=== PATIENT | male | born 1935 | race Caucasian/White ===

== ENCOUNTER 2020-11-28 09:25 | Outpatient (CLI) | payer MEDICARE, SELFPAY ==
--- NOTE | ~2020-11-28 | XR_ITS ---
EXAMINATION: XR chest 2V DATE: 11/28/2020 09:46 INDICATION: 3 months of cough TECHNIQUE: PA and lateral views of the chest were obtained. COMPARISON: Chest radiograph and CT dated 03/13/2018 FINDINGS: Upper expansion of lungs with flattening of the diaphragm consistent with emphysema better appreciate d on prior CT. There is bilateral calcified pleural plaques at the lateral left mid and right mid to lower lung zones. Mild streaky atelectasis in the bilateral dependent lung bases. No pleural effusion or pneumothorax. The cardiomediastinal silhouette is normal. Severe thoracic spondylosis. There is f usion of the lateral left first and second ribs. Couple old bilateral anterior rib fractures. IMPRESSION: 1. Emphysema with mild bibasilar atelectasis. 2. Bilateral calcified pleural plaques consistent with prior asbestos exposure. Reviewed, dictated and finalized at location A.
== END 2020-11-28 09:26 | disposition home or self-care (01) ==
LOC: ANHIMG 09:35
PROVIDERS: PCP Internal Medicine; Visit Provider Internal Medicine
DX: R05 Cough (principal); J43.9 Emphysema, unspecified; R91.8 Other nonspecific abnormal finding of lung field
CPT/HCPCS: 71046

== ENCOUNTER 2020-12-27 06:57 | Observation (INO) | payer MEDICARE, SELFPAY ==
[2020-12-27] VITALS (29 sets, daily range): BP systolic 102–172; BP diastolic 59–108; PULSE 90–212; RESP 13–30; TEMP 34.8–36.9; O2SAT 91–97; BMI 28.2
--- NOTE | ~2020-12-27 | CT_ITS ---
EXAMINATION: CTA chest PE abdomen pel DATE: 12/27/2020 08:15 INDICATION: Chest pain. Dyspnea. TECHNIQUE: Computed tomography (CT) pulmonary angiogram of the chest was performed with 100 mL Omnipa que-350 intravenous contrast. Additional 3D reconstructions utilizing coronal maximum intensity proje ction (MIP) were performed. CT of the abdomen and pelvis was performed with intravenous contrast util izing the same contrast bolus following a short delay. Automated exposure control and iterative recon struction technique were employed. The dose-length product was 801.53 mGy-cm. COMPARISON: 03/13/18 FINDINGS: Chest: Excellent contrast opacification of the pulmonary arteries. There is mild streak artifact from dense contrast in the superior vena cava and right atrium. Mild scattered respiratory motion artifact which does not significantly limit evaluation. No pulmonary embolism. Moderate upper lobe predominant emph ysema. Patchy airspace opacities in the dependent aspect of the bilateral lower lobes concerning for pneumonia. Bronchial wall thickening most prominent in the lower lobes with areas scattered mucous pl ugging. No pulmonary edema or pleural effusion. A few small bilateral calcified pleural plaques consi stent with prior asbestos exposure. Cardiomegaly. Atherosclerotic coronary artery calcification. No p ericardial effusion. Aortic valve calcification. Thoracic aorta is normal in caliber. Small sliding-t ype hiatal hernia. No pathologically enlarged thoracic lymphadenopathy. Severe thoracic spondylosis. Diffuse osteopenia. Abdomen/pelvis: Liver, spleen, pancreas and bilateral adrenal glands are normal. Gallbladder is dilated to 4.9 cm wit h 11 x 5 mm high attenuation likely gallstone at the neck of the gallbladder. No gallbladder wall thi ckening or definitive pericholecystic inflammatory change. Multiple subcentimeter bilateral renal cys ts. Bowels including the appendix are normal. There is calcified atherosclerosis of the aorta and man y of the other arteries. Prominent dilation of the otherwise normal bladder which measures 19.2 x 10. 3 x 13.0 cm. Prostatomegaly measuring 4.7 x 3.7 cm. No free intraperitoneal gas or fluid. Partially v isualized right hydrocele. No pathologically enlarged abdominal or pelvic lymphadenopathy. Mild lumba r levocurvature with severe spondylosis. Anterior fusion at L1-L2. IMPRESSION: 1. No pulmonary embolism. 2. Emphysema. 3. Patchy lung disease in the dependent lower lobes most likely pneumonia with scattered bilateral lo wer lobar mucous plugging. 4. Likely gallstone at the neck of the gallbladder which is dilated but without evident wall thickeni ng or pericholecystic inflammatory change indeterminate for acute cholecystitis. Correlate for Ryan and consider further evaluation with HIDA scan. 5. Prominent dilation of the otherwise normal bladder which could be due to outlet obstruction from t he mildly enlarged prostate. Reviewed, dictated and finalized at location A. IMPRESSION: 1. No pulmonary embolism. 2. Emphysema. 3. Patchy lung disease in the dependent lower lobes most likely pneumonia with scattered bilateral lower lobar mucous plugging. 4. Likely gallstone at the neck of the gallbladder which is dilated but without evident wall thickening or pericholecystic inflammatory change indeterminate f or acute cholecystitis. Correlate for Ryan and consider further evaluation wi th HIDA scan. 5. Prominent dilation of the otherwise normal bladder which could be due to out let obstruction from the mildly enlarged prostate.
--- NOTE | ~2020-12-27 | US_ITS ---
EXAMINATION: US abdomen limited DATE: 12/27/2020 09:31 INDICATION: Right upper quadrant abdominal pain. TECHNIQUE: Multiple grayscale and Doppler ultrasound images of the abdomen were obtained. COMPARISON: CT 12/27/2020 FINDINGS: The pancreas is obscured by bowel gas. The liver is normal without focal lesion. There is n ormal flow in main portal vein. The gallbladder is distended and contains gallstones. No gallbladder wall thickening or sonographic Ryan sign. The common duct is normal and measures 4 mm. Right kidney is normal. IMPRESSION: 1. Distended gallbladder with gallstones, but no gallbladder wall thickening or sonographic Ryan si gn to suggest acute cholecystitis. Reviewed, dictated and finalized at location A. IMPRESSION: 1. Distended gallbladder with gallstones, but no gallbladder wall thickening or sonographic Ryan sign to suggest acute cholecystitis.
--- NOTE | ~2020-12-27 | XR_ITS ---
EXAMINATION: XR barium swallow modified DATE: 12/28/2020 08:57 INDICATION: Dysphagia. TECHNIQUE: The patient was given barium-containing material of multiple consistencies to swallow by t he speech pathologist while I performed fluoroscopy. Fluoroscopy exposure time was 1.5 minutes. The n umber of fluoroscopy images saved to the PACS was 1. Dose-area product was 1.11 Gy-cm^2. FINDINGS: There is no laryngeal penetration or aspiration. IMPRESSION: 1. No laryngeal penetration or aspiration. 2. Please refer to the speech therapy report for recommendations. Reviewed, dictated and finalized at location A.
--- NOTE | 2020-12-27 07:00 | ED.ABDPAIN ---
HPI - Abdominal Pain General Chief Complaint: Abdominal Pain Stated Complaint: ABD PAIN Time Seen by Provider: 12/27/20 06:59 Source: patient Mode of arrival: ambulatory Limitations: no limitations History of Present Illness HPI narrative: Patient is an 85-year-old male with a history of atrial fibrillation, GI bleed, stage IV esophageal adenocarcinoma, following at [facility] who presents for evaluation of chest pain and abdominal pain. Chest pain begins in the right upper abdomen and travels to the lower chest. Pain is described as sharp and constant nature since midnight this morning. Associated nausea without vomiting. No fever or chills. No centralized chest pressure or radiation to the jaw, neck, shoulders. Patient does report radiation to the back. No ripping or tearing sensation to the flanks. No lower abdominal pain or suprapubic pain. No dysuria or hematuria. No diarrhea or constipation. Patient states his abdomen does not feel distended or bloated. Normal bowel movements. No recent food indiscretions. No recent alcohol use. Patient reports cough, reports he feels as if he cannot take a deep breath. No history of coagulopathy. No recent car or air travel. No recent surgery. Patient was not anticoagulated for his atrial fibrillation secondary to his stage IV cancer diagnosis with history of GI bleeding. Patient follows with Dr. Fermin, cardiology. Related Data Home Medications Medication Instructions Recorded Confirmed Incruse Ellipta 1 inh INHALATION DAILY 07/03/19 12/01/20 diltiazem HCl 240 mg PO DAILY 07/03/19 12/01/20 gabapentin 100 mg capsule 100 mg PO .COMPLEX 10/20/20 12/01/20 tramadol 50 mg tablet 50 mg PO Q8H PRN tablet 12/01/20 12/01/20 loratadine [Claritin] mg 12/27/20 Allergies Allergy/AdvReac Type Severity Reaction Status Date / Time cat dander Allergy Unknown Wheezing Verified 12/27/20 07:38 Review of Systems Review of Systems: Narrative: CONSTITUTIONAL: Denies fever, chills, or sweats. EYES: Denies visual changes, redness, or discharge. ENT: Denies rhinorrhea, congestion, sore throat, or otalgia. CARDIOVASCULAR: Reports right-sided chest pain without palpitations or edema RESPIRATORY: Reports coughing and feeling short of breath GASTROINTESTINAL: Reports upper abdominal pain, nausea, denies vomiting or diarrhea GENITOURINARY: Denies dysuria or hematuria. SKIN: Denies rash or itching. MUSCULOSKELETAL: Denies back pain, joint pain, or myalgia. NEUROLOGIC: Denies headache, numbness, or weakness. [facility] Past Medical History Medical History (Updated 12/27/20 @ 11:05 by Fabi Alvarez MD) Afib Anxiety Arthritis Asthma Bacteremia Bowel incontinence Chronic atrial fibrillation Essential (primary) hypertension H/O echocardiogram History of cardioversion Hyperlipidemia Hypertension Lumbar degenerative disc disease Malignant neoplasm of lower third of esophagus Neuropathy of both upper extremities Surgical History Surgical History History of back surgery Family History Family History Sibling Family history of malignant neoplasm of uterus Patient's brother is in good health Mother Cerebrovascular accident Patient's mother is Other Diabetes mellitus Social History Social History Smoking packs per day: 4.5 Smoking cigarettes per day: 90.0 Years smoked: 30 Smoking pack-years: 135.00 Smoking status: Former smoker Tobacco type: cigarettes Second hand tobacco smoke exposure: No Smoking end date: 07/29/72 Alcohol intake: former Gender identity (if verbalized by the patient): Male Exam Narrative: Exam Narrative: GENERAL: Awake, alert, conversant HEAD: Normocephalic, atraumatic. EYES: PERRLA and EOMI. ENT: Nares clear, no rhinorrhea or epistaxis. Muco
[2020-12-27] MEDS: ONDANSETRON INJ 4 MG/2 ML VIAL IV PUSH (07:27)
[2020-12-27] MEDS: SODIUM CHLORIDE 0.9% IV 1,000 ML 999 ML IV CONT (07:27)
[2020-12-27] MEDS: MORPHINE SULFATE (*CRX) 4 MG/ML INJ IV PUSH (07:27)
--- NOTE | 2020-12-27 07:27 | ECG_ITS ---
Measurements Intervals [place] Rate: 97 P: [place]: 0 QRS: -11 QRSD: 101 T: 6 QT: 348 QTc: 444 Interpretive Statements ATRIAL FIBRILLATION FREQUENT VENTRICULAR PREMATURE COMPLEXES INCOMPLETE RIGHT BUNDLE BRANCH BLOCK ANTEROSEPTAL INFARCT, AGE INDETERMINATE BORDERLINE T WAVE ABNORMALITY- INFERIOR LEADS ABNORMAL ECG Electronically Signed On 12-27-2020 8:23:31 CDT by Gallito Bowen D.O.
[2020-12-27 07:40] LABS: Basophils Percent Auto 0.4 % (0.2-1.2); Eosinophils Absolute Auto 0.1 K/mm3 (0-0.3); Eosinophils Percent Auto 0.7 % (0-4.4); Hematocrit 43.9 % (42.0-52.0); Hemoglobin 14.3 g/dL (14.0-18.0); Immature Granulocyte Absolute 0.03 K/mm3 (0.00-0.031); Immature Granulocyte Percent A 0.3 % (0-0.5); Lymphocytes Absolute Auto 0.68 K/mm3 (0.9-3.2); Lymphocytes Percent Auto 6.2 % (18.3-44.2); Mean Corpuscular HGB Conc 32.6 g/dl (32-36); Mean Corpuscular Hemoglobin 28.5 pg (26-34); Mean Corpuscular Volume 87.5 fl (80-100); Mean Platelet Volume 9.8 fl (7.4-10.4); Monocytes Absolute Auto 0.7 K/mm3 (0.1-0.6); Neutrophils Absolute Auto 9.5 K/mm3 (1.3-6.7); Neutrophils Percent Auto 86.4 % (45.5-73.1); Platelet Count Result 174 k/mm3 (150-375); Red Blood Count 5.02 M/mm3 (4.6-6.20); Red Cell Distribution Width 13.2 % (11.5-14.5)
[2020-12-27 07:50] LABS: Alanine Aminotransferase 34 U/L (4-50); Albumin Level 4.3 g/dL (3.5-5.1); Alkaline Phosphatase 358 U/L (38-126); Anion Gap 11 mmol/L (8-16); Aspartate Amino Transferase 45 U/L (17-59); Bilirubin,Total 0.4 mg/dL (0.2-1.3); Blood Urea Nitrogen 14 mg/dL (9-20); Calcium 9.9 mg/dL (8.4-10.2); Carbon Dioxide 25 mmol/L (22-30); Chloride 103 mmol/L (98-107); Estimated CRCL calculation 46 ml/min; Estimated Glomerular Filt Rate > 60; Glucose 146 mg/dL (75-110); Lipase 68 U/L (23-300); Potassium 4.1 mmol/L (3.4-5.0); Sodium 139 mmol/L (137-145)
[2020-12-27 07:52] LABS: Prothrombin Time 13.7 Seconds (11.1-14.7)
[2020-12-27 08:05] LABS: Troponin I < 0.012 ng/mL (0.000-0.034)
[2020-12-27 08:35] LABS: Add Urine Microscopic? YES; Appearance Urine Clear (Clear); Bilirubin Urine Negative (Negative); Blood Urine Negative (Negative); Color Urine Straw (Yellow); Glucose Urine UA 1+ mg/dL (Negative); Ketones Urine Negative (Negative); Leukocyte Esterase Ur Negative LEU/UL (Negative); Mucus Urine Rare /lpf; Nitrate Urine Negative (Negative); Protein Urine 1+ mg/dL (Negative); RBC Urine 0-2 /hpf (0-2); Specific Grav Ur 1.011 (1.001-1.035); Urobilinogen Urine Negative mg/dL (<2.0)
[2020-12-27] MEDS: HYDROmorphone HCL INJ (*CRX) 1 MG/ML SYR 0.5 MG IV PUSH (08:43)
--- NOTE | 2020-12-27 13:30 | PM.IMHP ---
H&P: HPI History of Present Illness Date/Time: 12/27/20 13:30 Chief Complaint: Low chest/abdominal pain. Narrative: This is an 85-year-old male with esophageal cancer status post chemoradiation, coronary artery disease, atrial fibrillation not on long-term anticoagulation due to history of GI bleed, and hypertension who presented to the emergency department earlier today from home with complaints of lower chest/upper abdominal pain. Last night he celebrated his birthday and had dinner consisting of fried chicken and sides. Last evening at around 23:00 he developed some discomfort in his low chest/upper abdominal region that he has a difficult time describing, at times stating it is aching but occasionally sharp in nature. The discomfort lasted throughout the night and his slept poorly because of this. Right around the same time as the discomfort started, he began coughing and reportedly coughed up quite a bit of mucus overnight. He also reports wheezing associated with the cough. In the emergency department today CT of the chest, abdomen, and pelvis showed patchy lung disease in the lower lobes, felt to be pneumonia and a likely gallstone at the neck of the gallbladder. Right upper quadrant ultrasound showed a dilated gallbladder with gallstones but no wall thickening or pericholecystic fluid. In the setting he is being admitted to the hospital for IV antibiotics and consultation with surgery. He has not had any nausea and vomiting and denies concerns for aspiration with the coughing last night. Prior to last evening he has not had a cough or any cold or flu-like symptoms. 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 At the time my evaluation he is just ambulated back from the bathroom and reports feeling pretty good. He denies fever, chills, sweats, sinus congestion, rhinorrhea, otalgia, odynophagia, surgeon all chest pain, pleuritic pain, shortness of breath, concerns for aspiration, vomiting, diarrhea, and dysuria. No abdominal bloating, epigastric pain, or significant indigestion symptoms. Review of Systems Review of Systems: Narrative: Twelve systems were reviewed with pertinent positives and negatives as per HPI. Weight has remained stable. He previously had issues with dysphagia after radiation but not for quite some time. He denies concerns for aspiration. No urinary symptoms. Except as documented, all other systems were reviewed and are negative. 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 Bowel incontinence Chronic atrial fibrillation History of cardioversion. Not currently on anticoagulation. Coronary artery disease Cardiac catheterization on 07/06/2019 showed significantly calcified coronary arteries with 100% occlusion of the diagonal branch of the LAD as well as apical terminal portion of the LAD itself with preserved left ventricular systolic function. No angiographic opportunities for revascularization. Esophageal cancer Metastatic esophageal adenocarcinoma diagnosed in March 2016. Status post chemoradiation. Followed by Dr. Rosenbaum at [facility]. 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 Residual numbness from the left buttock to toes. 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 History of colonoscopy with polypectomy Family History Family History Sibling Patient's brother is in good h
[2020-12-27 14:55] LABS: Troponin I < 0.012 ng/mL (0.000-0.034)
[2020-12-27] MEDS: SODIUM CHLORIDE 0.9% IV 1,000 ML 75 ML IV CONT (15:13)
--- NOTE | 2020-12-27 15:44 | PM.CNGS ---
Assessment and Plan Assessment and plan (1) Cholelithiasis: Code(s): K80.20 - Calculus of gallbladder without cholecystitis without obstruction Status: Acute Assessment and Plan: CTA chest/abdomen/pelvis showed a possible gallstone at the neck of the gallbladder with gallbladder distention, but no inflammation. Ultrasound showed gallstones with distention, but no pericholecystic fluid, wall thickening, or +Ryan's sign. He could have had biliary colic or symptoms related to the cholelithiasis on admission. His abdominal pain is improving and he is only mildly tender on exam in the right upper quadrant. This seems less likely to be acute calculous cholecystitis. We would recommend that the patient be treated for his pulmonary issues and we continue to monitor him closely. Okay from a surgical standpoint to allow clear liquids. He could eventually be advanced to a low fat diet, which we would recommend to continue after discharge. The IV Zosyn would provide coverage for the gallbladder, which he is currently on. If he is able to tolerate a diet and his pain improves, then he may not require any surgical intervention. Repeat labs tomorrow and follow clinically. Thank you for allowing us to see the patient in consultation and we will continue to follow along with you. (2) Pneumonia: Qualifiers: Laterality: bilateral Lung location: lower lobe of lung Pneumonia type: due to unspecified organism Qualified Code(s): J18.9 - Pneumonia, unspecified organism Code(s): J18.9 - Pneumonia, unspecified organism Status: Acute Assessment and Plan: CTA showed no PE, but suggests pneumonia. COVID test pending. Continue IV antibiotics and supportive care. Management per Hospitalist. (3) Chronic atrial fibrillation: Code(s): I48.20 - Chronic atrial fibrillation, unspecified Status: Acute Assessment and Plan: No longer on chronic anticoagulation due to history of GI bleeding. Rate controlled on my exam. Okay to resume medications. Management per Hospitalist. (4) Hypertension: Code(s): I10 - Essential (primary) hypertension Status: Acute (5) Malignant neoplasm of lower third of esophagus: Code(s): C15.5 - Malignant neoplasm of lower third of esophagus Status: Acute Additional Plan I have discussed the patient's case and plan of care with Dr. Loaiza. History of Present Illness Consult details Consult date: 12/27/20 Reason for consult: gallstones (with possible acute cholecystitis) Requesting physician: Fabi Alvarez MD Narrative: This is an 85-year-old male with a history of stage IV esophageal cancer reportedly in remission, atrial fibrillation not on chronic anticoagulation, history of GI bleed, and hypertension. He was reportedly diagnosed with esophageal cancer 5 years ago and has been treated at [facility] with chemoradiation therapy. He reports he has been in remission. He states that last night for dinner, he ate a small amount of fried chicken and other small foods when celebrating his birthday. Around 11:00 pm last night, he began coughing up mucous and having upper abdominal pain. He states that through the night he was coughing frequently and continued to have lots of mucous that he was coughing up. This seems to be his primary complaint. With further questioning, he does report the abdominal discomfort continued through the night as well and he was unable to sleep. The patient also states he has noticed some wheezing and an intermittent cough just recently, but nothing that he was concerned about. He then presented to the ER for further evaluation because of his coughing and breathing. CTA of the chest, abdomen, and pelvis showed no pulmonary embolism, emphysema, patchy lung disease in the lower lobes most likely pneumonia, and likely a gallstone at the neck of the gallbladder which is dilated but without evidence of wall thickening or pericholecystic inflammatory elva
[2020-12-27 17:05] LABS: Troponin I < 0.012 ng/mL (0.000-0.034)
--- NOTE | 2020-12-27 17:47 | ECG_ITS ---
Measurements Intervals [place] Rate: 108 P: [place]: 0 QRS: -5 QRSD: 95 T: -30 QT: 309 QTc: 415 Interpretive Statements ATRIAL FIBRILLATION WITH RAPID VENTRICULAR RESPONSE VENTRICULAR COUPLET AND VENTRICULAR PREMATURE COMPLEX LOW QRS VOLTAGE IN LIMB LEADS INCOMPLETE RIGHT BUNDLE BRANCH BLOCK CANNOT RULE OUT SEPTAL INFARCT, AGE INDETERMINATE BASELINE ARTIFACT- I, II, III, AVR, AVL, AVF, V1-V6 ABNORMAL ECG Electronically Signed On 12-27-2020 19:24:44 CDT by Gallito Bowen D.O.
[2020-12-27] MEDS: METOPROLOL TARTRATE INJ 5 MG/5 ML VIAL IV PUSH (18:13)
[2020-12-27 18:14] LABS: SARS-CoV-2 RNA PCR Negative
[2020-12-27] MEDS: dilTIAZem HCL 30 MG TABLET PO (20:45)
[2020-12-27] MEDS: guaiFENesin 12 HR 600 MG TABCR PO (20:45)
[2020-12-27] MEDS: GABAPENTIN 300 MG CAPSULE 900 MG PO (20:45)
[2020-12-28] VITALS (10 sets, daily range): BP systolic 104–152; BP diastolic 54–86; PULSE 79–115; RESP 16–20; TEMP 36.6–36.9; O2SAT 92–95; BMI 25.8
[2020-12-28 06:05] LABS: Hematocrit 42.5 % (42.0-52.0); Mean Corpuscular HGB Conc 32.9 g/dl (32-36); Mean Corpuscular Hemoglobin 28.2 pg (26-34); Mean Corpuscular Volume 85.7 fl (80-100); Mean Platelet Volume 9.7 fl (7.4-10.4); Platelet Count Result 166 k/mm3 (150-375); Red Blood Count 4.96 M/mm3 (4.6-6.20); Red Cell Distribution Width 13.1 % (11.5-14.5); White Blood Count 16.3 K/mm3 (4.5-10.0)
[2020-12-28 06:18] LABS: Alanine Aminotransferase 27 U/L (4-50); Albumin Level 3.7 g/dL (3.5-5.1); Alkaline Phosphatase 265 U/L (38-126); Anion Gap 9 mmol/L (8-16); Aspartate Amino Transferase 36 U/L (17-59); Bilirubin,Total 1.1 mg/dL (0.2-1.3); Blood Urea Nitrogen 14 mg/dL (9-20); Carbon Dioxide 25 mmol/L (22-30); Chloride 103 mmol/L (98-107); Estimated CRCL calculation 42 ml/min; Estimated Glomerular Filt Rate > 60; Glucose 114 mg/dL (75-110); Magnesium 1.7 mg/dL (1.6-2.3); Potassium 4.2 mmol/L (3.4-5.0); Sodium 137 mmol/L (137-145)
[2020-12-28] MEDS: LORATADINE 10 MG TABLET PO (08:07)
[2020-12-28] MEDS: GABAPENTIN 300 MG CAPSULE PO ×2 (08:07→15:00)
[2020-12-28] MEDS: guaiFENesin 12 HR 600 MG TABCR PO ×2 (08:07→20:48)
[2020-12-28] MEDS: UMECLIDINIUM BROMIDE 62.5 MCG ELLIPTA 1 PUFF INHALATION (08:08)
--- NOTE | 2020-12-28 09:09 | PCSTNOTE ---
Please refer to the Modified Barium Swallow Evaluation in the EMR.
[2020-12-28] MEDS: MAGNESIUM SULF 2 GM/WATER 50ML 2 GM/50 ML BAG IVPB (14:59)
--- NOTE | 2020-12-28 15:49 | PM.IMPN ---
Progress Note: A&P Assessment and Plan (1) Pneumonia: Qualifiers: Laterality: bilateral Lung location: lower lobe of lung Pneumonia type: due to unspecified organism Qualified Code(s): J18.9 - Pneumonia, unspecified organism Code(s): J18.9 - Pneumonia, unspecified organism Status: Acute Assessment and Plan: Suspect possible aspiration pneumonia based on history. COVID-19 negative by PCR. Continue IV Zosyn, albuterol PRN. Passed his modified barium swallow without signs or symptoms of aspiration. No respiratory distress today. (2) Cholelithiasis: Code(s): K80.20 - Calculus of gallbladder without cholecystitis without obstruction Status: Acute Assessment and Plan: CT demonstrated a possible gallstone at the neck of the gallbladder with gallbladder distention without inflammation. Without evidence to suggest acute cholecystitis at this time. Appreciate general surgery recommendations -noted plans to advance diet as tolerated to low-fat diet. (3) Hypertension: Code(s): I10 - Essential (primary) hypertension Status: Acute Assessment and Plan: Blood pressures reviewed. Elevated yesterday, improved today resuming his home medications. Continue his home diltiazem. (4) Chronic atrial fibrillation: Code(s): I48.20 - Chronic atrial fibrillation, unspecified Status: Acute Assessment and Plan: Decent rate control was some intermittent tachycardia in the low 100s. Continue diltiazem. Not on anticoagulation due to history of GI bleed. (5) Coronary artery disease: Code(s): I25.10 - Atherosclerotic heart disease of ruby coronary artery without angina pectoris Status: Acute Assessment and Plan: Cardiac catheterization in 2019 showed significant calcified arteries unable to be revascularized. Stable, no chest pain. Subjective Date/time seen: 12/28/20 15:15 Interval history: Mr. Cohen is a very pleasant 85yo M admitted for pneumonia and cholelithiasis after presenting with upper abdominal pain. He tells me he is feeling well and he is hoping to go home tomorrow. He tells me his abdominal pain is improved and he has tolerated a few meals without nausea or vomiting. He denies chest pain or shortness of breath. Reports a productive cough with white phlegm. Appears a bit forgetful but is able to answer most questions appropriately. Review of Systems Review of Systems: All systems reviewed & are unremarkable except as noted in HPI and below Exam Narrative: Exam Narrative: General: Male resting comfortably supine in bed in no acute distress. Appears younger than stated age. HEENT: Normocephalic, EOMI, oral mucosa moist. Cardiovascular: Rate is normal, rhythm irregular. Telemetry review shows AFib with some intermittent tachycardia, HR 93bpm at time of my encounter. Respiratory: Diffuse expiratory wheezing bilaterally. Respirations even and nonlabored, speaking in full sentences. Tolerating room air. Abdomen: Soft, some bilateral upper abdominal tenderness to palpation without guarding, non-distended, bowel sounds present. Extremities: Peripheral pulses intact. No edema or pain to palpation. Neuro: Awake and alert; answering most questions appropriately but he does seem a bit forgetful. No focal neurological deficits. Speech is clear. Objective Data Vital Signs Vital Signs: Last Vital Signs Temp 98.3 F 12/28/20 14:00 Pulse 85 12/28/20 14:00 Resp 20 12/28/20 14:00 BP 106/54 L 12/28/20 14:00 Pulse Ox 95 12/28/20 14:00 Intake/Output Intake/Output: Intake & Output 12/25/20 12/26/20 12/27/20 12/28/20 23:59 23:59 23:59 23:59 Intake Total 1230 1890 Output Total 650 200 Balance 580
--- NOTE | 2020-12-28 16:08 | PM.PNGS ---
Progress Note: A&P Assessment and Plan (1) Cholelithiasis: Code(s): K80.20 - Calculus of gallbladder without cholecystitis without obstruction Status: Acute Assessment and Plan: CTA chest/abdomen/pelvis showed a possible gallstone at the neck of the gallbladder with gallbladder distention, but no inflammation. Ultrasound showed gallstones with distention, but no pericholecystic fluid, wall thickening, or +Ryan's sign. No longer having any abdominal pain and his abdominal exam is benign. Tolerating a low-fat diet. Okay from a surgical standpoint to discharge the patient when okay with Medicine. Only follow-up as needed if any further symptoms associated with the cholelithiasis. Would recommend following a low-fat diet after discharge. (2) Pneumonia: Qualifiers: Laterality: bilateral Lung location: lower lobe of lung Pneumonia type: due to unspecified organism Qualified Code(s): J18.9 - Pneumonia, unspecified organism Code(s): J18.9 - Pneumonia, unspecified organism Status: Acute Assessment and Plan: CTA showed no PE, but suggests pneumonia. COVID test negative. Continue management per Hospitalist. (3) Chronic atrial fibrillation: Code(s): I48.20 - Chronic atrial fibrillation, unspecified Status: Acute Assessment and Plan: No longer on chronic anticoagulation due to history of GI bleeding. Management per Hospitalist. (4) Hypertension: Code(s): I10 - Essential (primary) hypertension Status: Acute (5) Malignant neoplasm of lower third of esophagus: Code(s): C15.5 - Malignant neoplasm of lower third of esophagus Status: Deleted Additional Plan I have discussed the patient's case and plan of care with Dr. Loaiza. Subjective Subjective Date/Time Seen: 12/28/20 16:08 Patient reports: no new complaints, feels better, pain is less, tolerating a regular diet, flatus and afebrile Interval history: Patient seen this afternoon and is doing well. He reports feeling much better today. No longer having any abdominal pain. Denies any nausea, vomiting or bloating. Tolerating a low-fat diet. Review of Systems Review of Systems: All systems reviewed & are unremarkable except as noted in HPI and below Respiratory: Respiratory: Reports no additional respiratory complaints, Reports cough and Denies dyspnea Exam Const: General: comfortable and no acute distress Orientation/consciousness: patient oriented x3 GI: Inspection: non-distended GI Palp: Yes Soft to palpation, No Tenderness to palpation present (GI), No Guarding due to palpation present (GI) and No Rebound tenderness present Auscultation: normal bowel sounds Neuro: General: moves all extremities and no focal motor deficits Extrem: General: normal to inspection and no clubbing, cyanosis or edema Psych: Mental Status: mental status grossly normal Insight: Good insight present (Psych) Judgement: Good judgement present (Psych) Objective Data Vital Signs Vital Signs: Vital Signs - 24 hr 12/27/20 18:13 12/27/20 19:18 12/27/20 20:00 Temperature Pulse Rate 212 H 110 H 113 H Respiratory Rate 16 Blood Pressure 102/59 L Pulse Oximetry 96 12/27/20 22:00 12/28/20 00:00 12/28/20 04:00 Temperature 98.4 F Pulse Rate 98 100 101 H Respiratory Rate 18 Blood Pressure 113/63 Pulse Oximetry 93 12/28/20 06:00 12/28/20 08:00 12/28/20 09:23 Temperature 98.4 F Pulse Rate 99 115 H Respiratory Rate 16 Blood Pressure 152/86 H Pulse Oximetry 92 93 93 12/28/20 12:00 12/28/20 14:00 Temperature 98.3 F Pulse Rate 93 85 Respiratory Rate 20 Blood Pressure 106/54 L Pulse Oximetry 95 Intake/Output Intake/Output: Intake & Output 12/25/20 12/26/20 12/27/20 12/28/20 23:59 23:59 23:59 23:59 Intake Total 1230 1890 Output Total 650 200 Balance 580 1920 Meds/Results Medications: Active Medications Generic Name Dose Route Start Last Admin
[2020-12-28] MEDS: GABAPENTIN 300 MG CAPSULE 900 MG PO (20:48)
[2020-12-28] MEDS: LORazepam (*CRX) 0.5 MG TABLET PO (20:48)
[2020-12-29] VITALS: PULSE 94
[2020-12-29 04:00] VITALS: PULSE 93
[2020-12-29 06:00] VITALS: BP 106/55; PULSE 76; RESP 18; TEMP 36.4; O2SAT 93
[2020-12-29 08:45] VITALS: PULSE 80
[2020-12-29] MEDS: GABAPENTIN 300 MG CAPSULE PO ×2 (09:29→11:33)
[2020-12-29] MEDS: LORATADINE 10 MG TABLET PO (09:30)
[2020-12-29] MEDS: UMECLIDINIUM BROMIDE 62.5 MCG ELLIPTA 1 PUFF INHALATION (09:30)
[2020-12-29] MEDS: guaiFENesin 12 HR 600 MG TABCR PO (09:30)
--- NOTE | 2020-12-29 09:46 | PM.PNGS ---
Progress Note: A&P Assessment and Plan (1) Cholelithiasis: Onset Date: ~12/27/20 Code(s): K80.20 - Calculus of gallbladder without cholecystitis without obstruction Status: Acute Assessment and Plan: Patient has known cholelithiasis but no symptoms. He denies ever really having a gallbladder attack that he knows of. Today he is otherwise feeling well. Having no trouble swallowing. From surgical point of view he could go home. Because of this we will sign off. Please call if we can be of further assistance. 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 He follows with physicians in [place] regarding this. No current problems. He passed a swallow test during this admission. Patient will go home on a low-fat diet. He has never had a gallbladder attack so he knows he can pre much eat whatever he feels comfortable eating for right now but if he begins having episodes of pain after fatty meals he should cut back on the fat. Because of this stage IV cancer IA to limit him at all with his diet is long as he is not having problems. Additional Plan Surgery team will sign off please call if we can be of further assistance. Time Spent With Patient Time with patient: less than 15 minutes Subjective Subjective Date/Time Seen: 12/29/20 09:46 Interval history: Patient denies abdominal pain today. He tolerated a low-fat diet this morning. Nurse reports no apparent swallowing problems. Review of Systems Constitutional: Constitutional: Reports no additional constitutional complaints ENT: Reports other (Mucous Membranes moist.) Cardiovascular: Cardiovascular: Denies dyspnea Respiratory: Respiratory: Denies pain on inspiration and Denies dyspnea Gastrointestinal: Gastrointestinal: Denies abdominal pain, Denies dyspepsia, Denies heartburn, Denies diarrhea and Denies nausea Musculoskeletal: Musculoskeletal: Reports other (No calf swelling or edema) Integumentary/Breasts: Skin/Breast: Reports system reviewed and no additional complaints, except as docu Exam Const: General: cooperative, no acute distress, alert and awake Orientation/consciousness: patient oriented x3 HENMT: Mouth: Yes moist mucous membranes Neck: Neck: normal visual inspection Chest: Chest palpation & inspection: normal inspection of the chest Resp: Effort & Inspection: normal respiratory effort Auscultation: clear to auscultation bilaterally Cardio: Jugular venous distension: no JVD Rate: regular rate Rhythm: regular rhythm GI: Inspection: normal to inspection GI Palp: No abdominal tenderness, No Tenderness to palpation present (GI) and No Guarding due to palpation present (GI) Auscultation: normal bowel sounds Rectal Exam: deferred Neuro: General: patient oriented x3 and moves all extremities Speech: normal speech Extrem: General: normal exam except as noted Psych: Mental Status: mental status grossly normal Speech and movement: Normal speech and movement present Affect: normal affect Thought content: Yes Normal thought content present Objective Data Vital Signs Vital Signs: Vital Signs - 24 hr 12/28/20 12:00 12/28/20 14:00 12/28/20 16:00 Temperature 36.8 C Pulse Rate 93 85 79 Respiratory Rate 20 Blood Pressure 106/54 L Pulse Oximetry 95 12/28/20 20:00 12/28/20 21:51 12/29/20 00:00 Temperature 36.6 C Pulse Rate 92 94 94 Respiratory Rate 18 Blood Pressure 104/61 Pulse Oximetry 93 12/29/20 04:00 12/29/20 06:00 Temperature 36.4 C L Pulse Rate 93 76 Respiratory Rate 18 Blood Pressure 106/55 L Pulse Oximetry 93 Intake/Output Intake/Output: Intake & Output 12/26/20
[2020-12-29 12:00] VITALS: PULSE 100
--- NOTE | 2020-12-29 13:26 | PM.DS ---
DS: Admitting Diagnosis Admitting Diagnosis Admitting Diagnosis: pneumonia, gallbladder distension DS: Discharge Diagnosis Discharge Diagnosis (1) Pneumonia: Qualifiers: Laterality: bilateral Lung location: lower lobe of lung Pneumonia type: due to unspecified organism Qualified Code(s): J18.9 - Pneumonia, unspecified organism Code(s): J18.9 - Pneumonia, unspecified organism Status: Acute Assessment and Plan: Date of Admission 12/27/20 Date of Discharge 12/29/20 Mr. Cohen is an 85yo M with history of hypertension, chronic atrial fibrillation, coronary artery disease presented to the ED for evaluation of abdominal pain with associated nausea. CT demonstrated a possible gallstone at the neck gallbladder with gallbladder distention without inflammation. Right upper quadrant ultrasound also demonstrated no evidence to suggest acute cholecystitis. General surgery was consulted and he was evaluated by Dr. Loaiza. He was treated with conservative measures including bowel rest, IV hydration. His diet was gradually advanced to a low-fat diet which he tolerated well. He had no further abdominal pain, nausea, or vomiting and his symptoms were resolved. Imaging also demonstrated patchy lung disease in the dependent lower lobes most likely pneumonia. He was treated empirically with IV Zosyn for coverage pneumonia with possible aspiration which would also cover the gallbladder. He passed modified barium swallow without signs or symptoms of aspiration. He denies any shortness of breath and has a mild productive cough. He was treated with 2 days of IV Zosyn and will be discharged with a script for Augmentin to complete the course. He is hemodynamically stable for discharge on 12/29/2020. Does not need to follow-up with general surgery unless he has further issues with abdominal pain. Recommend a low-fat diet. Follow-up with primary care in 1 week. Suspect possible aspiration pneumonia based on history. COVID-19 negative by PCR. Treated with 2 days of IV Zosyn, discharged with oral Augmentin, albuterol PRN. Passed his modified barium swallow without signs or symptoms of aspiration. No respiratory distress today, tolerating room air. (2) Cholelithiasis: Onset Date: ~12/27/20 Code(s): K80.20 - Calculus of gallbladder without cholecystitis without obstruction Status: Acute Assessment and Plan: CT demonstrated a possible gallstone at the neck of the gallbladder with gallbladder distention without inflammation. Without evidence to suggest acute cholecystitis at this time. Advance diet to low-fat diet which he is tolerating without issues. Follow-up with general surgery on an as-needed basis if further gallbladder issues. (3) Hypertension: Code(s): I10 - Essential (primary) hypertension Status: Acute Assessment and Plan: Blood pressures were elevated on arrival prior to resuming his home medications, improved. Continue home medications. (4) Chronic atrial fibrillation: Code(s): I48.20 - Chronic atrial fibrillation, unspecified Status: Acute Assessment and Plan: Continue diltiazem. Not on anticoagulation due to history of GI bleed. (5) Coronary artery disease: Code(s): I25.10 - Atherosclerotic heart disease of [place] coronary artery without angina pectoris Status: Acute Assessment and Plan: Cardiac catheterization in 2019 showed significant calcified arteries unable to be revascularized. Stable, no chest pain. DS: Summary Hospital Course Hospital Course: See above. Time Spent with Patient Time attestation: Total time spent providing and/or coordinating discharge services: 35
[2020-12-29 14:00] VITALS: BP 99/57; PULSE 59; RESP 16; TEMP 36.9; O2SAT 96
[2020-12-30 17:01] LABS: Pneumococcal Antigen Urine Not Detected (Not Detected)
[2020-12-31 03:44] LABS: Legionella pneumophila Ag Ur Not Detected (Not Detected)
== END 2020-12-29 14:50 | disposition home or self-care (01) ==
LOC: ANHED 11:05 → ANH3MEDSUR 11:07
PROVIDERS: Physician Assistant; Admitting Provider Internal Medicine; Emergency Provider Emergency Medicine; PCP Internal Medicine; Visit Provider Family Medicine
DX: K80.20 Calculus of gallbladder without cholecystitis without obstruction (principal); J18.9 Pneumonia, unspecified organism; C15.9 Malignant neoplasm of esophagus, unspecified; E78.5 Hyperlipidemia, unspecified; I25.10 Atherosclerotic heart disease of native coronary artery without angina pectoris; I10 Essential (primary) hypertension; I48.20 Chronic atrial fibrillation, unspecified; Z20.822 Contact with and (suspected) exposure to COVID-19; Z87.891 Personal history of nicotine dependence
CPT/HCPCS: 36415; 71275; 74177; 76705; 80053; 81001; 83690; 83735; 84443; 84484; 85025; 85027; 85610; 87070; 87205; 87449; 87899; 92611; 93005; 94667; 96361; 96365; 96366; 96375; 99285; A9270; C9803; G0378; J1170; J2270; J2405; J2543; J3475; J7030; Q9967; U0003; U0005

== ENCOUNTER 2021-01-05 08:58 | Outpatient (CLI) | payer MEDICARE, SELFPAY ==
[2021-01-05 09:12] LABS: Basophils Percent Auto 0.5 % (0.2-1.2); Eosinophils Absolute Auto 0.7 K/mm3 (0-0.3); Eosinophils Percent Auto 8.1 % (0-4.4); Hematocrit 40.1 % (42.0-52.0); Hemoglobin 12.4 g/dL (14.0-18.0); Immature Granulocyte Absolute 0.06 K/mm3 (0.00-0.031); Immature Granulocyte Percent A 0.7 % (0-0.5); Lymphocytes Absolute Auto 0.88 K/mm3 (0.9-3.2); Lymphocytes Percent Auto 10.5 % (18.3-44.2); Mean Corpuscular HGB Conc 30.9 g/dl (32-36); Mean Corpuscular Volume 90.5 fl (80-100); Mean Platelet Volume 9.9 fl (7.4-10.4); Monocytes Absolute Auto 0.6 K/mm3 (0.1-0.6); Monocytes Percent Auto 6.8 % (2.6-8.5); Neutrophils Absolute Auto 6.1 K/mm3 (1.3-6.7); Neutrophils Percent Auto 73.4 % (45.5-73.1); Platelet Count Result 237 k/mm3 (150-375); Red Blood Count 4.43 M/mm3 (4.6-6.20); Red Cell Distribution Width 13.1 % (11.5-14.5); White Blood Count 8.4 K/mm3 (4.5-10.0)
== END 2021-01-05 08:59 | disposition home or self-care (01) ==
PROVIDERS: PCP Internal Medicine; Visit Provider Physician Assistant
DX: D72.829 Elevated white blood cell count, unspecified (principal)
CPT/HCPCS: 36415; 85025

== ENCOUNTER 2021-01-12 09:20 | Outpatient (CLI) | payer MEDICARE, SELFPAY ==
--- NOTE | ~2021-01-12 | XR_ITS ---
EXAMINATION: XR chest 2V DATE: 01/12/2021 09:40 INDICATION: Pneumonia TECHNIQUE: PA and lateral views of the chest were obtained. COMPARISON: Chest radiograph dated 12/25/[address] dated 12/27/2020 FINDINGS: Hyperexpansion of lungs and flattening of the diaphragm consistent with emphysema better appreciated on prior CT. Bilateral calcified pleural plaques projecting between the left fifth sixth ribs and bet ween the right anterior 6 and seventh ribs. No airspace opacities, pulmonary edema, pleural effusion or pneumothorax. The cardiomediastinal silhouette is normal. Severe thoracic spondylosis. Old anterio r right seventh rib fracture. IMPRESSION: 1. Emphysema and bilateral calcified pleural plaques suggesting chronic asbestos exposure. 2. No pneumonia or other acute cardiopulmonary disease. Reviewed, dictated and finalized at location A. IMPRESSION: 1. Emphysema and bilateral calcified pleural plaques suggesting chronic asbesto s exposure. 2. No pneumonia or other acute cardiopulmonary disease.
== END 2021-01-12 09:21 | disposition home or self-care (01) ==
LOC: ANHIMG 09:28
PROVIDERS: PCP Internal Medicine; Visit Provider Internal Medicine
DX: J18.9 Pneumonia, unspecified organism (principal)
CPT/HCPCS: 71046

== ENCOUNTER 2021-02-21 07:07 | Outpatient (CLI) | payer MEDICARE, SELFPAY ==
[2021-02-21 07:52] LABS: Basophils Percent Auto 0.3 % (0.2-1.2); Eosinophils Absolute Auto 0.6 K/mm3 (0-0.3); Eosinophils Percent Auto 11.1 % (0-4.4); Hematocrit 44.5 % (42.0-52.0); Immature Granulocyte Absolute 0.02 K/mm3 (0.00-0.031); Immature Granulocyte Percent A 0.3 % (0-0.5); Lymphocytes Absolute Auto 0.81 K/mm3 (0.9-3.2); Mean Corpuscular HGB Conc 31.5 g/dl (32-36); Mean Corpuscular Hemoglobin 27.9 pg (26-34); Mean Corpuscular Volume 88.6 fl (80-100); Mean Platelet Volume 9.9 fl (7.4-10.4); Monocytes Absolute Auto 0.6 K/mm3 (0.1-0.6); Monocytes Percent Auto 10.2 % (2.6-8.5); Neutrophils Absolute Auto 3.7 K/mm3 (1.3-6.7); Neutrophils Percent Auto 64.1 % (45.5-73.1); Platelet Count Result 151 k/mm3 (150-375); Red Blood Count 5.02 M/mm3 (4.6-6.20); Red Cell Distribution Width 13.9 % (11.5-14.5); White Blood Count 5.8 K/mm3 (4.5-10.0)
[2021-02-21 08:02] LABS: Alanine Aminotransferase 51 U/L (4-50); Alkaline Phosphatase 248 U/L (38-126); Anion Gap 7 mmol/L (8-16); Aspartate Amino Transferase 50 U/L (17-59); Bilirubin,Total 0.7 mg/dL (0.2-1.3); Blood Urea Nitrogen 13 mg/dL (9-20); Calcium 9.3 mg/dL (8.4-10.2); Carbon Dioxide 26 mmol/L (22-30); Chloride 106 mmol/L (98-107); Cholesterol 203 mg/dL (0-200); Estimated Glomerular Filt Rate > 60; Glucose 100 mg/dL (65-110); HDL Direct 53 mg/dL; Potassium 4.4 mmol/L (3.4-5.0); Sodium 139 mmol/L (137-145); Triglycerides 94 mg/dL (<150)
[2021-02-21 08:13] LABS: LDL Cholesterol Direct 116 mg/dL
== END 2021-02-21 07:08 | disposition home or self-care (01) ==
PROVIDERS: PCP Internal Medicine; Visit Provider Internal Medicine
DX: E78.5 Hyperlipidemia, unspecified (principal); C15.4 Malignant neoplasm of middle third of esophagus
CPT/HCPCS: 36415; 80053; 80061; 85025

== ENCOUNTER → 2021-03-17 03:27 | Outpatient (CLI) | payer MEDICARE, SELFPAY ==
[2021-03-18 06:40] LABS: SARS-CoV-2 RNA PCR Negative
== END ==
PROVIDERS: PCP Internal Medicine; Visit Provider Internal Medicine
DX: R68.89 Other general symptoms and signs (principal); Z20.822 Contact with and (suspected) exposure to COVID-19
CPT/HCPCS: C9803; U0003; U0005

== ENCOUNTER 2021-03-27 11:28 | Outpatient (CLI) | payer MEDICARE, SELFPAY ==
--- NOTE | ~2021-03-27 | XR_ITS ---
EXAMINATION: XR chest 2V DATE: 03/27/2021 11:43 INDICATION: Cough. TECHNIQUE: Frontal and lateral views of the chest were obtained. COMPARISON: Chest 2 views 01/12/2021, chest CT 12/27/2020 FINDINGS: The lungs are hyperexpanded, consistent with emphysema. There are calcified pleural plaques bilaterally, which may be seen with asbestosis exposure. No pleural effusion or pneumothorax. Cardio megaly is noted. IMPRESSION: 1. Emphysema. 2. Cardiomegaly. Reviewed, dictated and finalized at location A.
== END 2021-03-27 11:29 | disposition home or self-care (01) ==
LOC: ANHIMG 11:31
PROVIDERS: PCP Internal Medicine; Visit Provider Internal Medicine
DX: R05 Cough (principal); J43.9 Emphysema, unspecified; I51.7 Cardiomegaly
CPT/HCPCS: 71046

== ENCOUNTER → 2021-06-01 08:07 | Outpatient (CLI) | payer MEDICARE, SELFPAY ==
[2021-06-01 22:24] LABS: SARS-CoV-2 RNA PCR Negative
== END ==
PROVIDERS: PCP Internal Medicine; Visit Provider Nurse Practitioner
DX: R05.9 Cough, unspecified (principal); Z20.822 Contact with and (suspected) exposure to COVID-19
CPT/HCPCS: C9803; U0003; U0005

== ENCOUNTER 2021-08-09 13:30 | Outpatient (RCR) | payer MEDICARE, SELFPAY ==
--- NOTE | 2021-06-29 08:57 | PTOPEVAL ---
PHYSICAL THERAPY EVALUATION AND PLAN OF CARE 06-29-21 Thank you for referring Joe Cohen to [facility] for the diagnosis of lumbar disc degeneration. Gene is scheduled to be seen for therapy? 1 x/week for 4 weeks. Please review, sign, date and return this plan of care JACQUIE. I agree with and certify that the following plan of care is medically necessary. Referring Physician Date Attending Provider: KYLAH Pacheco PT Outpatient Evaluation Document 06/29/21 08:00 DORA (Rec: 06/29/21 08:57 DORA [id number]) Past Medical History Source of Past Medical History Recalled from Previous Visit, Confirmed with Patient/Family Neurological History Hx Other Neurological Disorders Yes: Spinal Cord Injury, from back surgery Cardiovascular History Hx Atrial Fibrillation Yes: CARDIOVERTED X 2 IN PAST. OFF XARELTO DUE TO GI BLEED Hx Cardiac Arrhythmia Yes Hx Hypercholesterolemia Yes Hx Hypertension Yes: meds control Hx Irregular Heartbeat Yes: AFIB/PVCs Respiratory History Hx Other Respiratory Disorders Yes: WHEEZING; have had covid vaccine Gastrointestinal History Hx Esophageal Disorders Yes Hx Gastrointestinal Bleed Yes Hx Other Gastrointestinal Disorders Yes: ESOPHAGEAL CANCER. CONSTIPATION AFTER CHEMO TX. Genitourinary History Hx Genitourinary Disorders No Significant History Musculoskeletal History Hx Arthritis Yes Hx Back Injury Yes: chronic back pain Hx Orthopedic Surgery Yes: lumbar SURGERIES X 2-- 2000 & 1997 Hematological History Hx Blood Transfusions Yes: BLOOD AND FFP FOR GI BLEED Endocrine History Hx Endocrine Disorders No Significant History HEENT History Hx HEENT Disorders No Significant History Integumentary History Hx Skin Disorders No Significant History Reproductive History Hx Reproductive Disorders No Significant History Psychosocial History Hx Psychiatric Disorders No Significant History Pain History History of Any Previous or Ongoing No Significant History Instance of Pain Anesthesia History Hx Anesthesia Reactions No Significant History Other History Hx Cancer Yes: ESOPHAGEAL CANCER 2014 Hx Chemotherapy Yes Evaluation Information Problem Diagnosis lumbar disc disease Subjective Information chronic back pain; with back Query Text:As Reported By Patient/ surgery 2000, had infection Family and complications, with spinal cord injury and L LE numbness ; numbness
--- NOTE | 2021-07-20 08:50 | PCPTNOTE ---
Pt no show for appt. this date. Called and informed him of his next appointment on 07/27.
--- NOTE | 2021-07-27 12:54 | PCPTNOTE ---
pt did not show for today's reeval; called and spoke with his --he forgot about appt and was sleeping; discussed with her if he wants to continue any treatment for his back, to call for appointment.
--- NOTE | 2021-08-09 14:00 | PTOPEVAL ---
PHYSICAL THERAPY DISCHARGE 08-09-21 Thank you for referring Joe Cohen to [facility], for the diagnosis of back pain. The PT goals were achieved, except walking distance for the 2 minute walking test and gait pattern of no lateral trunk motion. He will be discharged from PT services at this time. Please review, sign, date and return this Discharge report JACQUIE. I agree with and certify that the following plan of care is medically necessary. Referring Physician Date Attending Provider: Carola Sotelo, ENEIDAC Document 08/09/21 13:30 DORA (Rec: 08/09/21 14:00 DORA [id number]) Assessment Status Discharge Subjective Information Gene reports: just saw eye dr Query Text:As Reported By Patient/ and have an eye infection-- Family got some meds & drops for it; just finished steroids for cough that will not go away; been doing my exercises at home, 20 reps without any problems; back is much better than the first day was here-- not as tight and when working out, feel good and do not have pain; agree to discharge from PT. Pain Assessment Timing of Pain Assessment Timing of Pain Assessment Assessment Pain Scale Pain Scale Used Numeric (1 - 10) Self Report Pain Assessment Bilateral Back Reported Pain Level 2 Pain Description Dull Pain Frequency Chronic,Intermittent Lowest Pain Intensity 0 Greatest Pain Intensity 4 Pain Aggravating Factors Exercise/Activity Other Pain Aggravating Factors lifting 30# bag of salt for driveway; Pain Score Pain Score 2: Self Report Additional Pain Score Comments if my back hurts, it is because I did something stupid Oswestry self assessment functional activity score 20% limitation in activity level Interventions Used Interventions Used By Clinicians Exercise Pain Relief Interventions Used By Inactivity/Rest Patient Other Alleviating Interventions hot shower Lower Extremity Range of Motion General Lower Extremity Range of Motion Gross Lower Extremity Range of Motion hamstring stretch with supine Comments SLR R 70'/L 60' Lower Extremity Muscle Strength Testing General Lower Extremity Strength Gross Lower Extremity Strength functional strength testing: - supine bridge x 20 reps; - side lying hip abduction ~
== END 2021-08-10 08:23 | disposition home or self-care (01) ==
LOC: ANHPT 13:30
PROVIDERS: PCP Internal Medicine; Visit Provider Nurse Practitioner
DX: M51.36 Other intervertebral disc degeneration, lumbar region (principal)
CPT/HCPCS: 97014; 97110; 97161; G0283

== ENCOUNTER 2021-08-28 11:42 | Outpatient (CLI) | payer MEDICARE, SELFPAY ==
--- NOTE | ~2021-08-28 | CT_ITS ---
EXAMINATION: CT chest high resolution wo co DATE: 08/28/2021 11:57 INDICATION: Cough, unspecified, history of esophageal cancer TECHNIQUE: Computed tomography (CT) of the chest was performed without intravenous contrast. The dose -length product (DLP) was 264.58 mGy-cm. 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 COMPARISON: 12/27/2020 FINDINGS: There is moderate emphysema. There is a focal opacity of the right middle lobe measuring 2. 2 cm which was not definitely identified on the comparison examinations. Patchy dependent airspace op acities persist in the lower lobes with slight improvement. There is slightly increased groundglass o pacities throughout the lungs. There is no pleural effusion or pneumothorax. No pathologically enlarg ed thoracic lymph nodes are identified. The heart size is normal. Calcified coronary artery atheroscl erosis is noted. There is severe thoracic spondylosis. Calcified pleural plaques are noted bilaterall y which can be seen in the setting of prior asbestos exposure. IMPRESSION: 1. Patchy airspace opacities of the lung bases with slight improvement, likely resolving pneumonia. 2. Interval development of focal nodular opacity of the right middle lobe, likely infectious or infla mmatory given relatively short interval between examinations. However, small nodules were previously identified in this region on the most recent comparison examination. Follow-up CT in three months is recommended given the patient's history of esophageal cancer. Reviewed, dictated and finalized at location B. [facility] IMPRESSION: 1. Patchy airspace opacities of the lung bases with slight improvement, likely resolving pneumonia. 2. Interval development of focal nodular opacity of the right middle lobe, like ly infectious or inflammatory given relatively short interval between examinati ons. However, small nodules were previously identified in this region on the mo st recent comparison examination. Follow-up CT in three months is recommended g iven the patient's history of esophageal cancer.
== END 2021-08-28 11:43 | disposition home or self-care (01) ==
LOC: ANHIMG 11:43
PROVIDERS: PCP Internal Medicine; Visit Provider Internal Medicine
DX: R05.9 Cough, unspecified (principal); C15.9 Malignant neoplasm of esophagus, unspecified; R91.8 Other nonspecific abnormal finding of lung field
CPT/HCPCS: 71250

== ENCOUNTER → 2021-09-06 08:09 | Outpatient (CLI) | payer MEDICARE, SELFPAY ==
[2021-09-06 12:16] LABS: Influenza A QL RT-PCR Negative (Negative); Influenza B QL RT-PCR Negative (Negative); SARS-CoV-2 RNA PCR Negative
== END ==
PROVIDERS: PCP Internal Medicine; Visit Provider Nurse Practitioner
DX: R68.89 Other general symptoms and signs (principal); Z20.822 Contact with and (suspected) exposure to COVID-19
CPT/HCPCS: 87502; C9803; U0003; U0005

== ENCOUNTER 2021-11-05 15:42 | Emergency (ER) | payer MEDICARE, SELFPAY ==
[2021-11-05] VITALS (22 sets, daily range): BP systolic 129–149; BP diastolic 70–99; PULSE 70–97; RESP 11–27; TEMP 36.3; O2SAT 90–98
--- NOTE | ~2021-11-05 | XR_ITS ---
EXAM: XR hand RT min 3V HISTORY: GROUND LEVEL FALL, MULTIPLE SMALL LACERATIONS COMPARISON: None available FINDINGS: Osteopenia. No acute fracture. Possible scapholunate ligament widening. Scattered degenera tive changes most severe at the triscaphe joint. Vascular calcifications. IMPRESSION: Possible scapholunate widening, of uncertain acuity. If there is acute snuffbox or dorsal wrist pain/ tenderness, consider AP, oblique, lateral, and scaphoid wrist radiographs for further evaluation. Reviewed, dictated and finalized at location K. IMPRESSION: Possible scapholunate widening, of uncertain acuity. If there is acute snuffbox or dorsal wrist pain/tenderness, consider AP, oblique, lateral, and scaphoid w rist radiographs for further evaluation.
--- NOTE | ~2021-11-05 | XR_ITS ---
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 Degenerative narrowing at the proximal capit ate. Scapholunate widening. Widening of the distal radial ulnar joint. Abnormal capitolunate and scap holunate angles. No fracture. IMPRESSION: No osseous fracture. 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 Acu te versus chronic subluxation of the distal radial ulnar joint. Reviewed, dictated and finalized at location K. IMPRESSION: No osseous fracture. 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 Acute versus chronic subluxation of the distal radial ulnar joint.
--- NOTE | ~2021-11-05 | CT_ITS ---
EXAMINATION: CT facial & cervical spine wo DATE: 11/05/2021 16:35 INDICATION: Fall. TECHNIQUE: Computed tomography (CT) of the maxillofacial region and cervical spine was performed with out intravenous contrast. Automated exposure control and iterative reconstruction technique were empl oyed. The dose-length product was 368.95 mGy-cm. COMPARISON: None FINDINGS: CERVICAL: Counting reference: Craniocervical junction. There are 7 cervical type vertebral bodies. Anatomic Variants: None. Alignment: No significant listhesis. Lateral scoliosis. Craniocervical junction: Moderate degenerative change. Osseous structures/fracture: No evidence of a lytic or blastic process in the visualized spine. N o evidence of acute or chronic fracture. Cervical soft tissues: The paraspinal soft tissues planes are maintained. Calcified atheroscleroti c plaque at the bilateral carotid bifurcations and in the upper chest arteries. Degenerative changes: Multilevel severe degenerative disc disease. Multilevel severe facet arthropath y. Multilevel bilateral neural foraminal narrowing. Severe central canal stenosis at C3-4. FACE: Soft Tissues: Marked soft tissue swelling over the left cheek, with a 20 mm subcutaneous hematoma. L ess pronounced soft tissue swelling of the left orbit. Facial bones: No evidence of an acute fracture in the visualized facial bones. Orbits: No evidence of an acute fracture. The globes are intact. The soft tissue planes of the orb its are maintained. Paranasal Sinuses: The paranasal sinuses are clear. Foreign Bodies: No evidence of radiopaque foreign bodies. Other: No evidence of a remote fracture. No lytic or blastic process seen in the facial bones. Bila teral degenerative change at the temperamental joints. Multiple absent teeth. Caries and periodontal disease. IMPRESSION: No acute fracture or traumatic malalignment in the cervical spine. No acute facial bone fracture. Sof t tissue contusions and hematoma as described above. Reviewed, dictated and finalized at location K. IMPRESSION: No acute fracture or traumatic malalignment in the cervical spine. No acute fac ial bone fracture. Soft tissue contusions and hematoma as described above.
--- NOTE | ~2021-11-05 | XR_ITS ---
EXAMINATION: XR chest 1V portable Exam Date/Time: 11/05/2021 16:00 CDT CLINICAL HISTORY: GROUND LEVEL FALL, POSSIBLE LOC, HX HTN Comparison: 03/27/2021 RESULT: Lines, tubes, and devices: None. Lungs and pleura: Senescent and emphysematous change. Calcified pleural plaques. Cardiomediastinal silhouette: Stable cardiomediastinal silhouette. Other: No acute osseous or upper abdominal finding. IMPRESSION: No acute cardiopulmonary process. Reviewed, dictated and finalized at location K.
--- NOTE | ~2021-11-05 | CT_ITS ---
EXAMINATION: CT brain wo con DATE: 11/05/2021 16:35 INDICATION: Fall. TECHNIQUE: Computed tomography (CT) of the head was performed without intravenous contrast. The mA wa s adjusted according to patient size. Iterative reconstruction technique was employed. The dose-lengt h product was 605.33 mGy-cm. COMPARISON: 04/08/2016. FINDINGS: Small foci of acute blood in the extra-axial space overlying the right parietal lobe, with hyperdense blood layering within sulci of the right frontal and right parietal lobes. No hydrocephalus, mass, or herniation. No acute ischemic infarct. Unremarkable dural venous sinus attenuation. No acute osseous abnormality. Large soft tissue contusion overlying the left cheek, with a subcutaneo us hematoma displaying the hematocrit effect. Less prominent left orbital contusions. The aerated spaces are clear. Atherosclerotic intracranial calcifications. Bilateral lens replacements. Moderate chronic white jh er changes. Mild atrophy. IMPRESSION: Small volume right frontal and right parietal lobe subarachnoid hemorrhage. Soft tissue contusions/he matomas overlying the left orbit and left cheek. Acute findings were reported to Dr. Boudreaux telephonically by Dr. Moran at 4:46 PM on 11/05/2021. Reviewed, dictated and finalized at location K. IMPRESSION: Small volume right frontal and right parietal lobe subarachnoid hemorrhage. Sof t tissue contusions/hematomas overlying the left orbit and left cheek. Acute findings were reported to Dr. Boudreaux telephonically by Dr. Moran at 4:46 PM on 11/05/2021.
[2021-11-05] MEDS: TETANUS,DIPHTHERIA,AC PERTUSSIS ADULT (0.5 ML) BOOSTRIX IM (16:14)
[2021-11-05 17:02] LABS: Basophils Percent Auto 0.4 % (0.2-1.2); Eosinophils Absolute Auto 0.4 K/mm3 (0-0.3); Eosinophils Percent Auto 4.7 % (0-4.4); Hematocrit 43.8 % (42.0-52.0); Hemoglobin 14.2 g/dL (14.0-18.0); Immature Granulocyte Absolute 0.04 K/mm3 (0.00-0.031); Immature Granulocyte Percent A 0.4 % (0-0.5); Lymphocytes Absolute Auto 1.32 K/mm3 (0.9-3.2); Lymphocytes Percent Auto 14.5 % (18.3-44.2); Mean Corpuscular HGB Conc 32.4 g/dl (32-36); Mean Corpuscular Hemoglobin 28.6 pg (26-34); Mean Corpuscular Volume 88.1 fl (80-100); Mean Platelet Volume 9.9 fl (7.4-10.4); Monocytes Absolute Auto 0.8 K/mm3 (0.1-0.6); Monocytes Percent Auto 8.9 % (2.6-8.5); Neutrophils Absolute Auto 6.5 K/mm3 (1.3-6.7); Neutrophils Percent Auto 71.1 % (45.5-73.1); Platelet Count Result 150 k/mm3 (150-375); Red Blood Count 4.97 M/mm3 (4.6-6.20); Red Cell Distribution Width 13.3 % (11.5-14.5); White Blood Count 9.1 K/mm3 (4.5-10.0)
[2021-11-05 17:12] LABS: Alanine Aminotransferase 23 U/L (4-50); Albumin Level 4.4 g/dL (3.5-5.1); Alkaline Phosphatase 137 U/L (38-126); Anion Gap 9 mmol/L (8-16); Aspartate Amino Transferase 37 U/L (17-59); Bilirubin,Total 0.5 mg/dL (0.2-1.3); Blood Urea Nitrogen 18 mg/dL (9-20); Calcium 9.1 mg/dL (8.4-10.2); Carbon Dioxide 23 mmol/L (22-30); Chloride 106 mmol/L (98-107); Estimated CRCL calculation 56 ml/min; Estimated Glomerular Filt Rate > 60; Glucose 119 mg/dL (65-110); INR 1.1; Potassium 4.1 mmol/L (3.4-5.0); Prothrombin Time 13.7 Seconds (11.1-14.7); Sodium 138 mmol/L (137-145)
--- NOTE | 2021-11-05 17:15 | PC.NURSE ---
@[id number] Phylicia called for Transfer per transfer center no neuro beds available wouldn't take dr devlin's call
--- NOTE | 2021-11-05 17:42 | ED.GENADULT ---
HPI - General Adult General Chief complaint: Head Injury Stated complaint: mechanical fall, head injury Time Seen by Provider: 11/05/21 15:51 Source: RN notes reviewed History of Present Illness HPI narrative: Patient presents emergency department via EMS for fall. The patient was at a family event trying to step around 20 when he fell he fell into a small pool of water and struck his head he had loss of conscious for approximately 36 per family was immediately pulled out of the water immediately with a fall patient notes pain and swelling over his left forehead as well as pain to his right hand he states he recalls trying to step over an object but then did not recall falling he denies any chest pain, shortness of breath, bone pain nausea vomiting or any other symptoms patient denies being on blood thinners Related Data Home Medications Medication Instructions Recorded Confirmed loratadine [Claritin] 10 mg PO DAILY 12/27/20 09/21/21 diltiazem HCl 240 mg 240 mg PO DAILY 02/07/21 09/21/21 capsule,extended release 24 hr neomycin 3.5 mg/g-polymyxin B 1 applic EACH EYE QHS g 08/22/21 09/21/21 10,000 unit/g-dexameth 0.1 % eye oint Allergies Allergy/AdvReac Type Severity Reaction Status Date / Time cat dander Allergy Unknown Wheezing Verified 09/21/21 07:28 Review of Systems Review of Systems: Gen.: Denies fevers or chills Eyes: Denies eye pain or visual change ENT: Denies congestion Respiratory: Denies shortness of breath or cough CV: Denies chest pain or palpitations GI: Denies abdominal pain nausea, emesis or diarrhea Musculoskeleta reports right hand pain Neuro: See HPI Skin: Denies rash Except as documented, all other systems reviewed and negative [facility] Past Medical History Medical History Anxiety Arthritis Asthma Bacteremia (08/02/20) Klebsiella pneumonia bacteremia for which he was hospitalized at [facility] 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 Bowel incontinence Chronic atrial fibrillation History of cardioversion. Not currently on anticoagulation. Coronary artery disease Cardiac catheterization on 07/06/2019 showed significantly calcified coronary arteries with 100% occlusion of the diagonal branch of the LAD as well as apical terminal portion of the LAD itself with preserved left ventricular systolic function. No angiographic opportunities for revascularization. 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 Status post chemoradiation. Followed by Dr. Rosenbaum at [facility]. 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 Residual numbness from the left buttock to toes. 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 History of colonoscopy with polypectomy Family History Family History Sibling Patient's brother is in good health Family history of malignant neoplasm of uterus Mother Patient's mother is Cerebral aneurysm Father Venous thromboembolism Social History Social History Social History: Surrogate decision maker: Gabbie Cohen, . Code status: Full code. Smoking packs per day: 3.5 Smoking cigarettes per day: 70.0 Years smoked: 24 Smoking pack-years: 84.00 Smoking status: Former smoker Tobacco type: cigarettes Second hand tobacco smoke exposure: No Smoking end date: 07/29/72 Alcohol intake: former Drinks per week: 6 Substance use: never Substance use type: does not use Additional living arrangements comments: The patient lives in [place] with his . Additional occupation/education comments: Re
== END 2021-11-05 18:30 | disposition short-term general hospital (02) ==
PROVIDERS: Emergency Provider Emergency Medicine; PCP Internal Medicine
DX: S06.6X1A Traumatic subarachnoid hemorrhage with loss of consciousness of 30 minutes or less, initial encounter (principal); S60.221A Contusion of right hand, initial encounter; S00.83XA Contusion of other part of head, initial encounter; S00.81XA Abrasion of other part of head, initial encounter; S61.401A Unspecified open wound of right hand, initial encounter; Z23 Encounter for immunization; J45.909 Unspecified asthma, uncomplicated; I25.10 Atherosclerotic heart disease of native coronary artery without angina pectoris; I48.20 Chronic atrial fibrillation, unspecified; Z85.01 Personal history of malignant neoplasm of esophagus; E78.5 Hyperlipidemia, unspecified; I10 Essential (primary) hypertension; G62.9 Polyneuropathy, unspecified; F41.9 Anxiety disorder, unspecified; Z87.891 Personal history of nicotine dependence; R93.6 Abnormal findings on diagnostic imaging of limbs; W18.39XA Other fall on same level, initial encounter
CPT/HCPCS: 12001; 36415; 70450; 70486; 71045; 72125; 73110; 73130; 80053; 85025; 85610; 85730; 90471; 90715; 96365; 99291; J0131

== ENCOUNTER 2021-11-29 14:00 | Outpatient (CLI) | payer MEDICARE, SELFPAY ==
--- NOTE | ~2021-11-29 | CT_ITS ---
EXAMINATION: CT diagnostic chest wo con DATE: 11/29/2021 14:25 INDICATION: Pulmonary nodules TECHNIQUE: Computed tomography (CT) of the chest was performed without intravenous contrast. The dose -length product (DLP) was 241.60 mGy-cm. Automated exposure control and iterative reconstruction tech [employer]guo were employed. COMPARISON: 08/28/2021 FINDINGS: There is moderate emphysema. The previously described opacity of the right middle lobe has resolved. There are minimal airspace opacities of the lingula and lower lobes. There are small pleura l effusions. No pneumothorax is identified. No pathologically enlarged thoracic lymph nodes are ident ified. The heart size is normal. Calcified coronary artery atherosclerosis is noted. There is severe thoracic spondylosis. Calcified pleural plaques are noted which can be seen in the setting of prior a sbestos exposure. There is questionable mild wall thickening of the distal esophagus. IMPRESSION: 1. Resolved right middle lobe nodule, consistent with infection/inflammation. 2. Mild pneumonia of the lower lobes and lingula. 3. Possible mild wall thickening of the distal esophagus. Reviewed, dictated and finalized at location A.
== END 2021-11-29 14:01 | disposition home or self-care (01) ==
PROVIDERS: PCP Internal Medicine; Visit Provider Internal Medicine
DX: R91.8 Other nonspecific abnormal finding of lung field (principal); J18.8 Other pneumonia, unspecified organism
CPT/HCPCS: 71250

== ENCOUNTER → 2022-07-02 14:26 | Outpatient (CLI) | payer MEDICARE, SELFPAY ==
--- NOTE | ~2022-07-02 | XR_ITS ---
XR chest 2V DATE: 07/02/2022 14:36 INDICATION: Cough for 2 months TECHNIQUE: 2 views COMPARISON: 11/2021 CT chest 11/05/2021 portable AP chest FINDINGS: Heart size appears within normal range. There is aortic arch calcification. The lungs are m oderately hyperinflated but clear of infiltrate or consolidation. Minimal blunting of the left costop hrenic angle may be due to minimal pleural effusion or pleural thickening. Calcified pleural plaque a long mid left lateral chest wall. Additional bilateral calcified pleural plaques are demonstrated to better advantage on the 11/2021 CT thorax examination, consistent with prior asbestos exposure. There is some focal increased density overlying the anterior aspect of the right seventh rib, likely due to prior rib fracture. There is extensive degenerative spurring as well as dextroscoliosis of the thoracic spine. Osteopenia . IMPRESSION: No active cardiopulmonary disease Calcified pleural plaques consistent with prior asbestos exposure Aortic atherosclerosis Reviewed, dictated and finalized at location B. 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
== END ==
PROVIDERS: PCP Nurse Practitioner; Visit Provider Nurse Practitioner
DX: R05.9 Cough, unspecified (principal); I70.0 Atherosclerosis of aorta; J92.9 Pleural plaque without asbestos
CPT/HCPCS: 71046

== ENCOUNTER 2022-07-17 11:43 | Emergency (ER) | payer MEDICARE, SELFPAY ==
[2022-07-17 12:03] VITALS: O2SAT 96
[2022-07-17 12:09] VITALS: BP 140/67; PULSE 60; RESP 16; TEMP 36.3; O2SAT 90
--- NOTE | 2022-07-17 12:17 | ED.GENADULT ---
HPI - General Adult General Chief complaint: Upper Respiratory Infection Stated complaint: vomitting,wheezing Source: patient and family Mode of arrival: ambulatory Limitations: no limitations History of Present Illness HPI narrative: Patient presents for evaluation of difficulty breathing. Patient's family brought pt to the facility for low oxygen saturations. He tested positive for COVID at the end of May. He has continued to experience respiratory symptom including wheezing, cough and shortness of breath since that time. He was evaluated by his PCP yesterday and was given a script for augmentin. Daughter checked his oxygen saturations at home yesterday and today, with consistent readings in the 80's-low 90's. Family indicates that he has been coughing up green phlegm and it appears that he has difficulties breathing as a result of that. He was told he has asbestosis but family does not believe he has a formal diagnosis of COPD or emphysema. I was notified by staff that pt was in the facility restroom calling for help. Upon my arrival to where patient was located, he was requesting assistance to the waiting room. His oxygen saturation was 89% on RA and pulse was 118. He has an underlying hx of metastatic esophageal cancer. Daughter states that he has been in remission for about 18 months. He also has underlying atrial fibrillation. He is no longer anticoagulated as he had some bleeding in the past while on therapy. He denies fever, chills nausea, vomiting. Related Data Home Medications Medication Instructions Recorded Confirmed diltiazem HCl 240 mg 240 mg PO DAILY 02/07/21 07/16/22 capsule,extended release 24 hr neomycin 3.5 mg/g-polymyxin B 1 applic EACH EYE QHS 08/22/21 07/16/22 10,000 unit/g-dexameth 0.1 % eye oint loratadine 10 mg tablet (Claritin) 10 mg PO DAILY 07/16/22 07/16/22 Allergies Allergy/AdvReac Type Severity Reaction Status Date / Time cat dander Allergy Unknown Wheezing Verified 07/16/22 14:22 Review of Systems Review of Systems: CONSTITUTIONAL: reports generalized weakness.Denies fever, chills, or sweats. EYES: Denies visual changes, redness, or discharge. ENT: Denies rhinorrhea, congestion, sore throat, or otalgia. CARDIOVASCULAR: Denies chest pain, palpitations, or edema. RESPIRATORY: Reports productive cough of green sputum, wheezing, shortness of breath GASTROINTESTINAL: Denies abdominal pain, nausea, vomiting, or diarrhea. GENITOURINARY: Denies dysuria or hematuria. SKIN: Denies rash or itching. MUSCULOSKELETAL: Denies back pain, joint pain, or myalgia. NEUROLOGIC: Denies headache, numbness, dizziness, or weakness. PSYCHIATRIC: Denies anxiety or depression. 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 Bowel incontinence Chronic atrial fibrillation History of cardioversion. Not currently on anticoagulation. Coronary artery disease Cardiac catheterization on 07/06/2019 showed significantly calcified coronary arteries with 100% occlusion of the diagonal branch of the LAD as well as apical terminal portion of the LAD itself with preserved left ventricular systolic function. No angiographic opportunities for revascularization. 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 Status post chemoradiation. Followed by Dr. Rosenbaum at [place]. 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 Residual numbness from the left buttock to toes. 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 History of colonoscopy w
[2022-07-17 12:29] VITALS: O2SAT 96
== END 2022-07-17 12:29 | disposition short-term general hospital (02) ==
PROVIDERS: Emergency Provider Nurse Practitioner; PCP Nurse Practitioner
DX: R09.02 Hypoxemia (principal); I48.20 Chronic atrial fibrillation, unspecified; I25.10 Atherosclerotic heart disease of native coronary artery without angina pectoris; E78.5 Hyperlipidemia, unspecified; I10 Essential (primary) hypertension; Z85.01 Personal history of malignant neoplasm of esophagus; Z87.891 Personal history of nicotine dependence
CPT/HCPCS: 99215; G0463

== ENCOUNTER 2022-07-17 13:03 | Inpatient (IN) | payer MEDICARE, SELFPAY ==
[2022-07-17] VITALS (46 sets, daily range): BP systolic 100–139; BP diastolic 55–123; PULSE 79–110; RESP 12–29; TEMP 36.4–36.8; O2SAT 91–100
--- NOTE | ~2022-07-17 | XR_ITS ---
EXAMINATION: XR chest 2V DATE: 07/17/2022 15:00 INDICATION: Cough. TECHNIQUE: Frontal and lateral views of the chest were obtained. COMPARISON: Chest 2 views 07/02/2022, chest CT 11/29/2021 FINDINGS: There are calcified pleural plaques bilaterally, which may be seen with asbestosis exposure . There is mild scarring at the lung bases, consistent with asbestosis. No pleural effusion or pneumo thorax. The heart size is normal. IMPRESSION: 1. Stable mild scarring at the lung bases, consistent with asbestosis. Reviewed, dictated and finalized at location A. 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
--- NOTE | 2022-07-17 14:21 | ECG_ITS ---
Measurements Intervals [place] Rate: 90 P: MT: 0 QRS: 6 QRSD: 93 T: 61 QT: 353 QTc: 433 Interpretive Statements ATRIAL FIBRILLATION WITH ABERRANT CONDUCTION OR VENTRICULAR PREMATURE COMPLEXES LOW QRS VOLTAGE IN PRECORDIAL LEADS [QRS DEFLECTION < 1.0 mV IN CHEST LEADS] COMPARED TO ECG 12/27/2020 18:03:51 PVCS NOW PRESENT Electronically Signed On 07-17-2022 15:37:59 SALES COMPENSATION ANALYST by Tigre Serrano M.D.
--- NOTE | 2022-07-17 16:42 | ED.GENADULT ---
HPI - General Adult General Chief complaint: Nausea/Vomiting/Diarrhea Stated complaint: diff breathing/vomiting/covid 3 months ago Time Seen by Provider: 07/17/22 16:21 History of Present Illness HPI narrative: Patient is an 86-year-old male with a history of esophageal adenocarcinoma in remission, possible COPD, A. fib not on anticoagulation presenting with shortness of breath. Patient states that he was diagnosed with COVID-19 sometime last month. Since that time he has been dealing with ongoing wheezing. States that he uses Breo and albuterol at home with mild improvement. States that this afternoon he was at the store when he had a coughing fit which resulted in gagging and an episode of emesis. States that he felt like he was choking on his phlegm. He was seen at urgent care and found to be hypoxic so he was advised to come to the ER. Currently, the patient denies significant complaint. States that he feels like he is wheezing. He denies headache, fevers, chest pain, abdominal pain, diarrhea, leg swelling. Related Data Home Medications Medication Instructions Recorded Confirmed diltiazem HCl 240 mg 240 mg PO DAILY 02/07/21 07/16/22 capsule,extended release 24 hr neomycin 3.5 mg/g-polymyxin B 1 applic EACH EYE QHS 08/22/21 07/16/22 10,000 unit/g-dexameth 0.1 % eye oint loratadine 10 mg tablet (Claritin) 10 mg PO DAILY 07/16/22 07/16/22 Allergies Allergy/AdvReac Type Severity Reaction Status Date / Time cat dander Allergy Unknown Wheezing Verified 07/16/22 14:22 Review of Systems Review of Systems: All systems reviewed & are unremarkable except as noted in HPI and below PMFSH Past Medical History Medical History Anxiety Arthritis Asthma Bacteremia (08/02/20) Klebsiella pneumonia bacteremia for which he was hospitalized at [place] 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 Bowel incontinence Chronic atrial fibrillation History of cardioversion. Not currently on anticoagulation. Coronary artery disease Cardiac catheterization on 07/06/2019 showed significantly calcified coronary arteries with 100% occlusion of the diagonal branch of the LAD as well as apical terminal portion of the LAD itself with preserved left ventricular systolic function. No angiographic opportunities for revascularization. 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 Status post chemoradiation. Followed by Dr. Rosenbaum at [place]. 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 Residual numbness from the left buttock to toes. 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 History of colonoscopy with polypectomy Family History Family History Sibling Patient's brother is in good health Family history of malignant neoplasm of uterus Mother Patient's mother is Cerebral aneurysm Father Venous thromboembolism Social History Social History Social History: Surrogate decision maker: Gabbie Cohen, . Code status: Full code. Smoking packs per day: 3.5 Smoking cigarettes per day: 70.0 Years smoked: 24 Smoking pack-years: 84.00 Smoking status: Former smoker Tobacco type: cigarettes Second hand tobacco smoke exposure: No Smoking end date: 07/29/72 Alcohol intake: former Drinks per week: 6 Substance use: never Substance use type: does not use Additional living arrangements comments: The patient lives in [place] with his . 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 Gender identity (if verbalized by the patient): Male Jostin
[2022-07-17] MEDS: IPRATROPIUM BR 0.02% INH SOLN 0.5 MG/2.5 ML VIAL INHALATION ×3 (17:16→20:03)
[2022-07-17] MEDS: ALBUTEROL SULFATE NEB 2.5 MG/3 ML INH 5 MG INHALATION ×3 (17:16→20:03)
[2022-07-17 17:42] LABS: Basophils Percent Auto 0.3 % (0.2-1.2); Eosinophils Absolute Auto 0.2 K/mm3 (0-0.3); Eosinophils Percent Auto 1.9 % (0-4.4); Hematocrit 46.3 % (42.0-52.0); Hemoglobin 14.8 g/dL (14.0-18.0); Immature Granulocyte Absolute 0.03 K/mm3 (0.00-0.031); Immature Granulocyte Percent A 0.3 % (0-0.5); Lymphocytes Absolute Auto 0.42 K/mm3 (0.9-3.2); Lymphocytes Percent Auto 3.6 % (18.3-44.2); Mean Corpuscular Hemoglobin 28.6 pg (26-34); Mean Corpuscular Volume 89.6 fl (80-100); Mean Platelet Volume 10.3 fl (7.4-10.4); Monocytes Absolute Auto 0.4 K/mm3 (0.1-0.6); Monocytes Percent Auto 3.7 % (2.6-8.5); Neutrophils Absolute Auto 10.5 K/mm3 (1.3-6.7); Neutrophils Percent Auto 90.2 % (45.5-73.1); Platelet Count Result 154 k/mm3 (150-375); Red Blood Count 5.17 M/mm3 (4.6-6.20); Red Cell Distribution Width 13.6 % (11.5-14.5); White Blood Count 11.6 K/mm3 (4.5-10.0)
[2022-07-17 17:43] LABS: Alanine Aminotransferase 27 U/L (6-50); Albumin Level 4.7 g/dL (3.5-5.1); Alkaline Phosphatase 113 U/L (38-126); Anion Gap 8 mmol/L (8-16); Aspartate Amino Transferase 43 U/L (17-59); Bilirubin,Total 0.9 mg/dL (0.2-1.3); Blood Urea Nitrogen 19 mg/dL (9-20); Carbon Dioxide 26 mmol/L (22-30); Chloride 103 mmol/L (98-107); Estimated CRCL calculation 50 ml/min; Estimated Glomerular Filt Rate > 60; Glucose 139 mg/dL (65-110); INR 1.2; Partial Thromboplastin Time 33.9 SECONDS (22.3-36.8); Potassium 4.3 mmol/L (3.4-5.0); Prothrombin Time 14.6 Seconds (11.1-14.7); Sodium 137 mmol/L (137-145)
[2022-07-17 17:54] LABS: Troponin I < 0.012 ng/mL (0.000-0.034)
[2022-07-17 18:10] LABS: Influenza A QL RT-PCR Negative (Negative); Influenza B QL RT-PCR Negative (Negative); RSV RNA, RT-PCR Negative (Negative); SARS-CoV-2 RNA PCR Negative
[2022-07-17] MEDS: SODIUM CHLORIDE 0.9% IV 1,000 ML 999 ML IV CONT (18:36)
[2022-07-17] MEDS: methylPREDNISolone SOD SUCC 125 MG VIAL IV PUSH (19:29)
--- NOTE | 2022-07-17 20:55 | PM.IMHP ---
H&P: HPI History of Present Illness Date/Time: 07/17/22 20:55 Chief Complaint: worsening shortness of breath and wheezing. Narrative: This is an 86-year-old male with a past medical history including but not limited to esophageal adenocarcinoma in remission, possible COPD, A. fib not on anticoagulation, abestos presenting with shortness of breath.? Patient states that he was diagnosed with COVID-19 sometime last month.?He has felt unwell for the last couple weeks. Since his COVID19 diagnosis, he has been dealing with ongoing wheezing.? States that he uses Breo and albuterol at home with mild improvement.? This afternoon, he was at the store when he had a sudden coughing fit which resulted in gagging and an episode of emesis.? The pateint felt felt like he was choking on his phlegm.? He was seen at urgent care and found to be hypoxic so he was advised to come to the ER.? On arrival to the emergency department, the patient had the following vital signs: A temperature of 98.3? F, pulse rate 93, respirations 16, blood pressure 139/93, pulse ox 96% on room air. Physical exam was notable for bilateral expiratory wheezes, and any regular rate and rhythm. Currently, the patient denies significant complaint.? States that he feels like he is wheezing.? He denies headache, fevers, chest pain, abdominal pain, diarrhea, leg swelling. He CBC shows a WBC of 11.6, hb 14.8, hematocrit 46.3, platelet count 154. His serum chemistry shows a sodium of 137, potassium 4.3, chloride 103, carbon dioxide 26, BUN 19 and creatinine of 0.9. Influenza a and B, RSV and SARs CoV 2 were all negative. His chest x-ray shows calcified pleural plaque bilaterally, which may be seen with asbestosis exposure. There is mild scarring at the lung bases, consistent with asbestosis. No pleural effusion or pneumothorax. The heart size is normal. Review of Systems Review of Systems: All systems reviewed & are unremarkable except as noted in HPI and below Constitutional: Constitutional: Reports as per HPI, Denies body ache(s), Denies chills and Denies weakness Eyes: Eyes: Reports as per HPI and Denies blurry vision ENT: Reports system reviewed and no additional complaints, except as documented, Reports as per HPI, Denies dysphagia, Denies epistaxis and Denies nasal discharge Cardiovascular: Cardiovascular: Reports as per HPI, Denies chest pain, Denies diaphoresis, Denies leg edema and Reports palpitations Respiratory: Respiratory: Reports as per HPI, Reports cough, Reports dyspnea and Reports wheezing Gastrointestinal: Gastrointestinal: Reports as per HPI, Denies abdominal pain, Denies constipation, Reports nausea and Reports vomiting Genitourinary: Genitourinary: Reports no additional male genitourinary complaints and Denies dysuria Musculoskeletal: Musculoskeletal: Reports no additional musculoskeletal complaints, Denies back pain, Denies arthralgias and Denies neck pain Integumentary/Breasts: Skin/Breast: Reports system reviewed and no additional complaints, except as docu and Denies rash Neurologic: Reports system reviewed and no additional complaints, except as documented, Denies confusion, Denies headache(s) and Denies numbness Psychiatric: Psychiatric: Reports no additional psychiatric complaints, Denies anxiety, Denies confusion and Denies depression [facility] Past Medical History Medical History Anxiety Arthritis Asthma Bacteremia (08/02/20) Klebsiella pneumonia bacteremia for which he was hospitalized at [place] 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 Bowel incontinence Chronic atrial fibrillation History of cardioversion. Not currently on anticoagulation. Coronary artery disease Cardiac catheterization on 07/06/2019 showed significantly calcified coronary arteries with 100% occlusion of the diagonal branch of the LAD as well as apical terminal portion of the LAD itself with preserved left ventri
[2022-07-17 21:10] LABS: Troponin I < 0.012 ng/mL (0.000-0.034)
[2022-07-18] VITALS (18 sets, daily range): BP systolic 110–156; BP diastolic 67–85; PULSE 68–168; RESP 18–24; TEMP 36.4–36.7; O2SAT 90–98
[2022-07-18] MEDS: IPRATROPIUM BR 0.02% INH SOLN 0.5 MG/2.5 ML VIAL INHALATION ×4 (02:46→21:14)
[2022-07-18] MEDS: ALBUTEROL SULFATE NEB 2.5 MG/3 ML INH 5 MG INHALATION ×4 (02:46→21:14)
[2022-07-18] MEDS: methylPREDNISolone SOD SUCC 125 MG VIAL 60 MG IV PUSH ×5 (03:08→23:57)
[2022-07-18] MEDS: hydrOXYzine HCL 25 MG TABLET BY MOUTH ×2 (03:48→20:38)
[2022-07-18] MEDS: BENZONATATE 100 MG CAPSULE PO ×4 (03:48→17:42)
[2022-07-18] MEDS: GABAPENTIN 300 MG CAPSULE 900 MG BY MOUTH ×2 (03:48→20:38)
[2022-07-18] MEDS: GABAPENTIN 300 MG CAPSULE BY MOUTH (08:47)
[2022-07-18] MEDS: PANTOPRAZOLE SOD SESQUIHYDRATE 20 MG TAB PO (08:47)
[2022-07-18] MEDS: LORATADINE 10 MG TABLET PO (08:47)
[2022-07-18] MEDS: ENOXAPARIN 30 MG/0.3 ML SYRINGE SUB-Q (08:48)
[2022-07-18] MEDS: UMECLIDINIUM BROMIDE 62.5 MCG ELLIPTA 1 PUFF INHALATION (09:21)
[2022-07-18 11:03] LABS: Hematocrit 40.5 % (42.0-52.0); Hemoglobin 13.2 g/dL (14.0-18.0); Immature Granulocyte Absolute 0.01 K/mm3 (0.00-0.031); Immature Granulocyte Percent A 0.2 % (0-0.5); Lymphocytes Absolute Auto 0.61 K/mm3 (0.9-3.2); Lymphocytes Percent Auto 11.5 % (18.3-44.2); Mean Corpuscular HGB Conc 32.6 g/dl (32-36); Mean Corpuscular Hemoglobin 28.4 pg (26-34); Mean Corpuscular Volume 87.1 fl (80-100); Mean Platelet Volume 10.2 fl (7.4-10.4); Monocytes Percent Auto 0.8 % (2.6-8.5); Neutrophils Absolute Auto 4.7 K/mm3 (1.3-6.7); Neutrophils Percent Auto 87.5 % (45.5-73.1); Platelet Count Result 152 k/mm3 (150-375); Red Blood Count 4.65 M/mm3 (4.6-6.20); Red Cell Distribution Width 13.6 % (11.5-14.5); White Blood Count 5.3 K/mm3 (4.5-10.0)
[2022-07-18 11:07] LABS: Alanine Aminotransferase 25 U/L (6-50); Albumin Level 4.4 g/dL (3.5-5.1); Alkaline Phosphatase 98 U/L (38-126); Anion Gap 9 mmol/L (8-16); Aspartate Amino Transferase 39 U/L (17-59); Bilirubin,Total 0.8 mg/dL (0.2-1.3); Blood Urea Nitrogen 16 mg/dL (9-20); Calcium 8.7 mg/dL (8.4-10.2); Carbon Dioxide 24 mmol/L (22-30); Chloride 104 mmol/L (98-107); Estimated CRCL calculation 56 ml/min; Estimated Glomerular Filt Rate > 60; Glucose 215 mg/dL (65-110); Sodium 137 mmol/L (137-145)
--- NOTE | 2022-07-18 18:19 | PM.IMPN ---
Progress Note: A&P Assessment and Plan (1) COPD exacerbation: Code(s): J44.1 - Chronic obstructive pulmonary disease with (acute) exacerbation Status: Acute Assessment and Plan: COPD exacerbation, continue steroids, nebulizers (2) Cough: Code(s): R05.9 - Cough, unspecified Status: Acute Assessment and Plan: Continue Robitussin and Tessalon Perles (3) Coronary artery disease: Code(s): I25.10 - Atherosclerotic heart disease of [place] coronary artery without angina pectoris Status: Acute Assessment and Plan: Continue home meds (4) Esophageal cancer: Onset Date: Unknown Qualifiers: Malignant neoplasm of esophagus location: unspecified location Qualified Code(s): C15.9 - Malignant neoplasm of esophagus, unspecified Code(s): C15.9 - Malignant neoplasm of esophagus, unspecified Status: Acute Assessment and Plan: Asymptomatic (5) Essential hypertension: Code(s): I10 - Essential (primary) hypertension Status: Acute Assessment and Plan: Stable on home med (6) Hyperlipidemia: Code(s): E78.5 - Hyperlipidemia, unspecified Status: Acute (7) Anxiety: Code(s): F41.9 - Anxiety disorder, unspecified Status: Acute Assessment and Plan: Continue hydroxyzine p.r.n.. (8) Asbestos exposure: Code(s): Z77.090 - Contact with and (suspected) exposure to asbestos Status: Acute Plan DVT prophylaxis with SCDs GI prophylaxis with PPI Code status full code Subjective Date/time seen: 07/18/22 18:19 Interval history: No overnight events noted. No chest pain or shortness of breath. Patient complaining of nausea, vomiting and diarrhea, improving since yesterday. No fevers or chills. Review of Systems Review of Systems: 12 point review of systems was assessed and was negative except as noted in the HPI Exam Narrative: General: No acute distress, alert and oriented per baseline HEENT: Atraumatic, normocephalic, mucous membranes moist CV: Regular rate and rhythm, S1, S2 Lungs: Clear to auscultation bilaterally, no rales or crackles noted, no wheezes, good air entry Abdomen: Soft, nontender, nondistended Extremities: Normal to inspection Skin: No rashes noted, no lesions or wounds seen Psych: Euthymic, normal affect Objective Data Vital Signs Vital Signs: Vital Signs - 24 hr 12/20/22 18:23 07/17/22 18:37 07/17/22 20:05 Temperature Pulse Rate 94 93 96 Respiratory Rate 16 23 H 18 Blood Pressure Pulse Oximetry Oxygen Delivery 07/17/22 20:06 07/17/22 18:30 07/17/22 18:31 Temperature Pulse Rate 96 86 Respiratory Rate 21 H 18 Blood Pressure 127/82 Pulse Oximetry 93 93 95 Oxygen Delivery Room Air 07/17/22 18:45 07/17/22 18:46 07/17/22 19:00 Temperature Pulse Rate 92 97 100 Respiratory Rate 18 29 H 29 H Blood Pressure 136/85 Pulse Oximetry 100 100 93 Oxygen Delivery 07/17/22 19:01 07/17/22 19:15 07/17/22 19:16 Temperature Pulse Rate 96 90 94 Respiratory Rate 17 18 17 Blood Pressure 139/123 H 112/55 L Pulse Oximetry 96 92 Oxygen Delivery 07/17/22 19:30 07/17/22 19:31 07/17/22 19:45 Temperature Pulse Rate 98 98 94 Respiratory Rate 24 H 16 19 Blood Pressure 115/73 Pulse Oximetry 93 94 91 Oxygen Delivery 07/17/22 19:46 07/17/22 20:00 07/17/22 20:01 Temperature Pulse Rate 89 92 93 Respiratory Rate 18 18 21 H Blood Pressure 111/59 L 117/60 Pulse Oximetry 91 94 94 Oxygen Delivery 07/17/22 20:15 07/17/22 20:16 07/17/22 20:31 Temperature Pulse Rate 93 97 94 Respiratory Rate 14 19 17 Blood Pressure 122/62 100/62 Pulse Oximetry 98 98 95 Oxygen Delivery 07/17/22 20:32 07/17/22 20:45 07/17/22 20:46 Temperature Pulse Rate 100 96 93 Respiratory Rate 22 H 16 14 Blood Pressure 116/68 Pulse Oximetry 93 94 Oxygen Delivery 07/17/22 21:00 07/17/22 21:
[2022-07-18] MEDS: ACETAMINOPHEN/CODEINE ELIXIR (*CRX) 120-12 MG/5 ML UDC PO (20:37)
[2022-07-18] MEDS: guaiFENesin/DEXTROMETHORPHAN 10 ML UDC PO (20:38)
[2022-07-18] MEDS: LOPERAMIDE HCL 2 MG CAPSULE 4 MG PO (20:38)
[2022-07-18] MEDS: FLUTICASONE PROPIONATE 0.05% NA SPR 16 GM BTL (*BKC) 2 SPRAY NASAL (20:39)
[2022-07-18] MEDS: guaiFENesin 600 MG/DEXTROMETHORPHAN 30 MG SR TAB 12 HR 1 TAB PO (20:44)
[2022-07-19] VITALS (11 sets, daily range): BP systolic 113–120; BP diastolic 62–66; PULSE 60–107; RESP 18; TEMP 36.2–36.5; O2SAT 95–96
[2022-07-19] MEDS: IPRATROPIUM BR 0.02% INH SOLN 0.5 MG/2.5 ML VIAL INHALATION ×3 (01:49→14:48)
[2022-07-19] MEDS: ALBUTEROL SULFATE NEB 2.5 MG/3 ML INH 5 MG INHALATION ×3 (01:49→14:48)
[2022-07-19] MEDS: methylPREDNISolone SOD SUCC 125 MG VIAL 60 MG IV PUSH ×2 (05:13→13:47)
[2022-07-19 06:32] LABS: Basophils Percent Auto 0.1 % (0.2-1.2); Hematocrit 40.2 % (42.0-52.0); Hemoglobin 12.9 g/dL (14.0-18.0); Immature Granulocyte Absolute 0.06 K/mm3 (0.00-0.031); Immature Granulocyte Percent A 0.6 % (0-0.5); Lymphocytes Absolute Auto 0.74 K/mm3 (0.9-3.2); Lymphocytes Percent Auto 7.1 % (18.3-44.2); Mean Corpuscular HGB Conc 32.1 g/dl (32-36); Mean Corpuscular Hemoglobin 28.9 pg (26-34); Mean Corpuscular Volume 90.1 fl (80-100); Mean Platelet Volume 10.3 fl (7.4-10.4); Monocytes Absolute Auto 0.3 K/mm3 (0.1-0.6); Monocytes Percent Auto 2.8 % (2.6-8.5); Neutrophils Absolute Auto 9.3 K/mm3 (1.3-6.7); Neutrophils Percent Auto 89.4 % (45.5-73.1); Platelet Count Result 154 k/mm3 (150-375); Red Blood Count 4.46 M/mm3 (4.6-6.20); Red Cell Distribution Width 13.9 % (11.5-14.5); White Blood Count 10.4 K/mm3 (4.5-10.0)
[2022-07-19 07:06] LABS: Alanine Aminotransferase 28 U/L (6-50); Albumin Level 4.2 g/dL (3.5-5.1); Alkaline Phosphatase 90 U/L (38-126); Anion Gap 10 mmol/L (8-16); Aspartate Amino Transferase 51 U/L (17-59); Bilirubin,Total 0.7 mg/dL (0.2-1.3); Blood Urea Nitrogen 23 mg/dL (9-20); Calcium 8.7 mg/dL (8.4-10.2); Carbon Dioxide 24 mmol/L (22-30); Chloride 108 mmol/L (98-107); Estimated CRCL calculation 50 ml/min; Estimated Glomerular Filt Rate > 60; Glucose 199 mg/dL (65-110); Sodium 142 mmol/L (137-145)
[2022-07-19] MEDS: LORATADINE 10 MG TABLET PO (08:47)
[2022-07-19] MEDS: PANTOPRAZOLE SOD SESQUIHYDRATE 20 MG TAB PO (08:47)
[2022-07-19] MEDS: GABAPENTIN 300 MG CAPSULE BY MOUTH (08:47)
[2022-07-19] MEDS: guaiFENesin 600 MG/DEXTROMETHORPHAN 30 MG SR TAB 12 HR 1 TAB PO (08:47)
[2022-07-19] MEDS: BENZONATATE 100 MG CAPSULE PO ×2 (08:47→13:47)
[2022-07-19] MEDS: ENOXAPARIN 30 MG/0.3 ML SYRINGE SUB-Q (08:47)
[2022-07-19] MEDS: UMECLIDINIUM BROMIDE 62.5 MCG ELLIPTA 1 PUFF INHALATION (09:28)
--- NOTE | 2022-07-19 12:53 | PM.DS ---
DS: Admitting Diagnosis Discharge Date 07/19/22 Admitting Diagnosis Shortness of breath DS: Discharge Diagnosis Discharge Diagnosis (1) COPD exacerbation: Code(s): J44.1 - Chronic obstructive pulmonary disease with (acute) exacerbation Status: Acute Assessment and Plan: COPD exacerbation, continue steroids, nebulizers (2) Cough: Code(s): R05.9 - Cough, unspecified Status: Acute Assessment and Plan: Continue Robitussin and Tessalon Perles (3) Coronary artery disease: Code(s): I25.10 - Atherosclerotic heart disease of [place] coronary artery without angina pectoris Status: Acute Assessment and Plan: Continue home meds (4) Esophageal cancer: Onset Date: Unknown Qualifiers: Malignant neoplasm of esophagus location: unspecified location Qualified Code(s): C15.9 - Malignant neoplasm of esophagus, unspecified Code(s): C15.9 - Malignant neoplasm of esophagus, unspecified Status: Acute Assessment and Plan: Asymptomatic (5) Essential hypertension: Code(s): I10 - Essential (primary) hypertension Status: Acute Assessment and Plan: Stable on home med (6) Hyperlipidemia: Code(s): E78.5 - Hyperlipidemia, unspecified Status: Acute (7) Anxiety: Code(s): F41.9 - Anxiety disorder, unspecified Status: Acute Assessment and Plan: Continue hydroxyzine p.r.n.. (8) Asbestos exposure: Code(s): Z77.090 - Contact with and (suspected) exposure to asbestos Status: Acute Plan DVT prophylaxis with SCDs GI prophylaxis with PPI Code status full code DS: Summary Hospital Course Hospital Course: 86-year-old male with a past medical history including but not limited to esophageal adenocarcinoma in remission, possible COPD, A. fib not on anticoagulation, abestos presenting with shortness of breath.? Patient states that he was diagnosed with COVID-19 sometime last month.?He has felt unwell for the last couple weeks.? Since his COVID19 diagnosis, he has been dealing with ongoing wheezing.? States that he uses Breo and albuterol at home with mild improvement.? This afternoon, he was at the store when he had a sudden coughing fit which resulted in gagging and an episode of emesis. He was seen at urgent care and found to be hypoxic so he was advised to come to the ER.? The patient was treated for COPD exacerbation with steroids and supportive care. All symptoms resolved he was discharged in good condition with close outpatient follow-up. Time Spent with Patient Time attestation: Total time spent providing and/or coordinating discharge services: Exam Narrative: General: No acute distress, alert and oriented per baseline HEENT: Atraumatic, normocephalic, mucous membranes moist CV: Regular rate and rhythm, S1, S2 Lungs: Clear to auscultation bilaterally, no rales or crackles noted, no wheezes, good air entry Abdomen: Soft, nontender, nondistended Extremities: Normal to inspection Skin: No rashes noted, no lesions or wounds seen Psych: Euthymic, normal affect DS: Data Data Completed and Pending Labs on day of discharge: Labs from last 24 hours 07/19/22 07/19/22 06:16 06:16 WBC 10.4 H RBC 4.46 L Hgb 12.9 L Hct 40.2 L MCV 90.1 MCH 28.9 MCHC 32.1 RDW 13.9 Plt Count 154 MPV 10.3 Immature Gran % (Auto) 0.6 H Neut % (Auto) 89.4 H Lymph % (Auto) 7.1 L [place] % (Auto) 2.8 Eos % (Auto) 0.0 Baso % (Auto) 0.1 L Lymph # (Auto) 0.74 L [place] # (Auto) 0.3 Eos # (Auto) 0.0 Baso # (Auto) 0.0 Abs Immat Gran (auto) 0.06 H Absolute Neuts (auto) 9.3 H Absolute Nucleated RBC 0.0 Nucleated RBC % 0.0 Sodium 142 Potassium 4.0 Chloride 108 H Carbon Dioxide 24 Anion Gap 10 BUN 23 H Creatinine 0.90 Estim Creat Clear Calc 50 Estimated GFR > 60 Glucose 199 H Calcium 8.7 Total Bilirubin 0.7 AST 51 ALT 28 A
== END 2022-07-19 16:25 | disposition home or self-care (01) | DRG 191 ==
LOC: ANHED 18:14 → ANH3MEDSUR 21:08
PROVIDERS: Admitting Provider Internal Medicine; Emergency Provider Emergency Medicine; PCP Nurse Practitioner; Visit Provider Student in an Organized Health Care Education/Training Program
DX: J44.1 Chronic obstructive pulmonary disease with (acute) exacerbation (principal); I48.20 Chronic atrial fibrillation, unspecified; R09.02 Hypoxemia; I25.10 Atherosclerotic heart disease of native coronary artery without angina pectoris; E78.5 Hyperlipidemia, unspecified; I10 Essential (primary) hypertension; Z77.090 Contact with and (suspected) exposure to asbestos; F41.9 Anxiety disorder, unspecified; Z20.822 Contact with and (suspected) exposure to COVID-19; M19.90 Unspecified osteoarthritis, unspecified site; M51.36 Other intervertebral disc degeneration, lumbar region; G62.9 Polyneuropathy, unspecified; Z86.16 Personal history of COVID-19; Z87.891 Personal history of nicotine dependence; Z85.01 Personal history of malignant neoplasm of esophagus
CPT/HCPCS: 36415; 71046; 80053; 84484; 85025; 85610; 85730; 87637; 92610; 93005; 94640; 96361; 96372; 96374; 96376; 99215; 99285; A9270; G0378; G0463; J1650; J2930; J7030

== ENCOUNTER 2022-08-16 13:15 | Outpatient (CLI) | payer MEDICARE, SELFPAY ==
--- NOTE | 2022-08-16 16:19 | WPDSIXMINUTE ---
Six Minute Walk Procedure Procedure Performed Pulmonary Stress Test (6 min walk) Six Minute Walk Six Minute Walk: This is a 6 minute walk test. The test was performed and interpreted in accordance with the 2014 ERS/ATS task force guidelines. Findings: The patient's resting room air oxygen saturation measured by pulse oximetry was 92% and heart rate was 70 bpm. Patient ambulated for 396 meters and oxygen saturation remained 89 to 95%. Heart rate at the end of the study was 86 bpm. The patient did not qualify for supplemental oxygen at rest or with ambulation. There are no prior studies for comparison.
--- NOTE | 2022-08-16 16:22 | WPDPFTINT ---
PFT Procedure Performed PFT Procedure Performed Spirometry with Pre/Post Bronchodilator Plethysmography (Lung Vol) Diffusing Cap (DLCO) Flow Vol Loop PFT Interpretation This is a pulmonary function test with pre and post-bronchodilator spirometry, plethysmography and diffusing capacity. The test was performed and results interpreted in accordance with the 2019 and 2005 ATS/ERS Task Force guidelines respectively using the Global Lung Function Initiative-2012 reference equations. Patient demonstrated good effort and cooperation. Reproducibility criteria were met. The quality of the pre bronchodilator spirometry maneuver was Grade A and post bronchodilator spirometry maneuver was Grade A. Findings: Spirometry: The contour the inspiratory and expiratory flow tracing are normal. The pre bronchodilator FVC is 3.27 L, 97% predicted. The pre bronchodilator FEV1 is 2.33 L, 93% predicted. The pre bronchodilator FEV1: FVC ratio is 71%. The post bronchodilator FVC is 3.49 L, representing a 7% increase. The post bronchodilator FEV1 is 2.31 L, representing 1% decrease. The post bronchodilator FEV1: FVC ratio is 66%. Plethysmography: The total lung capacity is 6.22 L, 96% predicted. The functional residual capacity is 3.28 L, 94% predicted. The residual volume is 2.51 L, 97% predicted. Diffusing capacity: The diffusing capacity unadjusted for hemoglobin and carboxyhemoglobin is 15.5, 72% predicted. The diffusing capacity adjusted for alveolar volume is 2.91, 79% predicted. Impression: The spirometry is normal without evidence of an obstructive abnormality. There is no significant improvement after inhaling a single dose of albuterol. The lung volumes are normal. The diffusing capacity is normal. There are no prior studies for comparison
== END 2022-08-16 13:16 | disposition home or self-care (01) ==
LOC: ANHPFT 13:18
PROVIDERS: PCP Nurse Practitioner; Visit Provider Internal Medicine Pulmonary Disease
DX: J44.1 Chronic obstructive pulmonary disease with (acute) exacerbation (principal); Z87.891 Personal history of nicotine dependence
CPT/HCPCS: 94060; 94618; 94726; 94729

== ENCOUNTER 2022-09-25 08:39 | Outpatient (CLI) | payer MEDICARE, SELFPAY ==
[2022-09-25 09:34] LABS: Basophils Percent Auto 0.6 % (0.2-1.2); Eosinophils Absolute Auto 0.3 K/mm3 (0-0.3); Eosinophils Percent Auto 4.7 % (0-4.4); Hematocrit 44.8 % (42.0-52.0); Hemoglobin 14.3 g/dL (14.0-18.0); Immature Granulocyte Absolute 0.02 K/mm3 (0.00-0.031); Immature Granulocyte Percent A 0.3 % (0-0.5); Lymphocytes Absolute Auto 0.89 K/mm3 (0.9-3.2); Mean Corpuscular HGB Conc 31.9 g/dl (32-36); Mean Corpuscular Hemoglobin 28.7 pg (26-34); Mean Corpuscular Volume 89.8 fl (80-100); Mean Platelet Volume 10.3 fl (7.4-10.4); Monocytes Absolute Auto 0.7 K/mm3 (0.1-0.6); Monocytes Percent Auto 10.8 % (2.6-8.5); Neutrophils Absolute Auto 4.8 K/mm3 (1.3-6.7); Neutrophils Percent Auto 70.6 % (45.5-73.1); Platelet Count Result 174 k/mm3 (150-375); Red Blood Count 4.99 M/mm3 (4.6-6.20); Red Cell Distribution Width 13.7 % (11.5-14.5); White Blood Count 6.8 K/mm3 (4.5-10.0)
[2022-09-25 09:36] LABS: Appearance Urine Clear (Clear); Bilirubin Urine Negative (Negative); Blood Urine Negative (Negative); Color Urine Yellow (Yellow); Glucose Urine UA Negative (Negative); Ketones Urine Negative (Negative); Leukocyte Esterase Ur Negative LEU/UL (NEGATIVE); Nitrate Urine Negative (Negative); Protein Urine Trace mg/dL (Negative); Specific Grav Ur 1.015 (1.001-1.035); Urobilinogen Urine 0.2 mg/dL (<2.0); pH Urine 6.5 (5.0-9.0)
[2022-09-25 09:40] LABS: Potassium 4.5 mmol/L (3.4-5.0)
[2022-09-25 09:49] LABS: Alanine Aminotransferase 36 U/L (6-50); Albumin Level 4.3 g/dL (3.5-5.1); Alkaline Phosphatase 233 U/L (38-126); Anion Gap 7 mmol/L (8-16); Aspartate Amino Transferase 38 U/L (17-59); Bilirubin,Total 0.9 mg/dL (0.2-1.3); Blood Urea Nitrogen 12 mg/dL (9-20); Calcium 9.2 mg/dL (8.4-10.2); Carbon Dioxide 28 mmol/L (22-30); Chloride 104 mmol/L (98-107); Cholesterol 204 mg/dL (0-200); Estimated Glomerular Filt Rate > 60; Glucose 104 mg/dL (65-110); HDL Direct 30 mg/dL; Sodium 139 mmol/L (137-145); Triglycerides 120 mg/dL (<150)
[2022-09-25 09:52] LABS: LDL Cholesterol Direct 128 mg/dL
[2022-09-25 09:55] LABS: Mucus Urine Rare /lpf; RBC Urine 0-2 /hpf (0-2); Squamous Epithelial Cell Urine Rare /hpf (Few); WBC Urine 0-3 /hpf (0-3)
[2022-09-25 10:00] LABS: Add Urine Microscopic? YES
== END 2022-09-25 08:40 | disposition home or self-care (01) ==
PROVIDERS: PCP Nurse Practitioner; Visit Provider Nurse Practitioner
DX: E78.5 Hyperlipidemia, unspecified (principal); Z13.29 Encounter for screening for other suspected endocrine disorder; R41.3 Other amnesia
CPT/HCPCS: 36415; 80053; 80061; 81001; 85025

== ENCOUNTER 2023-04-18 09:19 | Outpatient (CLI) | payer MEDICARE, SELFPAY ==
[2023-04-18 10:40] LABS: Basophils Absolute Auto 0.1 K/mm3 (0.0-0.1); Basophils Percent Auto 0.8 % (0.2-1.2); Eosinophils Absolute Auto 0.3 K/mm3 (0-0.3); Eosinophils Percent Auto 4.5 % (0-4.4); Hematocrit 45.1 % (42.0-52.0); Hemoglobin 14.5 g/dL (14.0-18.0); Immature Granulocyte Absolute 0.03 K/mm3 (0.00-0.031); Immature Granulocyte Percent A 0.4 % (0-0.5); Lymphocytes Absolute Auto 1.21 K/mm3 (0.9-3.2); Lymphocytes Percent Auto 16.7 % (18.3-44.2); Mean Corpuscular HGB Conc 32.2 g/dl (32-36); Mean Corpuscular Hemoglobin 28.6 pg (26-34); Mean Platelet Volume 10.1 fl (7.4-10.4); Monocytes Absolute Auto 0.6 K/mm3 (0.1-0.6); Monocytes Percent Auto 8.4 % (2.6-8.5); Neutrophils Percent Auto 69.2 % (45.5-73.1); Platelet Count Result 187 k/mm3 (150-375); Red Blood Count 5.07 M/mm3 (4.6-6.20); Red Cell Distribution Width 13.6 % (11.5-14.5); White Blood Count 7.3 K/mm3 (4.5-10.0)
[2023-04-18 10:58] LABS: Alanine Aminotransferase 30 U/L (6-50); Albumin Level 4.5 g/dL (3.5-5.1); Alkaline Phosphatase 113 U/L (38-126); Anion Gap 7 mmol/L (8-16); Aspartate Amino Transferase 43 U/L (17-59); Bilirubin,Total 0.9 mg/dL (0.2-1.3); Blood Urea Nitrogen 19 mg/dL (9-20); Calcium 9.4 mg/dL (8.4-10.2); Carbon Dioxide 29 mmol/L (22-30); Chloride 102 mmol/L (98-107); Cholesterol 150 mg/dL (0-200); Estimated Glomerular Filt Rate > 60; Glucose 102 mg/dL (65-110); HDL Direct 49 mg/dL; Potassium 4.3 mmol/L (3.4-5.0); Sodium 138 mmol/L (137-145); Triglycerides 64 mg/dL (<150)
[2023-04-18 11:08] LABS: LDL Cholesterol Direct 79 mg/dL
== END 2023-04-18 09:20 | disposition home or self-care (01) ==
LOC: ANHLAB 09:23
PROVIDERS: PCP Internal Medicine; Visit Provider Clinical Nurse Specialist
DX: I48.91 Unspecified atrial fibrillation (principal); E78.5 Hyperlipidemia, unspecified
CPT/HCPCS: 36415; 80053; 80061; 85025

== ENCOUNTER 2023-05-09 00:38 | Day surgery (SDC) | payer MEDICARE, SELFPAY ==
[2023-05-09] VITALS (13 sets, daily range): BP systolic 108–149; BP diastolic 57–86; PULSE 66–97; RESP 15–22; TEMP 36.8; O2SAT 93–99; BMI 23.9
--- NOTE | 2023-05-09 09:19 | WPDMODSED ---
Moderate Sedation Note-Pt Data Patient Data Diagnosis: History of atrial fibrillation status post amulet device Present Complaint: Atrial fibrillation status post amulet Procedure to be performed/Plan: 1. Transesophageal echocardiography with color flow and pulse wave Doppler 2. Moderate sedation Allergies Allergy/AdvReac Type Severity Reaction Status Date / Time cat dander Allergy Unknown Wheezing Verified 05/09/23 07:41 Home Medications Medication Instructions Recorded Confirmed Type diltiazem HCl 240 mg 240 mg PO DAILY 02/07/21 05/08/23 History capsule,extended release 24 hr albuterol sulfate 90 mcg/actuation 2 puff inhalation Q4H PRN Wheezing 05/30/21 05/08/23 Rx aerosol inhaler #18 grams fluticasone propionate 50 2 spray intranasal DAILY #16 grams 06/26/22 05/08/23 Rx mcg/actuation nasal spray,suspension (Flonase Allergy Relief) atorvastatin 10 mg tablet 10 mg PO QHS #90 tabs 02/04/23 05/08/23 Rx aspirin 81 mg tablet,delayed 81 mg PO DAILY 04/11/23 05/08/23 History release fluticasone fur. 200 mcg-umeclid 1 inh inhalation DAILY 05/08/23 05/08/23 History 62.5 mcg-vilant 25 mcg inhalat.powder (Trelegy Ellipta) gabapentin 300 mg capsule 300 mg PO TID 05/08/23 05/08/23 History galantamine 16 mg 24 hr 16 mg PO DAILY 05/08/23 05/08/23 History capsule,extended release Sedation/Anesthesia: No previous sedation/anesthesia problems (including family history). 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 Bowel incontinence Chronic atrial fibrillation History of cardioversion. Not currently on anticoagulation. Coronary artery disease Cardiac catheterization on 07/06/2019 showed significantly calcified coronary arteries with 100% occlusion of the diagonal branch of the LAD as well as apical terminal portion of the LAD itself with preserved left ventricular systolic function. No angiographic opportunities for revascularization. 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 Status post chemoradiation. Followed by Dr. Rosenbaum at [place]. 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 Residual numbness from the left buttock to toes. Hx of stroke without residual deficits Per brain MRI from 03/19 Hyperlipidemia Hypertension Lumbar degenerative disc disease Neuromuscular disease Neuropathy of both upper extremities Surgical History Surgical History History of back surgery Lumbar surgery x2. History of colonoscopy with polypectomy Family History Family History Sibling Patient's brother is in good health Family history of malignant neoplasm of uterus Mother Patient's mother is Cerebral aneurysm Father Venous thromboembolism Other Coronary artery disease Social History Social History Social History: Surrogate decision maker: Gabbie Cohen, . Code status: Full code. Smoking packs per day: 3.5 Smoking cigarettes per day: 70.0 Years smoked: 24 Smoking pack-years: 84.00 Smoking status: Never smoker Tobacco type: cigarettes Second hand tobacco smoke exposure: No Smoking end date: 07/29/72 Alcohol intake: never Drinks per week: 6 Substance use: never Substance use type: does not use Lack of Transportation: No Lack of Food: Never True Current Housing: I Have Housing Concerned About Future Housing: No Difficulty Paying Gas/Electric Bills: No Difficulty Paying for Meds: No Currently Unemployed: No Education: High School Diploma/GED Difficulty w/ Childcare or Family
--- NOTE | 2023-05-09 11:05 | WPDTEECHO ---
GUERO TransEsophageal Echocardiogram Date of procedure: 05/09/23 Procedure Type: Multiplanar transesophageal echocardiography with color flow and pulse wave Doppler Moderate sedation Diagnosis: Atrial fibrillation recent amulet device implantation Indications: Atrial fibrillation with recent amulet device implantation Image Quality: Good Findings: After discussing risks, benefits alternatives of procedure patient agreeable via verbal and written informed consent. Risks discussed included septal rupture perforation, adverse reaction to anesthesia, bleeding, pain, infection, . After establishing continuous environmental monitoring technician, pulse oxygenation serial blood pressure assessments, time-out was taken procedure was initiated. Procedure start time 9:21 a.m. Procedure stop time 9:39 a.m. Complications: None Blood loss: None Medications: Her can spread the hypopharynx x2 as well as 5 cc of viscous lidocaine gargle and swallow. Versed 2 mg and fentanyl 25 mcg IV total was given for moderate sedation. Medications were administered patient was monitored by Vanessa Goldberg Findings: Mild left ventricular enlargement with ejection fraction estimated around 50%. Normal right ventricular size and function. Severe left atrial enlargement. Mild right atrial enlargement. The mitral valve is normal with gbte-gr-borwtack mitral regurgitation. The aortic valve is trileaflet with trivial aortic insufficiency. Pulmonic valve is normal with trivial pulmonic regurgitation. The tricuspid valve is normal moderate tricuspid regurgitation. There is no pericardial effusion. Atrial septum appears to be intact. The left atrial appendage and ambulate occluded device was well-visualized. There was no significant leak noted and no thrombus seen. Seems to be well seated. Pulse-wave Doppler noted with up to 100 cm/second Conclusions: 1. Mild left ventricular minute with EF around 50% 2. Biatrial enlargement 3. Ckzw-ar-xbilsuva mitral regurgitation, moderate tricuspid regurgitation 4. Amulet device appears to be well-seated and implanted without thrombus or significant leak. 5. Moderate sedation
== END 2023-05-09 12:00 | disposition home or self-care (01) ==
PROVIDERS: PCP Internal Medicine; Visit Provider Internal Medicine Cardiovascular Disease
PROC: (CPT 93312; principal; 2023-05-09 08:30)
DX: I48.91 Unspecified atrial fibrillation (principal); I08.1 Rheumatic disorders of both mitral and tricuspid valves
CPT/HCPCS: 93312; 93320; 93325; J2250; J3010; J7040

== ENCOUNTER 2023-08-27 08:05 | Outpatient (CLI) | payer MEDICARE, SELFPAY ==
--- NOTE | ~2023-08-27 | MR_ITS ---
MRI of the cervical spine Clinical History: Cervicalgia Technique: Axial T2-weighted and gradient images, and sagittal T1-weighted, T2-weighted, and STIR diane ges were acquired. Findings: No acute fracture seen. There is 3 mm anterolisthesis of C4 over C5. No suspicious bone mar row signal abnormality seen. At C2-C3, there is moderate degenerative disc narrowing with small central disc protrusion. No spinal canal stenosis or cord compression. Neural foramina appear preserved. At C3-C4, there is advanced degenerative disc narrowing. There is a large central disc protrusion evelyn erendira extrusion, resulting in moderate canal stenosis and moderate to severe cord compression. There is bilateral neural foraminal narrowing, with bilateral facet arthropathy, right worse than left. At C4-C5, there is moderate degenerative distended with minimal disc osteophyte complex. There is mariaelena ateral facet arthropathy with bilateral neural foraminal narrowing. No central canal stenosis or cord compression. At C5-C6, there is severe degenerative disc narrowing with partial fusion across the disc space. Ther e is mild canal stenosis without ji cord compression. There is bilateral neural foraminal narrowin g with bilateral facet arthropathy. At C6-C7, there is severe degenerative disc narrowing with minimal disc bulge. There is mild canal st enosis without ji cord compression. There is bilateral neural foraminal narrowing with bilateral f acet arthropathy. No abnormal signal seen in the spinal cord itself. Paravertebral soft tissues are unremarkable. Impression: Severe degenerative spondylosis, as detailed above. There is moderate canal stenosis and moderate to severe cord compression at C3-C4 related to large central disc protrusion/extrusion. Reviewed, dictated and finalized at [facility]. [place] [facility]ER Impression: Severe degenerative spondylosis, as detailed above. There is moderate canal korina nosis and moderate to severe cord compression at C3-C4 related to large central disc protrusion/extrusion.
== END 2023-08-27 08:06 | disposition home or self-care (01) ==
LOC: ANHIMG 08:09
PROVIDERS: PCP Internal Medicine; Visit Provider Nurse Practitioner
DX: M43.02 Spondylolysis, cervical region (principal); G95.20 Unspecified cord compression
CPT/HCPCS: 72141

== ENCOUNTER 2023-09-17 09:40 | Outpatient (CLI) | payer MEDICARE, SELFPAY ==
--- NOTE | ~2023-09-17 | CT_ITS ---
EXAMINATION: CT cervical spine wo con DATE: 09/17/2023 10:09 INDICATION: Spondylosis without myelopathy or radiculopathy, cervical region. TECHNIQUE: Computed tomography (CT) of the cervical spine was performed without intravenous contrast. Automated exposure control and iterative reconstruction technique were employed. The dose-length pro duct was 277.31 mGy-cm. COMPARISON: CT cervical spine 11/05/2021 FINDINGS: There is mild emphysema. There is 19 degrees levoscoliosis of cervical spine. There is 2 mm retrolisthesis of C3 on C4 and 2 mm anterolisthesis of C7 on T1. There is severely decreased disc he ight from C2-C3 through C7-T1 with interbody fusion at C5-C6 and C7-T1. The following disc levels are specifically discussed: C2-C3: There is severe right and moderate left uncovertebral joint osteoarthritis. There is severe bi lateral facet joint osteoarthritis. There is mild bilateral neural foraminal stenosis. There is mild central canal stenosis. C3-C4: There is severe bilateral uncovertebral joint osteoarthritis. There is severe bilateral facet joint osteoarthritis. There is moderate bilateral neural foraminal stenosis. There is moderate centra l canal stenosis. C4-C5: There is severe bilateral uncovertebral joint osteoarthritis. There is severe bilateral facet joint osteoarthritis. There is mild right and moderate left neural foraminal stenosis. There is mild central canal stenosis. C5-C6: There is severe bilateral uncovertebral joint hypertrophy. There is severe left facet joint os teoarthritis. There is ankylosis of right facet joint with severe hypertrophy. There is mild right an d moderate left neural foraminal stenosis. There is mild central canal stenosis. C6-C7: There is severe bilateral uncovertebral joint osteoarthritis. There is severe bilateral facet joint osteoarthritis. There is moderate bilateral neural foraminal stenosis. There is mild central ca nal stenosis. C7-T1: There is mild bilateral uncovertebral joint hypertrophy. There is severe left facet joint oste oarthritis. There is ankylosis of right facet joint with moderate hypertrophy. There is moderate righ t and mild left neural foraminal stenosis. There is mild central canal stenosis. IMPRESSION: 1. Severe cervical spondylosis, stable from 11/05/2021. 2. Cervical levoscoliosis. Reviewed, dictated and finalized at location [facility] [employer]
--- NOTE | ~2023-09-17 | XR_ITS ---
EXAMINATION:XR cervical spine 4-5V DATE: 09/17/2023 10:00 INDICATION: Neck pain TECHNIQUE: AP, lateral in neutral, flexion, extension, and odontoid views of the cervical spine are p rovided. COMPARISON: MRI, 08/27/2023 FINDINGS: There are 2 mm of anterolisthesis of C4 on C5. There is no hypermobility with flexion or ex tension. The odontoid process is intact. No fracture is identified. The vertebral body heights are ma intained. There is severe loss of intervertebral disc space height at C5-6 and C6-7. There is moderat e loss of disc space height at C4-5. The vertebral body heights are maintained. There is multilevel s evere facet and uncovertebral joint osteoarthritis. Prevertebral soft tissues are normal. IMPRESSION: 1. Severe cervical spondylosis without acute findings. Reviewed, dictated and finalized at location L. [employer]
== END 2023-09-17 09:41 | disposition home or self-care (01) ==
LOC: ANHIMG 09:41
PROVIDERS: PCP Internal Medicine; Visit Provider Neurological Surgery
DX: M47.812 Spondylosis without myelopathy or radiculopathy, cervical region (principal); G95.9 Disease of spinal cord, unspecified
CPT/HCPCS: 72050; 72125

== ENCOUNTER 2024-08-18 10:03 | Outpatient (CLI) | payer MEDICARE, SELFPAY ==
[2024-08-18 10:26] LABS: Basophils Percent Auto 0.3 % (0.2-1.2); Eosinophils Absolute Auto 0.1 K/mm3 (0-0.3); Eosinophils Percent Auto 1.3 % (0-4.4); Hematocrit 42.5 % (42.0-52.0); Hemoglobin 13.8 g/dL (14.0-18.0); Immature Granulocyte Absolute 0.03 K/mm3 (0.00-0.031); Immature Granulocyte Percent A 0.3 % (0-0.5); Lymphocytes Absolute Auto 1.08 K/mm3 (0.9-3.2); Lymphocytes Percent Auto 11.1 % (18.3-44.2); Mean Corpuscular HGB Conc 32.5 g/dl (32-36); Mean Corpuscular Hemoglobin 29.5 pg (26-34); Mean Corpuscular Volume 90.8 fl (80-100); Mean Platelet Volume 9.7 fl (7.4-10.4); Monocytes Absolute Auto 0.9 K/mm3 (0.1-0.6); Monocytes Percent Auto 9.6 % (2.6-8.5); Neutrophils Absolute Auto 7.6 K/mm3 (1.3-6.7); Neutrophils Percent Auto 77.4 % (45.5-73.1); Platelet Count Result 232 k/mm3 (150-375); Red Blood Count 4.68 M/mm3 (4.6-6.20); Red Cell Distribution Width 13.2 % (11.5-14.5); White Blood Count 9.8 K/mm3 (4.5-10.0)
[2024-08-18 12:15] LABS: Alanine Aminotransferase 51 U/L (6-50); Alkaline Phosphatase 180 U/L (38-126); Anion Gap 8 mmol/L (4-12); Aspartate Amino Transferase 53 U/L (17-59); Bilirubin,Total 0.8 mg/dL (0.2-1.3); Blood Urea Nitrogen 17 mg/dL (9-20); Calcium 9.4 mg/dL (8.4-10.2); Carbon Dioxide 29 mmol/L (22-30); Chloride 101 mmol/L (98-107); Cholesterol 122 mg/dL (0-200); Estimated Glomerular Filt Rate > 60; Glucose 91 mg/dL (65-110); HDL Direct 31 mg/dL; Potassium 4.2 mmol/L (3.4-5.0); Sodium 138 mmol/L (137-145); Triglycerides 87 mg/dL (<150)
[2024-08-18 12:27] LABS: LDL Cholesterol Direct 58 mg/dL
--- OUTSIDE RECORDS SUMMARY | 2024-08-20 17:11 | XMS_ITS | Referral Summary ---
Author Organization [facility] Address [address] [place] [address] Care Team Providers Care [place] Operator Name Role Phone Arash Sullivan MD Primary Care Provider [phone] Source Comments [facility],non-owned Affiliates and Associated Physician Practices is amultiple site organization consisting of ambulatory clinics and hospital sitesin [place], [place], [place] and [place]. This disclosure is being madepursuant to the Care Everywhere program and may not contain all information available regarding this patient. Last updated 18.[facility] [employer] Allergies No known active allergies Medications Be aware that medications may not be up to date on this document. Always verify current medications with the patient. No known medications Active Problems Problem Noted Date Diagnosed Date SAH (subarachnoid hemorrhage) 11/06/2021 Nasal bone fractures 11/06/2021 Social History Tobacco Use Types Packs/Day Years Used Date Smoking Tobacco: Never Assessed Sex and Gender Information Value Date Recorded Sex Assigned at Not on file Gender Identity Not on file Sexual Orientation Not on file Last Filed Vital Signs Vital Sign Reading Time Taken Comments Blood Pressure 136/88 11/06/2021 6:30 AM CDT Pulse 86 11/06/2021 6:30 AM CDT Temperature 36.8 ??C (98.2 ??F) 11/05/2021 7:27 PM CD T Respiratory Rate 25 11/06/2021 6:30 AM CDT Oxygen Saturation 93% 11/06/2021 6:07 AM CDT Inhaled Oxygen Concentration - - Weight - - Height - - Body Mass Index - - Plan of Treatment Not on file Care Teams [place] Operator Relationship Specialty Start Date End Date Arash Sullivan MD [address] [place] [address] PCP - General Internal Medicine 04/04/16
--- OUTSIDE RECORDS SUMMARY | 2024-08-20 17:11 | XMS_ITS | Patient Health Summary ---
Author Organization [facility] Address [address] [facility] [address] [address] Care Team Providers Care Surgery Tech Name Role Phone Arash Sulilvan MD Primary Care Provider [phone] Note from [facility],non-owned Affiliates and Associated Physician Practices is amultiple site organization consisting of ambulatory clinics and hospital sitesin [place], [place], [place] and [place]. This disclosure is being madepursuant to the Care Everywhere program and may not contain all information available regarding this patient. Last updated 18.[facility] M-Files Allergies No known active allergies Medications Be [...] - - Body Mass Index - - Procedures * CARDIAC EKG ORDER(Performed 11/07/2021) * CT HEAD WO CONTRAST(Performed 11/06/2021) Performed for Fall, initial encounter * TEG 6 GLOBAL HEMOSTASIS W/ LYSIS(Performed 11/05/2021) * URINALYSIS W/MICROSCOPIC NO CULTURE(Performed 11/05/2021) * URINE DRUG SCREEN IMMUNOASSAY(Performed 11/05/2021) * BLOOD TYPE VERIFICATION(Performed 11/05/2021) * XR PELVIS 1 OR 2VW(Performed 11/05/2021) Performed for Fall, initial encounter * XR WRIST RIGHT 3VW OR MORE(Performed 11/05/2021) Performed for Fall, initial encounter * XR CHEST 1VW PORTABLE(Performed 11/05/2021) Performed for Fall, initial encounter * CT FACIAL BONES WO CONTRAST(Performed 11/05/2021) Performed for Fall, initial encounter * CT LUMBAR SPINE WO CONTRAST(Performed 11/05/2021) Performed for Fall, initial encounter * CT THORACIC SPINE WO CONTRAST(Performed 11/05/2021) Performed for Fall, initial encounter * CT CHEST ABDOMEN PELVIS W CONT(Performed 11/05/2021) Performed for Fall, initial encounter * CT CERVICAL SPINE WO CONTRAST(Performed 11/05/2021) Performed for Fall, initial encounter * CT HEAD WO CONTRAST(Performed 11/05/2021) Performed for Fall, initial encounter * TYPE + SCREEN PANEL(Performed 11/05/2021) * TEG 6S PLATELET MAPPING(Performed 11/05/2021) * PT-INR [facility](Performed 11/05/2021) * CBC W AUTO DIFFERENTIAL(Performed 11/05/2021) * BASIC METABOLIC PANEL (CALCIUM TOTAL)(Performed 11/05/2021) * ALCOHOL ETHYL BLOOD(Performed 11/05/2021) Results * CARDIAC EKG ORDER (11/07/2021 2:40 PM CDT) Narrative 11/07/2021 2:40 PM CDT Ordered by an unspecified provider. Scanned Document CARDIAC SERVICES ORD ERABLES * CT HEAD WO CONTRAST (11/06/2021 5:11 AM CDT) Only the most recent of2 resultswithin the time period is included. Anatomical Region Laterality Modality Head Computed Tomogra phy 11/06/2021 7:46 AM CDT Impressions 11/06/2021 12:10 PM CDT IMPRESSION: 1. Expected evolution of subarachnoid hemorrhage which is stable in the right parietal lobe but less conspicuous in the right temporal lobe and resolved left parietal lobe. 2. No new intra-axial or extra-axial hemorrhage. Dictated by: Josue Cardoza MD, PhD (vice president planning). I, Dr. XIOMY RUANO have personally reviewed and interpreted this examination/study. This report was electronically signed by XIOMY RUANO ??on 11/06/2021 12:10 PM . Narrative 11/06/2021 12:10 PM CDT EXAMINATION: Computed tomography (CT) of the head without contrast HISTORY: W19.XXXA: Fall, initial encounter. TECHNIQUE: CT of the head was performed without contrast according to standard protocol. COMPARISON: CT head noncontrast from 11/05/2021. FINDINGS: Small volume acute right parietal subarachnoid hemorrhage persists. Subarachnoid hemorrhage in the right sylvian fissure is less conspicuous. Left parietal subarachnoid hemorrhage has dispersed and is no longer visualized. No new extra-axial hemorrhage is demonstrated. No acute intra- or extra-axial fluid collections are identified. There is moderate cerebral volume loss with associated ex vacuo ventricular dilatation. The basilar cisterns are patent. No mass effect or midline shift is seen. The vee-white matter differentiation is normal. Extensive chronic microvascular ischemic changes are again evident. There is extensive vascular calcification of the carotid siphons. The visualized portions of the orbits, paranasal sinuses, and mastoids appear normal. No acute fracture is identified. Left frontal temporal scalp and a left facial soft tissue hematoma are again seen. Procedure Note Xiomy Ruano MD - 11/06/2021 EXAMINATION: Computed tomography (CT) of the head without contrast HISTORY: W19.XXXA: Fall, initial encounter. TECHNIQUE: CT of the head was performed without contrast according to standard protocol. COMPARISON: CT head noncontrast from 11/05/2021. FINDINGS: Small volume acute right parietal subarachnoid hemorrhage persists. Subarachnoid hemorrhage in the right sylvian fissure is lessconspicuous. Left parietal subarachnoid hemorrhage has dispersed and is no longer visualized. No new extra-axial hemorrhage is demonstrated. No acute intra- or extra-axial fluid collections are identified. Thereis moderate cerebral volume loss with associated ex vacuo ventricular dilatation. The basilar cisterns are patent. No mass effect or midline shift is seen. The vee-white matter differentiation is normal.Extensive chronic microvascular ischemic changes are again evident. There is extensive vascular calcification of the carotid siphons. The visualized portions of the orbits, paranasal sinuses, and mastoidsappear normal. No acute fracture is identified. Left frontal temporal scalp mateo left facial soft tissue hematoma are again seen. IMPRESSION: 1. Expected evolution of subarachnoid hemorrhage which is stable in the right parietal lobe but less conspicuous in the right temporal lobe and resolved left parietal lobe. 2. No new intra-axial or extra-axial hemorrhage. Dictated by: Josue Cardoza MD, PhD (vice president planning). I, Dr. XIOMY RUANO have personally reviewed and interpreted this examination/study. This report was electronically signed by XIOMY RUANO on11/06/2021 12:10 PM . Daniel Gutierrez MD CT ORDERABLES * TEG 6 GLOBAL HEMOSTASIS W/ LYSIS (11/05/2021 10:15 PM CDT) Citrated Kaolin R (Reaction Time) 8.1 4.6 - 9.1 min 11/05/2021 11:39 PM CDT [facility] Citrated Kaolin LY30 (Lysis) 0.4 0.0 - 2.6 % 11/05/2021 11:39 PM CDT [facility] Citrated RapidTEG MA (Max Amplitude) 60.5 52.0 - 70.0 mm 11/05/2021 11:39 PM T [facility] Citrated Functional Fibrinogen MA (Max Amplitude) 19.7 15.0 - 32.0 mm 11/05/2021 11:39 PM T [facility] Blood BLOOD SPECIMEN / Unknown Venipuncture / Unknown 11/05/2021 10:15 PM CDT 11/05/2021 10:37 PM CDT Michael King MD LAB - HEMATOLOGY O RDERABLES [facility] [address] [place] [id number], [facility] [phone] * (ABNORMAL) URINALYSIS W/MICROSCOPIC NO CULTURE (11/05/2021 10:12 PM CDT) Color UA Yellow Straw, Yellow 11/05/2021 10:26 PM [facility] Clarity UA Clear Clear 11/05/2021 10:26 PM [facility] Specific Grover UA 1.021 1.005 - 1.030 11/05/2021 10:26 PM [facility] pH UA 7.0 5.0 - 8.0 pH 11/05/2021 10:26 PM [facility] Protein UA Negative Negative 11/05/2021 10:26 PM [facility] Glucose UA Negative Negative 11/05/2021 10:26 PM [facility] Ketone UA Trace(A) Negative 11/05/2021 10:26 PM [facility] Bilirubin UA Negative Negative 11/05/2021 10:26 PM [facility] Blood UA Negative Negative 11/05/2021 10:26 PM [facility] Nitrite UA Negative Negative 11/05/2021 10:26 PM [facility] Leukocyte Esterase Negative Negative 11/05/2021 10:26 PM [facility] Urobilinogen UA Negative Negative mg/dL 11/05/2021 10:26 PM [facility] RBC UA 0-2 None Seen, 0-2, 3-5 /HPF 11/05/2021 10:26 PM [facility] WBC UA 0-5 None Seen, 0-5 /HPF 11/05/2021 10:26 PM [facility] Squamous Epithelial Cells UA None Seen None Seen, 0-2, 3-5 /HPF 11/05/2021 10:26 PM [facility] Urine URINE SPECIMEN OBTAINED BY CLEAN CATCH PROCEDURE / Unknown Collection / Unknown 11/05/2021 10:12 PM CDT 11/05/2021 10:19 PM CDT Narrative [facility] - 11/05/2021 10:26 PM CDT Michael King MD LAB - URINALYSIS O RDERABLES [facility] [address] [place] [address], [facility] [phone] * URINE DRUG SCREEN IMMUNOASSAY (11/05/2021 10:12 PM CDT) [facility] Amphetamines Screen Urine Negative Negative: < 1000 ng/mL 11/05/2021 10:41 PM CDT [facility] Barbiturates Screen Urine Negative Negative: < 200 ng/mL 11/05/2021 10:41 PM T [facility] Benzodiazepine Screen Urine Negative Negative: < 200 ng/mL 11/05/2021 10:41 PM CDT [facility] Opiates Urine Negative Negative: < 300 ng/mL 11/05/2021 10:41 PM CDT [facility] Cocaine Metabolites Urine Negative Negative: < 300 ng/mL 11/05/2021 10:41 PM CDT [facility] Phencyclidine Screen Urine Negative Negative: < 25 ng/ml 11/05/2021 10:41 PM CDT [facility] Cannabinoids Screen Urine Negative Negative: <50 ng/mL 11/05/2021 10:41 PM T [facility] Methadone Screen Urine Negative Negative: < 300 ng/mL 11/05/2021 10:41 PM T [facility] Fentanyl Screen Urine Negative Negative: <1.0 ng/mL 11/05/2021 10:41 PM T [facility] Urine URINE / Unknown Collection / Unknown 11/05/2021 10:12 PM CDT 11/05/2021 10:19 PM CDT Narrative [facility] - 11/05/2021 10:41 PM CDT The Urine Toxicology Screening Panel does not screen for Propoxyphene, Meprobamate, Carisoprodol, Trazodone, [id number] medications and/or volatiles (Acetone, Isopropanol, Methanol or Ethylene Glycol). Ethanol, Salicylate, Acetaminophen, Tricyclic Antidepressants and several therapeutic drugs may be individually assayed in serum or plasma specimen. Toxicology testing by the [facility] is an aid to medical diagnosis and treatment of patients. No documented chain of custody was maintained. Results are intended to be used for clinical purposes only. ? Michael King MD LAB - URINE CHEMIS TRY ORDERABLES Performing Organization Address [facility] Co de Phone Number [facility] [address] [place] [id number], [place] [phone] * BLOOD TYPE VERIFICATION (11/05/2021 8:25 PM CDT) ABO Rh AB POS 11/05/2021 9:09 PM CDT [facility] Blood Bank BLOOD SPECIMEN / Unknown Venipuncture / Unknown 11/05/2021 8:25 PM CDT 11/05/2021 8:34 PM CDT Daniel Gutierrez MD LAB - BLOOD BANK ORD ERABLES Performing Organization Address [facility] Co de Phone Number [facility] [address] [place] [address], [place] [phone] * XR PELVIS 1 OR 2VW (11/05/2021 8:11 PM CDT) Anatomical Region Laterality Modality Pelvis Radiographic Rosita ging 11/05/2021 9:58 PM CDT Impressions 11/06/2021 2:46 PM CDT IMPRESSION: No acute fracture identified. Dictated by Mason Johnson D.O. (Station Supervisor) Dr. TEVIN Wall MD have personally reviewed and interpreted this examination/study. This report was electronically signed by TEVIN DICKERSON MD ??on 11/06/2021 2:46 PM . Narrative 11/06/2021 2:46 PM CDT EXAMINATION: XR PELVIS 1 OR 2VW HISTORY: Trauma Fracture suspected COMPARISON: CT of the chest abdomen and pelvis dated 11/05/2021. FINDINGS: No acute fracture is identified. The femoral heads appear well-seated within their respective acetabula. The pubic symphysis is intact. Bone density and texture are normal. The sacroiliac joints are normal. Procedure Note Tevin Dickerson MD - 11/06/2021 EXAMINATION: XR PELVIS 1 OR 2VW HISTORY: Trauma Fracture suspected COMPARISON: CT of the chest abdomen and pelvis dated 11/05/2021. FINDINGS: No acute fracture is identified. The femoral heads appear well-seated within their respective acetabula. The pubic symphysis is intact. Bone density and texture are normal. The sacroiliac joints are normal. IMPRESSION: No acute fracture identified. Dictated by Mason Johnson D.O. (Station Supervisor) Dr. TEVIN Wall MD have personally reviewed and interpreted this examination/study. This report was electronically signed by TEVIN DICKERSON MD on11/06/2021 2:46 PM . Michael King MD DIAGNOSTIC IMAGING ORDERABLES * XR WRIST RIGHT 3VW OR MORE (11/05/2021 8:10 PM CDT) Anatomical Region Laterality Modality Wrist / Hand Radiographic Rosita ging 11/05/2021 8:16 PM CDT Impressions 11/06/2021 2:48 PM CDT FINDINGS/IMPRESSION: No acute fracture or dislocation. 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 Mild widening of the scapholunate interval which could reflect ligament tear or insufficiency. Osteopenia and vascular calcification are noted. IMPRESSION: 1. No acute fracture or dislocation. 2. Mild widening of the scapholunate interval could represent ligament tear or insufficiency. Dictated by Mason Johnson D.O. (Station Supervisor) Dr. TEVIN Wall MD have personally reviewed and interpreted this examination/study. This report was electronically signed by TEVIN DICKERSON MD ??on 11/06/2021 2:48 PM . Narrative 11/06/2021 2:48 PM CDT EXAMINATION: XR WRIST RIGHT 3VW OR MORE HISTORY: W19.XXXA: Fall, initial encounter COMPARISON: None. Procedure Note Tevin Dickerson MD - 11/06/2021 EXAMINATION: XR WRIST RIGHT 3VW OR MORE HISTORY: W19.XXXA: Fall, initial encounter COMPARISON: None. FINDINGS/IMPRESSION: No acute fracture or dislocation. 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 Mild widening of the scapholunate interval which could reflect ligament tear or insufficiency. Osteopenia and vascular calcification are noted. IMPRESSION: 1. No acute fracture or dislocation. 2. Mild widening of the scapholunate interval could represent ligament tear or insufficiency. Dictated by Mason Johnson D.O. (Station Supervisor) Dr. TEVIN Wall MD have personally reviewed and interpreted this examination/study. This report was electronically signed by TEVIN DICKERSON MD on11/06/2021 2:48 PM . Michael King MD DIAGNOSTIC IMAGING ORDERABLES * XR CHEST 1VW PORTABLE (11/05/2021 8:10 PM CDT) Anatomical Region Laterality Modality Chest Radiographic Rosita ging 11/05/2021 9:59 PM CDT Impressions 11/06/2021 2:46 PM CDT FINDINGS/IMPRESSION: The patient is rotated to the left. A trace left pleural effusion is suggested with overlying basilar atelectasis. There is no evidence of focal consolidation or pneumothorax. The cardiac silhouette is normal. The aorta is atherosclerotic. The visible bony thorax is intact. Dictated by Mason Johnson DO (vice president planning). Dr. TEVIN Wall MD have personally reviewed and interpreted this examination/study. This report was electronically signed by TEVIN DICKERSON MD ??on 11/06/2021 2:46 PM . Narrative 11/06/2021 2:46 PM CDT EXAMINATION: XR CHEST 1VW PORTABLE HISTORY: Trauma COMPARISON: CT of the chest abdomen pelvis dated 11/05/2021 Procedure Note Tevin Dickerson MD - 11/06/2021 EXAMINATION: XR CHEST 1VW PORTABLE HISTORY: Trauma COMPARISON: CT of the chest abdomen pelvis dated 11/05/2021 FINDINGS/IMPRESSION: The patient is rotated to the left. A trace left pleural effusion is suggested with overlying basilar atelectasis. There is no evidence of focal consolidation or pneumothorax. The cardiac silhouette is normal.The aorta is atherosclerotic. The visible bony thorax is intact. Dictated by Mason Johnson DO (vice president planning). IDr. TEVIN MD have personally reviewed and interpreted this examination/study. This report was electronically signed by TEVIN DICKERSON MD on11/06/2021 2:46 PM . Michael King MD DIAGNOSTIC IMAGING ORDERABLES * CT CHEST ABDOMEN PELVIS W CONT - Abdomen-pelvis trauma, blunt or penetrating (11/05/2021 7:59 PM CDT) Anatomical Region Laterality Modality Chest, Abdomen, Pelvis Computed Tomography 11/05/2021 8:02 PM CDT Impressions 11/06/2021 7:59 AM CDT Impression: 1. No acute visceral, vascular, or osseous injury identified in the chest, abdomen, or pelvis. 2. Cholelithiasis, without evidence of acute cholecystitis. 3. Small left pleural effusion with associated atelectasis/airspace disease. Pleural calcifications noted bilaterally. 4. Mild colonic diverticulosis without evidence of acute diverticulitis. Dictated by Kandace Jansen MD (outside residential sales professional). Dr. VLADIMIR Wall MD, [facility] have personally reviewed and interpreted this examination/study. This report was electronically signed by VLADIMIR BARCENAS MD, [facility] ??on 11/06/2021 7:59 AM . Narrative 11/06/2021 7:59 AM CDT Procedure Information DATE: 11/05/2021 8:01 PM EXAMINATION: Computed tomography (CT) of the chest, abdomen, and pelvis with contrast TECHNIQUE: CT of the chest, abdomen, and pelvis was performed after the uneventful administration of 100 mL of Isovue 370 intravenous contrast according to standard protocol. Clinical Information HISTORY: Trauma COMPARISON: None. Findings Chest: Lines/Tubes: None. Lower neck and axillae: Normal. Mediastinum and Elysia: No enlarged lymph nodes are present. There is atherosclerotic calcification of the aorta, great vessels, and coronary arteries. Heart and Pericardium: The cardiac chambers are normal in size. No pericardial fluid or thickening is present. Lung Parenchyma, Airways, and Pleural Spaces: There is mild bibasilar atelectasis. There are emphysematous changes. No pulmonary parenchymal or airway process is present. There is a small left pleural effusion. There is no pneumothorax. Calcifications along the pleura bilaterally may represent sequela of prior infection or inflammation. Abdomen/pelvis: Hepatobiliary: The gallbladder is decompressed. A small stone is noted in the lumen. There is no pericholecystic fluid or gallbladder wall thickening. The liver enhances homogeneously without focal lesion. There is no intrahepatic or extrahepatic bile duct dilatation. Pancreas: The pancreas is atrophic. Spleen: Normal. Kidneys: A few subcentimeter hypodensities in the kidneys bilaterally may represent cysts or scarring. The kidneys otherwise enhance homogeneously without hydronephrosis. Adrenals: Normal. Retroperitoneum: There is no retroperitoneal lymphadenopathy. Peritoneum: There is no fringe peritoneal air or free fluid. Gastrointestinal: There is mild colonic diverticulosis without evidence of acute diverticulitis. The stomach and visualized loops of bowel are otherwise unremarkable. Appendix: Normal. Pelvic Structures: The urinary bladder is distended with fluid. The prostate is present. Vasculature: Scattered atherosclerotic vasculature changes. Infrarenal segment of the abdominal aorta is ectatic. Mild narrowing of the ostia of celiac artery is seen. Thick black associated with suggestion of narrowing of the ostia of the bilateral renal arteries. Bones: The visible osseous structures are intact. Degenerative changes are seen in the spine. Soft tissues: Normal. Procedure Note Vladimir Barcenas MD - 11/06/2021 Procedure Information DATE: 11/05/2021 8:01 PM EXAMINATION: Computed tomography (CT) of the chest, abdomen, and pelvis with contrast TECHNIQUE: CT of the chest, abdomen, and pelvis was performed after the uneventful administration of 100 mL of Isovue 370 intravenous contrast according to standard protocol. Clinical Information HISTORY: Trauma COMPARISON: None. Findings Chest: Lines/Tubes: None. Lower neck and axillae: Normal. Mediastinum and Elysia: No enlarged lymph nodes are present. There is atherosclerotic calcification of the aorta, great vessels, and coronary arteries. Heart and Pericardium: The cardiac chambers are normal in size. No pericardial fluid or thickening is present. Lung Parenchyma, Airways, and Pleural Spaces: There is mild bibasilar atelectasis. There are emphysematous changes. No pulmonary parenchymal or airway process is present. There is a smallleft pleural effusion. There is no pneumothorax. Calcifications along the pleura bilaterally may represent sequela of prior infection or inflammation. Abdomen/pelvis: Hepatobiliary: The gallbladder is decompressed. A small stone is noted in the lumen. There is no pericholecystic fluid or gallbladder wall thickening. The liver enhances homogeneously without focal lesion. There is no intrahepatic or extrahepatic bile duct dilatation. Pancreas: The pancreas is atrophic. Spleen: Normal. Kidneys: A few subcentimeter hypodensities in the kidneys bilaterally mayrepresent cysts or scarring. The kidneys otherwise enhance homogeneously without hydronephrosis. Adrenals: Normal. Retroperitoneum: There is no retroperitoneal lymphadenopathy. Peritoneum: There is no fringe peritoneal air or free fluid. Gastrointestinal: There is mild colonic diverticulosis without evidence of acute diverticulitis. The stomach and visualized loops of bowel are otherwise unremarkable. Appendix: Normal. Pelvic Structures: The urinary bladder is distended with fluid. The prostate is present. Vasculature: Scattered atherosclerotic vasculature changes. Infrarenal segment of the abdominal aorta is ectatic. Mild narrowing of the ostia of celiac artery is seen. Thick black associated with suggestion of narrowing of theostia of the bilateral renal arteries. Bones: The visible osseous structures are intact. Degenerative changes are seen in the spine. Soft tissues: Normal. Impression: 1. No acute visceral, vascular, or osseous injury identified in thechest, abdomen, or pelvis. 2. Cholelithiasis, without evidence of acute cholecystitis. 3. Small left pleural effusion with associated atelectasis/airspace disease. Pleural calcifications noted bilaterally. 4. Mild colonic diverticulosis without evidence of acute diverticulitis. Dictated by Kandace Jansen MD (outside residential sales professional). Dr. VLADIMIR Wall MD, [facility] have personally reviewedand interpreted this examination/study. This report was electronically signed by VLADIMIR BARCENAS MD, [facility] on 11/06/2021 7:59 AM . Michael King MD CT ORDERABLES * CT LUMBAR SPINE WO CONTRAST - T/L-spine trauma, Spine fracture (11/05/2021 7:59 PM CDT) Anatomical Region Laterality Modality Spine Computed Tomogra phy 11/05/2021 8:33 PM CDT Impressions 11/06/2021 8:36 AM CDT IMPRESSION: 1.Small volume acute subarachnoid hemorrhage in the bilateral parietal and right temporal lobes are compatible with a countercoup injury. 2.Age indeterminant fracture of the bilateral nasal bones. No other definite acute facial bone fracture is seen. 3.Large left frontal scalp laceration and hematoma. Large soft tissue hematoma and edema overlying the left zygomatic process. 4.No evidence of acute fracture in the cervical, thoracic, or lumbar spine. Dictated by Mason Johnson D.O. (Station Supervisor) Dr. XIOMY Wall have personally reviewed and interpreted this examination/study. This report was electronically signed by XIOMY RUANO ??on 11/06/2021 8:36 AM . Narrative 11/06/2021 8:[address] HEAD WO CONTRAST, CT FACIAL BONES WO CONTRAST, CT LUMBAR SPINE WO CONTRAST, CT THORACIC SPINE WO CONTRAST, CT CERVICAL SPINE WO CONTRAST DATE: 11/05/2021 8:01 PM EXAMINATION: 1. Computed tomography (CT) of the head without contrast 2. CT of the maxillofacial bones, orbits, and paranasal sinuses without contrast 3. CT of the cervical spine without contrast 4. CT of the thoracic spine without contrast 5. CT of the lumbar spine without contrast HISTORY: Trauma TECHNIQUE: CT of the head, cervical spine, and maxillofacial bones, orbits, and paranasal sinuses was performed without contrast according to standard protocol. Reformatted axial, sagittal, and coronal images of the thoracic and lumbar spine were obtained by the technologist from a concurrently performed body CT and sent to the workstation for review. COMPARISON: No prior study is available for comparison at the time of this dictation. FINDINGS: Head: Multiple areas of small volume acute subarachnoid hemorrhage are demonstrated in the bilateral parietal and right temporal lobes. These findings are compatible with countercoup injury. No other acute intra- or extra-axial fluid collections are identified. There is mild cerebral volume loss with associated ex vacuo ventricular dilatation. The basilar cisterns are patent. No mass effect or midline shift is seen. The vee-white matter differentiation is preserved. Moderate periventricular white matter hypoattenuation is indicative of chronic small vessel ischemic disease. There is extensive vascular calcification of the carotid siphons. No acute calvarial fracture is identified. Maxillofacial: There are age-indeterminate fractures of the bilateral nasal bones. Other than bilateral cataract extractions, the orbits appear normal. The paranasal sinuses are clear. The hard palate, mandible, and temporomandibular joints appear intact. Moderate degenerative changes are seen in the bilateral TM joints. No other potential acute facial bone fractures are identified. The mastoid air cells are clear. There is a large left frontal scalp laceration and hematoma. A large soft tissue hematoma overlying the left zygomatic process measures approximately 2 cm in maximal thickness. Cervical spine: There is mild levocurvature of the mid to lower cervical spine which may be positional. Grade 1 anterolisthesis at C4-C5 measures 2 mm. There is chronic degenerative vertebral body height loss most notably at C5 and C6. There is no evidence of acute fracture. Other than middle atlantoaxial joint osteoarthritis, the craniocervical junction appears normal. There is advanced degenerative disc disease at multiple levels, most severe from C4 to T1 with associated endplate changes. There is moderate central canal stenosis at C3-C4, C5-C6, and C6-C7 due to posterior disc osteophyte complexes. There are varying degrees of advanced facet osteoarthritis. There are varying degrees of advanced uncovertebral joint osteoarthritis with the same degree of neural foraminal stenosis at these levels. There is atherosclerotic calcification of the carotid bifurcations. Emphysematous changes are present in the lung apices. Thoracic spine: Dextrocurvature in the mid to upper thoracic spine positional. There is no spondylolisthesis. The bones are demineralized. Vertebral bodies are normal in height without evidence of acute fracture. There is advanced degenerative disc disease and Schmorl's nodes at multiple levels, most prominent in the lower thoracic region. ??No high-grade central canal stenosis is seen. There are varying degrees of mild facet osteoarthritis. There are varying degrees of neural foraminal stenosis at multiple levels. There is atherosclerotic calcification of the thoracic aorta and its branch vessels as well as subsegmental atelectasis in the dependent portions of the lung bases. A small left pleural effusion is suggested. Lumbar spine: There are 6 lumbar type vertebral bodies. Vestigial ribs are present bilaterally at L1. S1 is a transitional level with bilateral lumbarization. Retrolisthesis at L3-L4 measures 3 mm and L4-L5 measures 4 mm. Left lateral subluxation at L3-L4 measures 3 mm. The bones are demineralized. Vertebral bodies are normal in height without evidence of acute fracture. There is advanced multilevel degenerative disc disease with vacuum disc phenomenon, endplate changes, and complete osseous fusion of the L2 and L3 vertebral bodies. There is moderate central canal stenosis at L2-L3 and L3-L4 associated with broad-based posterior disc bulge, thickening of the ligamentum flavum, and severe facet osteoarthritis. Dorsal decompression is present at L5-S1 and S1-S2. There are varying degrees of advanced facet osteoarthritis. There are varying degrees of neural foraminal stenosis at multiple levels, most prominent in the lower lumbar spine. Severe degenerative changes of the SI joints is also demonstrated. ??There is atherosclerotic calcification of the abdominal aorta and its branch vessels. Procedure Note Xiomy Ruano MD - 11/06/2021 CT HEAD WO CONTRAST, CT FACIAL BONES WO CONTRAST, CT LUMBAR SPINE WO CONTRAST, CT THORACIC SPINE WO CONTRAST, CT CERVICAL SPINE WO CONTRAST DATE: 11/05/2021 8:01 PM EXAMINATION: 1. Computed tomography (CT) of the head without contrast 2. CT of the maxillofacial bones, orbits, and paranasal sinuses without contrast 3. CT of the cervical spine without contrast 4. CT of the thoracic spine without contrast 5. CT of the lumbar spine without contrast HISTORY: Trauma TECHNIQUE: CT of the head, cervical spine, and maxillofacial bones, orbits, and paranasal sinuses was performed without contrast accordingto standard protocol. Reformatted axial, sagittal, and coronal images ofthe thoracic and lumbar spine were obtained by the technologist from a concurrently performed body CT and sent to the workstation for review. COMPARISON: No prior study is available for comparison at the time ofthis dictation. FINDINGS: Head: Multiple areas of small volume acute subarachnoid hemorrhage are demonstrated in the bilateral parietal and right temporal lobes. These findings are compatible with countercoup injury. No other acute intra- or extra-axial fluid collections are identified. There is mild cerebral volume loss with associated ex vacuo ventricular dilatation. The basilar cisterns are patent. No mass effect or midline shift is seen. The vee-white matter differentiation is preserved. Moderate periventricular white matter hypoattenuation is indicative of chronic small vessel ischemic disease. There is extensive vascular calcification of the carotid siphons. Noacute calvarial fracture is identified. Maxillofacial: There are age-indeterminate fractures of the bilateral nasal bones. Other than bilateral cataract extractions, the orbits appear normal. The paranasal sinuses are clear. The hard palate, mandible, and temporomandibular joints appear intact. Moderate degenerative changesare seen in the bilateral TM joints. No other potential acute facial bone fractures are identified. The mastoid air cells are clear. There is a large left frontal scalp laceration and hematoma. A large soft tissue hematoma overlying the left zygomatic process measures approximately 2cm in maximal thickness. Cervical spine: There is mild levocurvature of the mid to lower cervical spine which may be positional. Grade 1 anterolisthesis at C4-C5 measures 2 mm. There is chronic degenerative vertebral body height loss most notably at C5 andC6. There is no evidence of acute fracture. Other than middle atlantoaxial joint osteoarthritis, the craniocervical junction appears normal. Thereis advanced degenerative disc disease at multiple levels, most severe fromC4 to T1 with associated endplate changes. There is moderate central canal stenosis at C3-C4, C5-C6, and C6-C7 due to posterior disc osteophyte complexes. There are varying degrees of advanced facet osteoarthritis. There are varying degrees of advanced uncovertebral joint osteoarthritis with the same degree of neural foraminal stenosis at these levels. There is atherosclerotic calcification of the carotid bifurcations. Emphysematous changes are present in the lung apices. Thoracic spine: Dextrocurvature in the mid to upper thoracic spine positional. There isno spondylolisthesis. The bones are demineralized. Vertebral bodies are normal in height without evidence of acute fracture. There is advanced degenerative disc disease and Schmorl's nodes at multiple levels, most prominent in the lower thoracic region. No high-grade central canal stenosis is seen. There are varying degrees of mild facetosteoarthritis. There are varying degrees of neural foraminal stenosis at multiplelevels. There is atherosclerotic calcification of the thoracic aorta and its branch vessels as well as subsegmental atelectasis in the dependent portions of the lung bases. A small left pleural effusion is suggested. Lumbar spine: There are 6 lumbar type vertebral bodies. Vestigial ribs are present bilaterally at L1. S1 is a transitional level with bilateral lumbarization. Retrolisthesis at L3-L4 measures 3 mm and L4-L5 measures 4 mm. Left lateral subluxation at L3-L4 measures 3 mm. The bones are demineralized. Vertebral bodies are normal in height without evidence of acutefracture. There is advanced multilevel degenerative disc disease with vacuum disc phenomenon, endplate changes, and complete osseous fusion of the L2 andL3 vertebral bodies. There is moderate central canal stenosis at L2-L3 and L3-L4 associated with broad-based posterior disc bulge, thickening ofthe ligamentum flavum, and severe facet osteoarthritis. Dorsal decompression is present at L5-S1 and S1-S2. There are varying degrees of advancedfacet osteoarthritis. There are varying degrees of neural foraminal stenosisat multiple levels, most prominent in the lower lumbar spine. Severe degenerative changes of the SI joints is also demonstrated. There is atherosclerotic calcification of the abdominal aorta and its branch vessels. IMPRESSION: 1.Small volume acute subarachnoid hemorrhage in the bilateral [place] right temporal lobes are compatible with a countercoup injury. 2.Age indeterminant fracture of the bilateral nasal bones. No other definite acute facial bone fracture is seen. 3.Large left frontal scalp laceration and hematoma. Large soft tissue hematoma and edema overlying the left zygomatic process. 4.No evidence of acute fracture in the cervical, thoracic, or lumbarspine. Dictated by Mason Johnson D.O. (Station Supervisor) I, Dr. XIOMY RUANO have personally reviewed and interpreted this examination/study. This report was electronically signed by XIOMY RUANO on11/06/2021 8:36 AM . Michael King MD CT ORDERABLES * CT THORACIC SPINE WO CONTRAST - T/L-spine trauma, spine fracture (11/05/2021 7:59 PM CDT) Anatomical Region Laterality Modality Spine Computed Tomogra phy 11/05/2021 8:33 PM CDT Impressions 11/06/2021 8:36 AM CDT IMPRESSION: 1.Small volume acute subarachnoid hemorrhage in the bilateral parietal and right temporal lobes are compatible with a countercoup injury. 2.Age indeterminant fracture of the bilateral nasal bones. No other definite acute facial bone fracture is seen. 3.Large left frontal scalp laceration and hematoma. Large soft tissue hematoma and edema overlying the left zygomatic process. 4.No evidence of acute fracture in the cervical, thoracic, or lumbar spine. Dictated by Mason Johnson D.O. (Station Supervisor) I, Dr. XIOMY RUANO have personally reviewed and interpreted this examination/study. This report was electronically signed by XIOMY RUANO ??on 11/06/2021 8:36 AM . Narrative 11/06/2021 8:[address] HEAD WO CONTRAST, CT FACIAL BONES WO CONTRAST, CT LUMBAR SPINE WO CONTRAST, CT THORACIC SPINE WO CONTRAST, CT CERVICAL SPINE WO CONTRAST DATE: 11/05/2021 8:01 PM EXAMINATION: 1. Computed tomography (CT) of the head without contrast 2. CT of the maxillofacial bones, orbits, and paranasal sinuses without contrast 3. CT of the cervical spine without contrast 4. CT of the thoracic spine without contrast 5. CT of the lumbar spine without contrast HISTORY: Trauma TECHNIQUE: CT of the head, cervical spine, and maxillofacial bones, orbits, and paranasal sinuses was performed without contrast according to standard protocol. Reformatted axial, sagittal, and coronal images of the thoracic and lumbar spine were obtained by the technologist from a concurrently performed body CT and sent to the workstation for review. COMPARISON: No prior study is available for comparison at the time of this dictation. FINDINGS: Head: Multiple areas of small volume acute subarachnoid hemorrhage are demonstrated in the bilateral parietal and right temporal lobes. These findings are compatible with countercoup injury. No other acute intra- or extra-axial fluid collections are identified. There is mild cerebral volume loss with associated ex vacuo ventricular dilatation. The basilar cisterns are patent. No mass effect or midline shift is seen. The vee-white matter differentiation is preserved. Moderate periventricular white matter hypoattenuation is indicative of chronic small vessel ischemic disease. There is extensive vascular calcification of the carotid siphons. No acute calvarial fracture is identified. Maxillofacial: There are age-indeterminate fractures of the bilateral nasal bones. Other than bilateral cataract extractions, the orbits appear normal. The paranasal sinuses are clear. The hard palate, mandible, and temporomandibular joints appear intact. Moderate degenerative changes are seen in the bilateral TM joints. No other potential acute facial bone fractures are identified. The mastoid air cells are clear. There is a large left frontal scalp laceration and hematoma. A large soft tissue hematoma overlying the left zygomatic process measures approximately 2 cm in maximal thickness. Cervical spine: There is mild levocurvature of the mid to lower cervical spine which may be positional. Grade 1 anterolisthesis at C4-C5 measures 2 mm. There is chronic degenerative vertebral body height loss most notably at C5 and C6. There is no evidence of acute fracture. Other than middle atlantoaxial joint osteoarthritis, the craniocervical junction appears normal. There is advanced degenerative disc disease at multiple levels, most severe from C4 to T1 with associated endplate changes. There is moderate central canal stenosis at C3-C4, C5-C6, and C6-C7 due to posterior disc osteophyte complexes. There are varying degrees of advanced facet osteoarthritis. There are varying degrees of advanced uncovertebral joint osteoarthritis with the same degree of neural foraminal stenosis at these levels. There is atherosclerotic calcification of the carotid bifurcations. Emphysematous changes are present in the lung apices. Thoracic spine: Dextrocurvature in the mid to upper thoracic spine positional. There is no spondylolisthesis. The bones are demineralized. Vertebral bodies are normal in height without evidence of acute fracture. There is advanced degenerative disc disease and Schmorl's nodes at multiple levels, most prominent in the lower thoracic region. ??No high-grade central canal stenosis is seen. There are varying degrees of mild facet osteoarthritis. There are varying degrees of neural foraminal stenosis at multiple levels. There is atherosclerotic calcification of the thoracic aorta and its branch vessels as well as subsegmental atelectasis in the dependent portions of the lung bases. A small left pleural effusion is suggested. Lumbar spine: There are 6 lumbar type vertebral bodies. Vestigial ribs are present bilaterally at L1. S1 is a transitional level with bilateral lumbarization. Retrolisthesis at L3-L4 measures 3 mm and L4-L5 measures 4 mm. Left lateral subluxation at L3-L4 measures 3 mm. The bones are demineralized. Vertebral bodies are normal in height without evidence of acute fracture. There is advanced multilevel degenerative disc disease with vacuum disc phenomenon, endplate changes, and complete osseous fusion of the L2 and L3 vertebral bodies. There is moderate central canal stenosis at L2-L3 and L3-L4 associated with broad-based posterior disc bulge, thickening of the ligamentum flavum, and severe facet osteoarthritis. Dorsal decompression is present at L5-S1 and S1-S2. There are varying degrees of advanced facet osteoarthritis. There are varying degrees of neural foraminal stenosis at multiple levels, most prominent in the lower lumbar spine. Severe degenerative changes of the SI joints is also demonstrated. ??There is atherosclerotic calcification of the abdominal aorta and its branch vessels. Procedure Note Xiomy Ruano MD - 11/06/2021 CT HEAD WO CONTRAST, CT FACIAL BONES WO CONTRAST, CT LUMBAR SPINE WO CONTRAST, CT THORACIC SPINE WO CONTRAST, CT CERVICAL SPINE WO CONTRAST DATE: 11/05/2021 8:01 PM EXAMINATION: 1. Computed tomography (CT) of the head without contrast 2. CT of the maxillofacial bones, orbits, and paranasal sinuses without contrast 3. CT of the cervical spine without contrast 4. CT of the thoracic spine without contrast 5. CT of the lumbar spine without contrast HISTORY: Trauma TECHNIQUE: CT of the head, cervical spine, and maxillofacial bones, orbits, and paranasal sinuses was performed without contrast accordingto standard protocol. Reformatted axial, sagittal, and coronal images ofthe thoracic and lumbar spine were obtained by the technologist from a concurrently performed body CT and sent to the workstation for review. COMPARISON: No prior study is available for comparison at the time ofthis dictation. FINDINGS: Head: Multiple areas of small volume acute subarachnoid hemorrhage are demonstrated in the bilateral parietal and right temporal lobes. These findings are compatible with countercoup injury. No other acute intra- or extra-axial fluid collections are identified. There is mild cerebral volume loss with associated ex vacuo ventricular dilatation. The basilar cisterns are patent. No mass effect or midline shift is seen. The vee-white matter differentiation is preserved. Moderate periventricular white matter hypoattenuation is indicative of chronic small vessel ischemic disease. There is extensive vascular calcification of the carotid siphons. Noacute calvarial fracture is identified. Maxillofacial: There are age-indeterminate fractures of the bilateral nasal bones. Other than bilateral cataract extractions, the orbits appear normal. The paranasal sinuses are clear. The hard palate, mandible, and temporomandibular joints appear intact. Moderate degenerative changesare seen in the bilateral TM joints. No other potential acute facial bone fractures are identified. The mastoid air cells are clear. There is a large left frontal scalp laceration and hematoma. A large soft tissue hematoma overlying the left zygomatic process measures approximately 2cm in maximal thickness. Cervical spine: There is mild levocurvature of the mid to lower cervical spine which may be positional. Grade 1 anterolisthesis at C4-C5 measures 2 mm. There is chronic degenerative vertebral body height loss most notably at C5 andC6. There is no evidence of acute fracture. Other than middle atlantoaxial joint osteoarthritis, the craniocervical junction appears normal. Thereis advanced degenerative disc disease at multiple levels, most severe fromC4 to T1 with associated endplate changes. There is moderate central canal stenosis at C3-C4, C5-C6, and C6-C7 due to posterior disc osteophyte complexes. There are varying degrees of advanced facet osteoarthritis. There are varying degrees of advanced uncovertebral joint osteoarthritis with the same degree of neural foraminal stenosis at these levels. There is atherosclerotic calcification of the carotid bifurcations. Emphysematous changes are present in the lung apices. Thoracic spine: Dextrocurvature in the mid to upper thoracic spine positional. There isno spondylolisthesis. The bones are demineralized. Vertebral bodies are normal in height without evidence of acute fracture. There is advanced degenerative disc disease and Schmorl's nodes at multiple levels, most prominent in the lower thoracic region. No high-grade central canal stenosis is seen. There are varying degrees of mild facetosteoarthritis. There are varying degrees of neural foraminal stenosis at multiplelevels. There is atherosclerotic calcification of the thoracic aorta and its branch vessels as well as subsegmental atelectasis in the dependent portions of the lung bases. A small left pleural effusion is suggested. Lumbar spine: There are 6 lumbar type vertebral bodies. Vestigial ribs are present bilaterally at L1. S1 is a transitional level with bilateral lumbarization. Retrolisthesis at L3-L4 measures 3 mm and L4-L5 measures 4 mm. Left lateral subluxation at L3-L4 measures 3 mm. The bones are demineralized. Vertebral bodies are normal in height without evidence of acutefracture. There is advanced multilevel degenerative disc disease with vacuum disc phenomenon, endplate changes, and complete osseous fusion of the L2 andL3 vertebral bodies. There is moderate central canal stenosis at L2-L3 and L3-L4 associated with broad-based posterior disc bulge, thickening ofthe ligamentum flavum, and severe facet osteoarthritis. Dorsal decompression is present at L5-S1 and S1-S2. There are varying degrees of advancedfacet osteoarthritis. There are varying degrees of neural foraminal stenosisat multiple levels, most prominent in the lower lumbar spine. Severe degenerative changes of the SI joints is also demonstrated. There is atherosclerotic calcification of the abdominal aorta and its branch vessels. IMPRESSION: 1.Small volume acute subarachnoid hemorrhage in the bilateral [place] right temporal lobes are compatible with a countercoup injury. 2.Age indeterminant fracture of the bilateral nasal bones. No other definite acute facial bone fracture is seen. 3.Large left frontal scalp laceration and hematoma. Large soft tissue hematoma and edema overlying the left zygomatic process. 4.No evidence of acute fracture in the cervical, thoracic, or lumbarspine. Dictated by Mason Johnson D.O. (Station Supervisor) I, Dr. XIOMY RUANO have personally reviewed and interpreted this examination/study. This report was electronically signed by XIOMY RUANO on11/06/2021 8:36 AM . Michael King MD CT ORDERABLES * CT CERVICAL SPINE WO CONTRAST - C-Spine Trauma, Spine fracture (11/05/2021 7:59 PM CDT) Anatomical Region Laterality Modality Spine Computed Tomogra phy 11/05/2021 8:33 PM CDT Impressions 11/06/2021 8:36 AM CDT IMPRESSION: 1.Small volume acute subarachnoid hemorrhage in the bilateral parietal and right temporal lobes are compatible with a countercoup injury. 2.Age indeterminant fracture of the bilateral nasal bones. No other definite acute facial bone fracture is seen. 3.Large left frontal scalp laceration and hematoma. Large soft tissue hematoma and edema overlying the left zygomatic process. 4.No evidence of acute fracture in the cervical, thoracic, or lumbar spine. Dictated by Mason Johnson D.O. (Station Supervisor) I, Dr. XIOMY RUANO have personally reviewed and interpreted this examination/study. This report was electronically signed by XIOMY RUANO ??on 11/06/2021 8:36 AM . Narrative 11/06/2021 8:[address] HEAD WO CONTRAST, CT FACIAL BONES WO CONTRAST, CT LUMBAR SPINE WO CONTRAST, CT THORACIC SPINE WO CONTRAST, CT CERVICAL SPINE WO CONTRAST DATE: 11/05/2021 8:01 PM EXAMINATION: 1. Computed tomography (CT) of the head without contrast 2. CT of the maxillofacial bones, orbits, and paranasal sinuses without contrast 3. CT of the cervical spine without contrast 4. CT of the thoracic spine without contrast 5. CT of the lumbar spine without contrast HISTORY: Trauma TECHNIQUE: CT of the head, cervical spine, and maxillofacial bones, orbits, and paranasal sinuses was performed without contrast according to standard protocol. Reformatted axial, sagittal, and coronal images of the thoracic and lumbar spine were obtained by the technologist from a concurrently performed body CT and sent to the workstation for review. COMPARISON: No prior study is available for comparison at the time of this dictation. FINDINGS: Head: Multiple areas of small volume acute subarachnoid hemorrhage are demonstrated in the bilateral parietal and right temporal lobes. These findings are compatible with countercoup injury. No other acute intra- or extra-axial fluid collections are identified. There is mild cerebral volume loss with associated ex vacuo ventricular dilatation. The basilar cisterns are patent. No mass effect or midline shift is seen. The vee-white matter differentiation is preserved. Moderate periventricular white matter hypoattenuation is indicative of chronic small vessel ischemic disease. There is extensive vascular calcification of the carotid siphons. No acute calvarial fracture is identified. Maxillofacial: There are age-indeterminate fractures of the bilateral nasal bones. Other than bilateral cataract extractions, the orbits appear normal. The paranasal sinuses are clear. The hard palate, mandible, and temporomandibular joints appear intact. Moderate degenerative changes are seen in the bilateral TM joints. No other potential acute facial bone fractures are identified. The mastoid air cells are clear. There is a large left frontal scalp laceration and hematoma. A large soft tissue hematoma overlying the left zygomatic process measures approximately 2 cm in maximal thickness. Cervical spine: There is mild levocurvature of the mid to lower cervical spine which may be positional. Grade 1 anterolisthesis at C4-C5 measures 2 mm. There is chronic degenerative vertebral body height loss most notably at C5 and C6. There is no evidence of acute fracture. Other than middle atlantoaxial joint osteoarthritis, the craniocervical junction appears normal. There is advanced degenerative disc disease at multiple levels, most severe from C4 to T1 with associated endplate changes. There is moderate central canal stenosis at C3-C4, C5-C6, and C6-C7 due to posterior disc osteophyte complexes. There are varying degrees of advanced facet osteoarthritis. There are varying degrees of advanced uncovertebral joint osteoarthritis with the same degree of neural foraminal stenosis at these levels. There is atherosclerotic calcification of the carotid bifurcations. Emphysematous changes are present in the lung apices. Thoracic spine: Dextrocurvature in the mid to upper thoracic spine positional. There is no spondylolisthesis. The bones are demineralized. Vertebral bodies are normal in height without evidence of acute fracture. There is advanced degenerative disc disease and Schmorl's nodes at multiple levels, most prominent in the lower thoracic region. ??No high-grade central canal stenosis is seen. There are varying degrees of mild facet osteoarthritis. There are varying degrees of neural foraminal stenosis at multiple levels. There is atherosclerotic calcification of the thoracic aorta and its branch vessels as well as subsegmental atelectasis in the dependent portions of the lung bases. A small left pleural effusion is suggested. Lumbar spine: There are 6 lumbar type vertebral bodies. Vestigial ribs are present bilaterally at L1. S1 is a transitional level with bilateral lumbarization. Retrolisthesis at L3-L4 measures 3 mm and L4-L5 measures 4 mm. Left lateral subluxation at L3-L4 measures 3 mm. The bones are demineralized. Vertebral bodies are normal in height without evidence of acute fracture. There is advanced multilevel degenerative disc disease with vacuum disc phenomenon, endplate changes, and complete osseous fusion of the L2 and L3 vertebral bodies. There is moderate central canal stenosis at L2-L3 and L3-L4 associated with broad-based posterior disc bulge, thickening of the ligamentum flavum, and severe facet osteoarthritis. Dorsal decompression is present at L5-S1 and S1-S2. There are varying degrees of advanced facet osteoarthritis. There are varying degrees of neural foraminal stenosis at multiple levels, most prominent in the lower lumbar spine. Severe degenerative changes of the SI joints is also demonstrated. ??There is atherosclerotic calcification of the abdominal aorta and its branch vessels. Procedure Note Xiomy Ruano MD - 11/06/2021 CT HEAD WO CONTRAST, CT FACIAL BONES WO CONTRAST, CT LUMBAR SPINE WO CONTRAST, CT THORACIC SPINE WO CONTRAST, CT CERVICAL SPINE WO CONTRAST DATE: 11/05/2021 8:01 PM EXAMINATION: 1. Computed tomography (CT) of the head without contrast 2. CT of the maxillofacial bones, orbits, and paranasal sinuses without contrast 3. CT of the cervical spine without contrast 4. CT of the thoracic spine without contrast 5. CT of the lumbar spine without contrast HISTORY: Trauma TECHNIQUE: CT of the head, cervical spine, and maxillofacial bones, orbits, and paranasal sinuses was performed without contrast accordingto standard protocol. Reformatted axial, sagittal, and coronal images ofthe thoracic and lumbar spine were obtained by the technologist from a concurrently performed body CT and sent to the workstation for review. COMPARISON: No prior study is available for comparison at the time ofthis dictation. FINDINGS: Head: Multiple areas of small volume acute subarachnoid hemorrhage are demonstrated in the bilateral parietal and right temporal lobes. These findings are compatible with countercoup injury. No other acute intra- or extra-axial fluid collections are identified. There is mild cerebral volume loss with associated ex vacuo ventricular dilatation. The basilar cisterns are patent. No mass effect or midline shift is seen. The vee-white matter differentiation is preserved. Moderate periventricular white matter hypoattenuation is indicative of chronic small vessel ischemic disease. There is extensive vascular calcification of the carotid siphons. Noacute calvarial fracture is identified. Maxillofacial: There are age-indeterminate fractures of the bilateral nasal bones. Other than bilateral cataract extractions, the orbits appear normal. The paranasal sinuses are clear. The hard palate, mandible, and temporomandibular joints appear intact. Moderate degenerative changesare seen in the bilateral TM joints. No other potential acute facial bone fractures are identified. The mastoid air cells are clear. There is a large left frontal scalp laceration and hematoma. A large soft tissue hematoma overlying the left zygomatic process measures approximately 2cm in maximal thickness. Cervical spine: There is mild levocurvature of the mid to lower cervical spine which may be positional. Grade 1 anterolisthesis at C4-C5 measures 2 mm. There is chronic degenerative vertebral body height loss most notably at C5 andC6. There is no evidence of acute fracture. Other than middle atlantoaxial joint osteoarthritis, the craniocervical junction appears normal. Thereis advanced degenerative disc disease at multiple levels, most severe fromC4 to T1 with associated endplate changes. There is moderate central canal stenosis at C3-C4, C5-C6, and C6-C7 due to posterior disc osteophyte complexes. There are varying degrees of advanced facet osteoarthritis. There are varying degrees of advanced uncovertebral joint osteoarthritis with the same degree of neural foraminal stenosis at these levels. There is atherosclerotic calcification of the carotid bifurcations. Emphysematous changes are present in the lung apices. Thoracic spine: Dextrocurvature in the mid to upper thoracic spine positional. There isno spondylolisthesis. The bones are demineralized. Vertebral bodies are normal in height without evidence of acute fracture. There is advanced degenerative disc disease and Schmorl's nodes at multiple levels, most prominent in the lower thoracic region. No high-grade central canal stenosis is seen. There are varying degrees of mild facetosteoarthritis. There are varying degrees of neural foraminal stenosis at multiplelevels. There is atherosclerotic calcification of the thoracic aorta and its branch vessels as well as subsegmental atelectasis in the dependent portions of the lung bases. A small left pleural effusion is suggested. Lumbar spine: There are 6 lumbar type vertebral bodies. Vestigial ribs are present bilaterally at L1. S1 is a transitional level with bilateral lumbarization. Retrolisthesis at L3-L4 measures 3 mm and L4-L5 measures 4 mm. Left lateral subluxation at L3-L4 measures 3 mm. The bones are demineralized. Vertebral bodies are normal in height without evidence of acutefracture. There is advanced multilevel degenerative disc disease with vacuum disc phenomenon, endplate changes, and complete osseous fusion of the L2 andL3 vertebral bodies. There is moderate central canal stenosis at L2-L3 and L3-L4 associated with broad-based posterior disc bulge, thickening ofthe ligamentum flavum, and severe facet osteoarthritis. Dorsal decompression is present at L5-S1 and S1-S2. There are varying degrees of advancedfacet osteoarthritis. There are varying degrees of neural foraminal stenosisat multiple levels, most prominent in the lower lumbar spine. Severe degenerative changes of the SI joints is also demonstrated. There is atherosclerotic calcification of the abdominal aorta and its branch vessels. IMPRESSION: 1.Small volume acute subarachnoid hemorrhage in the bilateral [place] right temporal lobes are compatible with a countercoup injury. 2.Age indeterminant fracture of the bilateral nasal bones. No other definite acute facial bone fracture is seen. 3.Large left frontal scalp laceration and hematoma. Large soft tissue hematoma and edema overlying the left zygomatic process. 4.No evidence of acute fracture in the cervical, thoracic, or lumbarspine. Dictated by Mason Johnson D.O. (Station Supervisor) I, Dr. XIOMY RUANO have personally reviewed and interpreted this examination/study. This report was electronically signed by XIOMY RUANO on11/06/2021 8:36 AM . Michael King MD CT ORDERABLES * CT FACIAL BONES WO CONTRAST - Facial trauma, fx suspected, blunt (11/05/2021 7:59 PM CDT) Anatomical Region Laterality Modality Head Computed Tomogra phy 11/05/2021 8:33 PM CDT Impressions 11/06/2021 8:36 AM CDT IMPRESSION: 1.Small volume acute subarachnoid hemorrhage in the bilateral parietal and right temporal lobes are compatible with a countercoup injury. 2.Age indeterminant fracture of the bilateral nasal bones. No other definite acute facial bone fracture is seen. 3.Large left frontal scalp laceration and hematoma. Large soft tissue hematoma and edema overlying the left zygomatic process. 4.No evidence of acute fracture in the cervical, thoracic, or lumbar spine. Dictated by Mason Johnson D.O. (Station Supervisor) Dr. XIOMY Wall have personally reviewed and interpreted this examination/study. This report was electronically signed by XIOMY RUANO ??on 11/06/2021 8:36 AM . Narrative 11/06/2021 8:[address] HEAD WO CONTRAST, CT FACIAL BONES WO CONTRAST, CT LUMBAR SPINE WO CONTRAST, CT THORACIC SPINE WO CONTRAST, CT CERVICAL SPINE WO CONTRAST DATE: 11/05/2021 8:01 PM EXAMINATION: 1. Computed tomography (CT) of the head without contrast 2. CT of the maxillofacial bones, orbits, and paranasal sinuses without contrast 3. CT of the cervical spine without contrast 4. CT of the thoracic spine without contrast 5. CT of the lumbar spine without contrast HISTORY: Trauma TECHNIQUE: CT of the head, cervical spine, and maxillofacial bones, orbits, and paranasal sinuses was performed without contrast according to standard protocol. Reformatted axial, sagittal, and coronal images of the thoracic and lumbar spine were obtained by the technologist from a concurrently performed body CT and sent to the workstation for review. COMPARISON: No prior study is available for comparison at the time of this dictation. FINDINGS: Head: Multiple areas of small volume acute subarachnoid hemorrhage are demonstrated in the bilateral parietal and right temporal lobes. These findings are compatible with countercoup injury. No other acute intra- or extra-axial fluid collections are identified. There is mild cerebral volume loss with associated ex vacuo ventricular dilatation. The basilar cisterns are patent. No mass effect or midline shift is seen. The vee-white matter differentiation is preserved. Moderate periventricular white matter hypoattenuation is indicative of chronic small vessel ischemic disease. There is extensive vascular calcification of the carotid siphons. No acute calvarial fracture is identified. Maxillofacial: There are age-indeterminate fractures of the bilateral nasal bones. Other than bilateral cataract extractions, the orbits appear normal. The paranasal sinuses are clear. The hard palate, mandible, and temporomandibular joints appear intact. Moderate degenerative changes are seen in the bilateral TM joints. No other potential acute facial bone fractures are identified. The mastoid air cells are clear. There is a large left frontal scalp laceration and hematoma. A large soft tissue hematoma overlying the left zygomatic process measures approximately 2 cm in maximal thickness. Cervical spine: There is mild levocurvature of the mid to lower cervical spine which may be positional. Grade 1 anterolisthesis at C4-C5 measures 2 mm. There is chronic degenerative vertebral body height loss most notably at C5 and C6. There is no evidence of acute fracture. Other than middle atlantoaxial joint osteoarthritis, the craniocervical junction appears normal. There is advanced degenerative disc disease at multiple levels, most severe from C4 to T1 with associated endplate changes. There is moderate central canal stenosis at C3-C4, C5-C6, and C6-C7 due to posterior disc osteophyte complexes. There are varying degrees of advanced facet osteoarthritis. There are varying degrees of advanced uncovertebral joint osteoarthritis with the same degree of neural foraminal stenosis at these levels. There is atherosclerotic calcification of the carotid bifurcations. Emphysematous changes are present in the lung apices. Thoracic spine: Dextrocurvature in the mid to upper thoracic spine positional. There is no spondylolisthesis. The bones are demineralized. Vertebral bodies are normal in height without evidence of acute fracture. There is advanced degenerative disc disease and Schmorl's nodes at multiple levels, most prominent in the lower thoracic region. ??No high-grade central canal stenosis is seen. There are varying degrees of mild facet osteoarthritis. There are varying degrees of neural foraminal stenosis at multiple levels. There is atherosclerotic calcification of the thoracic aorta and its branch vessels as well as subsegmental atelectasis in the dependent portions of the lung bases. A small left pleural effusion is suggested. Lumbar spine: There are 6 lumbar type vertebral bodies. Vestigial ribs are present bilaterally at L1. S1 is a transitional level with bilateral lumbarization. Retrolisthesis at L3-L4 measures 3 mm and L4-L5 measures 4 mm. Left lateral subluxation at L3-L4 measures 3 mm. The bones are demineralized. Vertebral bodies are normal in height without evidence of acute fracture. There is advanced multilevel degenerative disc disease with vacuum disc phenomenon, endplate changes, and complete osseous fusion of the L2 and L3 vertebral bodies. There is moderate central canal stenosis at L2-L3 and L3-L4 associated with broad-based posterior disc bulge, thickening of the ligamentum flavum, and severe facet osteoarthritis. Dorsal decompression is present at L5-S1 and S1-S2. There are varying degrees of advanced facet osteoarthritis. There are varying degrees of neural foraminal stenosis at multiple levels, most prominent in the lower lumbar spine. Severe degenerative changes of the SI joints is also demonstrated. ??There is atherosclerotic calcification of the abdominal aorta and its branch vessels. Procedure Note Xiomy Ruano MD - 11/06/2021 CT HEAD WO CONTRAST, CT FACIAL BONES WO CONTRAST, CT LUMBAR SPINE WO CONTRAST, CT THORACIC SPINE WO CONTRAST, CT CERVICAL SPINE WO CONTRAST DATE: 11/05/2021 8:01 PM EXAMINATION: 1. Computed tomography (CT) of the head without contrast 2. CT of the maxillofacial bones, orbits, and paranasal sinuses without contrast 3. CT of the cervical spine without contrast 4. CT of the thoracic spine without contrast 5. CT of the lumbar spine without contrast HISTORY: Trauma TECHNIQUE: CT of the head, cervical spine, and maxillofacial bones, orbits, and paranasal sinuses was performed without contrast accordingto standard protocol. Reformatted axial, sagittal, and coronal images ofthe thoracic and lumbar spine were obtained by the technologist from a concurrently performed body CT and sent to the workstation for review. COMPARISON: No prior study is available for comparison at the time ofthis dictation. FINDINGS: Head: Multiple areas of small volume acute subarachnoid hemorrhage are demonstrated in the bilateral parietal and right temporal lobes. These findings are compatible with countercoup injury. No other acute intra- or extra-axial fluid collections are identified. There is mild cerebral volume loss with associated ex vacuo ventricular dilatation. The basilar cisterns are patent. No mass effect or midline shift is seen. The vee-white matter differentiation is preserved. Moderate periventricular white matter hypoattenuation is indicative of chronic small vessel ischemic disease. There is extensive vascular calcification of the carotid siphons. Noacute calvarial fracture is identified. Maxillofacial: There are age-indeterminate fractures of the bilateral nasal bones. Other than bilateral cataract extractions, the orbits appear normal. The paranasal sinuses are clear. The hard palate, mandible, and temporomandibular joints appear intact. Moderate degenerative changesare seen in the bilateral TM joints. No other potential acute facial bone fractures are identified. The mastoid air cells are clear. There is a large left frontal scalp laceration and hematoma. A large soft tissue hematoma overlying the left zygomatic process measures approximately 2cm in maximal thickness. Cervical spine: There is mild levocurvature of the mid to lower cervical spine which may be positional. Grade 1 anterolisthesis at C4-C5 measures 2 mm. There is chronic degenerative vertebral body height loss most notably at C5 andC6. There is no evidence of acute fracture. Other than middle atlantoaxial joint osteoarthritis, the craniocervical junction appears normal. Thereis advanced degenerative disc disease at multiple levels, most severe fromC4 to T1 with associated endplate changes. There is moderate central canal stenosis at C3-C4, C5-C6, and C6-C7 due to posterior disc osteophyte complexes. There are varying degrees of advanced facet osteoarthritis. There are varying degrees of advanced uncovertebral joint osteoarthritis with the same degree of neural foraminal stenosis at these levels. There is atherosclerotic calcification of the carotid bifurcations. Emphysematous changes are present in the lung apices. Thoracic spine: Dextrocurvature in the mid to upper thoracic spine positional. There isno spondylolisthesis. The bones are demineralized. Vertebral bodies are normal in height without evidence of acute fracture. There is advanced degenerative disc disease and Schmorl's nodes at multiple levels, most prominent in the lower thoracic region. No high-grade central canal stenosis is seen. There are varying degrees of mild facetosteoarthritis. There are varying degrees of neural foraminal stenosis at multiplelevels. There is atherosclerotic calcification of the thoracic aorta and its branch vessels as well as subsegmental atelectasis in the dependent portions of the lung bases. A small left pleural effusion is suggested. Lumbar spine: There are 6 lumbar type vertebral bodies. Vestigial ribs are present bilaterally at L1. S1 is a transitional level with bilateral lumbarization. Retrolisthesis at L3-L4 measures 3 mm and L4-L5 measures 4 mm. Left lateral subluxation at L3-L4 measures 3 mm. The bones are demineralized. Vertebral bodies are normal in height without evidence of acutefracture. There is advanced multilevel degenerative disc disease with vacuum disc phenomenon, endplate changes, and complete osseous fusion of the L2 andL3 vertebral bodies. There is moderate central canal stenosis at L2-L3 and L3-L4 associated with broad-based posterior disc bulge, thickening ofthe ligamentum flavum, and severe facet osteoarthritis. Dorsal decompression is present at L5-S1 and S1-S2. There are varying degrees of advancedfacet osteoarthritis. There are varying degrees of neural foraminal stenosisat multiple levels, most prominent in the lower lumbar spine. Severe degenerative changes of the SI joints is also demonstrated. There is atherosclerotic calcification of the abdominal aorta and its branch vessels. IMPRESSION: 1.Small volume acute subarachnoid hemorrhage in the bilateral [place] right temporal lobes are compatible with a countercoup injury. 2.Age indeterminant fracture of the bilateral nasal bones. No other definite acute facial bone fracture is seen. 3.Large left frontal scalp laceration and hematoma. Large soft tissue hematoma and edema overlying the left zygomatic process. 4.No evidence of acute fracture in the cervical, thoracic, or lumbarspine. Dictated by Mason Johnson D.O. (Station Supervisor) I, Dr. XIOMY RUANO have personally reviewed and interpreted this examination/study. This report was electronically signed by XIOMY RUANO on11/06/2021 8:36 AM . Michael King MD CT ORDERABLES * (ABNORMAL) TEG 6S PLATELET MAPPING (11/05/2021 7:41 PM CDT) TEGPLM (Max Amplitude) [place] 62 53 - 68 mm 11/05/2021 9:03 PM T [facility] TEGPLM (Max Amplitude) ACTF 14 2 - 19 mm 11/05/2021 9:03 PM T [facility] TEGPLM (Max Amplitude) ADP 56 45 - 69 mm 11/05/2021 9:03 PM CDT [facility] TEGPLM (Max Amplitude) AA 49(L) 51 - 71 mm 11/05/2021 9:03 PM T [facility] TEGPLM %Inhibition ADP 11 0 - 17 % 11/05/2021 9:03 PM T [facility] TEGPLM %Inhibition AA 27(H) 0 - 11 % 11/05/2021 9:03 PM T [facility] TEGPLM %Aggregation ADP 89 83 - 100 % 11/05/2021 9:03 PM T [facility] TEGPLM % Aggregation AA 73(L) 89 - 100 % 11/05/2021 9:03 PM [facility] Blood BLOOD SPECIMEN / Unknown Venipuncture / Unknown 11/05/2021 7:41 PM CDT 11/05/2021 7:57 PM CDT Michael King MD LAB - HEMATOLOGY O RDERABLES [facility] [address] [place] [id number], [facility] [phone] * PT-INR [facility] (11/05/2021 7:41 PM CDT) Pathologist [facility] [place] PT 13.7 12.1 - 14.8 Seconds 11/05/2021 8:01 PM CDT [facility] INR 1.1 See Comment 11/05/2021 8:01 PM CDT [facility] Comment:The suggested therap eutic range for standard coumadin (warfarin) therapy is an INR of 2.0-3.0. For high-risk patients (Mechanical Mitral Valve Prosthesis, etc.), the suggested prophylactic therapeutic range is an INR of 2.5-3.5. Blood BLOOD SPECIMEN / Unknown Venipuncture / Unknown 11/05/2021 7:41 PM CDT 11/05/2021 7:44 PM CDT Michael King MD LAB - COAGULATION ORDERABLES Performing Organization Address City/[facility]/ZIP Co de Phone Number [address] [id number], [facility] [phone] * TYPE + SCREEN PANEL (11/05/2021 7:41 PM CDT) [facility] Antibody Screen NEG 11/05/2021 8:25 PM CDT [facility] BLOOD BANK LAB ABO Rh AB POS 11/05/2021 8:25 PM CDT [facility] BLOOD B[facility] LAB Blood Bank BLOOD SPECIMEN / Unknown Venipuncture / Unknown 11/05/2021 7:41 PM CDT 11/05/2021 7:48 PM CDT Michael King MD LAB - BLOOD BANK O RDERABLES [facility] BLOOD B[facility] LAB [address] [place] [id number], [place] [phone] * (ABNORMAL) CBC W AUTO DIFFERENTIAL (11/05/2021 7:41 PM CDT) Pathologist [facility] [place] WBC 11.1(H) 3.5 - 10.5 10? 3 /uL 11/05/2021 7:55 PM CDT [facility] RBC 4.90 4.30 - 5.70 10? 6 /uL 11/05/2021 7:55 PM [facility] Hemoglobin 14.0 12.0 - 17.6 g/dL 11/05/2021 7:55 PM [facility] Hematocrit 42.4 35.2 - 51.7 % 11/05/2021 7:55 PM [facility] MCV 86.5 80.7 - 98.3 fL 11/05/2021 7:55 PM [facility] MCH 28.6 26.7 - 34.0 pg 11/05/2021 7:55 PM [facility] MCHC 33.0 30.8 - 35.9 g/dL 11/05/2021 7:55 PM [facility] Platelet Count 153 150 - 400 10? 3 /uL 11/05/2021 7:55 PM [facility] RDW-SD 41.6 36.0 - 50.0 fL 11/05/2021 7:55 PM [facility] RDW-CV 13.2 11.2 - 14.8 % 11/05/2021 7:55 PM [facility] MPV 9.8 9.4 - 12.9 fL 11/05/2021 7:55 PM [facility] nRBC Absolute 0.00 0 10? 3 /uL 11/05/2021 7:55 PM [facility] nRBC Auto 0.0 0 /100 WBC 11/05/2021 7:55 PM [facility] Neutrophils % 79.8(H) 35.0 - 70.0 % 11/05/2021 7:55 PM [facility] Lymphocytes % 11.6(L) 20.0 - 43.0 % 11/05/2021 7:55 PM [facility] Monocytes % 6.7 5.0 - 13.0 % 11/05/2021 7:55 PM [facility] Eosinophils % 1.3 0.0 - 6.0 % 11/05/2021 7:55 PM [facility] Basophil % 0.3 0.0 - 2.0 % 11/05/2021 7:55 PM [facility] Neutrophils Absolute 8.9(H) 1.6 - 7.0 10? 3 /uL 11/05/2021 7:55 PM CDT [facility] Lymphocyte Absolute 1.3 1.1 - 3.9 10? 3 /uL 11/05/2021 7:55 PM CDT [facility] Monocytes Absolute 0.74 0.26 - 1.07 10? 3 /uL 11/05/2021 7:55 PM CDT [facility] Eosinophils Absolute 0.14 0.00 - 0.47 10? 3 /uL 11/05/2021 7:55 PM CDT [facility] Basophils Absolute 0.03 0.00 - 0.08 10? 3 /uL 11/05/2021 7:55 PM CDT [facility] Immature Granulocytes % 0.3 0.0 - 1.0 % 11/05/2021 7:55 PM CDT [facility] Immature Granulocytes Absolute 0.03 11/05/2021 7:55 PM T [facility] Blood BLOOD SPECIMEN / Unknown Venipuncture / Unknown 11/05/2021 7:41 PM CDT 11/05/2021 7:45 PM CDT Michael King MD LAB - HEMATOLOGY O RDERABLES [facility] [address] [place] [address], [facility] [phone] * (ABNORMAL) BASIC METABOLIC PANEL (CALCIUM TOTAL) (11/05/2021 7:41 PM CDT) BUN 16 7 - 26 mg/dL 11/05/2021 8:11 PM T [facility] Creatinine 0.95 0.71 - 1.16 mg/dL 11/05/2021 8:11 PM T [facility] Sodium 137 136 - 145 mmol/L 11/05/2021 8:11 PM [facility] Potassium 4.0 3.5 - 4.5 mmol/L 11/05/2021 8:11 PM T [facility] Chloride 105 98 - 107 mmol/L 11/05/2021 8:11 PM T [facility] CO2 22 22 - 29 mmol/L 11/05/2021 8:11 PM [facility] Glucose 126(H) 70 - 115 mg/dL 11/05/2021 8:11 PM [facility] Calcium 9.9 8.4 - 10.2 mg/dL 11/05/2021 8:11 PM [facility] Anion Gap 14 8 - 18 11/05/2021 8:11 PM [facility] BUN/Creatinine Ratio 17 7 - 23 11/05/2021 8:11 PM [facility] Osmolality Calculated 287 270 - 300 mOsm/kg 11/05/2021 8:11 PM [facility] eGFR by CKD-EPI 79(L) >=90 mL/min/1.7 3 m2 11/05/2021 8:11 PM [facility] Blood BLOOD SPECIMEN / Unknown Venipuncture / Unknown 11/05/2021 7:41 PM CDT 11/05/2021 7:46 PM CDT Michael King MD LAB - CHEMISTRY OR DERABLES [facility] [address] [place] [address], [facility] [phone] * ALCOHOL ETHYL BLOOD (11/05/2021 7:41 PM CDT) Ethanol (mg/dL) <10 <10 mg/dL 8:11 PM [facility] Ethanol Calculated (g/dL) <0.010 <0.010 g/dL 11/05/2021 8:11 PM [facility] Blood BLOOD SPECIMEN / Unknown Venipuncture / Unknown 11/05/2021 7:41 PM CDT 11/05/2021 7:46 PM CDT [facility] - 11/05/2021 8:11 PM CDT Ethanol Interp <10: None Detected. Depression of PRODUCTION POTTER: >100 mg/dl Potentially Critical: >250 mg/dl Potentially Fatal >400 mg/dl Ethanol in the patient's blood will contribute to the osmolar gap. Ethanol's contribution to the osmolar gap can be estimated by dividing the concentration of ethanol in mg/dL by 4.6. This test is for clinical use only and does not equal a FISH for legal purposes. Michael King MD LAB - CHEMISTRY OR DERABLES [facility] [address] [place] [address], [facility] [phone] Care Teams Surgery Tech Relationship Specialty Start Date End Date Arash Sullivan MD [address] [facility] [address] [place] [address] PCP - General Internal Medicine 04/04/16
--- OUTSIDE RECORDS SUMMARY | 2024-08-20 17:11 | XMS_ITS | Clinical Summary ---
Author Organization [facility] Address [address] [place] [address] Care Team Providers Care Golf Course Laborer Name Role Phone Arash Sullivan MD Primary Care Provider [phone] Source Comments [facility],non-owned Affiliates and Associated Physician Practices is amultiple site organization consisting of ambulatory clinics and hospital sitesin [place], [place], [place] and [place]. This disclosure is being madepursuant to the Care Everywhere program and may not contain all information available regarding this patient. Last updated 18.[facility] Allergies No known active allergies Medications Be [...] Mass Index - - Plan of Treatment Health Maintenance Due Date Last Done Comments DTAP/TDAP/TD VACCINES (1 - Tdap) 1954 PNEUMOCOCCAL VACCINE 50+ (1 of 1 - PCV) 12/27/1987 ZOSTER VACCINE (1 of 2) 12/27/1987 Respiratory Syncytial Virus (RSV) Vaccine Pt: or over 60 yrs (1 - 1-dose 75+ series) 2012 COVID-19 VACCINE (3 - season) 2024 10/24/2020, 09/23/2020 INFLUENZA VACCINE (#1) 2024 , 05/10/2020, 04/28/2019, Additional history exists DEPRESSION SCREENING 07/29/2024 MEDICARE AWV ? CALENDAR YEAR 2024 HEPATITIS B VACCINE Aged Out No longe r eligible based on patient's age to complete this topic HIB VACCINE Aged Out No longer eligi ble based on patient's age to complete this topic HPV VACCINE Aged Out No longer eligi ble based on patient's age to complete this topic MENINGOCOCCAL (Group B) VACCINE Aged Out No longer eligible based on patient's age to complete this topic MENINGOCOCCAL VACCINE Aged Out No cindy erin eligible based on patient's age to complete this topic Care Teams Golf Course Laborer Relationship Specialty Start Date End Date Arash Sullivan MD [address] [address] [place] [address] PCP - General Internal Medicine 04/04/16
--- OUTSIDE RECORDS SUMMARY | 2024-08-20 17:11 | XMS_ITS | Clinical Summary ---
Author Organization [facility] Address [address] [place] [address]. [place], [place] [address] [place] [address] Care Team Providers Care Newscast Producer Name Role Phone Dimas Weller Primary Care Provider [phone] Allergies Active Allergy Reactions Criticality Noted Date Comments Dander Other (see comment) High 06/30/2019 Medications albuterol sulfate HFA 108 (90 Base) MCG/ACT inhaler Inhale 2 puffs into the lungs 2 (two) times daily. Active loratadine 10 MG tablet Take 10 mg by mouth daily. Active dilTIAZem XR 240 MG 24 hr capsule Take 240 mg by mouth daily. Active gabapentin 300 MG capsule Take 900 mg by mouth nightly at bedtime. Active Umeclidinium [place] (INCRUSE ELLIPTA) 62.5 MCG/INH AEROSOL POWDER, BREATH ACTIVATED Inhale 62.5 mcg into the lungs daily. Active LORazepam 0.5 MG tablet Take 0.5 mg by mouth nightly at bedtime. Active traMADol 50 MG tablet Take 50 mg by mouth every 8 (eight) hours as needed for Pain. Active traMADol 50 MG tablet Take 100 mg by mouth every 8 (eight) hours as needed for Pain. 50-100mg Q8 hours as needed Active Active Problems No known active problems Social History Tobacco Use Types Packs/Day Years Used Date Smoking Tobacco: Former Cigarettes Smokeless Tobacco: Never Sex and Gender Information Value Date Recorded Sex Assigned at Male 11/23/2020 2:00 PM CDT Legal Sex Male 10:49 AM CDT Gender Identity Male 11/23/2020 2:00 PM CDT Sexual Orientation Not on file Occupation Industry Job Start Date Job End Date Retired Not on file Not on file Not on file Last Filed Vital Signs Vital Sign Reading Time Taken Comments Blood Pressure 120/57 12/05/2020 7:57 AM CDT Pulse 64 12/05/2020 7:57 AM CDT Temperature 36.2 ??C (97.1 ??F) 12/05/2020 6:39 AM CD T Respiratory Rate 16 12/05/2020 7:57 AM CDT Oxygen Saturation 93% 12/05/2020 6:39 AM CDT Inhaled Oxygen Concentration - - Weight 73.9 kg (163 lb) 11/23/2020 2:13 PM CDT Height 167.6 cm (5' 6 ) 11/23/2020 2:13 PM CDT Body Mass Index 26.31 11/23/2020 2:13 PM CDT Plan of Treatment Health Maintenance Due Date Last Done Comments DTaP, Tdap and Td Vaccines (1 - Tdap) 1954 Zoster Vaccines (1 of 2) 12/27/1987 Annual Medicare Wellness Visit 2002 Pneumococcal Vaccine: 65+ Years (1 of 1 - PCV) 2002 RSV Immunization or 60+ Years (1 - 1-dose 75+ series) 2012 COVID-19 Vaccine ( - season) 2024 10/24/2020, 09/23/2020 Influenza Adult (#1) 2024 05/10/2020, 04/28/2019, 05/06/2018, Additional history exists Meningococcal Vaccine Aged Out No cindy erin eligible based on patient's age to complete this topic RSV Immunizations Under 20 Months Aged Out No longer eligible based on patient's age to complete this topic Medical Devices Implanted Type Area Zigzagger Device Identifier Shelf Expiration Date Model / Serial / Lot Intraocular Lens Implanted:Qty: 1 on 12/05/2020 by Luis Bella MD at [facility] Lens Right: Eye 06/01/2023 [id number] / [id number] / Insurance MEDICARE [facility] Care Teams Newscast Producer Relationship Specialty Start Date End Date Dimas Weller DO [address] [place] [address] PCP - General INTERNAL MEDICINE 12/02/20
--- OUTSIDE RECORDS SUMMARY | 2024-08-20 17:11 | XMS_ITS | Encounter Summary ---
Author Organization [facility] Address [address] [place] [address]. [place] [address] [place] [address] Care Team Providers Care Magisterial District Judge Name Role Phone Dimas Weller DO Primary Care Provider [phone] Encounter Details Date Type Department Care Team (Late st Contact Info) Description 11/23/2020 Prep for Procedure [facility] [address] [place] [address] Luis Bella MD [address] [facility] [address] [place] [address] Social History Tobacco Use Types Packs/Day Years [...] file Not on file Not on file COVID-19 Exposure Response Date Recorded In the last month, have you been in contact with someone who was confirmed or suspected to have Coronavirus / COVID-19? No / Unsure 11/23/2020 2:14 PM CDT documented as of this encounter Plan of Treatment Not on file documented as of this encounter Results * PRE-SURGICAL/PRE-PROCEDURE CORONAVIRUS (COVID 19) (12/02/2020 11:13 AM CDT) CORONAVIRUS SARS COV 2 PCR (RESP) NOT DETECTED NOT DETECTED 12/04/2020 5:40 PM CDT [facility] Comment: A Not Detected (negative) test result for this test means that SARS-CoV-2 RNA was not present in the specimen above the limit of detection. A negative result does not rule out the possibility of COVID-19 and should not be used as the sole basis for treatment or patient management decisions. ??If COVID-19 is still suspected, based on exposure history together with other clinical findings, re-testing should be considered in consultation with public health authorities. Laboratory test results should always be considered in the context of clinical observations and epidemiological data in making a final diagnosis and patient management decisions. This patient specimen was tested using an FDA EUA pooling method. Patient specimens with low viral loads may not be detected in sample pools due to the decreased sensitivity of pooled testing. ?? Please review the Fact Sheets and FDA authorized labeling available for health care providers and patients using the following websites: https://www.[employer]/home/Covid-19/HCP/NAAT/fact-sheet2 https://www.[employer]/home/Covid-19/Patients/NAAT/ fact-sheet2 This test has been authorized by the FDA under an Emergency Use Authorization (EUA) for use by authorized laboratories. Due to the current public health emergency, [facility] is receiving a high volume of samples from a wide variety of swabs and media for COVID-19 testing. In order to serve patients during this public health crisis, samples from appropriate clinical sources are being tested. Negative test results derived from specimens received in non-commercially manufactured viral collection and transport media, or in media and sample collection kits not yet authorized by FDA for COVID-19 testing should be cautiously evaluated and the patient potentially subjected to extra precautions such as additional clinical monitoring, including collection of an additional specimen. Methodology: ??Nucleic Acid Amplification Test (NAAT) includes RT-PCR or TMA Additional information about COVID-19 can be found at the [employer] website: www.[employer]/Covid19. Test performed at [facility] [address] [place], [place] ??[address] Director: JEAN-PIERRE MORRIS DO,MPH FIRST TEST NO 12/02/2020 11:07 AM CDT [facility] EMPLOYED IN HEALTHCARE UNKNOWN 12/02/2020 11:07 AM CDT [facility] SYMPTOMATIC DEFINED BY CDC NO 12/02/2020 11:07 AM CDT [facility] DATE OF SYMPTOM ONSET NO 12/02/2020 11:16 AM CDT [facility] HOSPITALIZATION STATUS NO 12/02/2020 11:07 AM CDT [facility] PATIENT IN ICU NO 12/02/2020 11:07 AM CDT [facility] RESIDENT OF [facility] UNKNOWN 12/02/2020 11:07 AM CDT [facility] NO 12/02/2020 11:16 AM CDT [facility] PATIENT'S RACE WHITE OR 12/02/2020 11:07 AM CDT [facility] ETHNICITY NONHISPANIC 12/02/2020 11:07 AM CDT [facility] SOURCE (QST) NASOPHARYNGEAL SWAB 12/02/2020 11:07 AM CDT [facility] NASOPHARYNGEAL SWAB / Unknown 12/02/2020 11:13 AM CDT us Luis Bella MD MICROBIOLOGY - GENERAL ORDERAB LES Final Result [facility] [address] [place] [address], [place] [phone] [facility] [id number] [place] [address], documented in this encounter Visit Diagnoses Diagnosis Pre-op testing- Primary Preoperative examination, unspecified documented in this encounter Additional Health Concerns Infection Onset Date Last Indicated Resolved Time COVID-19 Rule Out 12/02/2020 12/02/2020 12/04/2020 5:41 PM CDT documented as of this encounter Care Teams Magisterial District Judge Relationship Specialty Start Date End Date Dimas Weller DO [address] [id number] PCP - General INTERNAL MEDICINE 12/02/20 documented as of this encounter
--- OUTSIDE RECORDS SUMMARY | 2024-08-20 17:12 | XMS_ITS | Encounter Summary ---
Author Organization [facility] Address [address] [place] [address] Phone Care Team Providers Care Automotive Diagnostic Technician Name Role Phone Arash Sullivan MD Primary Care Provider [phone] Arash Sullivan MD Unavailable [phone] Mindy Falk Unavailable Dimas Weller DO Primary Care Provider [phone] Dimas Weller DO Primary Care Provider [phone] Arash Sullivan MD Unavailable [phone] Perez Pittman MD Unavailable [place] Aranda MD Unavailable [phone] Janet Floyd NP Unavailable [phone] Steve Carrillo DO Unavailable [phone] No, Physician Primary Care Provider [phone] Alfonzo Nails DO Primary Care Provider [phone] Selena Agustin PERSONAL CARE HOME ADMINISTRATOR Primary Care Provider [phone] Alfonzo Nails DO Primary Care Provider [phone] Encounter Details Date Type Department Care Team (Latest Contact Info) Description 11/07/2017 Orders Only [facility] CONVERSION Scanning, Provider Social History Tobacco Use Types Packs/Day Years Used Date Smoking Tobacco: Former Smokeless Tobacco: Never Alcohol Use Standard Drinks/Week Comments Yes 0 (1 standard drink = 0.6 oz pur e alcohol) Sex and Gender Information Value Date Recorded Sex Assigned at Not on file Legal Sex Male 8:40 AM STUDENT SUCCESS COACH Gender Identity Not on file Sexual Orientation Not on file documented as of this encounter Plan of Treatment Not on file documented as of this encounter Procedures Procedure Name Priority Date/Time Associated Diagnosis Comments PULMONARY FUNCTION TEST (PFT) 11/07/2017 2:14 PM CDT documented in this encounter Results * PULMONARY FUNCTION TEST (PFT) (11/07/2017 2:14 PM CDT) Anatomical Region Laterality Modality PFT us Provider Scanning PFT ORDERABLES Final Result documented in this encounter Visit Diagnoses Not on filedocumented in this encounter Additional Health Concerns Infection Onset Date Last Indicated Resolved Time COVID: Suspected 08/02/2020 08/02/2020 08/02/2020 11:06 AM STUDENT SUCCESS COACH Respiratory Infection (MARIAN), contact + droplet Comment:Automatically added due to negative COVID-19 result. Patient classified as Low Risk for COVID-19 and has one negative COVID-19 test. Patient meets criteria for COVID-19 isolation discontinuation Candido Stearns RN 08/05/2020 08/02/2020 08/02/2020 08/05/2020 9:[address] documented as of this encounter Care Teams Automotive Diagnostic Technician Relationship Specialty Start Date End Date Arash Sullivan MD PCP - General 10/26/16 01/15/18 Dimas Weller DO [address] [address] PCP - General Internal Medicine 03/19/18 08/05/22 Dimas Weller DO [address] [address] PCP - General 01/16/18 03/18/18 No, Physician PCP - General 08/06/22 08/14/22 Alfonzo Nails DO PCP - General Internal Medicine 08/15/22 12/03/22 Selena Agustin, PERSONAL CARE HOME ADMINISTRATOR PCP - General Nurse Practitioner 12/04/22 08/21/23 Alfonzo Nails, DO PCP - General Internal Medicine 08/22/23 Arash Sullivan MD 10/26/16 09/22/19 Mindy Falk, ROBBY [address] [place] [address] [place] [address] Speech Language Pathologist Speech Therapy 02/17/18 Arash Sullivan MD Referring Physician Internal Medicine 09/23/19 09/23/19 Perez Pittman MD [address] [facility] [address] [place] [address] Radiation Oncologist Radiation Oncology 06/07/20 [place] Aranda MD [address] [place] [address] Medical Oncologist/Hotel Operations Manager Medical Oncology 06/28/20 02/13/22 Janet Floyd, PERSONAL CARE HOME ADMINISTRATOR [address] [place] [address] [place] [address] Nurse Practitioner Medical Oncology 09/20/20 05/01/22 Steve Carrillo DO [address] [place] [address] MEDICAL ONCOLOGY, [facility] [address] [place] [address] Medical Oncologist/Hotel Operations Manager Hematology and Oncology 05/02/22 documented as of this encounter
--- OUTSIDE RECORDS SUMMARY | 2024-08-20 17:12 | XMS_ITS | Encounter Summary ---
Author Organization [facility] Address [address] [place] [address] Care Team Providers Care Fabric Finisher Name Role Phone Manuela Hill MD Primary Care Provider [phone] Viky Agustin DO Primary Care Provider [phone] Encounter Details Date Type Department Care Team (Late st Contact Info) Description 11/09/2011 [facility] [address] Jovanny Song MD [address] [place] [id number] Social History Tobacco Use Types Packs/Day Years Used Date Smoking Tobacco: Former Cigarettes 3.5 36 0 [birth year]/29/1941 - 07/29/1977 Smokeless Tobacco: Never Alcohol Use Standard Drinks/Week Comments Yes 8.3 (1 standard drink = 0.6 oz p ure alcohol) socially Sex and Gender Information Value Date Recorded Sex Assigned at Not on file Gender Identity Not on file Sexual Orientation Not on file documented as of this encounter Procedure Notes * Jovanny Song MD - 11/09/2011 12:00 AM CDT DATE: 11/09/2011 PROCEDURE: Colonoscopy with cold biopsy polypectomy. POSTOPERATIVE DIAGNOSIS: 1. Several tiny rectal polyps. 2. Few sigmoid diverticula, otherwise negative colonoscopy. INDICATION: A 75-year-old white male here for a screening exam. MEDICATIONS: Fentanyl 100 mcg IV. Versed 5 mg IV. OPERATIVE REPORT: The patient was placed in left lateral decubitus position. The above medications were given in divided doses. Digital rectal exam was unremarkable. The Olympus video colonoscope 180 series was introduced into the rectum advanced withrelative ease to the cecum. Ileocecal valve and appendiceal orifice were identified. The scope was advanced briefly in the terminal ileum; mucosa there was normal. Cecum, ascending, transverse colon were unremarkable. Descending sigmoid colon showed a few diverticula. In the proximal rectum was unremarkable. Distal rectum showed 5 or 6 tiny diminutive polyps. These were removed with cold biopsy forceps. Retroflexion was otherwise unremarkable. The patient tolerated the procedure well. IMPRESSION: 1. Tiny rectal polyps. 2. Left colon diverticula. RECOMMENDATIONS: 1. Check pathology. 2. Repeat colonoscopy in 5-10 years depending on path. 3. Office visit as needed. Signed by Jovanny Song M.D. 11/23/2011 08:50 A Dictating Provider Jovanny Song M.D. C/dasia ([id number]) TD: 11/12/2011 Doc #: [id number] cc: Jovanny Song M.D. [facility] Manuela Hill MD documented in this encounter Plan of Treatment Not on file documented as of this encounter Procedures Procedure Name Priority Date/Time Associated Diagnosis Comments SURGICAL PATHOLOGY Routine 11/09/2011 2: 40 PM CDT documented in this encounter Results * Surgical Pathology (11/09/2011 2:40 PM CDT) Pathology Report Name: JOE ASCENCIO ? : ??1935 ?Pathology Report ? Client: [facility] ? Additional Physician(s): MANUELA HILL ? Date Specimen Collected: 11/09/11 ? Date Specimen Received: ??11/09/11 ? Date Reported: ? 11/12/2011 10:37 ?? Location: ? [id number] ? Pathologic Diagnosis : ?? RECTUM, BIOPSY OF A POLYP: ?? FRAGMENTS OF HYPERPLASTIC POLYP. ? Alisa Ibarra MD ?? Electronic Signature (MAR) 11/12/2011 10:37 ? Clinical Information: ?? Screening. ? Specimen(s) Submitted: ?? RECTAL POLYPS ? Gross Description: ?? The specimen is received in formalin labeled Mer[place], Joe-rectal polyps ?? and consists of four fragments of song soft tissue ranging from 0.2 to 0.4 cm ?? in greatest dimension. ??Entirely submitted in one cassette. ? fac 11/10/11 ? Microscopic Description: ?? Sections demonstrate fragments of rectal mucosa with hyperplastic changes. ??No ?? evidence of high-grade dysplasia or invasive carcinoma present. ??A ?? benign-appearing lymphoid nodule is also present. ? MAR/cln 11/12/11 ? Fee Codes: ?? A: [id number], [id number] ? Performing Lab Location (Unless otherwise specified): ?? [facility] ?? [address] [place] [address] ??[place] [address] ?? [facility] [place] 11/09/2011 2:40 PM CDT 11/09/2011 8:50 PM CDT Jovanny Song MD PATHOLOGY/CYTOLOGY O RDERABLES Performing Organization Address City/State/[facility] Co de Phone Number [facility] [place] [address] [place] [address] documented in this encounter Visit Diagnoses Not on filedocumented in this encounter Care Teams Fabric Finisher Relationship Specialty Start Date End Date Manuela Hill MD [address] [facility] [address] PCP - General Internal Medicine 06/20/12 07/06/14 Viky Agustin DO [address] [place] [address] PCP - General Family Practice 07/07/14 11/01/20 Dr. Cloe Optometry 01/20/14 documented as of this encounter
--- OUTSIDE RECORDS SUMMARY | 2024-08-20 17:12 | XMS_ITS | Referral Summary ---
Author Organization [facility] Address [address] [place] [id number] Care Team Providers Care Office Engineer Name Role Phone Unavailable Primary Care Provider Unavailabl e Allergies Active Allergy Reactions Criticality Noted Date Comments Cat Dander 11/03/2012 Pollen 01/20/2013 Medications Medication Sig Dispensed Refills Start Date End Date Status fluticasone (FLOVENT HFA) 44 MCG/ACT inhalerIndications: Unspecified asthma(493.90) Inhale 1 puff into the lungs daily. 3 Inhaler 3 10/07/2014 Active mupirocin (BACTROBAN) 2 % ointmentIndications :Cellulitis of toe of left foot Apply 2-3 times daily affected toe 22 g 0 01/25/2015 Active amiodarone (PACERONE,CORDARONE ) 200 MG tabletIndications:A trial flutter with controlled response (CMD) Take 1 tablet by mouth daily. 30 tablet 6 01/25/2015 Active HYDROcodone-acetami nophen (NORCO) 5-325 MG per tablet Take 1 tablet by mouth every 6 hours as needed for Pain. 30 tablet 0 04/07/2015 Active tavaborole (KERYDIN) 5 % external solution Apply 1 application topically daily. Apply to affected nail daily. 10 mL 2 04/18/2015 Active rivaroxaban (XARELTO) 20 MG Tab Take 1 tablet by mouth daily (with dinner). 30 tablet 0 07/01/2015 Active valsartan (DIOVAN) 80 MG tablet Take 1 tablet by mouth daily. Fill with GENERIC 30 tablet 0 07/01/2015 Active LORazepam (ATIVAN) 0.5 MG tablet Take 1 tablet by mouth daily as needed for Anxiety. 30 tablet 0 07/26/2015 Active Active Problems Problem Noted Date Diagnosed Date Chronic pain in left foot 03/30/2015 Allergic drug rash 05/19/2014 Left knee pain 01/20/2014 Trigger middle finger of right hand 01/20/2014 Trochanteric bursitis of right hip 01/20/2014 Chronic a-fib (CMD) 01/20/2014 Influenza with pneumonia 08/07/2013 Essential hypertension, benign 08/07/2013 Bronchitis 08/07/2013 Pneumonia, organism unspecified(486) 07/30/2013 Chest pain radiating to jaw 07/30/2013 Dyspnea 07/30/2013 Elevated troponin 07/30/2013 Atrial fibrillation with rapid ventricular respo nse (CMD) 07/30/2013 Encounter for therapeutic drug monitoring 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 2012 Atrial fibrillation (CMD) 12/09/2012 Pre-operative cardiovascular examination 013 Heloma molle 11/12/2012 Unspecified asthma(493.90) 11/02/2011 Overview (11/02/2011): W/O status asthmaticus or acute exacerbation Hyperlipidemia 11/02/2011 HTN (hypertension) 11/02/2011 Lumbosacral radiculitis 11/02/2011 Immunizations Name Administration Dates Next Due Influenza, split virus, quadrivalent 04/22/2014 04/22/2015 Influenza, split virus, trivalent 2012,04/30/2011,04/05/2010,1007/2008 Pneumococcal Polysaccharide PPV23 10/17/2011,07/2000 Td (adult), 5 Lf tetanus tox oid, preserve free, adsorbed 05/17/2007 Social History Tobacco Use Types Packs/Day Years Used Date Smoking Tobacco: Former Cigarettes 3.5 36 0 07/29/1941 - 07/29/1977 Smokeless Tobacco: Never Tobacco Cessation:Counseling Given: No Alcohol Use Standard Drinks/Week Comments Yes 8.3 (1 standard drink = 0.6 oz p ure alcohol) socially Sex and Gender Information Value Date Recorded Sex Assigned at Not on file Gender Identity Not on file Sexual Orientation Not on file Last Filed Vital Signs Vital Sign Reading Time Taken Comments Blood Pressure 132/68 04/25/2015 8:03 AM CDT Pulse 82 04/25/2015 8:03 AM CDT Temperature 36.1 ??C (97 ??F) 04/25/2015 8:03 AM CDT Respiratory Rate 20 04/25/2015 8:03 AM CDT Oxygen Saturation 97% 04/07/2015 9:40 AM CDT Inhaled Oxygen Concentration - - Weight 77.1 kg (170 lb) 04/25/2015 8:03 AM CDT Height 170.2 cm (5' 7 ) 04/25/2015 8:03 AM CDT Body Mass Index 26.63 04/25/2015 8:03 AM CDT Functional Status Functional Status Response Date of Assess ment ZZ Retired Are you deaf or d o you have serious difficulty hearing? No 04/06/2015 ZZ Retired Are you blind or do you have serious difficulty seeing, even when wearing glasses? No 04/06/20 15 Plan of Treatment Not on file Advance Directives * Full Resuscitation (Latest Code Status on File) Date Activated Date Inactivated Comments 04/07/2015 8:40 AM 04/07/2015 11:52 AM * Full Resuscitation Date Activated Date Inactivated Comments 02/24/2014 2:44 PM 02/24/2014 5:47 PM * Full Resuscitation Date Activated Date Inactivated Comments 02/24/2014 1:37 PM 02/24/2014 2:44 PM * Full Resuscitation Date Activated Date Inactivated Comments 02/24/2014 11:01 AM 02/24/2014 1:37 PM * Full Resuscitation Date Activated Date Inactivated Comments 07/30/2013 10:20 AM 08/01/2013 11:47 AM Care Teams Office Engineer Relationship Specialty Start Date End Date Dr. Cole Opt[facility] 01/20/14
--- OUTSIDE RECORDS SUMMARY | 2024-08-20 17:12 | XMS_ITS | Encounter Summary ---
Author Organization [facility] Address [address] [place] [id number] Care Team Providers Care Diversity Intern Name Role Phone Manuela Hill MD Primary Care Provider Viky Agustin DO Primary Care Provider Encounter Details Date Type Department Care Team (Late st Contact Info) Description 05/13/2014 Orders Only [facility] [address] [facility] [place] [address] Manuela Hill MD [address] [place] [address] Hyperlipidemia; HTN (hypertension) Social History Tobacco Use Types Packs/Day Years Used Date Smoking Tobacco: Former Cigarettes Q uit: 07/29/1977 Smokeless Tobacco: Never Alcohol Use Standard Drinks/Week Comments Yes 8.3 (1 standard drink = 0.6 oz p ure alcohol) socially Sex and Gender Information Value Date Recorded Sex Assigned at Not on file Gender Identity Not on file Sexual Orientation Not on file documented as of this encounter Functional Status Functional Status Response Date of Assess ment ZZ Retired Are you deaf or d o you have serious difficulty hearing? No 02/24/2014 ZZ Retired Are you blind or do you have serious difficulty seeing, even when wearing glasses? No-Wears glsses 02/25/20 14 documented as of this encounter Progress Notes * Manuela Hill MD - 05/17/2014 7:19 PM CDTQuick Note: Follow the result with the patient at upcoming appointment documented in this encounter Plan of Treatment Not on file documented as of this encounter Procedures Procedure Name Priority Date/Time Associated Diagnosis Comments URINALYSIS WITH MICRO & CULTURE IF INDICATED Routine 05/12/2014 6:06 AM CDT HTN (hypertension) LIPID PANEL WITH REFLEX Routine 05/12/2014 6:06 AM CDT Hyperlipidemia COMPREHENSIVE METABOLIC PANEL Routine 05/12/2014 6:06 AM CDT HTN (hypertension) documented in this encounter Results * Urinalysis with Micro & Culture if Indicated (05/12/2014 6:06 AM CDT) COLOR YELLOW YELLOW [facility] APPEARANCE CLEAR CLEAR [facility] SPECIFIC GRAVITY 1.016 1.001 - 1.035 [facility] pH 6.0 5.0 - 8.0 [facility] GLUCOSE(URINE) NEGATIVE NEGATIVE [facility] BILIRUBIN NEGATIVE NEGATIVE [facility] KETONES NEGATIVE NEGATIVE [facility] BLOOD NEGATIVE NEGATIVE [facility] PROTEIN(URINE) NEGATIVE NEGATIVE [facility] NITRITE NEGATIVE NEGATIVE [facility] LEUKOCYTE ESTERASE NEGATIVE NEGATIVE [facility] WBC NONE SEEN < OR = 5 /HPF [facility] RBC NONE SEEN < OR = 3 /HPF [facility] Squamous EPI'S NONE SEEN < OR = 5 /HPF [facility] BACTERIA NONE SEEN NONE SEEN /HPF [facility] Hyaline Casts NONE SEEN NONE SEEN /LPF [facility] URINE CULTURE REFLEX NO CULTURE INDICATED [facility] UROBILINOGEN not reported [facility] Urine specimen (specimen) 05/12/2014 6:06 AM CDT Narrative [facility] - 05/13/2014 12:28 PM CDT Verified by Rosanne Scales on 05/13/2014. Please see LIPID PANEL WITH REFLEX from 05/12/2014 for scanned report. Manuela Hill MD URINE ORDERABLES [facility] [address] [place] [address] * (ABNORMAL) Comprehensive Metabolic Panel (05/12/2014 6:06 AM CDT) Fasting Status FASTING [facility] Glucose 99 65 - 99 mg/dL [facility] Comment:Fasting reference in terval BUN 21 7 - 25 mg/dL [facility] Creatinine 1.01 0.70 - 1.18 mg/dL [facility] Comment: For patients >49 years of age, the reference limit for Creatinine is approximately 13% higher for people identified as -[place]. GFR Estimate, Non 72 > OR = 60 mL/min/1 .73m2 [facility] GFR Estimate, 83 > OR = 60 mL/min/1 .73m2 [facility] BUN/Creatinine Ratio NOT APPLICABLE 6 - 22 (calc) [facility] Sodium 142 135 - 146 mmol/L [facility] Potassium 4.8 3.5 - 5.3 mmol/L [facility] Chloride 104 98 - 110 mmol/L [facility] Carbon Dioxide 28 19 - 30 mmol/L [facility] CALCIUM 9.7 8.6 - 10.3 mg/dL [facility] TOTAL PROTEIN 7.1 6.1 - 8.1 g/dL [facility] Albumin 4.3 3.6 - 5.1 g/dL [facility] GLOBULIN 2.8 1.9 - 3.7 g/dL (calc) [facility] A/G Ratio, Serum 1.5 1.0 - 2.5 (calc) [facility] TOTAL BILIRUBIN 0.7 0.2 - 1.2 mg/dL [facility] ALK PHOSPHATASE 69 40 - 115 U/L [facility] AST/SGOT 34 10 - 35 U/L [facility] ALT/SGPT 47(H) 9 - 46 U/L [facility] 05/12/2014 6:06 AM CDT Narrative [facility] - 05/13/2014 12:28 PM CDT Verified by Rosanne Scales on 05/13/2014. Please see LIPID PANEL WITH REFLEX from 05/12/2014 for scanned report. Manuela Hill MD LAB BLOOD ORDERABLES [facility] [address] [place] [address] * (ABNORMAL) Lipid Panel with Reflex (05/12/2014 6:06 AM CDT) FASTING STATUS FASTING [facility] CHOLESTEROL 260(H) 125 - 200 mg/dL [facility] HDL 74 > OR = 40 mg/dL [facility] TRIGLYCERIDE 169(H) <150 mg/dL [facility] CALCULATED LDL 152(H) <130 mg/dL (calc) [facility] Comment: Desirable range <100 mg/dL for patients with CHD or diabetes and <70 mg/dL for diabetic patients with known heart disease. CHOL/HDL 3.5 < OR = 5.0 (calc) [facility] CALCULATED NON HDL 186(H) mg/dL (calc) [facility] Comment: Target for non-HDL cholesterol is 30 mg/dL higher than LDL cholesterol target. 05/12/2014 6:06 AM CDT Narrative [facility] - 05/13/2014 12:28 PM CDT Verified by Rosanne Scales on 05/13/2014. Manuela Hill MD LAB BLOOD ORDERABLES [facility] [address] [place] [address] documented in this encounter Visit Diagnoses Diagnosis Hyperlipidemia Other and unspecified hyperlipidemia HTN (hypertension) Unspecified essential hypertension documented in this encounter Care Teams Diversity Intern Relationship Specialty Start Date End Date Manuela Hill MD [address] [facility] [place] [address] PCP - General Internal Medicine 06/20/12 07/06/14 Viky Agustin DO [address] [facility] [address] PCP - General Family Practice 07/07/14 11/01/20 Dr. Cole Optometry 01/20/14 documented as of this encounter
--- OUTSIDE RECORDS SUMMARY | 2024-08-20 17:12 | XMS_ITS | Referral Summary ---
Author Organization [facility] Address [address] [place] [address] Phone Care Team Providers Care Sugar Sampler Name Role Phone Mindy Falk Unavailable Perez Pittman MD Unavailable [phone] Steve Carrillo DO Unavailable [phone] Alfonzo Nails DO Primary Care Provider [phone] Encounters Date Type Department Care Team Description 07/01/2024 2:30 PM PRESS OPERATOR AUTOMATIC Office Visit [facility] First Floor [address] [place] [address] Mary Capellan PA Vascular dementia without behavioral disturbance (HCC) (Primary Dx); 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; Traumatic brain injury with loss of consciousness, sequela (HCC) 06/26/2024 2:15 PM PRESS OPERATOR AUTOMATIC Office Visit [facility] [address] [place] [address] Antwan Fermin MD Coronary artery disease of [place] artery of [place] heart with stable angina pectoris (HCC) (Primary Dx); Chronic atrial fibrillation (HCC); Essential hypertension; Hyperlipidemia LDL goal <70 06/22/2024 Telephone [facility] [address] [facility] [facility] [address] [place] [address] Cecile Sanchez RN 06/17/2024 2:00 PM PRESS OPERATOR AUTOMATIC Lab [facility] [address] [place] [address] Adenocarcinoma of esophagus (HCC); 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, unspecified lymph node region (HCC) 06/17/2024 3:00 PM PRESS OPERATOR AUTOMATIC Office Visit [facility] [address] [facility] [place] [phone] Steve Carrillo DO Adenocarcinoma of esophagus (HCC) (Primary Dx); 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, unspecified lymph node region (HCC) 06/10/2024 12:50 PM PRESS OPERATOR AUTOMATIC - 06/10/2024 11:59 PM PRESS OPERATOR AUTOMATIC Hospital Encounter [facility] [address] [place] [address] 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 Take 900mg by mouth at night. 180 capsule 1 Active albuterol HFA (PROVENTIL HFA,VENTOLIN HFA,PROAIR HFA) 90 mcg/actuation inhaler Inhale 2 puffs 2 (two) times a day Active fluticasone propionate (FLONASE) 50 mcg/actuation nasal spray Administer 2 sprays into each nostril daily 2 Active atorvastatin (LIPITOR) 10 mg tablet Take 1 tablet (10 mg total) by mouth daily Active aspirin 81 mg enteric coated tablet Take 1 tablet (81 mg total) by mouth daily 30 tablet 11 3 Active galantamine ER (RAZADYNE ER) 16 mg 24 hr capsule Take 1 capsule (16 mg total) by mouth daily with breakfast 90 capsule 3 4 Active dilTIAZem CD 120 mg 24 hr capsuleIndication s:Chronic atrial fibrillation (HCC) TAKE 1 CAPSULE(120 MG) BY MOUTH DAILY 30 capsule 11 4 Active Breo Ellipta 100-25 mcg/dose diskus inhaler 4 Active vit C,G-Bl-uppyz-lute in-zeaxan 250-90-40-1 mg capsule Take by mouth Active vitamin Y12-mvrog acid 0.5-1 mg tablet Take by mouth Patient taking OTC Active Active Problems Problem Noted Date Diagnosed Date Traumatic brain injury with loss of consciousnes s (CMS/HCC) 04/30/2023 Vascular dementia without behavioral disturbance 04/30/2023 Assessment & Plan (12/31/2023 2:31 PM CDT): Continue Atorvastatin, blood pressure control Presence of Amulet left atrial appendage closure device 02/01/2023 Alzheimer's disease 09/26/2022 Assessment & Plan (12/31/2023 2:17 PM CDT): Galantamine ER 16 mg daily, consider Namenda/memantine moving forward We are in agreement with driving senior care Cerebral amyloid angiopathy 09/26/2022 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 Pt still appears clinically well however now with gram negative bacteremia, AlkP and LFTs increasing c/f true ascending cholangitis however normal bili. 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 Adenocarcinoma of esophagus 04/16/2016 Cancer Staging:Clinical stage from 03/29/2016:Stage IVB(pM1) - Signed by Kailyn Palafox NP on 06/28/2020 Assessment & Plan (08/03/2020 2:15 AM PRESS OPERATOR AUTOMATIC): Metastatic esophageal adenocarcinoma dx 03/2016 after presenting with GIB. Pt of park. S/p FOLFOX->treatment break->disease progression->5FU for 38 cycles->disease progression->pembro (held during XRT for dysphagia 06/21-07/13) first dose 05/17/20. -Med Onc c/s Essential hypertension 08/25/2015 Overview (11/08/2016): Essential hypertension Hyperlipidemia LDL goal <70 08/25/2015 Overview (11/08/2016): Hyperlipidemia LDL goal <100 Chronic atrial fibrillation 08/25/2015 Overview (11/08/2016): PAF (paroxysmal atrial fibrillation) Assessment & Plan (08/03/2020 2:09 AM PRESS OPERATOR AUTOMATIC): Cont dilt. Not on AC 2/2 GIB. S/p cardioversion. NSR at this time. Dysphagia Assessment & Plan (08/03/2020 2:10 AM PRESS OPERATOR AUTOMATIC): 2/2 malignancy with improvement. Resolved Problems Problem Noted Date Diagnosed Date Resolved Date Overweight 08/25/2015 12/31/2023 Overview (11/08/2016): Overweight Immunizations Name Administration Dates Next Due Influenza, Quadrivalent, Sylvia l Culture-based MDCK, Preservative Free, Antibiotic Free, Intramuscular 07/18/2021,05/10/2020,04/28/2019,05/06,05/28/2017 Influenza, Quadrivalent, Spl it, Preservative Free, Intramuscular 04/10/2016 Influenza, Trivalent, Preser vative Free, Intramuscular 05/28/2017 Moderna SARS-CoV-2 Monovalen t Vaccination (12+ YRS) 10/29/2020,09/28/2020 Social History Tobacco Use Types Packs/Day Years Used Date Smoking Tobacco: Former Cigarettes Q uit: 03/19/1973 Smokeless Tobacco: Never Tobacco Cessation:Counseling Given: Not Answered Alcohol Use Standard Drinks/Week Comments Yes 14 (1 standard drink = 0.6 oz pu re alcohol) AUDIT-C Answer Date Recorded Frequency of Alcohol Consumption Not on file 06/17/2024 Q2: How many drinks containi ng alcohol do you have on a typical day when you are drinking? Patient does not drink Frequency of Binge Drinking Not on file 05/30 Personal Safety Answer Date Recorded Have you ever been in or are you currently in a harmful physical or emotional relationship or is someone making you feel afraid or unsafe? Denies 02/01/2023 Sex and Gender Information Value Date Recorded Sex Assigned at Not on file Legal Sex Male 8:40 AM PRESS OPERATOR AUTOMATIC Gender Identity Not on file Sexual Orientation Not on file Occupation Industry Job Start Date Job End Date Retired Not on file Not on file Not on file Last Filed Vital Signs Vital Sign Reading Time Taken Comments Blood Pressure 114/70 07/01/2024 1:53 PM PRESS OPERATOR AUTOMATIC Pulse 84 07/01/2024 1:53 PM PRESS OPERATOR AUTOMATIC Temperature 34.9 ??C (94.8 ??F) 07/01/2024 1:53 PM CS T Respiratory Rate 18 06/17/2024 2:58 PM PRESS OPERATOR AUTOMATIC Oxygen Saturation 97% 06/26/2024 2:03 PM PRESS OPERATOR AUTOMATIC Inhaled Oxygen Concentration - - Weight 74.8 kg (165 lb) 07/01/2024 1:53 PM PRESS OPERATOR AUTOMATIC Height 177.8 cm (5' 10 ) 07/01/2024 1:53 PM PRESS OPERATOR AUTOMATIC Body Mass Index 23.68 07/01/2024 1:53 PM PRESS OPERATOR AUTOMATIC Plan of Treatment Not on file Medical Devices Implanted Type Area Fudge Candy Maker Device Identifier Shelf Expiration Date Model / Serial / Lot [employer] Vascade Mvp 6-12fr Venous Closure [id number] - [id number] Implanted:Qty: 1 on 02/01/2023 by Moreno Craft MD at [facility] Right: Femoral Vein [employer] 09/24/2024 [id number] / / [id number] [employer] Percutaneous Transcatheter Amplatzer Amulet 22mm [id number] - [id number] Implanted:Qty: 1 on 02/01/2023 by Moreno Craft MD at [facility] Left Atrial Appendage Occluder Left: Atrial Appendage [employer] 03/28/2027 [id number] / / [id number] [employer] Device Clsr Perclose Prostyle Sut-Mediatd Closure-Repair Sys [id number] - [id number] Implanted:Qty: 1 on 02/01/2023 by Moreno Craft MD at [facility] Right: Femoral Vein [employer] 10/26/2024 [id number] / / [id number] [employer] Device Clsr Perclose Prostyle Sut-Mediatd Closure-Repair Sys [id number] - [id number] Implanted:Qty: 1 on 02/01/2023 by Moreno Craft MD at [facility] Right: Femoral Vein [employer] 10/26/2024 [id number] / / [id number] Procedures Procedure Name Priority Date/Time Associated Diagnosis Comments EGFR Routine 06/17/2024 2:08 PM PRESS OPERATOR AUTOMATIC 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, unspecified lymph node region (HCC) DIFFERENTIAL AUTO Routine 06/17/2024 2:0 8 PM PRESS OPERATOR AUTOMATIC 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, unspecified lymph node region (HCC) CBC WITH AUTO DIFFERENTIAL Routine 06/17/2024 2:08 PM PRESS OPERATOR AUTOMATIC 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, unspecified lymph node region (HCC) CEA Routine 06/17/2024 2:08 PM PRESS OPERATOR AUTOMATIC 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, unspecified lymph node region (HCC) COMPREHENSIVE METABOLIC PANEL Routine 06/17/2024 2:08 PM PRESS OPERATOR AUTOMATIC 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 73 m2 Comment: Interpretive Data Reference Interval Normal ?>/= 90 mL/min/1.73m2 Mildly decreased* ? 60 - 89 mL/min/1.73m2 Mildly to moderately decreased ?45 - 59 mL/min/1.73m2 Moderately to severely decreased ??30 - 44 mL/min/1.73m2 Severely decreased ?15 - 29 mL/min/1.73m2 Kidney Failure ?< 15 ??mL/min/1.73m2 *Relative to young adult level Estimated glomerular filtration rate is determined by the 2020 CKD-EPI equation recommended by the National Kidney Foundation (A Unifying Approach to GFR Estimation: Recommendations of the NKF-ASK Task Force on Reassessing the Inclusion of Race in Diagnosing Kidney Disease, JASN 2020). The CKD-EPI equation should not be used for patients with unstable renal function and has not been validated in children and those over 70. Current interpretive data was last reviewed 2021. Testing performed by: [facility], [address] [place] [address], [place]., [address] Blood 06/17/2024 2:08 PM PRESS OPERATOR AUTOMATIC 06/17/2024 2:10 PM PRESS OPERATOR AUTOMATIC us Steve Carrillo DO LAB BLOOD ORDERABLES Final R esult [facility] [address] [facility] Department [place] [address] * Differential, auto (06/17/2024 2:08 PM PRESS OPERATOR AUTOMATIC) Neutrophil abs 6.3 1.5 - 6.5 K/cumm Comment:Testing performed by : [address] [address] Imm gran abs 0.0 0.0 - 0.1 K/cumm LOLITA Comment:Testing performed by : [address] [address] Lymphocyte abs 1.0 0.8 - 3.3 K/cumm LOLITA Comment:Testing performed by : [address] [address] Monocyte abs 0.6 0.2 - 0.8 K/cumm LOLITA Comment:Testing performed by : [address] [address] Eosinophil abs 0.4 0.0 - 0.5 K/cumm LOLITA Comment:Testing performed by : [address] [address] Basophil abs 0.1 0.0 - 0.1 K/cumm LOLITA Comment:Testing performed by : [address] [address] Neutrophil pct 75.9 % LOLITA Comment: Interpretive Data Percent cell count reference ranges are not reported, since discordance with absolute values may lead to misinterpretation of CBC data. Current Interpretive Data was last revised on 2017. Testing performed by: [address] [address] Imm gran pct 0.2 % LOLITA Comment: Interpretive Data Percent cell count reference ranges are not reported, since discordance with absolute values may lead to misinterpretation of CBC data. Current Interpretive Data was last revised on 2017. Testing performed by: [address] [address] Lymphocyte pct 11.7 % LOLITA Comment: Interpretive Data Percent cell count reference ranges are not reported, since discordance with absolute values may lead to misinterpretation of CBC data. Current Interpretive Data was last revised on 2017. Testing performed by: [address] [address] Monocyte pct 6.9 % LOLITA Comment: Interpretive Data Percent cell count reference ranges are not reported, since discordance with absolute values may lead to misinterpretation of CBC data. Current Interpretive Data was last revised on 2017. Testing performed by: [address] [address] Eosinophil pct 4.7 % LOLITA Comment: Interpretive Data Percent cell count reference ranges are not reported, since discordance with absolute values may lead to misinterpretation of CBC data. Current Interpretive Data was last revised on 2017. Testing performed by: [address] [address] Basophil pct 0.6 % LOLITA Comment: Interpretive Data Percent cell count reference ranges are not reported, since discordance with absolute values may lead to misinterpretation of CBC data. Current Interpretive Data was last revised on 2017. Testing performed by: [address] [address] Blood 06/17/2024 2:08 PM PRESS OPERATOR AUTOMATIC 06/17/2024 2:10 PM PRESS OPERATOR AUTOMATIC us Steve Carrillo DO LAB BLOOD ORDERABLES Final R esult [facility] [address] [facility] Department [place] [address] * CBC with auto differential (06/17/2024 2:08 PM PRESS OPERATOR AUTOMATIC) WBC 8.2 3.8 - 9.9 K/cumm Comment:Testing performed by : [address] [address] Hgb 13.8 13.0 - 17.5 g/dL LOLITA GAGNON Comment:Testing performed by : [address] [address] Hct 42.2 38.9 - 50.3 % LOLITA Comment:Testing performed by : [address] [address] Plt 190 150 - 400 K/cumm LOLITA Comment:Testing performed by : [address] [address] MPV 9.7 9.1 - 12.3 fL LOLITA Comment:Testing performed by : [address] [address] RBC 4.77 4.30 - 5.80 M/cumm LOLITA Comment:Testing performed by : [address] [address] MCV 88.5 81.3 - 96.4 fL LOLITA Comment:Testing performed by : [address] [address] MCH 28.9 27.1 - 33.3 pg LOLITA Comment:Testing performed by : [address] [address] MCHC 32.7 32.3 - 35.7 g/dL LOLITA Comment:Testing performed by : [address], [address] RDW CV 13.2 11.1 - 14.9 % LOLITA Comment:Testing performed by : [address], [address] RDW SD 42.4 35.7 - 48.1 fL LOLITA Comment:Testing performed by : [address] [address] NRBC abs 0.00 0.00 - 0.01 K/cumm LOLITA Comment:Testing performed by : [address] [address] Blood 06/17/2024 2:08 PM PRESS OPERATOR AUTOMATIC 06/17/2024 2:10 PM PRESS OPERATOR AUTOMATIC Steve Carrillo DO LAB BLOOD ORDERABLES Final [facility] [address] [facility] Department [place] [address] * (ABNORMAL) CEA (06/17/2024 2:08 PM PRESS OPERATOR AUTOMATIC) CEA 35.1(H) <=5.0 ng/mL Comment: Interpretive Data: Reference Range: Non-Smokers: 0.0 ? 5.0 ng/mL Smokers: 0.0 ? 6.5 ng/mL The Mya CEA assay procedure was used. Results from different manufacturers or methods may not be comparable. Serial testing should be performed using the same method. Current interpretive data was last revised 2023. Testing performed by: [address] [address] Blood 06/17/2024 2:08 PM PRESS OPERATOR AUTOMATIC 06/17/2024 3:53 PM PRESS OPERATOR AUTOMATIC Steve Carrillo DO LAB BLOOD ORDERABLES Final R esult [place] [address] [facility] Department [place] [address] * (ABNORMAL) Comprehensive metabolic panel (06/17/2024 2:08 PM PRESS OPERATOR AUTOMATIC) Pathologist [facility] Sodium 138 135 - 145 mmol/L Comment:Testing performed by : [address] [address] Potassium, pl 4.2 3.3 - 4.9 mmol/L LOLITA Comment:Testing performed by : [address] [address] Chloride 102 97 - 110 mmol/L LOLITA Comment:Testing performed by : [address] [address] CO2 25 22 - 32 mmol/L LOLITA Comment:Testing performed by : [address] [address] Anion gap 11 2 - 15 mmol/L LOLITA Comment:Testing performed by : [address] [address] BUN 15 6 - 25 mg/dL LOLITA Comment:Testing performed by : [address] [address] Creatinine 0.90 0.80 - 1.30 mg/dL LOLITA Comment:Testing performed by : [address] [address] Glucose 213(H) 70 - 199 mg/dL LOLITA Comment: Interpretive Data Fasting glucose >/= 126 mg/dl is diagnostic for diabetes. ?? Fasting is defined as no caloric intake for at least 8 hours. Fasting glucose between 100 mg/dl to 125 mg/dl is diagnostic of prediabetes. In a patient with classic symptoms of hyperglycemia or hyperglycemic crisis, a random glucose >/= 200 mg/dl is diagnostic for diabetes. In the absence of unequivocal hyperglycemia, results should be confirmed by repeat testing. The classification and Diagnosis of Diabetes Diabetes Care 2021; 46: S19-S40. Current interpretive data was last revised 2022. Testing performed by: [address] [address] Calcium 9.3 8.5 - 10.3 mg/dL LOLITA Comment:Testing performed by : [address] [address] Bilirubin, total 0.4 0.1 - 1.2 mg/dL LOLITA Comment:Testing performed by : [address] [address] Protein, pl 7.5 6.5 - 8.5 g/dL LOLITA Comment:Testing performed by : [address] [address] Albumin 3.9 3.5 - 5.0 g/dL LOLITA Comment:Testing performed by : [address] [address] Alk phos 127 40 - 130 Units/L LOLITA Comment:Testing performed by : [address] [address] ALT 22 7 - 55 Units/L LOLITA Comment:Testing performed by : [address] [address] AST 30 10 - 50 Units/L LOLITA Comment:Testing performed by : [address] [address] Blood 06/17/2024 2:08 PM PRESS OPERATOR AUTOMATIC 06/17/2024 2:10 PM PRESS OPERATOR AUTOMATIC us Steve Carrillo DO LAB BLOOD ORDERABLES Final R esult [facility] [address] [facility] Department [place] [address] * CT Chest Abdomen Pelvis W Contrast (06/10/2024 1:53 PM PRESS OPERATOR AUTOMATIC) Anatomical Region Laterality Modality Body N/A Computed Tomogra phy 06/15/2024 12:2 2 PM PRESS OPERATOR AUTOMATIC Narrative 06/15/2024 12:36 PM PRESS OPERATOR AUTOMATIC EXAM DESCRIPTION: CT CHEST ABDOMEN PELVIS W CONTRAST REASON FOR STUDY: Metastatic esophageal cancer diagnosed 5 and half years ago. Restaging examination. TECHNIQUE: CT scan of the chest, abdomen, and pelvis performed with intravenous and ??without ??oral contrast using helical scanning technique with dynamic intravenous contrast injection. Reconstructed coronal and sagittal MPR images reviewed. All images stored on PACS. Automated exposure control was used as a dose optimization technique for this examination. CONTRAST TYPE/DOSE: 100mL of IOVERSOL 350 MG IODINE/ML INTRAVENOUS SYRINGE ?? injected via ?? intravenous COMPARISON: CT chest, abdomen pelvis dated November 21, 2023 FINDINGS: CHEST LUNGS: ?? Central airway is patent. ??Moderate upper lobe predominant centrilobular emphysema. ??Dependent atelectasis in the lung bases. ?? Tree-in-bud like nodularity with bronchial wall thickening in the lower lobes bilaterally left greater right is likely infectious in etiology. ??A few scattered subcentimeter pulmonary nodules are seen bilaterally. ??This is stable. ??Involving the right middle lobe there is a new mildly spiculated nodule with several adjacent smaller satellite nodules measuring a maximum of 1.3 x 1.5 cm (axial image 74 PLEURA: ?? No effusion. No pneumothorax. ?? Stable calcified pleural plaques which may be secondary to asbestosis exposure. MEDIASTINUM/ANETA: ?? No identified masses or abnormal nodes. ?? Fall subcentimeter mediastinal lymph nodes are seen, stable. ??No new lymphadenopathy. HEART: ?? Heart size is normal with no pericardial effusion. ?? Extensive coronary artery calcified atherosclerosis. VASCULATURE CHEST: ?? No thoracic aortic aneurysm or dissection. AXILLA: ?? No adenopathy. CHEST WALL: ?? No masses. ??No subcutaneous air. HARDWARE/LINES/TUBES: ?? None. MUSCULOSKELETAL CHEST: ?? Moderate thoracic spondylosis. ABDOMEN/PELVIS LIVER: ?? Normal size. ??No identified cystic or solid masses. GALLBLADDER: ?? Multiple stones are seen. ??No wall thickening or pericholecystic fluid. BILE DUCTS: ?? No intrahepatic or extrahepatic ductal dilatation. SPLEEN: ?? Normal size. ??No focal lesions. PANCREAS: ?? No identified cystic or solid masses. No significant calcifications. No adjacent inflammation or peripancreatic fluid collections. Pancreatic duct not dilated. ?? ADRENALS: ?? Normal. KIDNEYS/URINARY TRACT: ?? No identified significant cystic or solid masses. No visualized stones. No hydronephrosis or hydroureter. Symmetric enhancement. ? Urinary bladder is unremarkable. GI: ?? No dilated bowel loops. No obvious wall thickening. ??Normal appendix. ?? Extensive uncomplicated diverticular disease. PERITONEUM: ?? No ascites or free air. RETROPERITONEUM: ?? No mass or adenopathy. REPRODUCTIVE: ?? No significant abnormality. VASCULATURE ABDOMEN: ?? Ectasias of the abdominal aorta measuring maximum of 2.9 cm. ??Extensive calcified atherosclerosis.. MUSCULOSKELETAL ABDOMEN PELVIS: ?? Moderate lumbar spondylosis.. OTHER: ?? No significant abnormality. IMPRESSION: New mildly spiculated nodule with several adjacent smaller satellite nodules in the right middle lobe measuring a maximum of 1.3 x 1.5 cm. ??Differential considerations include infection versus metastatic disease. ??Short-term follow-up in 3 months. ??Additional stable pulmonary nodules as above.. Tree-in-bud like nodularity with bronchial wall thickening in the lower lobes bilaterally left greater right is likely infectious in etiology. Moderate upper lobe predominant centrilobular emphysema. Cholelithiasis. Extensive uncomplicated diverticular disease. Ectasia of the abdominal aorta measuring maximum of 2.9 cm. Aorta recommendation: 2.62.9 cm Recommended rescreening after 10 years per Society for Vascular Surgery Guidelines: J Vasc Surgery 2008 50: s2s49; updated Jul 2017 J Vasc Surgery 67:277 THIS IS AN ELECTRONICALLY VERIFIED FINAL REPORT 06/15/2024 12:36 PM - Electronically signed by ??Jelani Mejia M.D. JA: GENEVA D: ??06/15/2024 12:36 PM T: ??06/15/2024 12:36 PM Report ID: [id number] Reading Location: ??[id number] Procedure Note Jelani Mejia MD - 06/15/2024 EXAM DESCRIPTION: CT CHEST ABDOMEN PELVIS W CONTRAST REASON FOR STUDY: Metastatic esophageal cancer diagnosed 5 and half yearsago. Restaging examination. TECHNIQUE: CT scan of the chest, abdomen, and pelvis performed with intravenous and without oral contrast using helical scanning techniquewith dynamic intravenous contrast injection. Reconstructed coronal and sagittalMPR images reviewed. All images stored on PACS. Automated exposure control was used as a dose optimization technique for this examination. CONTRAST TYPE/DOSE: 100mL of IOVERSOL 350 MG IODINE/ML INTRAVENOUS SYRINGE injected via intravenous COMPARISON: CT chest, abdomen pelvis dated November 21, 2023 FINDINGS: CHEST LUNGS: Central airway is patent. Moderate upper lobe predominant centrilobular emphysema. Dependent atelectasis in the lung bases. Tree-in-bud like nodularity with bronchial wall thickening in the lowerlobes bilaterally left greater right is likely infectious in etiology. A few scattered subcentimeter pulmonary nodules are seen bilaterally. This is stable. Involving the right middle lobe there is a new mildly spiculated nodule with several adjacent smaller satellite nodules measuring a maximumof 1.3 x 1.5 cm (axial image 74 PLEURA: No effusion. No pneumothorax. Stable calcified pleural plaques which may be secondary to asbestosis exposure. MEDIASTINUM/ANETA: No identified masses or abnormal nodes. Fall subcentimeter mediastinal lymph nodes are seen, stable. No new lymphadenopathy. HEART: Heart size is normal with no pericardial effusion. Extensive coronary artery calcified atherosclerosis. VASCULATURE CHEST: No thoracic aortic aneurysm or dissection. AXILLA: No adenopathy. CHEST WALL: No masses. No subcutaneous air. HARDWARE/LINES/TUBES: None. MUSCULOSKELETAL CHEST: Moderate thoracic spondylosis. ABDOMEN/PELVIS LIVER: Normal size. No identified cystic or solid masses. GALLBLADDER: Multiple stones are seen. No wall thickening or pericholecystic fluid. BILE DUCTS: No intrahepatic or extrahepatic ductal dilatation. SPLEEN: Normal size. No focal lesions. PANCREAS: No identified cystic or solid masses. No significant calcifications. No adjacent inflammation or peripancreatic fluidcollections. Pancreatic duct not dilated. ADRENALS: Normal. KIDNEYS/URINARY TRACT: No identified significant cystic or solid masses.No visualized stones. No hydronephrosis or hydroureter. Symmetricenhancement. Urinary bladder is unremarkable. GI: No dilated bowel loops. No obvious wall thickening. Normalappendix. Extensive uncomplicated diverticular disease. PERITONEUM: No ascites or free air. RETROPERITONEUM: No mass or adenopathy. REPRODUCTIVE: No significant abnormality. VASCULATURE ABDOMEN: Ectasias of the abdominal aorta measuring maximumof 2.9 cm. Extensive calcified atherosclerosis.. MUSCULOSKELETAL ABDOMEN PELVIS: Moderate lumbar spondylosis.. OTHER: No significant abnormality. IMPRESSION: New mildly spiculated nodule with several adjacent smaller satellitenodules in the right middle lobe measuring a maximum of 1.3 x 1.5 cm.Differential considerations include infection versus metastatic disease. Short-term follow-up in 3 months. Additional stable pulmonary nodules as above.. Tree-in-bud like nodularity with bronchial wall thickening in the lowerlobes bilaterally left greater right is likely infectious in etiology. Moderate upper lobe predominant centrilobular emphysema. Cholelithiasis. Extensive uncomplicated diverticular disease. Ectasia of the abdominal aorta measuring maximum of 2.9 cm. Aorta recommendation: 2.62.9 cm Recommended rescreening after 10 years per Society for Vascular Surgery Guidelines: J Vasc Surgery 2008 50:s2s49; updated Jul 2017 J Vasc Surgery 67:277 THIS IS AN ELECTRONICALLY VERIFIED FINAL REPORT 06/15/2024 12:36 PM - Electronically signed by Jelani Mejia M.D. JA: [email or web address] Report ID: [id number] Reading Location: [id number] us Steve Carrillo DO IMG CT PROCEDURES Final Resu lt * POCT creatinine for contrast evaluation (06/10/2024 1:31 PM PRESS OPERATOR AUTOMATIC) Creatinine POC 1.00 0.80 - 1.30 mg/dL Comment:Testing performed by : [facility], [address] [place] [address]., [id number] Blood 06/10/2024 1:31 PM PRESS OPERATOR [employer]OMATIC 06/10/2024 1:31 PM PRESS OPERATOR [employer]OMAT[employer] Steve Carrillo DO POINT OF CARE TEST ORDERABLE S Final Result Performing Organization Address City/State/ZIP Co id Phone Number [facility] [address] [facility] Department [place] [address] from Last 3 Months Insurance MEDICARE [facility] MEDICARE [employer] Advance Directives For more information, please contact: [phone] * Full Code (Latest Code Status on File) Date Activated Date Inactivated Comments 02/01/2023 4:41 PM 02/02/2023 5:28 PM * Full Code Date Activated Date Inactivated Comments 08/03/2020 2:06 AM 08/06/2020 7:35 PM * Full Code Date Activated Date Inactivated Comments 05/25/2020 10:47 AM 05/25/2020 7:22 PM * Full Code Date Activated Date Inactivated Comments 09/09/2019 3:20 PM 09/09/2019 9:54 PM Care Teams Sugar Sampler Relationship Specialty Start Date End Date Alfonzo Nails DO [address] [place] [address] MEDICAL ONCOLOGY, [facility] [address] [place] [address] PCP - General Internal Medicine 08/22/23 Mindy Falk SLP [address] [place] [address] Speech Language Pathologist Speech Therapy 02/17/18 Perez Pittman MD [address] [place] [address] Radiation Oncologist Radiation Oncology 06/07/20 Steve Carrillo DO [address] [facility] MEDICAL ONCOLOGY, [facility] [address] [place] [address] Medical Oncologist/Salesforce Administrator Hematology and Oncology 05/02/22
--- OUTSIDE RECORDS SUMMARY | 2024-08-20 17:12 | XMS_ITS ---
Author Organization [facility] Virtual Care Address [address] [place] [id number] Phone Care Team Providers Care Auto Technician Name Role Phone Mindy Falk Unavailable Perez Pittman MD Unavailable Steve Carrillo DO Unavailable [phone] Alfonzo Nails DO Primary Care Provider [phone] Active Problems Problem Noted Date Diagnosed Date Traumatic brain injury with loss of consciousnes s ([facility]) 04/30/2023 Vascular dementia without behavioral disturbance 04/30/2023 Assessment & Plan (12/31/2023 2:31 PM CDT): Continue Atorvastatin, blood pressure control 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 Pt still appears clinically well however now with gram negative bacteremia, AlkP and LFTs increasing c/f true ascending cholangitis however normal bili. 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 Adenocarcinoma of esophagus 04/16/2016 Cancer Staging:Clinical stage from 03/29/2016:Stage IVB(pM1) - Signed by Kailyn Palafox NP on 06/28/2020 Assessment & Plan (08/03/2020 2:15 AM [employer] GRAZIER): Metastatic esophageal adenocarcinoma dx 03/2016 after presenting [...] fibrillation) Assessment & Plan (08/03/2020 2:09 AM FARMER [employer] GRAZIER): Cont dilt. Not on AC 2/2 GIB. S/p cardioversion. NSR at this time. Dysphagia Assessment & Plan (08/03/2020 2:10 AM F[employer]ER [employer] GRAZIER): 2/2 malignancy with improvement. Current Oncology Plans No current plan information found. Past Plans Oncology Chemotherapy Treatment Plan Name Start Date Discontinue Date Treatment Medications Discontinue Reason Plan Provider Cycles Pembrolizumab 21 Day Cycles 05/17/20 20 05/02/2022 pembrolizumab (KEYTRUDA)pembr olizumab (KEYTRUDA) IVPB in 100 mL Provider Discretion Indiana Aranda MD 5 of 24 cycles started 5FU: (Fluorouracil / Leucovorin) Oxaliplatin (added cycle 14) Cycle 1= Cycle 15 8 05/10/2020 fluorouracil (ADRUCIL)fluoro uracil (ADRUCIL) infusion - for home infusion (ADRUCIL)leucov orinleucovorin IVPB in 250 mLoxaliplatin (ELOXATIN)oxali platin (ELOXATIN) IVPB Progression Indiana Aranda MD 38 of 40 cycles started Oncology Supportive Care Plan Name Start Date Discontinue Date Treatment Medications Discontinue Reason Plan Provider IV Maintenance Therapy Plan 06/30/2019 05/02/2022 No medications scheduled. Therapy Complete Jason Salcedo MD Specialty Infusion Treatment Plan Name Start Date Discontinue Date Treatment Medications Discontinue Reason Plan Provider IV MAINTENANCE THERAPY PLAN 02/18/2018 05/02/2022 No medications scheduled. Therapy Complete Kecia Porter MD PhD Radiation Treatments * Plan Last Treated On Elapsed Days Fractions Treated Prescribed Fraction Dose [facility]2020 22 15 250 cGy 3,750 cGy Reference Point Last Treated On Elapsed Days Session Dose Total Dose ESO 201907/13/2020 22 250 cGy 3,750 cGy Lifetime Dose Tracking * Chemical Lifetime Dose Automatic Entry Manual Entr y Fluoro Time 0.1 minutes 0.1 minutes 0 minutes Air kerma at the reference point (Ka,r) 84 mGy 0 mGy 84 mGy DLP 20,023 mGycm 20,023 mGycm 0 mGycm Resolved Problems Problem Noted Date Diagnosed Date Resolved Date Overweight 08/25/2015 12/31/2023 Overview (11/08/2016): Overweight
--- OUTSIDE RECORDS SUMMARY | 2024-08-20 17:12 | XMS_ITS | Clinical Summary ---
Author Organization [facility] Virtual Care Address [address] [place] [id number] Phone Care Team Providers Care Nurse Emergency Room Name Role Phone Mindy Falk Unavailable Perez Pittman MD Unavailable [phone] Steve Carrillo DO Unavailable [phone] Alfonzo Nails DO Primary Care Provider [phone] Allergies Active Allergy Reactions Criticality Noted Date [...] 100-25 mcg/dose diskus inhaler 4 Active vit C,V-Gp-nyhdb-lute in-zeaxan 250-90-40-1 mg capsule Take by mouth Active vitamin I19-cnvdm acid 0.5-1 mg tablet Take by mouth [...] forward We are in agreement with driving longterm 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 Pt still appears clinically well however now with gram negative bacteremia, AlkP and LFTs increasing c/f true ascending cholangitis however normal bili. 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 Adenocarcinoma of esophagus 04/16/2016 Cancer Staging:Clinical stage from 03/29/2016:Stage IVB(pM1) - Signed by Kailyn Palafox NP on 06/28/2020 Assessment & Plan (08/03/2020 2:15 AM BATTERY TECHNICIAN): Metastatic esophageal adenocarcinoma dx 03/2016 after presenting [...] fibrillation) Assessment & Plan (08/03/2020 2:09 AM BATTERY TECHNICIAN): Cont dilt. Not on AC 2/2 GIB. S/p cardioversion. NSR at this time. Dysphagia Assessment & Plan (08/03/2020 2:10 AM BATTERY TECHNICIAN): 2/2 malignancy with improvement. Resolved Problems Problem Noted Date Diagnosed Date Resolved Date Overweight 08/25/2015 12/31/2023 Overview (11/08/2016): Overweight Encounters Date Type Department Care Team Description 07/01/2024 2:30 PM BATTERY TECHNICIAN Office Visit [facility] [address] [place] [address] First Floor [address] [place] [address] Mary Capellan PA Vascular dementia without behavioral disturbance (HCC) (Primary Dx); Chronic ischemic right KAIAKO KURA KAUPAPA MAORI stroke; Traumatic brain injury with loss of consciousness, sequela (HCC) 06/26/2024 2:15 PM BATTERY TECHNICIAN Office Visit [facility] [address] [place] [address] Antwan Fermin MD 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 (HCC) (Primary Dx); Chronic atrial fibrillation (HCC); Essential hypertension; Hyperlipidemia LDL goal <70 06/22/2024 Telephone [facility] [facility] [address] [place] [address] Cecile Sanchez RN 06/17/2024 3:00 PM BATTERY TECHNICIAN Office Visit [facility] [address] [facility] [address] [place] [address] Steve Carrillo, Adenocarcinoma of esophagus (HCC) (Primary Dx); 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, unspecified lymph node region (HCC) 06/17/2024 2:00 PM BATTERY TECHNICIAN Lab [facility] [address] [place] [address] Adenocarcinoma of esophagus (HCC); 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, unspecified lymph node region (HCC) 06/10/2024 12:50 PM BATTERY TECHNICIAN - 06/10/2024 11:59 PM BATTERY TECHNICIAN Hospital Encounter [facility] [address] [place] [address] 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, unspecified lymph node region (HCC); Adenocarcinoma of esophagus (HCC) Discharge Disposition: Discharge to home or self care 05/20/2024 Telephone [facility] [address] [address] Fadumo Ramírez from Last 3 Months Immunizations Name Administration Dates Next Due Influenza, Quadrivalent, Sylvia l Culture-based MDCK, Preservative Free, Antibiotic Free, Intramuscular 07/18/2021,05/10/2020,04/28/2019,05/06,05/28/2017 Influenza, Quadrivalent, Spl it, Preservative Free, Intramuscular 04/10/2016 Influenza, Trivalent, Preser vative Free, Intramuscular 05/28/2017 Moderna SARS-CoV-2 Monovalen t Vaccination (12+ YRS) 10/29/2020,09/28/2020 Surgical History Surgery Date Site/Laterality Comments BIOPSY LIVER 04/26/2016 N/A BIOPSY LIVER 04/26/2016 N/A PORT PLACEMENT CHEST >5 YEARS 05/08/2016 N/A BACK SURGERY PORT REMOVAL 08/06/2020 N/A HEART SURGERY 04/28/2023 - 05/28/2023 Left Atrial Appendage Occluder Medical History Medical History Date Comments Hx Other Medical HTN, PAF, hyper lipiemia, overweight, numbness in L; Comments: MAF 08/25/2015 - Allergic rhinitis Heart disease Food intolerance Dysphagia Esophageal cancer (CMS/HCC) (HCC) Syncope Atrial fibrillation (CMS/HCC) (HCC) Chronic constipation COPD (chronic obstructive pu lmonary disease) (HCC) Family History Medical History Relation Name Comments Stroke Mother Stroke; Relation Name Status Comments Mother Social History Tobacco Use Types Packs/Day Years [...] on file Legal Sex Male 8:40 AM BATTERY TECHNICIAN Gender Identity Not on file Sexual Orientation Not on file Occupation Industry Job Start Date Job End Date Retired Not on file Not on file Not on file Obstetrics History Last Filed Vital Signs Vital Sign Reading Time Taken Comments Blood Pressure 114/70 07/01/2024 1:53 PM BATTERY TECHNICIAN Pulse 84 07/01/2024 1:53 PM BATTERY TECHNICIAN Temperature 34.9 ??C (94.8 ??F) 07/01/2024 1:53 PM CS T Respiratory Rate 18 06/17/2024 2:58 PM BATTERY TECHNICIAN Oxygen Saturation 97% 06/26/2024 2:03 PM BATTERY TECHNICIAN Inhaled Oxygen Concentration - - Weight 74.8 kg (165 lb) 07/01/2024 1:53 PM BATTERY TECHNICIAN Height 177.8 cm (5' 10 ) 07/01/2024 1:53 PM BATTERY TECHNICIAN Body Mass Index 23.68 07/01/2024 1:53 PM BATTERY TECHNICIAN Plan of Treatment Health Maintenance Due Date Last Done Comments Depression Screening 1935 Pneumococcal vaccine 65+ (1 of 2 - PCV) 12/27/1943 DTaP/Tdap/Td Vaccine (1 - Tdap) 1948 Hepatitis B Screening 12/27/1955 Zoster Vaccine (1 of 2) 1956 Well Visit 65+ 2002 Covid-19 Vaccine (3 - Modern a risk series) 11/26/2020 10/29/2020, 09/28/2020 Fall Risk Assessment 02/03/2024 02/02/2023 Influenza Vaccine (#1) 2024 , 05/10/2020, 04/28/2019, Additional history exists Medical Devices Implanted Type Area Lab Associate Device Identifier Shelf Expiration Date Model / Serial / Lot [employer] Vascade Mvp 6-12fr Venous Closure [id number] - [id number] Implanted:Qty: 1 on 02/01/2023 by Moreno Craft MD at [facility] Collagen Right: Femoral Vein [employer] 09/24/2024 [id number] / / [id number] [employer] Percutaneous Transcatheter Amplatzer Amulet 22mm [id number] - [id number] Implanted:Qty: 1 on 02/01/2023 by Moreno Craft MD at [facility] Left Atrial Appendage Occluder Left: Atrial Appendage [employer] 03/28/2027 [id number] / / [id number] [employer] Device Clsr Perclose Prostyle Sut-Mediatd Closure-Repair Sys [id number] - [id number] Implanted:Qty: 1 on 02/01/2023 by Moreno Craft MD at [facility] Right: Femoral Vein [employer] 10/26/2024 [id number] / / [id number] [employer] Device Clsr Perclose Prostyle Sut-Mediatd Closure-Repair s [id number] - [id number] Implanted:Qty: 1 on 02/01/2023 by Moreno Craft MD at [facility] Right: Femoral Vein [employer] 10/26/2024 [id number] / / [id number] Procedures Procedure Name Priority Date/Time Associated Diagnosis Comments EGFR Routine 06/17/2024 2:08 PM BATTERY TECHNICIAN 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, unspecified lymph node region (HCC) DIFFERENTIAL AUTO Routine 06/17/2024 2:0 8 PM BATTERY TECHNICIAN 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, unspecified lymph node region (HCC) CBC WITH AUTO DIFFERENTIAL Routine 06/17/2024 2:08 PM BATTERY TECHNICIAN 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, unspecified lymph node region (HCC) CEA Routine 06/17/2024 2:08 PM BATTERY TECHNICIAN 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, unspecified lymph node region (HCC) COMPREHENSIVE METABOLIC PANEL Routine 06/17/2024 2:08 PM BATTERY TECHNICIAN 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 73 m2 Comment: [...] was last reviewed 2021. Testing performed by: [address] [address] Blood 06/17/2024 2:08 PM BATTERY TECHNICIAN 06/17/2024 2:10 PM BATTERY TECHNICIAN us Steve Carrillo DO LAB BLOOD ORDERABLES Final R esult [facility] [address] [facility] Department [place] [address] * Differential, auto (06/17/2024 2:08 PM BATTERY TECHNICIAN) Neutrophil abs 6.3 1.5 - 6.5 K/cumm Comment:Testing performed by : [address] [address] Imm gran abs 0.0 0.0 - 0.1 K/cumm [facility] Comment:Testing performed by : [address] [address] Lymphocyte abs 1.0 0.8 - 3.3 K/cumm [facility] Comment:Testing performed by : [address] [place] [address] Monocyte abs 0.6 0.2 - 0.8 K/cumm [facility] Comment:Testing performed by : [address] [address] Eosinophil abs 0.4 0.0 - 0.5 K/cumm [facility] Comment:Testing performed by : [address] [address] Basophil abs 0.1 0.0 - 0.1 K/cumm [facility] Comment:Testing performed by : [address] [address] Neutrophil pct 75.9 % [facility] Comment: Interpretive Data Percent cell count reference ranges are not reported, since discordance with absolute values may lead to misinterpretation of CBC data. Current Interpretive Data was last revised on 2017. Testing performed by: [address] [address] Imm gran pct 0.2 % [facility] Comment: Interpretive Data Percent cell count reference ranges are not reported, since discordance with absolute values may lead to misinterpretation of CBC data. Current Interpretive Data was last revised on 2017. Testing performed by: [address] [address] Lymphocyte pct 11.7 % [facility] Comment: Interpretive Data Percent cell count reference ranges are not reported, since discordance with absolute values may lead to misinterpretation of CBC data. Current Interpretive Data was last revised on 2017. Testing performed by: [address] [address] Monocyte pct 6.9 % [facility] Comment: Interpretive Data Percent cell count reference ranges are not reported, since discordance with absolute values may lead to misinterpretation of CBC data. Current Interpretive Data was last revised on 2017. Testing performed by: [address] [address] Eosinophil pct 4.7 % [facility] Comment: Interpretive Data Percent cell count reference ranges are not reported, since discordance with absolute values may lead to misinterpretation of CBC data. Current Interpretive Data was last revised on 2017. Testing performed by: [address] [address] Basophil pct 0.6 % [facility] Comment: Interpretive Data Percent cell count reference ranges are not reported, since discordance with absolute values may lead to misinterpretation of CBC data. Current Interpretive Data was last revised on 2017. Testing performed by: [address] [address] Blood 06/17/2024 2:08 PM BATTERY TECHNICIAN 06/17/2024 2:10 PM BATTERY TECHNICIAN us tSeve Carrillo DO LAB BLOOD ORDERABLES Final R esult [facility] [address] [facility] Department [place] [address] * CBC with auto differential (06/17/2024 2:08 PM BATTERY TECHNICIAN) WBC 8.2 3.8 - 9.9 K/cumm Comment:Testing performed by : [address] [address] Hgb 13.8 13.0 - 17.5 g/dL [facility] Comment:Testing performed by : [address] [address] Hct 42.2 38.9 - 50.3 % [facility] Comment:Testing performed by : [address] [address] Plt 190 150 - 400 K/cumm [facility] Comment:Testing performed by : [address] [address] MPV 9.7 9.1 - 12.3 fL [facility] Comment:Testing performed by : [address] [address] RBC 4.77 4.30 - 5.80 M/cumm [facility] Comment:Testing performed by : [address] [address] MCV 88.5 81.3 - 96.4 fL [facility] Comment:Testing performed by : [address] [address] MCH 28.9 27.1 - 33.3 pg [facility] Comment:Testing performed by : [address] [address] MCHC 32.7 32.3 - 35.7 g/dL [facility] Comment:Testing performed by : [address] [address] RDW CV 13.2 11.1 - 14.9 % [facility] Comment:Testing performed by : [address] [address] RDW SD 42.4 35.7 - 48.1 fL [facility] Comment:Testing performed by : [address] [address] NRBC abs 0.00 0.00 - 0.01 K/cumm [facility] Comment:Testing performed by : [address] [address] Blood 06/17/2024 2:08 PM BATTERY TECHNICIAN 06/17/2024 2:10 PM BATTERY TECHNICIAN us Steve Carrillo DO LAB BLOOD ORDERABLES Final R esult [facility] [address] [facility] Department of Laboratories [place], [place] [id number] * (ABNORMAL) CEA (06/17/2024 2:08 PM BATTERY TECHNICIAN) CEA 35.1(H) <=5.0 ng/mL Comment: Interpretive Data: Reference Range: Non-Smokers: 0.0 ? 5.0 ng/mL Smokers: 0.0 ? 6.5 ng/mL The Mya CEA assay procedure was used. Results from different manufacturers or methods may not be comparable. Serial testing should be performed using the same method. Current interpretive data was last revised 2023. Testing performed by: [address] [address] Blood 06/17/2024 2:08 PM BATTERY TECHNICIAN 06/17/2024 3:53 PM BATTERY TECHNICIAN us Steve Carrillo DO LAB BLOOD ORDERABLES Final R esult [facility] [address] [facility] Department [place] [address] * (ABNORMAL) Comprehensive metabolic panel (06/17/2024 2:08 PM BATTERY TECHNICIAN) Sodium 138 135 - 145 mmol/L Comment:Testing performed by : [address] [address] Potassium, pl 4.2 3.3 - 4.9 mmol/L [facility] Comment:Testing performed by : [address] [address] Chloride 102 97 - 110 mmol/L [facility] Comment:Testing performed by : [address] [address] CO2 25 22 - 32 mmol/L [facility] Comment:Testing performed by : [address] [address] Anion gap 11 2 - 15 mmol/L [facility] Comment:Testing performed by : [address] [address] BUN 15 6 - 25 mg/dL [facility] Comment:Testing performed by : [address] [address] Creatinine 0.90 0.80 - 1.30 mg/dL [facility] Comment:Testing performed by : [address] [address] Glucose 213(H) 70 - 199 mg/dL [facility] [...] classification and Diagnosis of Diabetes Diabetes Care 202; 46: S19-S40. Current interpretive data was last revised 2022. Testing performed by: [address] [address] Calcium 9.3 8.5 - 10.3 mg/dL [facility] Comment:Testing performed by : [address] [address] Bilirubin, total 0.4 0.1 - 1.2 mg/dL [facility] Comment:Testing performed by : [address] [address] Protein, pl 7.5 6.5 - 8.5 g/dL [facility] Comment:Testing performed by : [address] [address] Albumin 3.9 3.5 - 5.0 g/dL [facility] Comment:Testing performed by : [address] [address] Alk phos 127 40 - 130 Units/L [facility] Comment:Testing performed by : [address] [address] ALT 22 7 - 55 Units/L [facility] Comment:Testing performed by : [address] [address] AST 30 10 - 50 Units/L [facility] Comment:Testing performed by : [address] [address] Blood 06/17/2024 2:08 PM BATTERY TECHNICIAN 06/17/2024 2:10 PM BATTERY TECHNICIAN Steve Carrillo DO LAB BLOOD ORDERABLES Final R esult [facility] [address] [facility] Department of Laboratories [place], [place] [id number] * CT Chest Abdomen Pelvis W Contrast (06/10/2024 1:53 PM BATTERY TECHNICIAN) Anatomical Region Laterality Modality Body N/A Computed Tomogra phy 06/15/2024 12:2 2 PM BATTERY TECHNICIAN Narrative 06/15/2024 12:36 PM BATTERY TECHNICIAN EXAM DESCRIPTION: CT CHEST ABDOMEN PELVIS W [...] PM T: ??06/15/2024 12:36 PM Report ID: [id number] Reading Location: ??[id number] Procedure Note Jelani Mejia MD - 06/15/2024 [...] Jelani Mejia M.D. JA: GENEVA Report ID: [id number] Reading Location: [id number] us Steve Carrillo DO IMG CT PROCEDURES Final Resu lt * POCT creatinine for contrast evaluation (06/10/2024 1:31 PM BATTERY TECHNICIAN) Creatinine POC 1.00 0.80 - 1.30 mg/dL Comment:Testing performed by : [facility], [address] [place] [address]., [address] Blood 06/10/2024 1:31 PM BATTERY TECHNICIAN 06/10/2024 1:31 PM BATTERY TECHNICIAN Steve Carrillo DO POINT OF CARE TEST ORDERABLE S Final Result [facility] [address] [facility] Department of [facility] [address] from Last 3 Months Insurance [facility] Advance Directives For more information, please contact: [phone] * Full Code (Latest Code Status on File) Date Activated Date Inactivated Comments 02/01/2023 4:41 PM 02/02/2023 5:28 PM * Full Code Date Activated Date Inactivated Comments 08/03/2020 2:06 AM 08/06/2020 7:35 PM * Full Code Date Activated Date Inactivated Comments 05/25/2020 10:47 AM 05/25/2020 7:22 PM * Full Code Date Activated Date Inactivated Comments 09/09/2019 3:20 PM 09/09/2019 9:54 PM Care Teams Nurse Emergency Room Relationship Specialty Start Date End Date Alfonzo Nails, DO [address] [facility], [address] [address] PCP - General Internal Medicine 08/22/23 Mindy Falk, ROBBY [address] [facility] [address] [place] [address] Speech Language Pathologist Speech Therapy 02/17/18 Perez Pittman MD [address] [place] [address] Radiation Oncologist Radiation Oncology 06/07/20 Steve Carrillo DO [address] [facility], [address] [address] Medical Oncologist/Geochemist Hematology and Oncology 05/02/22
--- OUTSIDE RECORDS SUMMARY | 2024-08-20 17:12 | XMS_ITS | Clinical Summary ---
Author Organization [facility] Address [address] [place] [address] Care Team Providers Care Septic Cleaner Name Role Phone Unavailable Primary Care Provider [...] 07/30/2013 Encounter for therapeutic drug monitoring 2012 superintendent terminal (current) use of anticoagulants 2012 Atrial fibrillation (CMD) 12/09/2012 Pre-operative cardiovascular examination 013 Heloma molle 11/12/2012 Unspecified asthma(493.90) 11/02/2011 Overview (11/02/2011): W/O status asthmaticus or acute exacerbation Hyperlipidemia 11/02/2011 HTN (hypertension) 11/02/2011 Lumbosacral radiculitis 11/02/2011 Immunizations Name Administration Dates Next Due Influenza, split virus, quadrivalent 04/22/2014 04/22/2015 Influenza, split virus, trivalent 2012,04/30/2011,04/05/2010,07/2008 Pneumococcal Polysaccharide PPV23 10/17/2011,07/2000 Td (adult), 5 Lf tetanus tox oid, preserve free, adsorbed 05/17/2007 Surgical History Surgery Date Site/Laterality Comments ECHO HEART RESTING W DOPPLER & COLOR FLOW 12/15/12 EF 60% 2+ TR ?TV vegetation CARDIOVERSION 02/20/13 CARDIOVERSION 02/24/14 NM KOFI PER RST/STRS PHARMACOLO 12/16/12 Negative Lexiscan; EF 63% ECHO HEART TRANSESOPHAGEAL 02/20/13 TV sclerosis, posterior TV leaflet focal calcification versus chronic vegetation ECHO HEART TRANSESOPHAGEAL 02/24/14 BACK SURGERY last surgery 2002 X 2 SERVICE TO UROLOGY 1973 vasectomy SERVICE TO GASTROENTEROLOGY 2002 Colonoscopy, Dx normal Medical History Medical History Date Comments Hyperlipidemia HTN (hypertension) Asthma (CMD) Allergy Arthritis Neuromuscular disorder (CMD) 2001 channing gical complication from back surgery, affected left leg. Anxiety H/O: whooping cough History of shingles Family History Medical History Relation Comments Aneurysm Brother Gastrointestinal Father stomach ulcer Aneurysm Mother brain Diabetes Paternal Aunt Peripheral Vascular Disease Paternal Grandfather blockage in his leg,lost leg Stroke Sister 1 Cancer Sister 2 twin sister uter ine,smoker Relation Status Comments Brother Alive Daughter 1 Alive Daughter 2 Alive Daughter 3 Alive Daughter 4 Alive Daughter 5 Alive Father (Age 80) Mother brain aneursym Paternal Aunt Paternal Grandfather Sister 1 stroke Sister 2 Son Alive Social History Tobacco Use Types Packs/Day Years [...] on file Sexual Orientation Not on file Obstetrics History Last Filed [...] Mass Index 26.63 04/25/2015 8:03 AM CDT Plan of Treatment Health Maintenance Due Date Last Done Comments Depression Screening 1947 Shingles Vaccine (1 of 2) 12/27/1987 DTaP/Tdap/Td Vaccine (1 - Tdap) 05/18/2007 05/17/2007 Pneumococcal Vaccine 50+ (2 of 2 - PCV) 10/16/2012 10/17/2011, 05/29/2001 Respiratory Syncytial Virus (RSV) Vaccine 60+ (1 - 1-dose 75+ series) 2012 COVID-19 Vaccine (2023- season) 2024 Influenza Vaccine (#1) 2024 4, 04/22/2013, 04/30/2011, Additional history exists HPV Vaccine Aged Out No longer eligi ble based on patient's age to complete this topic Hepatitis A Vaccine Aged Out No longe r eligible based on patient's age to complete this topic Hepatitis B Vaccine (For Physician/APC Discussion) Aged Out No longer elig ible based on patient's age to complete this topic Meningococcal Serogroup B Vaccine Aged Out No longer eligible based on patient's age to complete this topic Meningococcal Vaccine Aged Out No cindy erin eligible based on patient's age to complete this topic Advance Directives * Full Resuscitation (Latest Code [...] 10:20 AM 08/01/2013 11:47 AM Care Teams Septic Cleaner Relationship Specialty Start Date End Date Dr. Cole [facility] 01/20/14
--- OUTSIDE RECORDS SUMMARY | 2024-08-20 17:12 | XMS_ITS | Encounter Summary ---
Author Organization [facility] Address [address] [place] [id number] Care Team Providers Care Performance Tester Name Role Phone Manuela Hill MD Primary Care Provider [phone] Viky Agustin DO Primary Care Provider [phone] Encounter Details Date Type Department Care Team ([facility] st Contact Info) Description 09/17/2013 Orders Only [facility] [address] [place] [address] Manuela Hill MD [address] [place] [address] HTN (hypertension); Hyperlipidemia Social History Tobacco Use Types Packs/Day Years Used Date Smoking Tobacco: Former Cigarettes Q uit: 07/29/1977 Smokeless Tobacco: Never Alcohol Use Standard Drinks/Week Comments Yes 1.7 (1 standard drink = 0.6 oz p ure alcohol) socially Sex and Gender Information Value Date Recorded Sex Assigned at Not on file Gender Identity Not on file Sexual Orientation Not on file documented as of this encounter Progress Notes * Manuela Hill MD - 09/17/2013 10:13 AM CSTQuick Note: Follow the result with the patient at upcoming appointment 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 documented in this encounter Plan of Treatment Not on file documented as of this encounter Procedures Procedure Name Priority Date/Time Associated Diagnosis Comments LIPID PANEL WITH REFLEX Routine 09/16/2013 6:08 AM COMM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 HTN (hypertension) Hyperlipidemia COMPREHENSIVE METABOLIC PANEL Routine 09/16/2013 6:08 AM COMM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 HTN (hypertension) URINALYSIS & REFLEX MICRO Routine 09/16/2013 6:08 AM COMM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 HTN (hypertension) documented in this encounter Results * Urinalysis & Reflex Micro (09/16/2013 6:08 AM COMM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) COLOR YELLOW YELLOW [facility] APPEARANCE CLEAR CLEAR [facility] SPECIFIC GRAVITY 1.015 1.001 - 1.035 [facility] [...] ESTERASE NEGATIVE NEGATIVE [facility] UROBILINOGEN not reported [facility] Urine specimen (specimen) 09/16/2013 6:08 AM COMM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 Narrative [facility] - 09/16/2013 6:08 AM COMM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 Verified by Rosanne Scales on 09/17/2013. Please see COMP METABOLIC PANEL from 09/16/2013 for scanned report. Manuela Hill MD URINE ORDERABLES [facility] [address] [place] [address] * (ABNORMAL) Comprehensive Metabolic Panel (09/16/2013 6:08 AM COMM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) Fasting Status FASTING [facility] Glucose 109(H) 65 - 99 mg/dL [facility] Comment:Fasting reference in terval BUN 21 7 - 25 mg/dL [facility] Creatinine 0.99 0.70 - 1.18 mg/dL [facility] Comment: For patients >49 years of age, the reference limit for Creatinine is approximately 13% higher for people identified as -Fijian. GFR Estimate, Non 74 > OR = 60 mL/min/1 .73m2 [facility] GFR Estimate, 86 > OR = 60 mL/min/1 .73m2 [facility] BUN/Creatinine Ratio NOT APPLICABLE 6 - 22 (calc) [facility] Sodium 140 135 - 146 mmol/L [facility] Potassium 4.5 3.5 - 5.3 mmol/L [facility] Chloride 105 98 - 110 mmol/L [facility] Carbon Dioxide 27 19 - 30 mmol/L [facility] CALCIUM 9.8 8.6 - 10.3 mg/dL [facility] TOTAL PROTEIN 6.9 6.1 - 8.1 g/dL [facility] Albumin 4.7 3.6 - 5.1 g/dL [facility] GLOBULIN 2.2 1.9 - 3.7 g/dL (calc) [facility] A/G Ratio, Serum 2.1 1.0 - 2.5 (calc) [facility] TOTAL BILIRUBIN 0.5 0.2 - 1.2 mg/dL [facility] ALK PHOSPHATASE 51 40 - 115 U/L [facility] AST/SGOT 30 10 - 35 U/L [facility] ALT/SGPT 33 9 - 46 U/L [facility] 09/16/2013 6:08 AM COMM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 Narrative [facility] - 09/16/2013 6:08 AM COMM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 Verified by Rosanne Scales on 09/17/2013. Manuela Hill MD LAB BLOOD ORDERABLES [facility] [address] [place] [address] * Lipid Panel with Reflex (09/16/2013 6:08 AM COMM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) FASTING STATUS FASTING [facility] CHOLESTEROL 153 125 - 200 mg/dL [facility] HDL 43 > OR = 40 mg/dL [facility] TRIGLYCERIDE 79 <150 mg/dL [facility] CALCULATED LDL 94 <130 mg/dL (calc) [facility] Comment: Desirable range <100 mg/dL for patients with CHD or diabetes and <70 mg/dL for diabetic paticnts with known heart disease. CHOL/HDL 3.6 < OR = 5.0 (calc) [facility] CALCULATED NON HDL 110 mg/dL (calc) [facility] Comment: Target for non-HDL cholesterol is 30 mg/dL higher than LDL cholesterol target. 09/16/2013 6:08 AM COMM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 Narrative [facility] - 09/16/2013 6:08 AM COMM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 Verified by Rosanne Scales on 09/17/2013. Please see COMP METABOLIC PANEL from 09/16/2013 for scanned report. Manuela Hill MD LAB BLOOD ORDERABLES [facility] [address] [place] [address] documented in this encounter Visit Diagnoses Diagnosis HTN (hypertension) Unspecified essential hypertension Hyperlipidemia Other and unspecified hyperlipidemia documented in this encounter Care Teams Performance Tester Relationship Specialty Start Date End Date Manuela Hill MD [address] [facility] [place] [address] PCP - General Internal Medicine 06/20/12 07/06/14 Viky Agustin DO [address] [facility] [place] [address] PCP - General Family Practice 07/07/14 11/01/20 Dr. Cole [facility] 01/20/14 documented as of this encounter
== END 2024-08-18 10:04 | disposition home or self-care (01) ==
PROVIDERS: PCP Internal Medicine; Referring Provider Podiatrist Foot & Ankle Surgery; Visit Provider Nurse Practitioner
DX: J45.909 Unspecified asthma, uncomplicated (principal); Z13.29 Encounter for screening for other suspected endocrine disorder; E78.2 Mixed hyperlipidemia; B35.1 Tinea unguium
CPT/HCPCS: 36415; 80053; 80061; 85025

== ENCOUNTER 2024-09-05 12:38 | Emergency (ER) | payer MEDICARE, SELFPAY ==
--- NOTE | ~2024-09-05 | XR_ITS ---
EXAMINATION: XR chest 2V Exam Date/Time: 09/05/2024 14:00 ADMINISTRATIVE OFFICER HISTORY: cough, crackles in lll Comparison: 07/17/2022. RESULT: Lines, tubes, and devices: Atrial occlusion device. Lungs and pleura: Mild bibasilar scar/atelectasis. Emphysematous change. Calcified pleural plaques. Cardiomediastinal silhouette: Stable. Other: No acute osseous or upper abdominal finding. IMPRESSION: No acute cardiopulmonary process. Reviewed, dictated and finalized at location K. NISTRATIVE OFFICER
[2024-09-05 13:41] VITALS: BP 128/70; PULSE 89; RESP 16; TEMP 36.8; O2SAT 96
[2024-09-05 13:55] LABS: EDCOVIDSCREEN Negative (Negative); EDINFLUASCREEN Positive (Negative); EDINFLUBSCREEN Negative (Negative)
--- NOTE | 2024-09-05 14:05 | ED_ITS ---
HPI - URI/Sore Throat General Chief Complaint: Upper Respiratory Infection Stated Complaint: COUGH/CONGESTION/WEAKNESS/BODY ACHES Time Seen by Provider: 09/05/24 13:50 Source: patient Mode of arrival: ambulatory Limitations: no limitations History of Present Illness HPI Narrative: oJe is an 88-year-old male patient presenting to the clinic today with complaints of cough, congestion, weakness, diarrhea, and body aches times 2-3 days. His is also sick in the clinic today. He denies any known fevers or chills. MD elicited complaint: cough, nasal congestion and other (Diarrhea, weakness, congestion) Related Data Home Medications ?Medication ?Instructions ?Recorded ?Confirmed ?Last Taken ?Type aspirin 81 mg tablet,delayed 81 mg PO DAILY 04/11/23 06/23/24 05/08/23 History release mecobalamin (vitamin B12) 500 mcg mcg PO 06/18/24 06/23/24 Unknown History chewable tablet diltiazem HCl 120 mg 120 mg PO DAILY 06/23/24 06/23/24 Unknown History capsule,extended release 24 hr vit C 226 mg-vit E 90 mg-copper cap PO 06/23/24 06/23/24 Unknown History 0.8 mg-zinc oxide-lutein 5 mg capsule (PreserVision Lutein) Allergies Allergy/AdvReac Type Severity Reaction Status Date / Time cat dander Allergy Unknown Wheezing Verified 06/23/24 08:44 Review of Systems Review of Systems: Pertinent positives per HPI. Patient denies any fever, chills, rash, headache, visual changes, dizziness, shortness of breath, chest pain, palpitations, nausea, vomiting, constipation, abdominal pain, or any urinary issues. 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 Bowel incontinence Chronic atrial fibrillation History of cardioversion. Not currently on anticoagulation. Coronary artery disease Cardiac catheterization on 07/06/2019 showed significantly calcified coronary arteries with 100% occlusion of the diagonal branch of the LAD as well as apical terminal portion of the LAD itself with preserved left ventricular systolic function. No angiographic opportunities for revascularization. 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 Status post chemoradiation. Followed by Dr. Rosenbaum at [facility]. 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 Residual numbness from the left buttock to toes. Hx of stroke without residual deficits Per brain MRI from 03/19 Hyperlipidemia Hypertension Lumbar degenerative disc disease Neuromuscular disease Neuropathy of both upper extremities Surgical History Surgical History History of back surgery Lumbar surgery x2. History of colonoscopy with polypectomy Family History Family History Sibling Patient's brother is in good health Family history of malignant neoplasm of uterus Mother Patient's mother is Cerebral aneurysm Father Venous thromboembolism Other Coronary artery disease Social History Social History Social History: Surrogate decision maker: Gabbie Cohen, . Code status: Full code. Caffeine- coffee/soda Smoking packs per day: 3.5 Smoking cigarettes per day: 70.0 Years smoked: 24 Smoking pack-years: 84.00 Smoking status: Former smoker Tobacco type: cigarettes Second hand tobacco smoke exposure: No Smoking end date: 07/29/72 Alcohol intake: current Alcohol use details: twice monthly Substance use: never Substance use type: does not use Lack of Transportation: No Lack of Food: Never True Current Housing: Decline to Answer Concerned About Future Housing: Decline to Answer Difficulty Paying Gas/Electric Bills: Decline to Answer Difficulty Paying for Meds: Decline to Answer Currently Unemployed: Decline to Answer Education: Decline to Answer Difficulty w/ Childcare or Family Care: Decline to Answer Living arrangements: with family Additional living arrangements comments: The patient lives in [place] with his . 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 Gender identity (if verbalized by the patient): Male Spiritual care concerns: No Comments At the time of my signature, I reviewed and agree with the nursing past medical, surgical, social, and family history. There is no relevant family history pertinent to the patient complaint. Exam Narrative: General: Well-developed, well nourished, in no apparent distress Head: Normocephalic, atraumatic Eyes: Pupils equally round and reactive to light bilaterally, EOM intact, sclera and conjunctive clear, no discharge, lids normal Ears: TMs intact and congested, ear canals clear, no drainage, grossly hearing normal. Nose: Nares patent, clear nasal discharge, no inflammation, no sinus tenderness. Mouth: Oral pharynx without lesions or masses, good dentition, MMM. Postnasal drip Neck: Supple, trachea midline, no enlargement of anterior or posterior cervical nodes, no thyroid masses or goiter palpable. Cardio: Regular rate and rhythm, s1 and s2 normal, no murmur appreciated. Resp: Clear to auscultation bilaterally, no rhonchi, rales, wheezing or rubs Course Course Emergency Course: Portions of this record may have been created with voice recognition software. Level of Care: Express Care Visit Vital Signs Vital signs: Vital Signs Temperature 36.8 C 09/05/24 13:41 Pulse Rate 89 09/05/24 13:41 Respiratory Rate 16 09/05/24 13:41 Blood Pressure 128/70 09/05/24 13:41 Pulse Oximetry 96 09/05/24 13:41 Temperature 36.8 C 09/05/24 13:41 Pulse Rate 89 09/05/24 13:41 Respiratory Rate 16 09/05/24 13:41 Blood Pressure 128/70 09/05/24 13:41 Pulse Oximetry 96 09/05/24 13:41 Oxygen Delivery Room Air 09/05/24 13:53 Vital signs reviewed MDM - URI/Sore Throat MDM Narrative Medical decision making narrative: At the time of visit patient is resting comfortably on the exam table. Patient appears to be nontoxic. Labs: COVID testing was negative in the clinic today. Influenza testing was positive for influenza A. Diagnostics: Chest x-ray is negative for any acute cardiopulmonary process. Plan: Patient has influenza A. Declined Tamiflu. Chest x-ray negative for pneumonia. Supportive measures were discussed with the patient and they voiced understanding discharge instructions and agrees to treatment plan. Return precautions reviewed Differential Diagnosis Differential diagnosis: Likely upper respiratory infection, otitis media, sinusitis, viral infection, bronchitis, influenza, pharyngitis and other (COVID) Lab Data Labs: Lab Results 09/05/24 Range/Units 13:53 POC Influenza A Ag Positive (Negative) POC Influenza B Ag Negative (Negative) POC SARS CoV-2 Ag Negative (Negative) Imaging Data Radiologist's impression: ITS Impressions Chest X-Ray 09/05/24 14:09 IMPRESSION: No acute cardiopulmonary process. Discharge Plan Discharge Clinical Impression: Influenza A Patient Disposition: Home, Self-Care Condition: Stable Instructions: Antibiotic Form, Influenza (ED) Additional Instructions: Chest x-rays negative for any acute cardiopulmonary process. COVID testing was negative in the clinic today. Influenza testing was positive in the clinic today. May take Imodium as needed for diarrhea as long as there is no blood in your stool Family declined Tamiflu. Increase fluids and stay well hydrated Tylenol/motrin for pain/fever Flonase and OTC antihistamines as directed Vicks vapor rub to open sinuses Sinus rinses for congestion Cepacol spray, cough drops, throat lozenges, warm tea with honey/lemon, gargle salt water to soothe throat BRAT diet for diarrhea Clear liquids x 24 hours then advance as tolerated for nausea/vomiting Go to the ED if you develop a worsening in your condition- high fever not controlled by Tylenol or Motrin, dehydration, weakness, lethargy, shortness of breath, or chest pain. Follow up with your PCP in 3-5 days if symptoms persist. Patient Language: Urdu Prescriptions: No Action diltiazem HCl 120 mg capsule,extended release 24hr 120 mg PO DAILY PreserVision Lutein 226-90-0.8-5 mg capsule PO aspirin 81 mg tablet,delayed release (DR/EC) 81 mg PO DAILY mecobalamin (vitamin B12) 500 mcg tablet,chewable PO albuterol sulfate 90 mcg/actuation HFA aerosol inhaler 2 puff INHALATION Q4H PRN (Reason: Wheezing) Qty: 18 4RF gabapentin 300 mg capsule 600 mg PO BID Qty: 360 1RF fluticasone furoate-vilanterol [Breo Ellipta] 100-25 mcg/dose blister with device 1 inh inhalation Q24H 30 Days Qty: 60 11RF Rx Instructions: Rinse and spit fluticasone propionate [Flonase Allergy Relief] 50 mcg/actuation spray,suspension 2 spray intranasal DAILY Qty: 48 1RF Rx Instructions: administer into each nostril atorvastatin 10 mg tablet See Rx Instructions .ROUTE .COMPLEX Qty: 90 3RF Dose Instruction: TAKE 1 TABLET BY MOUTH DAILY AT BEDTIME Rx Instructions: TAKE 1 TABLET BY MOUTH DAILY AT BEDTIME Follow-up/Referrals: Selena Agustin [facility] STILL OPERATOR [Primary Care Provider] - Time of Disposition: 14:15 Quality NIHSS Nursing Documentation ED NIHSS nursing documentation: reviewed/agree
== END 2024-09-05 14:28 | disposition home or self-care (01) ==
PROVIDERS: Emergency Provider Nurse Practitioner Family; PCP Nurse Practitioner
DX: J10.1 Influenza due to other identified influenza virus with other respiratory manifestations (principal); Z20.822 Contact with and (suspected) exposure to COVID-19; Z87.891 Personal history of nicotine dependence; I48.20 Chronic atrial fibrillation, unspecified; I25.10 Atherosclerotic heart disease of native coronary artery without angina pectoris; I10 Essential (primary) hypertension; E78.5 Hyperlipidemia, unspecified; M51.369 Other intervertebral disc degeneration, lumbar region without mention of lumbar back pain or lower extremity pain; G62.9 Polyneuropathy, unspecified; M19.90 Unspecified osteoarthritis, unspecified site; Z86.73 Personal history of transient ischemic attack (TIA), and cerebral infarction without residual deficits; Z79.82 Long term (current) use of aspirin
CPT/HCPCS: 71046; 87426; 87804; 99213; G0463

== ENCOUNTER 2024-10-17 10:53 | Emergency (ER) | payer MEDICARE, SELFPAY ==
--- NOTE | ~2024-10-17 | XR_ITS ---
XR chest 2V 10/17/2024 11:59 Indication: Cough and shortness of breath. Procedure: 2 view chest Comparison: Comparison to multiple prior studies sequentially, with oldest reviewed study dated 11/05. Findings: Borderline heart size. There is an atrial occlusion device. There are bibasilar infiltrates , atelectasis versus pneumonia. There is apical pleural thickening/scarring. Impression: 1: Bibasilar infiltrates, atelectasis versus pneumonia. Reviewed, dictated and finalized at location B. Impression: 1: Bibasilar infiltrates, atelectasis versus pneumonia.
[2024-10-17 11:07] VITALS: BP 122/72; PULSE 82; RESP 16; TEMP 36.6; O2SAT 97
--- NOTE | 2024-10-17 11:16 | ED_ITS ---
HPI - General Adult General Chief complaint: Upper Respiratory Infection Stated complaint: COUGH/SNEEZING/WEAK/TIRED S/P FLU Time Seen by Provider: 10/17/24 11:16 Source: patient Mode of arrival: ambulatory Limitations: no limitations History of Present Illness HPI narrative: 88-year-old male patient presents to the [facility] with complaints of cold symptoms, shortness of breath, wheezing. Patient was diagnosed with influenza a September 04. Patient's caregiver states that he really has not improved much since the influenza diagnosis. Caregivers states that she is concerned because he has been having a lot of fatigue as well as some dizziness and has lost 10 lb since his influenza diagnosis. Patient's caregiver states that patient has been eating and drinking okay denies any more confusion than normal. Does have history of COPD when she does do albuterol every night 4. Patient's caregiver states that he is wheezing and very congested especially at night when he lays down. Denies any new fevers that they are aware of but states they are pulp typically chilled so she is on unsure if that is a new symptom or not. Denies any abdominal pain or pain with urination. Patient states that his upper back is achy at times. Related Data Home Medications ?Medication ?Instructions ?Recorded ?Confirmed ?Last Taken ?Type aspirin 81 mg tablet,delayed 81 mg PO DAILY 04/11/23 09/10/24 05/08/23 History release mecobalamin (vitamin B12) 500 mcg mcg PO 06/18/24 09/10/24 Unknown History chewable tablet diltiazem HCl 120 mg 120 mg PO DAILY 06/23/24 09/10/24 Unknown History capsule,extended release 24 hr vit C 226 mg-vit E 90 mg-copper cap PO 06/23/24 09/10/24 Unknown History 0.8 mg-zinc oxide-lutein 5 mg capsule (PreserVision Lutein) terbinafine HCl 250 mg tablet 250 mg PO DAILY 09/10/24 09/10/24 Unknown History galantamine 16 mg 24 hr mg PO 10/17/24 Unknown History capsule,extended release Allergies Allergy/AdvReac Type Severity Reaction Status Date / Time cat dander Allergy Unknown Wheezing Verified 10/17/24 11:14 Review of Systems Review of Systems: CONSTITUTIONAL: Denies fever, Positive chills, denies sweats. positive fatigue EYES: Denies visual changes, redness, or discharge. ENT: positive rhinorrhea, congestion, denies sore throat, or otalgia. CARDIOVASCULAR: Denies chest pain, palpitations, or edema. RESPIRATORY: positive cough with dyspnea. GASTROINTESTINAL: Denies abdominal pain, nausea, vomiting, or diarrhea. GENITOURINARY: Denies dysuria or hematuria. SKIN: Denies rash or itching. MUSCULOSKELETAL: Denies back pain, joint pain, or myalgia. NEUROLOGIC: Denies headache, numbness, or weakness. positive dizziness intermittently PSYCHIATRIC: Denies anxiety or depression. [facility] Past Medical History Medical History (Updated 10/17/24 @ 12:23 by JERRICA Peters) SAH (subarachnoid hemorrhage) Due to fall injury with LOC Emphysema of lung Asbestos exposure Nocturnal hypoxemia COPD (chronic obstructive pulmonary disease) Hx of stroke without residual deficits Per brain MRI from 03/19 Esophageal cancer (Unknown) Metastatic esophageal adenocarcinoma diagnosed in March 2016. Status post chemoradiation. Followed by Dr. Rosenbaum at [facility]. Coronary artery disease Cardiac catheterization on 07/06/2019 showed significantly calcified coronary arteries with 100% occlusion of the diagonal branch of the LAD as well as apical terminal portion of the LAD itself with preserved left ventricular systolic function. No angiographic opportunities for revascularization. 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 Residual numbness from the left buttock to toes. 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 Chronic atrial fibrillation History of cardioversion. Not currently on anticoagulation. Arthritis Anxiety Lumbar degenerative disc disease Neuromuscular disease Hypertension Hyperlipidemia Surgical History Surgical History History of colonoscopy with polypectomy History of back surgery Lumbar surgery x2. Family History Family History Sibling Patient's brother is in good health Family history of malignant neoplasm of uterus Mother Patient's mother is Cerebral aneurysm Father Venous thromboembolism Other Coronary artery disease Social History Social History Social History: Surrogate decision maker: Gabbie Cohen, . Code status: Full code. Caffeine- coffee/soda Smoking packs per day: 3.5 Smoking cigarettes per day: 70.0 Years smoked: 24 Smoking pack-years: 84.00 Smoking status: Former smoker Tobacco type: cigarettes Second hand tobacco smoke exposure: No Smoking end date: 07/29/72 Alcohol intake: current Alcohol use details: twice monthly Substance use: never Substance use type: does not use Lack of Transportation: No Lack of Food: Never True Current Housing: Decline to Answer Concerned About Future Housing: Decline to Answer Difficulty Paying Gas/Electric Bills: Decline to Answer Difficulty Paying for Meds: Decline to Answer Currently Unemployed: Decline to Answer Education: Decline to Answer Difficulty w/ Childcare or Family Care: Decline to Answer Living arrangements: with family Additional living arrangements comments: The patient lives in [place] with his . 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 Gender identity (if verbalized by the patient): Male Spiritual care concerns: No Comments At the time of my signature I agree with nursing past medical history, surgical, social, and family history. There is no relevant family history pertinent to the presenting complaint. Exam Narrative: GENERAL: Well-appearing, well-nourished, and in no acute distress. HEAD: Normocephalic, atraumatic. EYES: PERRLA and EOMI. ENT: Nares clear, no rhinorrhea or epistaxis. Mucous membranes moist. posterior pharynx with no erythema, tonsillar enlargement, exudates or lesions present. Bilateral TMs are clear no erythema foreign bodies the canal. NECK: Supple. No lymphadenopathy CHEST: Patient has decreased lung sounds noted to bilateral lower lobes on auscultation.. No respiratory distress. Patient able talk in clear complete sentences. No tripoding noted. HEART: Regular rate and rhythm. No murmur heard. Normal peripheral pulses. ABDOMEN: Soft, nontender, nondistended, normal active bowel sounds. EXTREMITIES: Normal range of motion. No edema. SKIN: Warm, dry, no rash. NEURO: No focal deficits. Alert and oriented x3. Course Course Level of Care: Express Care Visit Reevaluation(s) Reevaluation #1: Re-evaluated patient notified him that his x-ray does show some pneumonia. We will discharge him home with an antibiotic, oral steroids and Tessalon Perles for the cough. Patient does have albuterol at home and encouraged him to do his albuterol nebulizer every 4 hours for at least the next 2 days while he is awake to reinflate his lungs. Patient verbalized understanding denies any other questions or concerns at this time. Date: 10/17/24 Time: 12:28 Vital Signs Vital signs: Vital Signs Temperature 36.6 C 10/17/24 11:07 Pulse Rate 82 10/17/24 11:07 Respiratory Rate 16 10/17/24 11:07 Blood Pressure 122/72 10/17/24 11:07 Pulse Oximetry 97 10/17/24 11:07 Temperature 36.6 C 10/17/24 11:07 Pulse Rate 82 10/17/24 11:07 Respiratory Rate 16 10/17/24 11:07 Blood Pressure 122/72 10/17/24 11:07 Pulse Oximetry 97 10/17/24 11:07 Vital signs reviewed. Medical Decision Making MDM Narrative Medical decision making narrative: Plan of care for patient is to check an x-ray to rule out any pneumonia or lung infection. We will also test him for COVID today. We will check the urine for a source of possible infection given that he has been very fatigued, dizzy and has lost 10 lb in the past month. We will also check an EKG since he is also reporting dizziness has history of AFib reassessed patient once this has resulted. Differential Diagnosis Differential Diagnosis: Differential diagnosis: Allergic rhinitis, chronic sinusitis, tonsillitis, acute sinusitis, infectious mononucleosis, seasonal influenza, pertussis, diphtheria, meningococcal disease, viral syndrome, viral bronchitis, RSV, COVID- 19 Vital Signs Vital Signs: Vital Signs Temperature 36.6 C 10/17/24 11:07 Pulse Rate 82 10/17/24 11:07 Respiratory Rate 16 10/17/24 11:07 Blood Pressure 122/72 10/17/24 11:07 Pulse Oximetry 97 10/17/24 11:07 Temperature 36.6 C 10/17/24 11:07 Pulse Rate 82 10/17/24 11:07 Respiratory Rate 16 10/17/24 11:07 Blood Pressure 122/72 10/17/24 11:07 Pulse Oximetry 97 10/17/24 11:07 Lab Data Labs: Lab Results 10/17/24 Range/Units 11:43 POC SARS CoV-2 Ag Negative (Negative) Imaging Data [facility] [address] [facility] [place] [address] XRay Report Signed Patient: Joe Cohen : 1935 MR#: [id number] Age: 88 Acct:[id number] Loc: [facility] ADM Date: 10/17/24Attending Dr: Ordering Physician: Yuridia Bishop APRN Date of Service: 10/17/24 Procedure(s): XR chest 2V Accession Number(s): [id number] cc: Selena Agustin APRN; Yuridia Bishop APRN~ XR chest 2V 10/17/2024 11:59 Indication: Cough and shortness of breath. Procedure: 2 view chest Comparison: Comparison to multiple prior studies sequentially, with oldest reviewed study dated 11/05/2021. Findings: Borderline heart size. There is an atrial occlusion device. There are bibasilar infiltrates, atelectasis versus pneumonia. There is apical pleural thickening/scarring. Impression: 1: Bibasilar infiltrates, atelectasis versus pneumonia. Reviewed, dictated and finalized at location B. Please be advised this is a medical document. It is intended for vczh-of-uvfe communication. It is written in medical language and may contain unfamiliar abbreviations or verbiage. Medical documents are intended to carry relevant information, facts as evident, and the clinical opinion of the practitioner at the time of the encounter. This report may have been done utilizing a voice recognition system. Attempts have been made to correct errors. However, there may be uncorrected grammatical, spelling, and recognition errors present. The file time of this note does not necessarily represent the time of service. Dictated By: Timbo Clemons MD 10/17/24 1203 Signed By: <Electronically signed by Timbo Clemons MD in OV> ECG Data EKG #1: Attestation: I personally reviewed and interpreted this ECG as follows: ECG completion date: 10/17/24 ECG completion time: 12:04 Prior ECG tracings: available for review Interpretation: atrial fibrillation with aberrant conduction or ventricular premature complexes. Low QRS voltage in precordial leads, QRS deflection less than 1.0 in the chest leads. Moderate ST depression, 0.05+ in the ST depression. Abnormal ECG. Unconfirmed report. That rate: 84 NH interval: Unavailable QRS duration: 1 0 to QT/ QTC: 338/379 P- R- T axis: *, 25, 30 EKG Interpretation: atrial fibrillation Critical Care Time Critical Care Time Critical Care Time: No Discharge Plan Discharge Clinical Impression: Pneumonia Patient Disposition: Home, Self-Care Condition: Stable Instructions: Antibiotic Form, Community Acquired Pneumonia (ED) Additional Instructions: Take your medication exactly as directed. Don't skip doses. Continue taking your antibiotics as directed until they are all gone - even if you start to feel better. This will prevent the pneumonia from coming back. Drink at least 8 glasses of water daily, unless directed otherwise. This helps to loosen and thin secretions so that you can cough them up. Use a cool-mist humidifier in your bedroom. Be sure to clean the humidifier daily. Coughing up mucus is normal. Don't use medications to suppress your cough unless your cough is dry, painful, or interferes with your sleep. You may use an expectorant if ordered by your doctor. Warm compresses or a heating pad on the lowest setting can be used to relieve chest discomfort. Use several times a day for 15 to 20 minutes at a time. (To prevent injuring your skin, be sure the temperature of the compress or heating pad is warm, not hot.) Get plenty of rest until your fever, shortness of breath, and chest pain go away. Plan to get a flu shot every year. Ask your doctor about pneumonia vaccinations. Call 911 right away if you have any of the following: Chest pain Trouble breathing Blue lips or fingernails Otherwise, call your doctor if you have any of the following: Fever above 101.5?F (38.6?C) Yellow, green, bloody, or smelly sputum More than normal mucus production Vomiting Patient Language: Hungarian Prescriptions: New doxycycline hyclate 100 mg capsule 100 mg PO BID 7 Days Qty: 14 0RF benzonatate 200 mg capsule 200 mg PO TID PRN (Reason: cough) 10 Days Qty: 30 0RF prednisone 20 mg tablet 40 mg PO DAILY 5 Days Qty: 10 0RF No Action galantamine 16 mg capsule,ext rel. pellets 24 hr PO diltiazem HCl 120 mg capsule,extended release 24hr 120 mg PO DAILY PreserVision Lutein 226-90-0.8-5 mg capsule PO aspirin 81 mg tablet,delayed release (DR/EC) 81 mg PO DAILY mecobalamin (vitamin B12) 500 mcg tablet,chewable PO terbinafine HCl 250 mg tablet 250 mg PO DAILY albuterol sulfate 90 mcg/actuation HFA aerosol inhaler 2 puff INHALATION Q4H PRN (Reason: Wheezing) Qty: 18 4RF fluticasone furoate-vilanterol [Breo Ellipta] 100-25 mcg/dose blister with device 1 inh inhalation Q24H 30 Days Qty: 60 11RF Rx Instructions: Rinse and spit fluticasone propionate [Flonase Allergy Relief] 50 mcg/actuation spray,suspension 2 spray intranasal DAILY Qty: 48 1RF Rx Instructions: administer into each nostril atorvastatin 10 mg tablet See Rx Instructions .ROUTE .COMPLEX Qty: 90 3RF Dose Instruction: TAKE 1 TABLET BY MOUTH DAILY AT BEDTIME Rx Instructions: TAKE 1 TABLET BY MOUTH DAILY AT BEDTIME gabapentin 300 mg capsule See Rx Instructions .ROUTE .COMPLEX Qty: 360 1RF Dose Instruction: TAKE 2 CAPSULES BY MOUTH TWICE DAILY Rx Instructions: TAKE 2 CAPSULES BY MOUTH TWICE DAILY Follow-up/Referrals: Selena Agustin, HOOP COILER [Primary Care Provider] - Time of Disposition: 12:25
--- NOTE | 2024-10-17 11:49 | ECG_ITS ---
Test Date: 2024-10-17 12:04:08 Measurements Intervals [place] Rate: 84 P: 0 GA: 0 QRS: 25 QRSD: 102 T: 30 QT: 338 QTc: 401 Interpretive Statements ATRIAL FIBRILLATION WITH ABERRANT CONDUCTION OR VENTRICULAR PREMATURE COMPLEXES LOW QRS VOLTAGE IN PRECORDIAL LEADS [QRS DEFLECTION < 1.0 mV IN CHEST LEADS] No previous ECG available for comparison Electronically Signed On 10-18-2024 13:20:05 CDT by Tigre Serrano M.D.
[2024-10-17 12:12] LABS: EDCOVIDSCREEN Negative (Negative)
[2024-10-17 14:54] LABS: EDUAAPPEAR Clear; EDUABILI Negative (Negative); EDUABLOOD Negative (Negative); EDUACOLOR1 Yellow; EDUAGLUCOSE Negative (Negative); EDUAKETONE Trace (Negative); EDUALEUKO Negative (Negative); EDUANITRATE Negative (Negative); EDUAPROTEIN 2+ (Negative)
== END 2024-10-17 12:31 | disposition home or self-care (01) ==
PROVIDERS: Emergency Provider Nurse Practitioner Family; PCP Nurse Practitioner
DX: J18.9 Pneumonia, unspecified organism (principal); J43.9 Emphysema, unspecified; J44.9 Chronic obstructive pulmonary disease, unspecified; Z85.01 Personal history of malignant neoplasm of esophagus; I25.10 Atherosclerotic heart disease of native coronary artery without angina pectoris; I48.20 Chronic atrial fibrillation, unspecified; I10 Essential (primary) hypertension; E78.5 Hyperlipidemia, unspecified; Z87.891 Personal history of nicotine dependence; Z20.822 Contact with and (suspected) exposure to COVID-19
CPT/HCPCS: 71046; 81003; 87426; 93005; 99213; G0463

== ENCOUNTER 2024-11-18 07:45 | Outpatient (CLI) | payer MEDICARE, SELFPAY ==
--- OUTSIDE RECORDS SUMMARY | 2024-11-18 07:51 | XMS_ITS ---
Author Organization [facility] Virtual Care Address [address] [place] [id number] Phone Care Team Providers Care Court Manager Name Role Phone Perez Pittman MD Unavailable [phone] Steve Carrillo DO Unavailable [phone] Selena Agustin NP Primary Care Provider [phone] Active Problems Problem Noted Date Diagnosed Date Traumatic brain injury with loss of consciousnes s 04/30/2023 Vascular dementia without behavioral disturbance 04/30/2023 Assessment & Plan (12/31/2023 2:31 PM CDT): Continue Atorvastatin, blood pressure control Presence of Amulet left atrial appendage closure device 02/01/2023 Alzheimer's disease 09/26/2022 Assessment & Plan (12/31/2023 2:17 PM CDT): Galantamine ER 16 mg daily, consider Namenda/memantine moving forward We are in agreement with driving prison 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 Pt still appears clinically well however now with gram negative bacteremia, AlkP and LFTs increasing c/f true ascending cholangitis however normal bili. 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 Adenocarcinoma of esophagus 04/16/2016 Cancer Staging:Clinical stage from 03/29/2016:Stage IVB(pM1) - Signed by Kailyn Palafox NP on 06/28/2020 Assessment & Plan (08/03/2020 2:15 AM SNACK BAR ATTENDANT): Metastatic esophageal adenocarcinoma dx 03/2016 after presenting [...] fibrillation) Assessment & Plan (08/03/2020 2:09 AM SNACK BAR ATTENDANT): Cont dilt. Not on AC 2/2 GIB. S/p cardioversion. NSR at this time. Dysphagia Assessment & Plan (08/03/2020 2:10 AM SNACK BAR ATTENDANT): 2/2 malignancy with improvement. Current Treatment and Therapy Plans No current plan information found. Past Treatment and Therapy Plans Oncology Chemotherapy Treatment Plan Name Start [...] Kecia Porter MD PhD Radiation Treatments * Course [id number] 06/21/2020 - 07/13/2020 Treatment Period Energy Fraction Dose Fractions Total Dose Plans Planned ESOHAGUS 06/21/2020 - 07/13/2020 250 15 / 3,750 Reference Points Delivered ESO 201906/21/2020 - 07/13/2020 3,750 Lifetime Dose Tracking * Chemical Lifetime Dose Automatic Entry Manual Entr y Fluoro Time 0.1 minutes 0.1 minutes 0 minutes Air kerma at the reference point (Ka,r) 84 mGy 0 mGy 84 mGy DLP 20,023 mGycm 20,023 mGycm 0 mGycm Resolved Problems Problem Noted Date Diagnosed Date Resolved Date Overweight 08/25/2015 12/31/2023 Overview (11/08/2016): Overweight
--- OUTSIDE RECORDS SUMMARY | 2024-11-18 07:51 | XMS_ITS | Clinical Summary ---
Author Organization [facility] Address [address] [place] [address] Care Team Providers Care Kosher Dietary Service Manager Name Role Phone Dimas Weller DO Primary Care Provider [phone] Allergies Active Allergy Reactions Criticality Noted Date [...] by mouth nightly at bedtime. Active Umeclidinium [place] (INCRUSE ELLIPTA) 62.5 MCG/INH AEROSOL POWDER, BREATH [...] 64 12/05/2020 7:57 AM CDT Temperature 36.2 C (97.1 F) 12/05/2020 6:39 AM CDT Respiratory Rate 16 12/05/2020 7:57 AM CDT Oxygen Saturation 93% 12/05/2020 6:39 AM CDT Inhaled Oxygen Concentration - - Weight 73.9 kg (163 lb) 11/23/2020 2:13 PM CDT Height 167.6 cm (5' 6 ) 11/23/2020 2:13 PM CDT Body Mass Index 26.31 11/23/2020 2:13 PM CDT Plan of Treatment Health Maintenance Due Date Last Done Comments DTaP, Tdap and Td Vaccines ( 1 - Tdap) 1954 Pneumococcal Vaccine: 50+ Years (1 of 1 - PCV) 12/27/1987 Zoster Vaccines (1 of 2) 12/27/1987 Annual Medicare Wellness Visit 2002 RSV Immunization or 60+ Years (1 - 1-dose 75+ series) 2012 COVID-19 Vaccine (3 - 2023-2 5 season) 2024 10/24/2020, 09/23/2020 Meningococcal B Vaccine Aged Out No l onger eligible based on patient's age to complete this topic Meningococcal Vaccine Aged Out No cindy erin eligible based on patient's age to complete this topic RSV Immunizations Under 20 Months Aged Out No longer eligible b ased on patient's age to complete this topic Medical Devices Implanted Type Area Landcare Facilitator Device Identifier Shelf Expiration Date Model / Serial / Lot Intraocular Lens Implanted:Qty: 1 on 12/05/2020 by Luis Bella MD at [facility] Lens Right: Eye 06/01/2023 [facility] / [id number] / Insurance MEDICARE AARP Care Teams Kosher Dietary Service Manager Relationship Specialty Start Date End Date Dimas Weller DO [address] [address] PCP - General INTERNAL MEDICINE 12/02/20
--- OUTSIDE RECORDS SUMMARY | 2024-11-18 07:51 | XMS_ITS | Encounter Summary ---
Author Organization [facility] Address [address] [place] [address] Phone Care Team Providers Care Research Programmer Name Role Phone Arash Sullivan MD Primary Care Provider [phone] Arash Sullivan MD Unavailable [phone] Mindy Falk Unavailable [phone] Dimas Weller DO Primary Care Provider [phone] Dimas Weller DO Primary Care Provider [phone] Arash Sullivan MD Unavailable [phone] Perez Pittman MD Unavailable [place] Aranda MD Unavailable [phone] Janet Floyd COVER MAKER Unavailable [phone] Steve Carrillo DO Unavailable [phone] No, Physician Primary Care Provider [phone] Alfonzo Nails DO Primary Care Provider + [phone] Selena Agustin NP Primary Care Provider + [phone] Alfonzo Nails DO Primary Care Provider + [phone] Selena Agustin NP Primary Care Provider + [phone] Encounter Details Date Type Department Care Team (Latest Contact Info) Description 11/07/2017 Orders Only WU CONVERSION Scanning, Provider Social History Tobacco Use Types Packs/Day Years Used Date Smoking Tobacco: Former Smokeless Tobacco: Never Alcohol Use Standard Drinks/Week Comments Yes 0 (1 standard drink = 0.6 oz pur e alcohol) Sex and Gender Information Value Date Recorded Sex Assigned at Not on file 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 Patient classified as Low Risk for COVID-19 and has one negative COVID-19 test. Patient meets criteria for COVID-19 isolation discontinuation Candido Stearns RN 08/05/2020 08/02/2020 08/02/2020 08/05/2020 9:[address] documented as of this encounter Care Teams Research Programmer Relationship Specialty Start Date End Date Arash Sullivan MD PCP - General 10/26/16 01/15/18 Dimas Weller DO [address] [address] PCP - General Internal Medicine 03/19/18 08/05/22 Dimas Weller DO [address] [address] PCP - General 01/16/18 03/18/18 No, Physician PCP - General 08/06/22 08/14/22 Alfonzo Nails DO PCP - General Internal Medicine 08/15/22 12/03/22 Selena Agustin, RM PCP - General Nurse Practitioner 12/04/22 08/21/23 Alfonzo Nails DO PCP - General Internal Medicine 08/22/23 11/05/24 Selena Agustin, COVER MAKER [address] [place] [address] [address] LEON [address] [place] [address] PCP - General Nurse Practitioner 11/06/24 Arash Sullivan MD 10/26/16 09/22/19 Mindy Falk, ROBBY [address] [address] Speech Language Pathologist Speech Therapy 02/17/18 11/04/24 Arash Sullivan MD Referring Physician Internal Medicine 09/23/19 09/23/19 Perez Pittman MD [address] [place] [address] Radiation Oncologist Radiation Oncology 06/07/20 [place] Aranda MD [address] [place] [address] Medical Oncologist/Hematologis t Medical Oncology 06/28/20 02/13/22 Janet Floyd, RM [address] [place], [place] [id number] Nurse Practitioner Medical Oncology 09/20/20 05/01/22 [place] [address] [place] [address] MEDICAL ONCOLOGY, [address] [address] Medical Oncologist/Hematologis t Hematology and Oncology 05/02/22 documented as of this encounter
--- OUTSIDE RECORDS SUMMARY | 2024-11-18 07:51 | XMS_ITS | Clinical Summary ---
Author Organization [facility] Address [address] [place] [address] Care Team Providers Care Dance Costume Designer Name Role Phone Arash Sullivan MD Primary Care Provider [phone] Source Comments [facility],non-owned Affiliates and Associated Physician Practices is amultiple site organization consisting of ambulatory clinics and hospital sitesin [place], [place], [place] and [place]. This disclosure is being madepursuant to the Care Everywhere program and may not contain all information available regarding this patient. Last updated 18.[facility] Allergies No known active allergies Medications * Be aware that medications may not be up to date on this document. Alwaysverify current medications with the patient. No known medications Active Problems Problem Noted Date Diagnosed Date SAH (subarachnoid hemorrhage) 11/06/2021 Nasal bone fractures 11/06/2021 Social History Tobacco Use Types Packs/Day Years Used Date Smoking Tobacco: Never Assessed Sex and Gender Information Value Date Recorded Sex Assigned at Not on file Legal Sex Male 2:10 PM CDT Gender Identity Not on file Sexual Orientation Not on file Last Filed Vital Signs Vital Sign Reading Time Taken Comments Blood Pressure 136/88 11/06/2021 6:30 AM CDT Pulse 86 11/06/2021 6:30 AM CDT Temperature 36.8 C (98.2 F) 11/05/2021 7:27 PM CDT Respiratory Rate 25 11/06/2021 6:30 AM CDT [...] VACCINE (3 - season) 2024 10/24/2020, 09/23/2020 DEPRESSION SCREENING 07/29/2024 MEDICARE AWV CALENDAR YEAR 2024 INFLUENZA VACCINE (Season Ended) 2025 07/18/2021, 05/10/2020, 04/28/2019, Additional history exists HEPATITIS B VACCINE Aged Out No longe r eligible based on patient's age to complete this topic HIB VACCINE Aged Out No longer eligi ble based on patient's age to complete this topic HPV VACCINE Aged Out No longer eligi ble based on patient's age to complete this topic MENINGOCOCCAL (Group B) VACCINE SHARED DECISION-MAKING Aged Out No longer eligible based on patient's age to complete this topic MENINGOCOCCAL GROUPS A/C/Y/W VACCINE Aged Out No longer eligible based on patient's age to complete [place] [address] MEDICARE UHC MANAGED MEDICARE ADV MEDICARE UHC MANAGED MEDICARE ADV Care Teams Dance Costume Designer Relationship Specialty Start Date End Date Arash Sullivan MD [address] [place] [address] PCP - General Internal Medicine 04/04/16
--- OUTSIDE RECORDS SUMMARY | 2024-11-18 07:51 | XMS_ITS | Encounter Summary ---
Author Organization [facility] Address [facility] [place] [address] Care Team Providers Care Barge Master Name Role Phone Dimas Weller DO Primary Care Provider [phone] Encounter Details Date Type Department Care Team (Late st Contact Info) Description 11/23/2020 Prep for Procedure [facility] [address] [place], [place] [id number] Luis Bella MD [address] [facility] [address] [place] [address] Social History Tobacco Use Types Packs/Day [...] DETECTED NOT DETECTED 12/04/2020 5:40 PM CDT [facility] Comment: A Not Detected (negative) test result for this test means that SARS-CoV-2 RNA was not present in the specimen above the limit of detection. A negative result does not rule out the possibility of COVID-19 and should not be used as the sole basis for treatment or patient management decisions. If COVID-19 is still suspected, based on exposure [...] to the decreased sensitivity of pooled testing. Please review the Fact Sheets and FDA authorized labeling available for health care providers and patients using the following websites: https://www.[employer]up[employer]/home/Covid-19/HCP/NAAT/fact-sheet2 https://www.[employer]/home/Covid-19/Patients/NAAT/ fact-sheet2 This test has been authorized by the FDA under an Emergency Use Authorization (EUA) for use by authorized laboratories. Due to the current public health emergency, [facility] is receiving a high volume of samples [...] including collection of an additional specimen. Methodology: Nucleic Acid Amplification Test (NAAT) includes RT-PCR or TMA Additional information about COVID-19 can be found at the [facility] website: www.[employer]uplex/Covid19. Test performed at [facility] [address] [place] [address] Director: JEAN-PIERRE MORRIS DO,MPH FIRST TEST NO 12/02/2020 11:07 AM CDT [facility] EMPLOYED IN HEALTHCARE UNKNOWN 12/02/2020 11:07 AM CDT [facility] SYMPTOMATIC DEFINED BY CDC NO 12/02/2020 11:07 AM CDT [facility] DATE OF SYMPTOM ONSET NO 12/02/2020 11:16 AM CDT [facility] HOSPITALIZATION STATUS NO 12/02/2020 11:07 AM CDT [facility] PATIENT IN ICU NO 12/02/2020 11:07 AM CDT [facility] RESIDENT OF [facility] UNKNOWN 12/02/2020 11:07 AM CDT [facility] NO 12/02/2020 11:16 AM CDT [facility] PATIENT'S RACE WHITE OR 12/02/2020 11:07 AM CDT [facility] ETHNICITY NONHISPANIC 12/02/2020 11:07 AM CDT [facility] SOURCE (QST) NASOPHARYNGEAL SWAB 12/02/2020 11:07 AM CDT [facility] NASOPHARYNGEAL SWAB / Unknown 12/02/2020 11:13 AM CDT us Luis Bella MD MICROBIOLOGY - GENERAL ORDERAB LES Final Result Performing Organization Address City/State/[facility] Co de Phone Number [facility] [address] [place] [address], [place] [phone] [facility] [address] [place] [address], documented in this encounter Visit Diagnoses Diagnosis Pre-op testing- Primary Preoperative examination, unspecified documented in this encounter Additional Health Concerns Infection Onset Date Last Indicated Resolved Time COVID-19 Rule Out 12/02/2020 12/02/2020 12/04/2020 5:41 PM CDT documented as of this encounter Care Teams Barge Master Relationship Specialty [place] [address] [place] [address] PCP - General INTERNAL MEDICINE 12/02/20 documented as of this encounter
--- OUTSIDE RECORDS SUMMARY | 2024-11-18 07:51 | XMS_ITS | Referral Summary ---
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, unspecified lymph node region (HCC) 11/05/2024 10:45 AM CDT Office Visit [facility] [address] [place] [phone] Steve Carrillo DO 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, unspecified lymph node region (HCC) (Primary Dx); Adenocarcinoma of esophagus (HCC); Skin lesion of left ear; Elevated CEA; Lung nodule 10/29/2024 9:32 AM CDT - 10/29/2024 11:59 PM CDT Hospital Encounter [facility] [address] [facility] [place], [place] [id number] Adenocarcinoma of esophagus (HCC); 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, unspecified lymph node region (HCC) Discharge Disposition: Discharge to home or self care 10/12/2024 Telephone [facility] Cardiology [address] [address] [address] [place] [address] Antwan Fermin MD from Last 3 Months Allergies Active Allergy [...] with breakfast 90 capsule 3 4 Active Breo Ellipta 100-25 mcg/dose diskus inhaler 4 Active vit C,C-Dc-mdyya-lute in-zeaxan 250-90-40-1 mg capsule Take by mouth Active vitamin B23-loheg acid 0.5-1 mg tablet Take by mouth Patient taking OTC Active dilTIAZem CD/XR/XT (dilTIAZem CD) 120 mg 24 hr capsuleIndication s:Chronic atrial fibrillation (HCC) Take 1 capsule (120 mg total) by mouth daily 90 capsule 5 Active Active Problems Problem Noted Date Diagnosed [...] forward We are in agreement with driving skilled nursing 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 Pt still appears clinically well however now with gram negative bacteremia, AlkP and LFTs increasing c/f true ascending cholangitis however normal bili. 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 Adenocarcinoma of esophagus 04/16/2016 Cancer Staging:Clinical stage from 03/29/2016:Stage IVB(pM1) - Signed by Kailyn Palafox [employer]ER on 06/28/2020 Assessment & Plan (08/03/2020 2:15 AM BOOK SALESMAN): Metastatic esophageal adenocarcinoma dx 03/2016 after presenting [...] fibrillation) Assessment & Plan (08/03/2020 2:09 AM BOOK SALESMAN): Cont dilt. Not on AC 08/30 GIB. S/p cardioversion. NSR at this time. Dysphagia Assessment & Plan (08/03/2020 2:10 AM BOOK SALESMAN): 08/30 malignancy with improvement. Resolved Problems Problem Noted Date Diagnosed Date Resolved Date Overweight 08/25/2015 12/31/2023 Overview (11/08/2016): Overweight Immunizations Immunization Administration Dates Next Due Influenza, Quadrivalent, Sylvia [...] on file Legal Sex Male 8:40 AM BOOK SALESMAN Gender Identity Not on file Sexual Orientation Not on file Occupation Industry Job Start Date Job End Date Retired Not on file Not on file Not on file Last Filed Vital Signs Vital Sign Reading Time Taken Comments Blood Pressure 117/59 11/05/2024 9:58 AM CDT Pulse 85 11/05/2024 9:58 AM CDT Temperature 36.6 C (97.8 F) 11/05/2024 9:58 AM CDT Respiratory Rate 16 11/05/2024 9:58 AM CDT Oxygen Saturation 96% 11/05/2024 9:58 AM CDT Inhaled Oxygen Concentration - - Weight 73.4 kg (161 lb 12.8 oz) 11/05/2024 9:58 AM CDT Height 170.2 cm (5' 7 ) 11/05/2024 9:58 AM CDT w shoes Body Mass Index 25.34 11/05/2024 9:58 AM CDT Plan of Treatment Upcoming Encounters Date Type Department Care Team (Late st Contact Info) Description 11/19/2024 8:30 AM CDT Hospital Encounter [facility] [address] [address] Medical Devices Implanted Type Area Distribution Specialist Device Identifier Shelf Expiration Date Model / Serial / Lot [employer] Vascade Mvp 6-12fr Venous Closure [id number] - [id number] Implanted:Qty: 1 on 02/01/2023 by Moreno Craft MD at [facility] Right: Femoral Vein [employer] 09/24/2024 [id number] / / [id number] [employer] Percutaneous Transcatheter Amplatzer Amulet 22mm [id number] - [id number] Implanted:Qty: 1 on 02/01/2023 by Moreno Craft MD at [facility] Left Atrial Appendage Occluder Left: Atrial Appendage [employer] 03/28/2027 [id number] / / [id number] [employer] Device Clsr Perclose Prostyle Sut-Mediatd Closure-Repair Sys [id number] - [id number] Implanted:Qty: 1 on 02/01/2023 by Moreno Craft MD at [facility] Right: Femoral Vein [employer] 10/26/2024 [id number] / / [id number] [employer] Device Clsr Perclose Prostyle Sut-Mediatd Closure-Repair Sys [id number] - [id number] Implanted:Qty: 1 on 02/01/2023 by Moreno Craft MD at [facility] Right: Femoral Vein [employer] 10/26/2024 [id number] / / [id number] Procedures Procedure Name Priority Date/Time Associated Diagnosis Comments EGFR Routine 11/05/2024 9:45 AM CDT 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, unspecified lymph node region (HCC) DIFFERENTIAL AUTO Routine 11/05/2024 9:4 5 AM CDT 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, unspecified lymph node region (HCC) CEA Routine 11/05/2024 9:45 AM CDT 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, 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) CBC WITH AUTO DIFFERENTIAL Routine 11/05/2024 9:45 AM CDT 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 73 m2 Comment: Interpretive Data Reference Interval Normal >/= 90 mL/min/1.73m2 Mildly decreased* 60 - 89 mL/min/1.73m2 Mildly to moderately decreased 45 - 59 mL/min/1.73m2 Moderately to severely decreased 30 - 44 mL/min/1.73m2 Severely decreased 15 - 29 mL/min/1.73m2 Kidney Failure < 15 mL/min/1.73m2 *Relative to young adult level Estimated glomerular [...] was last reviewed 2021. Testing performed by: [address] [address] Blood 11/05/2024 9:45 AM CDT 11/05/2024 9:47 AM CDT Steve Carrillo DO LAB BLOOD ORDERABLES Final R esult [facility] [address] [facility] Department [place] [address] * Differential, auto (11/05/2024 9:45 AM CDT) Neutrophil abs 6.30 1.50 - 6.50 K/cumm Comment:Testing performed by : [address] [address] Imm gran abs 0.03 0.00 - 0.10 K/cumm [facility] Comment:Testing performed by : [address] [address] Lymphocyte abs 0.96 0.80 - 3.30 K/cumm [facility] Comment:Testing performed by : [address] [address] Monocyte abs 0.67 0.20 - 0.80 K/cumm [facility] Comment:Testing performed by : [address] [address] Eosinophil abs 0.22 0.00 - 0.50 K/cumm [facility] Comment:Testing performed by : [address] [address] Basophil abs 0.04 0.00 - 0.10 K/cumm [facility] Comment:Testing performed by : [address] [address] Neutrophil pct 76.5 % [facility] Comment: Interpretive Data Percent cell count reference ranges are not reported, since discordance with absolute values may lead to misinterpretation of CBC data. Current Interpretive Data was last revised on 2017. Testing performed by: [address] [address] Imm gran pct 0.4 % [facility] Comment: Interpretive Data Percent cell count reference ranges are not reported, since discordance with absolute values may lead to misinterpretation of CBC data. Current Interpretive Data was last revised on 2017. Testing performed by: [address] [address] Lymphocyte pct 11.7 % [facility] Comment: Interpretive Data Percent cell count reference ranges are not reported, since discordance with absolute values may lead to misinterpretation of CBC data. Current Interpretive Data was last revised on 2017. Testing performed by: [address] [address] Monocyte pct 8.2 % [facility] Comment: Interpretive Data Percent cell count reference ranges are not reported, since discordance with absolute values may lead to misinterpretation of CBC data. Current Interpretive Data was last revised on 2017. Testing performed by: [address] [address] Eosinophil pct 2.7 % [facility] Comment: Interpretive Data Percent cell count reference ranges are not reported, since discordance with absolute values may lead to misinterpretation of CBC data. Current Interpretive Data was last revised on 2017. Testing performed by: [address] [address] Basophil pct 0.5 % [facility] Comment: Interpretive Data Percent cell count reference ranges are not reported, since discordance with absolute values may lead to misinterpretation of CBC data. Current Interpretive Data was last revised on 2017. Testing performed by: [address] [address] Blood 11/05/2024 9:45 AM CDT 11/05/2024 9:47 AM CDT Steve Carrillo DO LAB BLOOD ORDERABLES [facility] [address] [facility] Department [place] [address] * (ABNORMAL) CBC with auto differential (11/05/2024 9:45 AM CDT) WBC 8.22 3.80 - 9.90 K/cumm Comment:Testing performed by : [address] [address] Hgb 13.2 13.0 - 17.5 g/dL [facility] Comment:Testing performed by : [address] [address] Hct 40.9 38.9 - 50.3 % [facility] Comment:Testing performed by : [address] [address] Plt 171 150 - 400 K/cumm [facility] Comment:Testing performed by : [address] [address] MPV 10.2 9.1 - 12.3 fL [facility] Comment:Testing performed by : [address] [address] RBC 4.67 4.30 - 5.80 M/cumm [facility] Comment:Testing performed by : [address] [address] MCV 87.6 81.3 - 96.4 fL [facility] Comment:Testing performed by : [address] [address] MCH 28.3 27.1 - 33.3 pg [facility] Comment:Testing performed by : [address] [address] MCHC 32.3 32.3 - 35.7 g/dL [facility] Comment:Testing performed by : [address] [address] RDW CV 15.2(H) 11.1 - 14.9 % [facility] Comment:Testing performed by : [address] [address] RDW SD 48.4(H) 35.7 - 48.1 fL [facility] Comment:Testing performed by : [address] [address] NRBC abs 0.00 0.00 - 0.01 K/cumm [facility] Comment:Testing performed by : [address] [address] ANC Prelim 6.30 1.50 - 6.50 K/cumm [facility] Comment: Interpretive Data The rapid ANC is a preliminary automated count and may vary from the final ANC (Neut Abs) reported in the WBC differential that follows. Current interpretive data was last revised 2024. Testing performed by: [address] [address] Blood 11/05/2024 9:45 AM CDT 11/05/2024 9:47 AM CDT Steve Carrillo DO LAB BLOOD ORDERABLES Final R esult [facility] [address] [facility] Department of Laboratories [place], [place] [id number] * (ABNORMAL) CEA (11/05/2024 9:45 AM CDT) CEA 45.3(H) <=5.0 ng/mL Comment: Interpretive Data: Reference Range: Non-Smokers: 0.0 5.0 ng/mL Smokers: 0.0 6.5 ng/mL The Mya CEA assay procedure was used. Results from different manufacturers or methods may not be comparable. Serial testing should be performed using the same method. Current interpretive data was last revised 2023. Testing performed by: [address] [address] Blood 11/05/2024 9:45 AM CDT 11/05/2024 11:46 AM CDT Steve Carrillo DO LAB BLOOD ORDERABLES Final R esult [facility] [address] [facility] Department [place] [address] * (ABNORMAL) Comprehensive metabolic panel (11/05/2024 9:45 AM CDT) Sodium 142 135 - 145 mmol/L Comment:Testing performed by : [address] [address] Potassium, pl 4.2 3.3 - 4.9 mmol/L [facility] Comment:Testing performed by : [address] [address] Chloride 105 97 - 110 mmol/L [facility] Comment:Testing performed by : [address] [address] CO2 28 22 - 32 mmol/L [facility] Comment:Testing performed by : [address] [address] Anion gap 9 2 - 15 mmol/L [facility] Comment:Testing performed by : [address] [address] BUN 14 6 - 25 mg/dL [facility] Comment:Testing performed by : [address] [address] Creatinine 0.80 0.80 - 1.30 mg/dL [facility] Comment:Testing performed by : [address] [address] Glucose 116 70 - 199 mg/dL [facility] Comment: Interpretive Data Fasting glucose >/= 126 mg/dl is diagnostic for diabetes. Fasting is defined as no caloric intake [...] was last revised 2022. Testing performed by: [address] [address] Calcium 9.6 8.5 - 10.3 mg/dL [facility] Comment:Testing performed by : [address] [address] Bilirubin, total 0.4 0.1 - 1.2 mg/dL [facility] Comment:Testing performed by : [address] [address] Protein, pl 7.1 6.5 - 8.5 g/dL [facility] Comment:Testing performed by : [address] [address] Albumin 4.1 3.5 - 5.0 g/dL [facility] Comment:Testing performed by : [address] [address] Alk phos 131(H) 40 - 130 Units/L [facility] Comment:Testing performed by : [address] [address] ALT 31 7 - 55 Units/L [facility] Comment:Testing performed by : [address] [address] AST 32 10 - 50 Units/L [facility] Comment:Testing performed by : [address] [address] Blood 11/05/2024 9:45 AM CDT 11/05/2024 9:47 AM CDT us Steve Carrillo DO LAB BLOOD ORDERABLES Final R esult [facility] [address] [facility] Department [place] [address] * CT Chest Abdomen Pelvis W Contrast (10/29/2024 9:55 AM CDT) Anatomical Region Laterality Modality Body N/A Computed Tomogra phy 11/03/2024 3:07 PM CDT Narrative 11/03/2024 3:24 PM CDT EXAM DESCRIPTION: CT CHEST ABDOMEN PELVIS W CONTRAST REASON FOR STUDY: Esophageal cancer, assess treatment response 5 month esophageal cancer f/u. No complaints. No surgical hx. TECHNIQUE: CT scan of the chest, abdomen, and pelvis performed with intravenous and without oral contrast using helical scanning technique with dynamic intravenous contrast injection. Reconstructed coronal and sagittal MPR images reviewed. All images stored on PACS. Automated exposure control was used as a dose optimization technique for this examination. CONTRAST TYPE/DOSE: 100mL of IOVERSOL 350 MG IODINE/ML INTRAVENOUS SYRINGE injected via intravenous COMPARISON: CT chest abdomen pelvis 06/10/2024 FINDINGS: CHEST LUNGS: Patent central airways. Moderate bilateral emphysema. There is interval resolution of the irregular nodular opacity in the posterior right middle lobe. However, there is mild increase in the bilateral lower lobe tree-in-bud nodules measuring 4 mm or less and new 1.4 cm nodular opacity in the superior segment of the right lower lobe (3/90). No lobar consolidation.. PLEURA: Stable small left pleural effusion. No pneumothorax. MEDIASTINUM/ANETA: No identified masses or abnormal nodes. HEART: Heart size is normal with no pericardial effusion. VASCULATURE CHEST: No thoracic aortic aneurysm or dissection. AXILLA: No adenopathy. CHEST WALL: No masses. No subcutaneous air. HARDWARE/LINES/TUBES: None. MUSCULOSKELETAL CHEST: No significant abnormality. ABDOMEN/PELVIS LIVER: Decreased attenuation as seen with fibrofatty changes. GALLBLADDER: Stones. No wall thickening or pericholecystic fluid BILE DUCTS: No intrahepatic or extrahepatic ductal dilatation. SPLEEN: Normal size. No focal lesions. PANCREAS: No identified cystic or solid masses. No significant calcifications. No adjacent inflammation or peripancreatic fluid collections. Pancreatic duct not dilated. ADRENALS: Normal. KIDNEYS/URINARY TRACT: Bilateral subsegmental hypodensities, likely renal cysts are stable. No solid masses. No visualized stones. No hydronephrosis or hydroureter. Symmetric enhancement. Urinary bladder is unremarkable. GI: No dilated bowel loops. No obvious wall thickening. Normal appendix. No significant diverticular disease. PERITONEUM: No ascites or free air. RETROPERITONEUM: No mass or adenopathy. REPRODUCTIVE: No significant abnormality. VASCULATURE ABDOMEN: Atherosclerotic disease in the aorta, iliacs, and coronary arteries. Ectatic abdominal aorta. MUSCULOSKELETAL ABDOMEN PELVIS: Severe multilevel degenerative changes of the spine. No concerning lesions are present. OTHER: No significant abnormality. IMPRESSION: Interval resolution of the irregular nodular opacity in the posterior right middle lobe. However, there is mild increase in the bilateral lower lobe tree-in-bud nodules and new 1.4 cm nodular opacity in the superior segment of the right lower lobe. Findings are likely infectious/inflammatory. Recommend short interval follow-up to ensure resolution. Stable small left pleural effusion. No evidence of metastatic disease in the abdomen and pelvis. THIS IS AN ELECTRONICALLY VERIFIED FINAL REPORT 11/03/2024 3:24 PM - Electronically signed by Aydee Lopez M.D. FT: FT Report ID: [id number] Reading Location: [place] [address] Procedure Note Aydee Corona MD - 11/03/2024 EXAM DESCRIPTION: CT CHEST ABDOMEN PELVIS W CONTRAST REASON FOR STUDY: Esophageal cancer, assess treatment response 5 month esophageal cancer f/u. No complaints. No surgical hx. TECHNIQUE: CT scan of the chest, abdomen, and pelvis performed with intravenous and without oral contrast using helical scanning techniquewith dynamic intravenous contrast injection. Reconstructed coronal and sagittalMPR images reviewed. All images stored on PACS. Automated exposure control was used as a dose optimization technique for this examination. CONTRAST TYPE/DOSE: 100mL of IOVERSOL 350 MG IODINE/ML INTRAVENOUS SYRINGE injected via intravenous COMPARISON: CT chest abdomen pelvis 06/10/2024 FINDINGS: CHEST LUNGS: Patent central airways. Moderate bilateral emphysema. There is interval resolution of the irregular nodular opacity in the posteriorright middle lobe. However, there is mild increase in the bilateral lower lobe tree-in-bud nodules measuring 4 mm or less and new 1.4 cm nodular opacityin the superior segment of the right lower lobe (). No lobarconsolidation.. PLEURA: Stable small left pleural effusion. No pneumothorax. MEDIASTINUM/ANETA: No identified masses or abnormal nodes. HEART: Heart size is normal with no pericardial effusion. VASCULATURE CHEST: No thoracic aortic aneurysm or dissection. AXILLA: No adenopathy. CHEST WALL: No masses. No subcutaneous air. HARDWARE/LINES/TUBES: None. MUSCULOSKELETAL CHEST: No significant abnormality. ABDOMEN/PELVIS LIVER: Decreased attenuation as seen with fibrofatty changes. GALLBLADDER: Stones. No wall thickening or pericholecystic fluid BILE DUCTS: No intrahepatic or extrahepatic ductal dilatation. SPLEEN: Normal size. No focal lesions. PANCREAS: No identified cystic or solid masses. No significant calcifications. No adjacent inflammation or peripancreatic fluidcollections. Pancreatic duct not dilated. ADRENALS: Normal. KIDNEYS/URINARY TRACT: Bilateral subsegmental hypodensities, likelyrenal cysts are stable. No solid masses. No visualized stones. Nohydronephrosis or hydroureter. Symmetric enhancement. Urinary bladder is unremarkable. GI: No dilated bowel loops. No obvious wall thickening. Normalappendix. No significant diverticular disease. PERITONEUM: No ascites or free air. RETROPERITONEUM: No mass or adenopathy. REPRODUCTIVE: No significant abnormality. VASCULATURE ABDOMEN: Atherosclerotic disease in the aorta, iliacs, and coronary arteries. Ectatic abdominal aorta. MUSCULOSKELETAL ABDOMEN PELVIS: Severe multilevel degenerative changesof the spine. No concerning lesions are present. OTHER: No significant abnormality. IMPRESSION: Interval resolution of the irregular nodular opacity in the posteriorright middle lobe. However, there is mild increase in the bilateral lower lobe tree-in-bud nodules and new 1.4 cm nodular opacity in the superior segmentof the right lower lobe. Findings are likely infectious/inflammatory.Recommend short interval follow-up to ensure resolution. Stable small left pleural effusion. No evidence of metastatic disease in the abdomen and pelvis. THIS IS AN ELECTRONICALLY VERIFIED FINAL REPORT 11/03/2024 3:24 PM - Electronically signed by Aydee Lopez M.D. FT: FT Report ID: [id number] Reading Location: [id number] Steve Carrillo DO IMG CT PROCEDURES Final Resu lt * POCT creatinine for contrast evaluation (10/29/2024 9:53 AM CDT) Creatinine POC 0.90 0.80 - 1.30 mg/dL Comment:Testing performed by : [facility], [address] [place] [address], [place]., [address] Blood 10/29/2024 9:53 AM CDT 10/29/2024 9:53 AM CDT Steve Carrillo DO POINT OF CARE TEST ORDERABLE S Final Result Performing Organization Address City/State/ZIP Co ma Phone Number [facility] [address] [facility] Department [place] [address] from Last 3 [place] [address] [facility] MEDICARE [facility] MEDICARE Advance Directives For more information, please contact: [phone] * Full Code (Latest Code Status on File) Date Activated Date Inactivated Comments 02/01/2023 4:41 PM 02/02/2023 5:28 PM * Full Code Date Activated Date Inactivated Comments 08/03/2020 2:06 AM 08/06/2020 7:35 PM * Full Code Date Activated Date Inactivated Comments 05/25/2020 10:47 AM 05/25/2020 7:22 PM * Full Code Date Activated Date Inactivated Comments 09/09/2019 3:20 PM 09/09/2019 9:54 PM Care Teams Change Director Relationship Specialty Start Date End Date Selean Agustin, [employer] [address] [place] [address] [address] [place] [address] PCP - General Nurse Practitioner 11/06/24 Perez Pittman MD [address] [facility] [phone] [place] [address] Radiation Oncologist Radiation Oncology 06/07/20 Steve Carrillo DO [address] [place] [address] MEDICAL ONCOLOGY, [address] [place] [address] Medical Oncologist/Hematologis t Hematology and Oncology 05/02/22
--- OUTSIDE RECORDS SUMMARY | 2024-11-18 07:51 | XMS_ITS | Clinical Summary ---
Author Organization [facility] Virtual Care Address [address] [place] [phone] Phone Care Team Providers Care Power Distributor Name Role Phone Perez Pittman MD Unavailable Steve Carrillo DO Unavailable [phone] Selena Agustin NP Primary Care Provider Allergies Active Allergy Reactions Criticality Noted Date [...] 100-25 mcg/dose diskus inhaler 4 Active vit C,T-Sa-yncjm-lute in-zeaxan 250-90-40-1 mg capsule Take by mouth Active vitamin M49-odhbo acid 0.5-1 mg tablet Take by mouth [...] forward We are in agreement with [place] [facility] Cerebral amyloid angiopathy 09/26/2022 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 Pt still appears clinically well however now with gram negative bacteremia, AlkP and LFTs increasing c/f true ascending cholangitis however normal bili. 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 Adenocarcinoma of esophagus 04/16/2016 Cancer Staging:Clinical stage from 03/29/2016:Stage IVB(pM1) - Signed by Kailyn Palafox NP on 06/28/2020 Assessment & Plan (08/03/2020 2:15 AM BANKRUPTCY LAW SPECIALIST): Metastatic esophageal adenocarcinoma dx 03/2016 after presenting [...] fibrillation) Assessment & Plan (08/03/2020 2:09 AM BANKRUPTCY LAW SPECIALIST): Cont dilt. Not on AC 2/2 GIB. S/p cardioversion. NSR at this time. Dysphagia Assessment & Plan (08/03/2020 2:10 AM BANKRUPTCY LAW SPECIALIST): 2/2 malignancy with improvement. Resolved Problems Problem Noted Date Diagnosed Date Resolved Date Overweight 08/25/2015 12/31/2023 Overview (11/08/2016): Overweight Encounters Date Type Department Care Team Description 11/05/2024 10:45 AM CDT Office Visit [facility] Oncology [address] [place] [address] [address] [place] [address] Steve Carrillo, 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, unspecified lymph node region (HCC) (Primary Dx); Adenocarcinoma of esophagus (HCC); Skin lesion of left ear; Elevated CEA; Lung nodule 11/05/2024 9:45 AM CDT Lab [facility] at [address] [address] Adenocarcinoma of esophagus (HCC); 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, unspecified lymph node region (HCC) 10/29/2024 9:32 AM CDT - 10/29/2024 11:59 PM CDT Hospital Encounter [facility] [address] [place] [address] Adenocarcinoma of esophagus (HCC); 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, unspecified lymph node region (HCC) Discharge Disposition: Discharge to home or self care 10/12/2024 Telephone [facility] Cardiology [address] [place] [address] Antwan Fermin MD from Last 3 Months Immunizations Immunization Administration Dates Next Due Influenza, [...] Heart disease Food intolerance Dysphagia Esophageal cancer (HCC) Syncope Atrial fibrillation (HCC) Chronic constipation COPD (chronic obstructive pu [...] on file Legal Sex Male 8:40 AM BANKRUPTCY LAW SPECIALIST Gender Identity Not on file Sexual Orientation [...] 9:58 AM CDT Respiratory Rate 16 11/05/2024 9:5 8 AM CDT Oxygen Saturation 96% 11/05/2024 9:58 [...] [facility] [address] [place] [id number] Health Maintenance Due Date Last Done Comments Depression Screening 1935 DTaP/Tdap/Td Vaccine (1 - Tdap) 1948 Hepatitis B Screening 12/27/1955 Pneumococcal vaccine 65+ (1 of 2 - PCV) 1956 Zoster Vaccine (1 of 2) 1956 Well Visit 65+ 2002 Covid-19 Vaccine (3 - Modern a risk series) 11/26/2020 10/29/2020, 09/28/2020 Fall Risk Assessment 02/03/2024 02/02/2023 Influenza Vaccine (Season Ended) 2025 07/18/2021, 05/10/2020, 04/28/2019, Additional history exists Medical Devices Implanted Type Area Manager Completions Device Identifier Shelf Expiration Date Model / Serial / Lot [employer] Vascade Mvp 6-12fr Venous Closure [id number] - [id number] Implanted:Qty: 1 on 02/01/2023 by Moreno Craft MD at [facility] Collagen Right: Femoral Vein [employer] 09/24/2024 [id number] / / [id number] [employer] Percutaneous Transcatheter Amplatzer Amulet 22mm [id number] - [id number] Implanted:Qty: 1 on 02/01/2023 by Moreno Craft MD at [facility] Left Atrial Appendage Occluder Left: Atrial Appendage [employer] 03/28/2027 [id number] / / [id number] [employer] Device Clsr Perclose Prostyle Sut-Mediatd Closure-Repair Sys [id number] - [id number] Implanted:Qty: 1 on 02/01/2023 by Moreno Craft MD at [facility] Right: Femoral Vein [employer] 10/26/2024 [id number] / / [id number] [employer] Device Clsr Perclose Prostyle Sut-Mediatd Closure-Repair Sys 67656-35 - [id number] Implanted:Qty: 1 on 02/01/2023 by Moreno Craft MD at [facility] Right: Femoral Vein [employer] 10/26/2024 [id number] / / [id number] Procedures Procedure Name Priority Date/Time Associated Diagnosis [...] was last reviewed 2021. Testing performed by: [address] [address] Blood 11/05/2024 9:45 AM CDT 11/05/2024 9:47 AM CDT Steve Carrillo DO LAB BLOOD ORDERABLES Final R esult [facility] [address] [facility] Department [place] [address] * Differential, auto (11/05/2024 9:45 AM CDT) Neutrophil abs 6.30 1.50 - 6.50 K/cumm Comment:Testing performed by : [address] [address] Imm gran abs 0.03 0.00 - 0.10 K/cumm LOLITA Comment:Testing performed by : [address] [address] Lymphocyte abs 0.96 0.80 - 3.30 K/cumm LOLITA Comment:Testing performed by : [address] [address] Monocyte abs 0.67 0.20 - 0.80 K/cumm LOLITA Comment:Testing performed by : [address] [address] Eosinophil abs 0.22 0.00 - 0.50 K/cumm LOLITA Comment:Testing performed by : [address] [address] Basophil abs 0.04 0.00 - 0.10 K/cumm LOL[facility] Comment:Testing performed by : [address] [address] Neutrophil pct 76.5 % [facility] Comment: Interpretive Data Percent cell count reference ranges are not reported, since discordance with absolute values may lead to misinterpretation of CBC data. Current Interpretive Data was last revised on 2017. Testing performed by: [address] [address] Imm gran pct 0.4 % [facility] Comment: Interpretive Data Percent cell count reference ranges are not reported, since discordance with absolute values may lead to misinterpretation of CBC data. Current Interpretive Data was last revised on 2017. Testing performed by: [address] [address] Lymphocyte pct 11.7 % [facility] Comment: Interpretive Data Percent cell count reference ranges are not reported, since discordance with absolute values may lead to misinterpretation of CBC data. Current Interpretive Data was last revised on 2017. Testing performed by: [address] [address] Monocyte pct 8.2 % [facility] Comment: Interpretive Data Percent cell count reference ranges are not reported, since discordance with absolute values may lead to misinterpretation of CBC data. Current Interpretive Data was last revised on 2017. Testing performed by: [address] [address] Eosinophil pct 2.7 % [facility] Comment: Interpretive Data Percent cell count reference ranges are not reported, since discordance with absolute values may lead to misinterpretation of CBC data. Current Interpretive Data was last revised on 2017. Testing performed by: [address] [address] Basophil pct 0.5 % [facility] Comment: Interpretive Data Percent cell count reference ranges are not reported, since discordance with absolute values may lead to misinterpretation of CBC data. Current Interpretive Data was last revised on 2017. Testing performed by: [address] [address] Blood 11/05/2024 9:45 AM CDT 11/05/2024 9:47 AM CDT us Steve Carrillo DO LAB BLOOD ORDERABLES Final R esult [facility] [address] [facility] Department [place] [address] * (ABNORMAL) CBC with auto differential (11/05/2024 9:45 AM CDT) WBC 8.22 3.80 - 9.90 K/cumm Comment:Testing performed by : [address], [address] Hgb 13.2 13.0 - 17.5 g/dL LOL[facility] Comment:Testing performed by : [address], [address] Hct 40.9 38.9 - 50.3 % [facility] Comment:Testing performed by : [address], [address] Plt 171 150 - 400 K/cumm LOLITA Comment:Testing performed by : [address], [address] MPV 10.2 9.1 - 12.3 fL [facility] Comment:Testing performed by : [address], [address] RBC 4.67 4.30 - 5.80 M/cumm [facility] Comment:Testing performed by : [address], [address] MCV 87.6 81.3 - 96.4 fL [facility] Comment:Testing performed by : [address], [address] MCH 28.3 27.1 - 33.3 pg CERCHRISTIE Comment:Testing performed by : [address], [address] MCHC 32.3 32.3 - 35.7 g/dL [facility] Comment:Testing performed by : [address], [address] RDW CV 15.2(H) 11.1 - 14.9 % [facility] Comment:Testing performed by : [address], [address] RDW SD 48.4(H) 35.7 - 48.1 fL [facility] Comment:Testing performed by : [address], [address] NRBC abs 0.00 0.00 - 0.01 K/cumm LOLITA Comment:Testing performed by : [address], [address] ANC Prelim 6.30 1.50 - 6.50 K/cumm [facility] Comment: Interpretive Data The rapid ANC is a preliminary automated count and may vary from the final ANC (Neut Abs) reported in the WBC differential that follows. Current interpretive data was last revised 2024. Testing performed by: [address] [address] Blood 11/05/2024 9:45 AM CDT 11/05/2024 9:47 AM CDT Steve León Gerardo LAB BLOOD ORDERABLES Final R esult Performing Organization Address City/[facility] Co de Phone Number [address] [employer] [place], [place] [id number] * (ABNORMAL) CEA (11/05/2024 9:45 AM CDT) CEA 45.3(H) <=5.0 ng/mL Comment: Interpretive Data: Reference Range: Non-Smokers: 0.0 5.0 ng/mL Smokers: 0.0 6.5 ng/mL The Mya CEA assay procedure was used. Results from different manufacturers or methods may not be comparable. Serial testing should be performed using the same method. Current interpretive data was last revised 2023. Testing performed by: [address] [address] Blood 11/05/2024 9:45 AM CDT 11/05/2024 11:46 AM CDT Steve Rail YardLuz Marina Gerardo DO LAB BLOOD ORDERABLES Final R esult Performing Organization Address City/[facility]/ZIP Co de Phone Number [facility] [address] [facility] [employer] [place], [place] [id number] * (ABNORMAL) Comprehensive metabolic panel (11/05/2024 9:45 AM CDT) Sodium 142 135 - 145 mmol/L Comment:Testing performed by : [address] [address] Potassium, pl 4.2 3.3 - 4.9 mmol/L [facility] Comment:Testing performed by : [address] [address] Chloride 105 97 - 110 mmol/L [facility] Comment:Testing performed by : [address], [place]., [address] CO2 28 22 - 32 mmol/L [facility] Comment:Testing performed by : [address] [address] Anion gap 9 2 - 15 mmol/L [facility] Comment:Testing performed by : [address] [address] BUN 14 6 - 25 mg/dL [facility] Comment:Testing performed by : [address] [address] Creatinine 0.80 0.80 - 1.30 mg/dL [facility] Comment:Testing performed by : [address] [address] Glucose 116 70 - 199 mg/dL [facility] Comment: Interpretive Data Fasting glucose >/= 126 [...] was last revised 2022. Testing performed by: [address] [address] Calcium 9.6 8.5 - 10.3 mg/dL [facility] Comment:Testing performed by : [address] [address] Bilirubin, total 0.4 0.1 - 1.2 mg/dL [facility] Comment:Testing performed by : [address] [address] Protein, pl 7.1 6.5 - 8.5 g/dL [facility] Comment:Testing performed by : [address] [address] Albumin 4.1 3.5 - 5.0 g/dL [facility] Comment:Testing performed by : [address] [address] Alk phos 131(H) 40 - 130 Units/L [facility] Comment:Testing performed by : [address] [address] ALT 31 7 - 55 Units/L [facility] Comment:Testing performed by : [address] [address] AST 32 10 - 50 Units/L [facility] Comment:Testing performed by : [address] [address] Blood 11/05/2024 9:45 AM CDT 11/05/2024 9:47 AM CDT Steve Carrillo DO LAB BLOOD ORDERABLES Final R esult [facility] [address] [facility] Department [place] [address] * CT Chest Abdomen Pelvis W Contrast [...] Aydee Lopez M.D. FT: FT Report ID: [id number] Reading Location: [id number] Procedure Note Aydee Corona MD - 11/03/2024 [...] of the right lower lobe (3/90). No lobarconsolidation.. PLEURA: Stable small left pleural [...] Aydee Lopez M.D. FT: FT Report ID: [id number] Reading Location: [id number] us Steve Carrillo DO IMG CT PROCEDURES Final Resu lt * POCT creatinine for contrast evaluation (10/29/2024 9:53 AM CDT) Creatinine POC 0.90 0.80 - 1.30 mg/dL Comment:Testing performed by : [facility], [address] [place] [address]., [address] Blood 10/29/2024 9:53 AM CDT 10/29/2024 9:53 AM CDT Steve Carrillo DO POINT OF CARE TEST ORDERABLE S Final Result [facility] [address] [facility] Department [place] [address] from Last 3 Months Insurance MEDICARE [facility] MEDICARE MEDICARE [facility] MEDICARE Advance Directives For more information, please contact: [phone] * Full Code (Latest Code Status on File) Date Activated Date Inactivated Comments 02/01/2023 4:41 PM 02/02/2023 5:28 PM * Full Code Date Activated Date Inactivated Comments 08/03/2020 2:06 AM 08/06/2020 7:35 PM * Full Code Date Activated Date Inactivated Comments 05/25/2020 10:47 AM 05/25/2020 7:22 PM * Full Code Date Activated Date Inactivated Comments 09/09/2019 3:20 PM 09/09/2019 9:54 PM Care Teams Power Distributor Relationship Specialty Start Date End Date Selena Agustin NP [address] [facility] [address] [place] [address] [place] [address] PCP - General Nurse Practitioner 11/06/24 Perez Pittman MD [address] [facility] [address] [place] [address] Radiation Oncologist Radiation Oncology 06/07/20 Steve Carrillo DO [address] [place] [address] MEDICAL ONCOLOGY, [address] [address] Medical Oncologist/Hematologis t Hematology and Oncology 05/02/22
[2024-11-18 08:21] LABS: Alanine Aminotransferase 32 U/L (6-50); Aspartate Amino Transferase 53 U/L (17-59)
== END 2024-11-18 07:46 | disposition home or self-care (01) ==
PROVIDERS: PCP Nurse Practitioner; Visit Provider Podiatrist Foot & Ankle Surgery
DX: B35.1 Tinea unguium (principal)
CPT/HCPCS: 36415; 84450; 84460

== ENCOUNTER 2024-12-17 11:22 | Outpatient (CLI) | payer MEDICARE, SELFPAY ==
--- OUTSIDE RECORDS SUMMARY | 2024-12-17 11:26 | XMS_ITS | Clinical Summary ---
Author Organization [facility] Address [address] [place] [address] Care Team Providers Care Plate Molder Name Role Phone Arash Sullivan MD Primary Care Provider [phone] [facility],non-owned Affiliates and Associated Physician Practices is amultiple site organization consisting of ambulatory clinics and hospital sitesin [place], [place], [place] and [place]. This disclosure is being madepursuant to the Care Everywhere program and may not contain all information available regarding this patient. Last updated 18.[facility] Tizaro Allergies No known active allergies Medications * [...] season) 2024 10/24/2020, 09/23/2020 DEPRESSION SCREENING 07/29/2024 INFLUENZA VACCINE (Season Ended) 2025 07/18/2021, 05/10/2020, [...] patient's age to complete [place] [address] MEDICARE [employer] MANAGED MEDICARE ADV MEDICARE [employer] MANAGED MEDICARE ADV Care Teams Plate Molder Relationship Specialty Start Date End Date Arash Sullivan MD [address] [place] [address] PCP - General Internal Medicine 04/04/16
--- OUTSIDE RECORDS SUMMARY | 2024-12-17 11:26 | XMS_ITS | Clinical Summary ---
Author Organization [facility] Virtual Care Address [address] [place] [id number] Phone Care Team Providers Care Wall Washer Name Role Phone Perez Pittman MD Unavailable Steve Carrillo DO Unavailable [phone] Selena Agustin NP Primary Care Provider Allergies Active Allergy Reactions Criticality Noted Date Comments Cat Dander Wheezing High 06/30/2019 Pollen Extracts Cough,Sneezing Low 05/25/2020 Medications gabapentin (NEURONTIN) 300 mg capsuleIndicatio ns:Neuropathic Pain Take 300mg by mouth in morning and midday. Take 900mg by mouth at night. 180 capsule 10/14/19 21 Active albuterol HFA (PROVENTIL HFA,VENTOLIN HFA,PROAIR HFA) 90 mcg/actuation inhaler Inhale 2 puffs 2 (two) times a day Active fluticasone propionate (FLONASE) 50 mcg/actuation nasal spray Administer 2 sprays into each nostril daily 08/22/19 22 Active atorvastatin (LIPITOR) 10 mg tablet Take 1 tablet (10 mg total) by mouth daily Active aspirin 81 mg enteric coated tablet Take 1 tablet (81 mg total) by mouth daily 30 tablet 11 02/03/20 23 Active galantamine ER (RAZADYNE ER) 16 mg 24 hr capsule Take 1 capsule (16 mg total) by mouth daily with breakfast 90 capsule 3 03/13/20 24 Active Breo Ellipta 100-25 mcg/dose diskus inhaler 04/14/20 24 Active vit C,L-Dt-sqpjd-lut ein-zeaxan 250-90-40-1 mg capsule Take by mouth Active vitamin B54-hcuqy acid 0.5-1 mg tablet Take by mouth Patient taking OTC Active DILT-XR 120 mg 24 hr capsuleIndicatio ns:Chronic atrial fibrillation (HCC) TAKE 1 CAPSULE BY MOUTH DAILY 90 capsule 3 12/15/19 25 Active dilTIAZem CD/XR/XT (dilTIAZem CD) 120 mg 24 hr capsuleIndicatio ns:Chronic atrial fibrillation (HCC) Take 1 capsule (120 mg total) by mouth daily 90 capsule 10/13/19 25 025 Discontinued Active Problems Problem Noted Date Diagnosed Date [...] forward We are in agreement with driving mcc 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 Pt still appears clinically well however now with gram negative bacteremia, AlkP and LFTs increasing c/f true ascending cholangitis however normal bili. 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 Adenocarcinoma of esophagus 04/16/2016 Cancer Staging:Clinical stage from 03/29/2016:Stage IVB(pM1) - Signed by Kailyn Palafox NP on 06/28/2020 Assessment & Plan (08/03/2020 2:15 AM ENROLLMENT MANAGER): Metastatic esophageal adenocarcinoma dx 03/2016 after presenting [...] fibrillation) Assessment & Plan (08/03/2020 2:09 AM ENROLLMENT MANAGER): Cont dilt. Not on AC 2/2 GIB. S/p cardioversion. NSR at this time. Dysphagia Assessment & Plan (08/03/2020 2:10 AM ENROLLMENT MANAGER): 2/2 malignancy with improvement. Resolved Problems Problem Noted Date Diagnosed Date Resolved Date Overweight 08/25/2015 12/31/2023 Overview (11/08/2016): Overweight Encounters Date Type Department Care Team Description 12/15/2024 Telephone [place] [id number] [place] [address] Anat Phipps RN 11/19/2024 8:04 AM CDT - 11/19/2024 11:59 PM CDT Hospital Encounter [facility] [address] [place] [id number] 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, unspecified lymph node region (HCC); Adenocarcinoma of esophagus (HCC); Elevated CEA; Lung nodule Discharge Disposition: Discharge to home or self care 11/05/2024 10:45 AM CDT Office Visit [facility] [address] [facility] [address] [place] [phone] Steve Carrillo DO 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, unspecified lymph node region (HCC) (Primary Dx); Adenocarcinoma of esophagus (HCC); Skin lesion of left ear; Elevated CEA; Lung nodule 11/05/2024 9:45 AM CDT Lab [facility] at [address] [address] Adenocarcinoma of esophagus (HCC); 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, unspecified lymph node region (HCC) 10/29/2024 9:32 AM CDT - 10/29/2024 11:59 PM CDT Hospital Encounter [facility] [address] [place] [id number] Adenocarcinoma of esophagus (HCC); 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, unspecified lymph node region (HCC) Discharge Disposition: Discharge to home or self care 10/12/[address] [facility] [address] [place] [address] Antwan Fermin MD from Last [...] on file Legal Sex Male 8:40 AM ENROLLMENT MANAGER Gender Identity Not on file Sexual Orientation [...] 11/05/2024 9:58 AM CDT Plan of Treatment Health Maintenance [...] history exists Medical Devices Implanted Type Area Supervisor Display Fabrication Device Identifier Shelf Expiration Date Model / Serial / Lot [employer] Vascade Mvp 6-12fr Venous Closure [id number] - [id number] Implanted:Qty: 1 on 02/01/2023 by Moreno Craft MD at [facility] Collagen Right: Femoral Vein [employer] 09/24/2024 [id number] / / [id number] [employer] Percutaneous Transcatheter Amplatzer Amulet 22mm [id number] - [id number] Implanted:Qty: 1 on 02/01/2023 by Moreno Craft MD at [facility] Left Atrial Appendage Occluder Left: Atrial Appendage [employer] 03/28/2027 [id number] / / [id number] [employer] Device Clsr Perclose Prostyle Sut-Mediatd Closure-Repair Sys [id number] - [id number] Implanted:Qty: 1 on 02/01/2023 by Moreno Craft MD at [facility] Right: Femoral Vein [employer] 10/26/2024 [id number] / / [id number] [employer] Device Clsr Perclose Prostyle Sut-Mediatd Closure-Repair Sys [id number] - [id number] Implanted:Qty: 1 on 02/01/2023 by Moreno Craft MD at [facility] Right: Femoral Vein [employer] 10/26/2024 [id number] / / [id number] Procedures Procedure Name Priority Date/Time Associated Diagnosis Comments PET/CT FDG SKULL TO THIGH Schedule Routine, Read Routine (OP Routine) 11/19/2024 9:33 AM CDT 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, 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) Elevated CEA Lung nodule POCT GLUCOSE DEVICE Routine 11/19/2024 8 :19 AM CDT EGFR Routine 11/05/2024 9:45 AM CDT Adenocarcinoma [...] CDT from Last 3 Months Results * PET/CT FDG Skull to Thigh (11/19/2024 9:33 AM CDT) Anatomical Region Laterality Modality N/A Positron Emissio n Tomography (PET) 11/19/2024 10:2 0 AM CDT Narrative 11/19/2024 10:31 AM CDT EXAM DESCRIPTION: PET/CT FDG SKULL TO THIGH REASON FOR STUDY: Metastatic esophageal cancer with rising CEA level, status postradiation last received June 2020 with Keytruda last received 08/31/2020. RADIOPHARMACEUTICAL: 9.6 mCi F-18 Fluorodeoxyglucose (FDG) via a right antecubital IV site. TECHNIQUE: The patient's fasting blood glucose level, measured by glucometer before injection of FDG, was 103 mg/dL. After intravenous administration of FDG, noncontrast CT images were obtained for attenuation correction and for fusion with emission PET images to allow for anatomical localization of PET findings. Emission PET images were then obtained. The area imaged spanned the region from the skull base to the thighs. The uptake time was approximately 60 minutes. SUV max was normalized to body weight. COMPARISON: PET-CT 04/18/2016. CT chest abdomen pelvis 10/29/2024. FINDINGS: For reference, a region of interest of the ascending thoracic aorta has a maximal SUV of 2.5 . For reference, a region of interest of the right hepatic lobe of the liver has a maximal SUV of 2.8. Head: Normal FDG uptake is seen in the included portion of the brain. Neck: Physiologic uptake is present in the lymphoid structures and salivary glands. No hypermetabolic lymphadenopathy is identified. Chest: Emphysema is noted. Few patchy tree-in-bud opacities in the lateral segment right middle lobe and anterior right lower lobe may be infectious/inflammatory but follow-up will be needed. There is some activity in the right middle lobe maximal SUV 1.3. Small left pleural effusion with dependent atelectasis. There is a left atrial appendage occluded device. Vascular calcifications are noted along the subclavian arteries and associated with the great vessel artery origins. No hypermetabolic thoracic lymphadenopathy. Heart size is mildly enlarged. Coronary artery calcification is noted. Abdomen and Pelvis: Previous hypermetabolic distal esophageal mass shows resolution. There is a remaining small hiatal hernia. The previous hypermetabolic hepatic lesions show resolution. The previous hypermetabolic gastrohepatic ligament lymph node along the lesser curvature also shows resolution. Liver and spleen demonstrate normal activity without focal abnormal FDG uptake. Gallbladder is contracted with a gallstone. Pancreas and both adrenal glands demonstrate normal FDG activity. Normal excretion of FDG from the kidneys with expected accumulation of radiotracer in the urinary bladder. There is a hypermetabolic retrocaval and aortocaval lymph nodes, in axial plane these measure 2.8 x 1.3 cm with maximal SUV of 7.5 and a component extends inferiorly in the aortocaval station. In total lymph nodes are 4.7 cm craniocaudal. Physiologic bowel activity is present. Prostate is moderately enlarged. Bones: Bone windows demonstrate no hypermetabolic acute or aggressive osseous lesions. Mild S shaped curvature of the thoracolumbar spine. IMPRESSION: Hypermetabolic retrocaval and aortocaval lymph nodes characteristic of metastatic disease. Resolution of the previous hypermetabolic distal esophageal mass, hepatic metastasis and gastrohepatic francheska metastasis. Patchy tree-in-bud opacities in the right middle lobe and anterior right lower lobe may be infectious/inflammatory but follow-up will be needed, chest CT follow-up 3 months. THIS IS AN ELECTRONICALLY VERIFIED FINAL REPORT 11/19/2024 10:31 AM - Electronically signed by Portillo Davis M.D. CH: JENNIE Report ID: [id number] Reading Location: [place] [address] Procedure Note Portillo Davis Jr., MD - 11/19/2024 EXAM DESCRIPTION: PET/CT FDG SKULL TO THIGH REASON FOR STUDY: Metastatic esophageal cancer with rising CEA level,status postradiation last received June 2020 with Keytruda last received 08/31/2020. RADIOPHARMACEUTICAL: 9.6 mCi F-18 Fluorodeoxyglucose (FDG) via a right antecubital IV site. TECHNIQUE: The patient's fasting blood glucose level, measured byglucometer before injection of FDG, was 103 mg/dL. After intravenousadministration of FDG, noncontrast CT images were obtained for attenuation correction andfor fusion with emission PET images to allow for anatomical localization ofPET findings. Emission PET images were then obtained. The area imaged spannedthe region from the skull base to the thighs. The uptake time wasapproximately 60 minutes. SUV max was normalized to body weight. COMPARISON: PET-CT 04/18/2016. CT chest abdomen pelvis 10/29/2024. FINDINGS: For reference, a region of interest of the ascending thoracicaorta has a maximal SUV of 2.5 . For reference, a region of interest of theright hepatic lobe of the liver has a maximal SUV of 2.8. Head: Normal FDG uptake is seen in the included portion of the brain. Neck: Physiologic uptake is present in the lymphoid structures andsalivary glands. No hypermetabolic lymphadenopathy is identified. Chest: Emphysema is noted. Few patchy tree-in-bud opacities in thelateral segment right middle lobe and anterior right lower lobe may be infectious/inflammatory but follow-up will be needed. There is someactivity in the right middle lobe maximal SUV 1.3. Small left pleural effusionwith dependent atelectasis. There is a left atrial appendage occluded device. Vascular calcifications are noted along the subclavian arteries andassociated with the great vessel artery origins. No hypermetabolic thoracic lymphadenopathy. Heart size is mildly enlarged. Coronary arterycalcification is noted. Abdomen and Pelvis: Previous hypermetabolic distal esophageal mass shows resolution. There is a remaining small hiatal hernia. The previous hypermetabolic hepatic lesions show resolution. The previous hypermetabolic gastrohepatic ligament lymph node along the lessercurvature also shows resolution. Liver and spleen demonstrate normal activity without focal abnormal FDG uptake. Gallbladder is contracted with a gallstone. Pancreas and bothadrenal glands demonstrate normal FDG activity. Normal excretion of FDG from the kidneys with expected accumulation of radiotracer in the urinary bladder. There is a hypermetabolic retrocaval and aortocaval lymph nodes, in axial plane these measure 2.8 x 1.3 cm with maximal SUV of 7.5 and a component extends inferiorly in the aortocaval station. In total lymph nodes are4.7 cm craniocaudal. Physiologic bowel activity is present. Prostate ismoderately enlarged. Bones: Bone windows demonstrate no hypermetabolic acute or aggressiveosseous lesions. Mild S shaped curvature of the thoracolumbar spine. IMPRESSION: Hypermetabolic retrocaval and aortocaval lymph nodes characteristic of metastatic disease. Resolution of the previous hypermetabolic distal esophageal mass, hepatic metastasis and gastrohepatic francheska metastasis. Patchy tree-in-bud opacities in the right middle lobe and anterior right lower lobe may be infectious/inflammatory but follow-up will be needed,chest CT follow-up 3 months. THIS IS AN ELECTRONICALLY VERIFIED FINAL REPORT 11/19/2024 10:31 AM - Electronically signed by Portillo Davis M.D. CH: JENNIE Report ID: [id number] Reading Location: [id number] Steve Carrillo DO IMG PET PROCEDURES Final Res ult * POCT glucose (11/19/2024 8:19 AM CDT) Pathologist [facility] Glucose, POC 103 70 - 199 mg/dL Comment:Testing performed by : [facility], [address] [place] [address]., [address] Blood 11/19/2024 8:19 AM CDT 11/19/2024 8:19 AM CDT Steve Carrillo DO LAB POCT ORDERABLES - DEVICE Final Result [facility] [address] [facility] Department [place] [address] * eGFR (11/05/2024 9:45 AM CDT) eGFR [...] was last reviewed 2021. Testing performed by: [address] [address] Blood 11/05/2024 9:45 AM CDT 11/05/2024 9:47 AM CDT us Steve Carrillo DO LAB BLOOD ORDERABLES Final R esult [facility] [address] [facility] Department of Laboratories [place], [place] [id number] * Differential, auto (11/05/2024 9:45 AM CDT) Neutrophil abs 6.30 1.50 - 6.50 K/cumm Comment:Testing performed by : [address] [address] Imm gran abs 0.03 0.00 - 0.10 K/cumm LOLITA Comment:Testing performed by : [address] [address] Lymphocyte abs 0.96 0.80 - 3.30 K/cumm LOLITA Comment:Testing performed by : [address] [address] Monocyte abs 0.67 0.20 - 0.80 K/cumm LOL[facility] Comment:Testing performed by : [address] [address] Eosinophil abs 0.22 0.00 - 0.50 K/cumm LOLITA Comment:Testing performed by : [address] [address] Basophil abs 0.04 0.00 - 0.10 K/cumm LOL[facility] Comment:Testing performed by : [address] [address] Neutrophil pct 76.5 % [facility] Comment: Interpretive Data Percent cell count reference ranges are not reported, since discordance with absolute values may lead to misinterpretation of CBC data. Current Interpretive Data was last revised on 2017. Testing performed by: [address] [address] Imm gran pct 0.4 % [facility] Comment: Interpretive Data Percent cell count reference ranges are not reported, since discordance with absolute values may lead to misinterpretation of CBC data. Current Interpretive Data was last revised on 2017. Testing performed by: [address] [address] Lymphocyte pct 11.7 % [facility] Comment: Interpretive Data Percent cell count reference ranges are not reported, since discordance with absolute values may lead to misinterpretation of CBC data. Current Interpretive Data was last revised on 2017. Testing performed by: [address] [address] Monocyte pct 8.2 % [facility] Comment: Interpretive Data Percent cell count reference ranges are not reported, since discordance with absolute values may lead to misinterpretation of CBC data. Current Interpretive Data was last revised on 2017. Testing performed by: [address] [address] Eosinophil pct 2.7 % [facility] Comment: Interpretive Data Percent cell count reference ranges are not reported, since discordance with absolute values may lead to misinterpretation of CBC data. Current Interpretive Data was last revised on 2017. Testing performed by: [address] [address] Basophil pct 0.5 % [facility] Comment: Interpretive Data Percent cell count reference ranges are not reported, since discordance with absolute values may lead to misinterpretation of CBC data. Current Interpretive Data was last revised on 2017. Testing performed by: [address] [address] Blood 11/05/2024 9:45 AM CDT 11/05/2024 9:47 AM CDT us Steve Carrillo DO LAB BLOOD ORDERABLES Final R esult [facility] [address] [facility] Department [place] [address] * (ABNORMAL) CBC with auto differential (11/05/2024 9:45 AM CDT) WBC 8.22 3.80 - 9.90 K/cumm Comment:Testing performed by : [address] [address] Hgb 13.2 13.0 - 17.5 g/dL LOL[facility] Comment:Testing performed by : [address] [address] Hct 40.9 38.9 - 50.3 % [facility] Comment:Testing performed by : [address] [address] Plt 171 150 - 400 K/cumm [facility] Comment:Testing performed by : [address] [address] MPV 10.2 9.1 - 12.3 fL [facility] Comment:Testing performed by : [address], [address] RBC 4.67 4.30 - 5.80 M/cumm [facility] Comment:Testing performed by : [address] [address] MCV 87.6 81.3 - 96.4 fL [facility] Comment:Testing performed by : [address] [address] MCH 28.3 27.1 - 33.3 pg [facility] Comment:Testing performed by : [address] [address] MCHC 32.3 32.3 - 35.7 g/dL [facility] Comment:Testing performed by : [address] [address] RDW CV 15.2(H) 11.1 - 14.9 % [facility] Comment:Testing performed by : [address] [address] RDW SD 48.4(H) 35.7 - 48.1 fL [facility] Comment:Testing performed by : [address] [place]., [address] NRBC abs 0.00 0.00 - 0.01 K/cumm [facility] Comment:Testing performed by : [address] [address] ANC Prelim 6.30 1.50 - 6.50 K/cumm LOLTIA Comment: Interpretive Data The rapid ANC is a preliminary automated count and may vary from the final ANC (Neut Abs) reported in the WBC differential that follows. Current interpretive data was last revised 2024. Testing performed by: [address] [address] Blood 11/05/2024 9:45 AM CDT 11/05/2024 9:47 AM CDT Steve Mau Gerardo AorTx BLOOD ORDERABLES Final R Advizzerult Performing Organization Address [facility] de Phone Number [facility] [address] [facility] [place] [address] * (ABNORMAL) CEA (11/05/2024 9:45 AM CDT) [facility] CEA 45.3(H) <=5.0 ng/mL Comment: Interpretive Data: Reference Range: Non-Smokers: 0.0 5.0 ng/mL Smokers: 0.0 6.5 ng/mL The Mya CEA assay procedure was used. Results from different manufacturers or methods may not be comparable. Serial testing should be performed using the same method. Current interpretive data was last revised 2023. Testing performed by: [address] [address] Blood 11/05/2024 9:45 AM CDT 11/05/2024 11:46 AM CDT Steve Mau Gerardo LAB BLOOD ORDERABLES Final R esult Performing Organization Address [facility] Co de Phone Number [facility] [address] [facility] [place] [address] * (ABNORMAL) Comprehensive metabolic panel (11/05/2024 9:45 AM CDT) Sodium 142 135 - 145 mmol/L Comment:Testing performed by : [address] [address] Potassium, pl 4.2 3.3 - 4.9 mmol/L LOL[facility] Comment:Testing performed by : [address] [address] Chloride 105 97 - 110 mmol/L [facility] Comment:Testing performed by : [address], [place]., [address] CO2 28 22 - 32 mmol/L [facility] Comment:Testing performed by : [address] [address] Anion gap 9 2 - 15 mmol/L [facility] Comment:Testing performed by : [address], [place]., [address] BUN 14 6 - 25 mg/dL [facility] Comment:Testing performed by : [address], [place]., [address] Creatinine 0.80 0.80 - 1.30 mg/dL [facility] Comment:Testing performed by : [address] [address] Glucose 116 70 - 199 mg/dL [facility] Comment: Interpretive Data Fasting glucose >/= 126 [...] was last revised 2022. Testing performed by: [address] [address] Calcium 9.6 8.5 - 10.3 mg/dL [facility] Comment:Testing performed by : [address], [place]., [address] Bilirubin, total 0.4 0.1 - 1.2 mg/dL [facility] Comment:Testing performed by : [address] [address] Protein, pl 7.1 6.5 - 8.5 g/dL [facility] Comment:Testing performed by : [address] [address] Albumin 4.1 3.5 - 5.0 g/dL [facility] Comment:Testing performed by : [address] [address] Alk phos 131(H) 40 - 130 Units/L [facility] Comment:Testing performed by : [address] [address] ALT 31 7 - 55 Units/L [facility] Comment:Testing performed by : [address] [address] AST 32 10 - 50 Units/L [facility] Comment:Testing performed by : [address] [address] Blood 11/05/2024 9:45 AM CDT 11/05/2024 9:47 AM CDT Steve Carrillo DO LAB BLOOD ORDERABLES Final R esult Performing Organization Address City/State/[facility] Co de Phone Number [facility] [address] [facility] Department [place] [address] * CT Chest Abdomen Pelvis W Contrast [...] Aydee Lopez M.D. FT: FT Report ID: [id number] Reading Location: [place] [address] Procedure Note Aydee Corona MD - 11/03/2024 [...] Aydee Lopez M.D. FT: FT Report ID: [id number] Reading Location: [place] [address] Steve Carrillo DO IMG CT PROCEDURES Final Resu lt * POCT creatinine for contrast evaluation (10/29/2024 9:53 AM CDT) Creatinine POC 0.90 0.80 - 1.30 mg/dL Comment:Testing performed by : [facility], [address] [place] [address]., [address] Blood 10/29/2024 9:53 AM CDT 10/29/2024 9:53 AM CDT us Steve Carrillo DO POINT OF CARE TEST ORDERABLE S Final Result [facility] [address] [place] [address] from Last 3 Months Insurance MEDICARE [facility] MEDICARE MEDICARE [facility] MEDICARE Advance Directives For more information, please contact: [phone] * Full Code (Latest Code Status on File) Date Activated Date Inactivated Comments 02/01/2023 4:41 PM 02/02/2023 5:28 PM * Full Code Date Activated Date Inactivated Comments 08/03/2020 2:06 AM 08/06/2020 7:35 PM * Full Code Date Activated Date Inactivated Comments 05/25/2020 10:47 AM 05/25/2020 7:22 PM * Full Code Date Activated Date Inactivated Comments 09/09/2019 3:20 PM 09/09/2019 9:54 PM Care Teams Wall Washer Relationship Specialty Start Date End Date Selena Agustin NP [address] [place] [address] [address] [place] [address] PCP - General Nurse Practitioner 11/06/24 Perez Pittman MD [address] [facility] # LL LL [address] [place] [address] Radiation Oncologist Radiation Oncology 06/07/20 Steve Carrillo DO [address] [place] [address] MEDICAL ONCOLOGY, [address] [place] [address] Medical Oncologist/Hematologis t Hematology and Oncology 05/02/22
--- OUTSIDE RECORDS SUMMARY | 2024-12-17 11:26 | XMS_ITS | Encounter Summary ---
Author Organization [facility] Address [address] [place] [address] Phone Care Team Providers Care Car Driver Name Role Phone Arash Sullivan MD Primary Care Provider [phone] Arash Sullivan MD Unavailable [phone] Mindy Falk Unavailable [phone] Dimas Weller DO Primary Care Provider [phone] Dimas Weller DO Primary Care Provider [phone] Arash Sullivan MD Unavailable [phone] Perez Pittman MD Unavailable [place] Aranda MD Unavailable [phone] Janet Floyd BUDDER Unavailable [phone] Steve Carrillo DO Unavailable [phone] No, Physician Primary Care Provider [phone] Alfonzo Nails DO Primary Care Provider + [phone] Selena Agustin NP Primary Care Provider + [phone] Alfonzo Nails DO Primary Care Provider + [phone] Selena Agustin NP Primary Care Provider + [phone] Encounter Details Date Type Department Care Team [...] on file 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 Patient classified as Low Risk for COVID-19 and has one negative COVID-19 test. Patient meets criteria for COVID-19 isolation discontinuation Candido Stearns RN 08/05/2020 08/02/2020 08/02/2020 08/05/2020 9:[address] documented as of this encounter Care Teams Car Driver Relationship Specialty Start Date End Date Arash Sullivan MD PCP - General 10/26/16 01/15/18 Dimas Weller DO [address] [address] PCP - General Internal Medicine 03/19/18 08/05/22 Dimas Weller DO [address] [address] PCP - General 01/16/18 03/18/18 No, Physician PCP - General 08/06/22 08/14/22 Alfonzo Nails DO PCP - General Internal Medicine 08/15/22 12/03/22 Selena Agustin NP PCP - General Nurse Practitioner 12/04/22 08/21/23 Alfonzo Nails DO PCP - General Internal Medicine 08/22/23 11/05/24 Selena Agustin NP [address] [place] [address] [address] LEON [address] [place] [address] PCP - General Nurse Practitioner 11/06/24 Arash Sullivan MD 10/26/16 09/22/19 Mindy Falk SLP [address] [address] Speech Language Pathologist Speech Therapy 02/17/18 11/04/24 Arash Sullivan MD Referring Physician Internal Medicine 09/23/19 09/23/19 Perez Pittman MD [address] [facility] [address] [place] [address] Radiation Oncologist Radiation Oncology 06/07/20 [place] Aranda MD [address] [facility] [address] [place] [address] Medical Oncologist/Hematologis t Medical Oncology 06/28/20 02/13/22 Janet Floyd NP [address] [facility] [address] [place] [place], [place] [id number] Nurse Practitioner Medical Oncology 09/20/20 05/01/22 Steve Carrillo DO [address] [facility] MEDICAL ONCOLOGY, [facility] [address] [place] [address] Medical Oncologist/Hematologis t Hematology and Oncology 05/02/22 documented as of this encounter
--- OUTSIDE RECORDS SUMMARY | 2024-12-17 11:26 | XMS_ITS ---
Author Organization [facility] Virtual Care Address [address] [place] [address] Phone Care Team Providers Care Design Engineer Name Role Phone Perez Pittman MD Unavailable Steve Carrillo DO Unavailable [phone] Selena Agustin NP Primary Care Provider + [phone] Active Problems Problem Noted Date Diagnosed Date [...] We are in agreement with driving senior living Cerebral amyloid angiopathy 09/26/2022 Chronic ischemic right OVERHAULER stroke 09/26/2022 Personal history of radiation therapy 08/23/2020 Cholangitis 08/03/2020 Assessment & Plan (08/03/2020 2:26 AM COUNTERINTELLIGENCE AGENT): As seen on imaging 07/30 however given clinical picture at the time attributed to immunotherapy related. Pt still appears clinically well however now with gram negative bacteremia, AlkP and LFTs increasing c/f true ascending cholangitis however normal bili. 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 Adenocarcinoma of esophagus 04/16/2016 Cancer Staging:Clinical stage from 03/29/2016:Stage IVB(pM1) - Signed by Kailyn Palafox NP on 06/28/2020 Assessment & Plan (08/03/2020 2:15 AM COUNTERINTELLIGENCE AGENT): Metastatic esophageal adenocarcinoma dx 03/2016 after presenting [...] fibrillation) Assessment & Plan (08/03/2020 2:09 AM COUNTERINTELLIGENCE AGENT): Cont dilt. Not on AC 2/2 GIB. S/p cardioversion. NSR at this time. Dysphagia Assessment & Plan (08/03/2020 2:10 AM COUNTERINTELLIGENCE AGENT): 2/2 malignancy with improvement. Current Treatment and [...] of 40 cycles started Oncology Supportive Care Therapy Plan Plan Name Start Date Discontinue Date Treatment [...]
--- OUTSIDE RECORDS SUMMARY | 2024-12-17 11:26 | XMS_ITS | Referral Summary ---
Author Organization [facility] Virtual Care Address [facility] [place] [address] Phone Care Team Providers Care Binding Cutter Synthetic Cloth Name Role Phone Perez Pittman MD Unavailable Steve Carrillo DO Unavailable [phone] Selena Agustin NP Primary Care Provider Encounters Date Type Department Care Team Description 12/15/2024 Telephone [id number] [place] [address] Anat Phipps RN 11/19/2024 8:04 AM CDT - 11/19/2024 11:59 PM CDT Hospital Encounter [facility] [address] [place] [address] 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, unspecified lymph node region (HCC); Adenocarcinoma of esophagus (HCC); Elevated CEA; Lung nodule Discharge Disposition: Discharge to home or self care 11/05/2024 9:45 AM CDT Lab [facility] at [address] [address] Adenocarcinoma of esophagus (HCC); 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, unspecified lymph node region (HCC) 11/05/2024 10:45 AM CDT Office Visit [facility] [address] [place] [phone] Steve Carrillo DO 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, unspecified lymph node region (HCC) (Primary Dx); Adenocarcinoma of esophagus (HCC); Skin lesion of left ear; Elevated CEA; Lung nodule 10/29/2024 9:32 AM CDT - 10/29/2024 11:59 PM CDT Hospital Encounter [facility] [address] [place] [address] Adenocarcinoma of esophagus (HCC); 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, unspecified lymph node region (HCC) Discharge Disposition: Discharge to home or self care 10/12/2024 Telephone [facility] [address] [place] [address] Antwan Fermin MD from Last [...] mcg/dose diskus inhaler 04/14/20 24 Active vit C,O-Mr-hhyaz-lut ein-zeaxan 250-90-40-1 mg capsule Take by mouth Active vitamin P02-lmjkt acid 0.5-1 mg tablet Take by mouth [...] Cerebral amyloid angiopathy 09/26/2022 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 Pt still appears clinically well however now with gram negative bacteremia, AlkP and LFTs increasing c/f true ascending cholangitis however normal bili. 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 Adenocarcinoma of esophagus 04/16/2016 Cancer Staging:Clinical stage from 03/29/2016:Stage IVB(pM1) - Signed by Kailyn Palafox NP on 06/28/2020 Assessment & Plan (08/03/2020 2:15 AM URBAN RENEWAL MANAGER): Metastatic esophageal adenocarcinoma dx 03/2016 after [...] fibrillation) Assessment & Plan (08/03/2020 2:09 AM URBAN RENEWAL MANAGER): Cont dilt. Not on AC 2/2 GIB. S/p cardioversion. NSR at this time. Dysphagia Assessment & Plan (08/03/2020 2:10 AM URBAN RENEWAL MANAGER): 2/2 malignancy with improvement. Resolved Problems [...] on file Legal Sex Male 8:40 AM URBAN RENEWAL MANAGER Gender Identity Not on file Sexual [...] 11/05/2024 9:58 AM CDT Plan of Treatment Not on file Medical Devices Implanted Type Area Cna Caregiver Device Identifier Shelf Expiration Date Model / Serial / Lot [employer] Vascade Mvp 6-12fr Venous Closure [id number] - [id number] Implanted:Qty: 1 on 02/01/2023 by Moreno Craft MD at [facility] Right: Femoral Vein [employer] 09/24/2024 [id number] / / [id number] [employer] Percutaneous Transcatheter Amplatzer Amulet 22mm [id number] - [id number] Implanted:Qty: 1 on 02/01/2023 by Moreno Craft MD at [facility] Left Atrial Appendage Occluder Left: Atrial Appendage [employer] 03/28/2027 [id number] / / [id number] [employer] Device Clsr Perclose Prostyle Sut-Mediatd Closure-Repair Sys [id number] - [id number] Implanted:Qty: 1 on 02/01/2023 by Moreno Craft MD at [facility] Right: Femoral Vein [employer] 10/26/2024 [id number] / / [id number] [employer] Device Clsr Perclose Prostyle Sut-Mediatd Closure-Repair Sys 42852-03 - [id number] Implanted:Qty: 1 on 02/01/2023 by Moreno Craft MD at [facility] Right: Femoral Vein [employer] 10/26/2024 33842-02 / / [id number] Procedures Procedure Name Priority Date/Time Associated Diagnosis [...] Portillo Davis M.D. CH: JENNIE Report ID: [id number] [place] Location: [id number] Procedure Note Portillo Davis Jr., MD - [...] Portillo Davis M.D. CH: JENNIE Report ID: [id number] [place] Location: [id number] Steve Carrillo DO IMG PET PROCEDURES Final Res ult * POCT glucose (11/19/2024 8:19 AM CDT) [facility] Signature Glucose, POC 103 70 - 199 mg/dL Comment:Testing performed by : [facility], [address] [place] [address]., [address] Blood 11/19/2024 8:19 AM CDT 11/19/2024 8:19 AM CDT Steve Carrillo DO LAB POCT ORDERABLES - DEVICE Final Result [facility] [address] [facility] [place] [address] * eGFR (11/05/2024 9:45 AM [...] was last reviewed 2021. Testing performed by: [address] [address] Blood 11/05/2024 9:45 AM CDT 11/05/2024 9:47 AM CDT Steve Carrillo DO LAB BLOOD ORDERABLES Final R esult [facility] [address] [facility] Department [place] [address] * Differential, auto (11/05/2024 9:45 AM CDT) Neutrophil abs 6.30 1.50 - 6.50 K/cumm Comment:Testing performed by : [address] [address] Imm gran abs 0.03 0.00 - 0.10 K/cumm LOL[facility] Comment:Testing performed by : [address] [address] Lymphocyte abs 0.96 0.80 - 3.30 K/cumm [facility] Comment:Testing performed by : [address] [address] Monocyte abs 0.67 0.20 - 0.80 K/cumm [facility] Comment:Testing performed by : [address] [address] Eosinophil abs 0.22 0.00 - 0.50 K/cumm [facility] Comment:Testing performed by : [address] [address] Basophil abs 0.04 0.00 - 0.10 K/cumm [facility] Comment:Testing performed by : [address] [address] Neutrophil pct 76.5 % [facility] Comment: Interpretive Data Percent cell count reference ranges are not reported, since discordance with absolute values may lead to misinterpretation of CBC data. Current Interpretive Data was last revised on 2017. Testing performed by: [address] [address] Imm gran pct 0.4 % [facility] Comment: Interpretive Data Percent cell count reference ranges are not reported, since discordance with absolute values may lead to misinterpretation of CBC data. Current Interpretive Data was last revised on 2017. Testing performed by: [address] [address] Lymphocyte pct 11.7 % [facility] Comment: Interpretive Data Percent cell count reference ranges are not reported, since discordance with absolute values may lead to misinterpretation of CBC data. Current Interpretive Data was last revised on 2017. Testing performed by: [address] [address] Monocyte pct 8.2 % [facility] Comment: Interpretive Data Percent cell count reference ranges are not reported, since discordance with absolute values may lead to misinterpretation of CBC data. Current Interpretive Data was last revised on 2017. Testing performed by: [address] [address] Eosinophil pct 2.7 % [facility] Comment: Interpretive Data Percent cell count reference ranges are not reported, since discordance with absolute values may lead to misinterpretation of CBC data. Current Interpretive Data was last revised on 2017. Testing performed by: [address] [address] Basophil pct 0.5 % [facility] Comment: Interpretive Data Percent cell count reference ranges are not reported, since discordance with absolute values may lead to misinterpretation of CBC data. Current Interpretive Data was last revised on 2017. Testing performed by: [address] [address] Blood 11/05/2024 9:45 AM CDT 11/05/2024 9:47 AM CDT us Steve Carrillo DO LAB BLOOD ORDERABLES Final R esult [facility] Department [place] [address] * (ABNORMAL) CBC with auto differential (11/05/2024 9:45 AM CDT) WBC 8.22 3.80 - 9.90 K/cumm Comment:Testing performed by : [address] [address] Hgb 13.2 13.0 - 17.5 g/dL [facility] Comment:Testing performed by : [address] [address] Hct 40.9 38.9 - 50.3 % [facility] Comment:Testing performed by : [address] [address] Plt 171 150 - 400 K/cumm [facility] Comment:Testing performed by : [address] [address] MPV 10.2 9.1 - 12.3 fL [facility] Comment:Testing performed by : [address] [address] RBC 4.67 4.30 - 5.80 M/cumm [facility] Comment:Testing performed by : [address] [address] MCV 87.6 81.3 - 96.4 fL [facility] Comment:Testing performed by : [address] [address] MCH 28.3 27.1 - 33.3 pg [facility] Comment:Testing performed by : [address] [address] MCHC 32.3 32.3 - 35.7 g/dL [facility] Comment:Testing performed by : [address] [address] RDW CV 15.2(H) 11.1 - 14.9 % [facility] Comment:Testing performed by : [address] [address] RDW SD 48.4(H) 35.7 - 48.1 fL [facility] Comment:Testing performed by : [address] [address] NRBC abs 0.00 0.00 - 0.01 K/cumm [facility] Comment:Testing performed by : [address] [address] ANC Prelim 6.30 1.50 - 6.50 K/cumm [facility] Comment: Interpretive Data The rapid ANC is a preliminary automated count and may vary from the final ANC (Neut Abs) reported in the WBC differential that follows. Current interpretive data was last revised 2024. Testing performed by: [address] [address] Blood 11/05/2024 9:45 AM CDT 11/05/2024 9:47 AM CDT us Steve Carrillo DO LAB BLOOD ORDERABLES Final R esult [facility] [address] [facility] Department [place] [address] * (ABNORMAL) CEA (11/05/2024 9:45 AM CDT) [facility] CEA 45.3(H) <=5.0 ng/mL Comment: Interpretive Data: Reference Range: Non-Smokers: 0.0 5.0 ng/mL Smokers: 0.0 6.5 ng/mL The Mya CEA assay procedure was used. Results from different manufacturers or methods may not be comparable. Serial testing should be performed using the same method. Current interpretive data was last revised 2023. Testing performed by: [address] [address] Blood 11/05/2024 9:45 AM CDT 11/05/2024 11:46 AM CDT Steve Carrillo DO LAB BLOOD ORDERABLES Final R esult [facility] [address] [facility] Department [place] [address] * (ABNORMAL) Comprehensive metabolic panel (11/05/2024 9:45 AM CDT) Sodium 142 135 - 145 mmol/L Comment:Testing performed by : [address] [address] Potassium, pl 4.2 3.3 - 4.9 mmol/L [facility] Comment:Testing performed by : [address] [address] Chloride 105 97 - 110 mmol/L [facility] Comment:Testing performed by : [address] [address] CO2 28 22 - 32 mmol/L [facility] Comment:Testing performed by : [address] [address] Anion gap 9 2 - 15 mmol/L [facility] Comment:Testing performed by : [address] [address] BUN 14 6 - 25 mg/dL [facility] Comment:Testing performed by : [address] [address] Creatinine 0.80 0.80 - 1.30 mg/dL [facility] Comment:Testing performed by : [address] [address] Glucose 116 70 - 199 mg/dL LOLITA [...] was last revised 2022. Testing performed by: [address] [address] Calcium 9.6 8.5 - 10.3 mg/dL [facility] Comment:Testing performed by : [address] [address] Bilirubin, total 0.4 0.1 - 1.2 mg/dL [facility] Comment:Testing performed by : [address] [address] Protein, pl 7.1 6.5 - 8.5 g/dL [facility] Comment:Testing performed by : [address] [address] Albumin 4.1 3.5 - 5.0 g/dL [facility] Comment:Testing performed by : [address] [address] Alk phos 131(H) 40 - 130 Units/L [facility] Comment:Testing performed by : [address] [address] ALT 31 7 - 55 Units/L [facility] Comment:Testing performed by : [address] [address] AST 32 10 - 50 Units/L [facility] Comment:Testing performed by : [address] [address] Blood 11/05/2024 9:45 AM CDT 11/05/2024 9:47 AM CDT Steve Carrillo DO LAB BLOOD ORDERABLES Final R esult [facility] [address] [facility] Department [place] [address] * CT Chest Abdomen Pelvis W Contrast [...] Aydee Lopez M.D. FT: FT Report ID: [id number] [place] Location: [id number] Procedure Note Aydee Corona MD - 11/03/2024 [...] Aydee Lopez M.D. FT: FT Report ID: [id number] Reading Location: [id number] Steve Carrillo DO IMG CT PROCEDURES Final Resu lt * POCT creatinine for contrast evaluation (10/29/2024 9:53 AM CDT) Creatinine POC 0.90 0.80 - 1.30 mg/dL Comment:Testing performed by : [facility], [address] [place] [address]., [address] Blood 10/29/2024 9:53 AM CDT 10/29/2024 9:53 AM CDT Steve Carrillo DO POINT OF CARE TEST ORDERABLE S Final Result Performing Organization Address City/State/[facility] Co de Phone Number TAVONER [address] [facility] Department [place] [address] from Last 3 Months Insurance MEDICARE [facility] MEDICARE [facility] MEDICARE Advance Directives For more information, please contact: [phone] * Full Code (Latest Code Status on File) Date Activated Date Inactivated Comments 02/01/2023 4:41 PM 02/02/2023 5:28 PM * Full Code Date Activated Date Inactivated Comments 08/03/2020 2:06 AM 08/06/2020 7:35 PM * Full Code Date Activated Date Inactivated Comments 05/25/2020 10:47 AM 05/25/2020 7:22 PM * Full Code Date Activated Date Inactivated Comments 09/09/2019 3:20 PM 09/09/2019 9:54 PM Care Teams Binding Cutter Synthetic Cloth Relationship Specialty Start Date End Date Selena Agustin NP [facility] [address] [place] [address] PCP - General Nurse Practitioner 11/06/24 Perez Pittman MD [address] [facility] # [address] [place] [address] Radiation Oncologist Radiation Oncology 06/07/20 Steve Carrillo DO [address] [place] [address] MEDICAL ONCOLOGY, [facility] [address] [place] [address] Medical Oncologist/Hematologis t Hematology and Oncology 05/02/22
[2024-12-17 18:46] LABS: Basophils Percent Auto 0.4 % (0.2-1.2); Eosinophils Percent Auto 0.2 % (0-4.4); Hematocrit 40.3 % (42.0-52.0); Hemoglobin 12.7 g/dL (14.0-18.0); Immature Granulocyte Absolute 0.05 K/mm3 (0.00-0.031); Immature Granulocyte Percent A 0.6 % (0-0.5); Immature Platelet Fraction Pct 5.3 % (0.9-11.2); Lymphocytes Absolute Auto 0.79 K/mm3 (0.9-3.2); Lymphocytes Percent Auto 9.6 % (18.3-44.2); Mean Corpuscular HGB Conc 31.5 g/dl (32-36); Mean Platelet Volume 11.1 fl (7.4-10.4); Monocytes Absolute Auto 0.7 K/mm3 (0.1-0.6); Neutrophils Absolute Auto 6.7 K/mm3 (1.3-6.7); Neutrophils Percent Auto 81.2 % (45.5-73.1); Platelet Count Result 178 k/mm3 (150-375); Red Blood Count 4.38 M/mm3 (4.6-6.20); Red Cell Distribution Width 14.4 % (11.5-14.5); White Blood Count 8.2 K/mm3 (4.5-10.0)
[2024-12-17 19:02] LABS: Platelet Estimate Adequate (Adequate)
[2024-12-17 19:03] LABS: Schistocytes None Seen
[2024-12-17 19:35] LABS: Alanine Aminotransferase 112 U/L (6-50); Albumin Level 3.9 g/dL (3.5-5.1); Alkaline Phosphatase 175 U/L (38-126); Anion Gap 8 mmol/L (4-12); Aspartate Amino Transferase 189 U/L (17-59); Bilirubin,Total 0.9 mg/dL (0.2-1.3); Blood Urea Nitrogen 18 mg/dL (9-20); Calcium 8.7 mg/dL (8.4-10.2); Carbon Dioxide 27 mmol/L (22-30); Chloride 102 mmol/L (98-107); Estimated Glomerular Filt Rate > 60; Glucose 123 mg/dL (65-110); Potassium 4.1 mmol/L (3.4-5.0); Sodium 137 mmol/L (137-145)
== END 2024-12-17 11:23 | disposition home or self-care (01) ==
LOC: ANHGOSHLAB 11:24
PROVIDERS: PCP Nurse Practitioner; Visit Provider Clinical Nurse Specialist
DX: D72.829 Elevated white blood cell count, unspecified (principal); R06.02 Shortness of breath; R20.0 Anesthesia of skin; R20.2 Paresthesia of skin
CPT/HCPCS: 36415; 80053; 82607; 85025; 85055

== ENCOUNTER 2024-12-17 11:36 | Outpatient (CLI) | payer MEDICARE, SELFPAY ==
--- NOTE | ~2024-12-17 | XR_ITS ---
XR chest 2V Ordering provider: DALLAS Bobo History: 88 years Male with . R06.02 - Shortness of breath . Comparison: October 17, 2024 FINDINGS: MEDIASTINUM: The cardiac silhouette is slightly enlarged. LUNGS: No pneumothorax. Opacification in the left lower lobe suggestive of atelectasis versus pneumon ia with possible minimal effusion. OTHER: No free air under the diaphragm. Degenerative changes of the spine. IMPRESSION: Left basilar atelectasis versus pneumonia with possible minimal effusion. Reviewed, dictated and finalized at location A.
== END 2024-12-17 11:37 | disposition home or self-care (01) ==
PROVIDERS: PCP Clinical Nurse Specialist; Visit Provider Clinical Nurse Specialist
DX: R06.02 Shortness of breath (principal)
CPT/HCPCS: 71046

== ENCOUNTER 2024-12-20 19:30 | Emergency (ER) | payer MEDICARE, SELFPAY ==
--- NOTE | ~2024-12-20 | CT_ITS ---
EXAMINATION: CTA chest PE abdomen pel DATE: 12/21/2024 12:14 CDT INDICATION: Shortness of breath with weakness and diarrhea TECHNIQUE: Computed tomographic angiography (CTA) of the chest was performed, along with multiple con tiguous axial images of the abdomen and pelvis with 100 mL Omnipaque-350 intravenous contrast. The do se-length product was 756.74 mGy-cm. Maximum intensity projection 3D-reconstructions of the aorta and other arteries were constructed by the technologist on a separate workstation. FINDINGS/OBSERVATIONS: PULMONARY ARTERIES: No filling defect is identified within the main or proximal pulmonary artery. The main pulmonary artery is not enlarged. THORACIC AORTA: No aneurysmal dilatation or dissection is present. The great vessels are intact LUNGS: Bibasilar and lingular consolidation with a left-sided pleural effusion. MEDIASTINUM: No morphologically suspicious or pathologically enlarged lymph nodes are identified with in the mediastinum or bilateral axilla. BONES OF THE CHEST: No acute fracture. No significant degenerative disease. No lytic or blastic lesions. HEART: The heart is of normal size, without pericardial effusion. Occlusion device within the left at rial appendage. Reflux of intravenous contrast into the hepatic veins suggesting a component of right heart failure. LIVER: The liver enhances homogeneously and is not enlarged. GALLBLADDER AND BILIARY SYSTEM: The gallbladder is only minimally distended, with a single small calcified stone. No surrounding infl ammatory change is identified. PANCREAS: The pancreas enhances homogeneously without ductal dilatation. SPLEEN: The spleen enhances homogeneously and is not enlarged. KIDNEYS: The bilateral kidneys enhance symmetrically without hydronephrosis or renal calculi. ADRENAL GLANDS: Unremarkable. GASTROINTESTINAL TRACT: Colonic diverticulosis without surrounding inflammatory change. Trace fecal stasis within the colon. APPENDIX: The appendix is not definitively visualized. However, no pericecal inflammatory change is identified suggest the presence of acute appendicitis. VASCULATURE: Densely calcified atherosclerotic disease. LYMPH NODES: No pathologically enlarged or morphologically suspicious lymph nodes within the retroperitoneum or at the root of the mesentery. PELVIC STRUCTURES: The bladder is only minimally distended, and otherwise unremarkable. The prostate gland is not enlarged. Free fluid within the pelvis, in the rectal vesicular pouch, never a normal finding in a male patient . BODY WALL AND MUSCULOSKELETAL: Age-appropriate degenerative disease within the lumbosacral spine. IMPRESSION: Bibasilar infiltrates with a left-sided pleural effusion. Free fluid within the rectovesicular pouch, never a normal finding in a male patient. Cholelithiasis without CT evidence of cholecystitis. Reviewed, dictated and finalized at location A. IMPRESSION: Bibasilar infiltrates with a left-sided pleural effusion. Free fluid within the rectovesicular pouch, never a normal finding in a male pa tient. Cholelithiasis without CT evidence of cholecystitis.
--- NOTE | ~2024-12-20 | XR_ITS ---
XR chest 2V Ordering provider: Janine Dowell MD History: 88 years Male with . weakness . Comparison: December 17, 2024 FINDINGS: MEDIASTINUM: The cardiac silhouette is slightly enlarged. LUNGS: No pneumothorax. Opacification in the left lower lobe suggestive of atelectasis versus pneumon ia. Underlying emphysematous changes. Calcified granuloma in the right midzone. OTHER: No free air under the diaphragm. Degenerative changes of the spine. IMPRESSION: Left lower lobe pneumonia versus atelectasis. Reviewed, dictated and finalized at location A.
--- OUTSIDE RECORDS SUMMARY | 2024-12-20 19:33 | XMS_ITS | Clinical Summary ---
Author Organization [facility] Address [address] [facility] [place] [address] Care Team Providers Care Psychology Technician Name Role Phone Arash Sullivan MD Primary Care Provider [phone] Source Comments [facility],non-owned Affiliates and Associated Physician Practices is amultiple site organization consisting of ambulatory clinics and hospital sitesin [place], [place] and [place]. This disclosure is being madepursuant to the Care Everywhere program and may not contain all information available regarding this patient. Last updated 18.[facility] [place] Allergies No known active allergies Medications * [...] patient's age to complete [place] [address] MEDICARE [employer] MANAGED MEDICARE ADV MEDICARE [employer] MANAGED MEDICARE ADV Care Teams Psychology Technician Relationship Specialty Start Date End Date Arash Sullivan MD [address] [place] [address] PCP - General Internal Medicine 04/04/16
--- OUTSIDE RECORDS SUMMARY | 2024-12-20 19:33 | XMS_ITS | Clinical Summary ---
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 Pt still appears clinically well however now with gram negative bacteremia, AlkP and LFTs increasing c/f true ascending cholangitis however normal bili. 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 Adenocarcinoma of esophagus 04/16/2016 Cancer Staging:Clinical stage from 03/29/2016:Stage IVB(pM1) - Signed by Kailyn Palafox NP on 06/28/2020 Assessment & Plan (08/03/2020 2:15 AM RIG SITE ENGINEER): Metastatic esophageal adenocarcinoma dx 03/2016 after presenting [...] fibrillation) Assessment & Plan (08/03/2020 2:09 AM RIG SITE ENGINEER): Cont dilt. Not on AC 2/2 GIB. S/p cardioversion. NSR at this time. Dysphagia Assessment & Plan (08/03/2020 2:10 AM RIG SITE ENGINEER): 2/2 malignancy with improvement. Resolved Problems Problem Noted Date Diagnosed Date Resolved Date Overweight 08/25/2015 12/31/2023 Overview (11/08/2016): Overweight Encounters Date Type Department Care Team Description 12/15/2024 Telephone [place] [address] [place] [address] Anat Phipps RN 11/19/2024 8:04 AM CDT - 11/19/2024 11:59 PM CDT Hospital Encounter [facility] Medical Office Building [address] [place] [id number] 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, unspecified lymph node region (HCC); Adenocarcinoma of esophagus (HCC); Elevated CEA; Lung nodule Discharge Disposition: Discharge to home or self care 11/05/2024 10:45 AM CDT Office Visit [facility] [address] [place] [phone] Steve Carrillo DO 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, unspecified lymph node region (HCC) (Primary Dx); Adenocarcinoma of esophagus (HCC); Skin lesion of left ear; Elevated CEA; Lung nodule 11/05/2024 9:45 AM CDT Lab [facility] at [address] [address] Adenocarcinoma of esophagus (HCC); 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, unspecified lymph node region (HCC) 10/29/2024 9:32 AM CDT - 10/29/2024 11:59 PM CDT Hospital Encounter [facility] Medical Office Building [address] [place] [address] Adenocarcinoma of esophagus (HCC); 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, unspecified lymph node region (HCC) Discharge Disposition: Discharge to home or self care 10/12/2024 Telephone [facility] [address] [place] [address] Antwan Fermin MD from Last [...] on file Legal Sex Male 8:40 AM RIG SITE ENGINEER Gender Identity Not on file Sexual Orientation [...] history exists Medical Devices Implanted Type Area Cardiac/Vascular Sonographer Device Identifier Shelf Expiration Date Model / Serial / Lot [employer] Vascade Mvp 6-12fr Venous Closure [id number] - [id number] Implanted:Qty: 1 on 02/01/2023 by Moreno Craft MD at [facility] Collagen Right: Femoral Vein [employer] 09/24/2024 [id number] / / [id number] [employer] Percutaneous Transcatheter Amplatzer Amulet 22mm [id number] - [id number] Implanted:Qty: 1 on 02/01/2023 by Moreno Craft MD at [facility] Left Atrial Appendage Occluder Left: Atrial Appendage [employer] 03/28/2027 9-[id number] / / [id number] [employer] Device Clsr Perclose Prostyle Sut-Mediatd Closure-Repair Sys 12526-44 - [id number] Implanted:Qty: 1 on 02/01/2023 by Moreno Craft MD at [facility] Right: Femoral Vein [employer] 10/26/2024 42439-09 / / [id number] [employer] Device Clsr Perclose Prostyle Sut-Mediatd Closure-Repair Sys 80285-05 - [id number] Implanted:Qty: 1 on 02/01/2023 by Moreno Craft MD at [facility] Right: Femoral Vein [employer] 10/26/2024 24056-45 / / [id number] Procedures Procedure Name Priority Date/Time Associated Diagnosis [...] Portillo Davis M.D. CH: JENNIE Report ID: [id number] Reading Location: [place] [address] Procedure Note Portillo Davis Jr., MD - [...] Portillo Davis M.D. CH: JENNIE Report ID: [id number] Reading Location: [id number] Steve Carrillo DO IMG PET PROCEDURES Final Res ult * POCT glucose (11/19/2024 8:19 AM CDT) Pathologist [facility] Glucose, POC 103 70 - 199 mg/dL Comment:Testing performed by : [facility], [address] [place] [address]., [id number] Blood 11/19/2024 8:19 AM CDT 11/19/2024 8:19 AM CDT Steve Carrillo DO LAB POCT ORDERABLES - DEVICE Final Result [facility] [address] [facility] [place] [address] * eGFR (11/05/2024 9:45 AM [...] was last reviewed 2021. Testing performed by: [address] [address] Blood 11/05/2024 9:45 AM CDT 11/05/2024 9:47 AM CDT us Steve Carrillo DO LAB BLOOD ORDERABLES Final R esult [facility] [address] [facility] Department of Laboratories [place], [place] [id number] * Differential, auto (11/05/2024 9:45 AM CDT) Neutrophil abs 6.30 1.50 - 6.50 K/cumm Comment:Testing performed by : [address] [address] Imm gran abs 0.03 0.00 - 0.10 K/cumm [facility] Comment:Testing performed by : [address] [address] Lymphocyte abs 0.96 0.80 - 3.30 K/cumm [facility] Comment:Testing performed by : [address] [address] Monocyte abs 0.67 0.20 - 0.80 K/cumm [facility] Comment:Testing performed by : [address] [address] Eosinophil abs 0.22 0.00 - 0.50 K/cumm [facility] Comment:Testing performed by : [address] [address] Basophil abs 0.04 0.00 - 0.10 K/cumm [facility] Comment:Testing performed by : [address] [address] Neutrophil pct 76.5 % [facility] Comment: Interpretive Data Percent cell count reference ranges are not reported, since discordance with absolute values may lead to misinterpretation of CBC data. Current Interpretive Data was last revised on 2017. Testing performed by: [address] [address] Imm gran pct 0.4 % [facility] Comment: Interpretive Data Percent cell count reference ranges are not reported, since discordance with absolute values may lead to misinterpretation of CBC data. Current Interpretive Data was last revised on 2017. Testing performed by: [address] [address] Lymphocyte pct 11.7 % [facility] Comment: Interpretive Data Percent cell count reference ranges are not reported, since discordance with absolute values may lead to misinterpretation of CBC data. Current Interpretive Data was last revised on 2017. Testing performed by: [address] [address] Monocyte pct 8.2 % [facility] Comment: Interpretive Data Percent cell count reference ranges are not reported, since discordance with absolute values may lead to misinterpretation of CBC data. Current Interpretive Data was last revised on 2017. Testing performed by: [address] [address] Eosinophil pct 2.7 % [facility] Comment: Interpretive Data Percent cell count reference ranges are not reported, since discordance with absolute values may lead to misinterpretation of CBC data. Current Interpretive Data was last revised on 2017. Testing performed by: [address] [address] Basophil pct 0.5 % [facility] Comment: Interpretive Data Percent cell count reference ranges are not reported, since discordance with absolute values may lead to misinterpretation of CBC data. Current Interpretive Data was last revised on 2017. Testing performed by: [address] [address] Blood 11/05/2024 9:45 AM CDT 11/05/2024 9:47 AM CDT us Steve Carrillo DO LAB BLOOD ORDERABLES Final R esult [facility] [address] [facility] [place] [address] * (ABNORMAL) CBC with auto differential (11/05/2024 9:45 AM CDT) WBC 8.22 3.80 - 9.90 K/cumm Comment:Testing performed by : [address] [address] Hgb 13.2 13.0 - 17.5 g/dL [facility] Comment:Testing performed by : [address] [address] Hct 40.9 38.9 - 50.3 % [facility] Comment:Testing performed by : [address] [address] Plt 171 150 - 400 K/cumm [facility] Comment:Testing performed by : [address] [address] MPV 10.2 9.1 - 12.3 fL [facility] Comment:Testing performed by : [address], [address] RBC 4.67 4.30 - 5.80 M/cumm [facility] Comment:Testing performed by : [address] [address] MCV 87.6 81.3 - 96.4 fL [facility] Comment:Testing performed by : [address] [address] MCH 28.3 27.1 - 33.3 pg [facility] Comment:Testing performed by : [address] [address] MCHC 32.3 32.3 - 35.7 g/dL [facility] Comment:Testing performed by : [address] [address] RDW CV 15.2(H) 11.1 - 14.9 % [facility] Comment:Testing performed by : [address] [address] RDW SD 48.4(H) 35.7 - 48.1 fL [facility] Comment:Testing performed by : [address] [place]., [address] NRBC abs 0.00 0.00 - 0.01 K/cumm [facility] Comment:Testing performed by : [address] [address] ANC Prelim 6.30 1.50 - 6.50 K/cumm [facility] Comment: Interpretive Data The rapid ANC is a preliminary automated count and may vary from the final ANC (Neut Abs) reported in the WBC differential that follows. Current interpretive data was last revised 2024. Testing performed by: [address] [address] Blood 11/05/2024 9:45 AM CDT 11/05/2024 9:47 AM CDT Steve Mau Gerardo [facility] BLOOD ORDERABLES Final R LegalReachult Performing Organization Address [facility] de Phone Number [facility] [address] [facility] [address] [place] [address] * (ABNORMAL) CEA (11/05/2024 9:45 AM CDT) [facility] CEA 45.3(H) <=5.0 ng/mL Comment: Interpretive Data: Reference Range: Non-Smokers: 0.0 5.0 ng/mL Smokers: 0.0 6.5 ng/mL The Mya CEA assay procedure was used. Results from different manufacturers or methods may not be comparable. Serial testing should be performed using the same method. Current interpretive data was last revised 2023. Testing performed by: [address] [address] Blood 11/05/2024 9:45 AM CDT 11/05/2024 11:46 AM CDT Steve Mau Gerardo LAB BLOOD ORDERABLES Final R esult Performing Organization Address [facility] Co de Phone Number [facility] [address] [facility] [place] [address] * (ABNORMAL) Comprehensive metabolic panel (11/05/2024 9:45 AM CDT) Sodium 142 135 - 145 mmol/L Comment:Testing performed by : [address] [address] Potassium, pl 4.2 3.3 - 4.9 mmol/L [facility] Comment:Testing performed by : [address] [address] Chloride 105 97 - 110 mmol/L [facility] Comment:Testing performed by : [address], [place]., [address] CO2 28 22 - 32 mmol/L [facility] Comment:Testing performed by : [address] [address] Anion gap 9 2 - 15 mmol/L [facility] Comment:Testing performed by : [address], [place]., [address] BUN 14 6 - 25 mg/dL [facility] Comment:Testing performed by : [address], [place]., [address] Creatinine 0.80 0.80 - 1.30 mg/dL [facility] Comment:Testing performed by : [address] [address] Glucose 116 70 - 199 mg/dL [facility] Comment: Interpretive Data Fasting glucose >/= [...] was last revised 2022. Testing performed by: [address] [address] Calcium 9.6 8.5 - 10.3 mg/dL [facility] Comment:Testing performed by : [address], [place]., [address] Bilirubin, total 0.4 0.1 - 1.2 mg/dL [facility] Comment:Testing performed by : [address] [address] Protein, pl 7.1 6.5 - 8.5 g/dL [facility] Comment:Testing performed by : [address] [address] Albumin 4.1 3.5 - 5.0 g/dL [facility] Comment:Testing performed by : [address] [address] Alk phos 131(H) 40 - 130 Units/L [facility] Comment:Testing performed by : [address] [address] ALT 31 7 - 55 Units/L [facility] Comment:Testing performed by : [address] [address] AST 32 10 - 50 Units/L [facility] Comment:Testing performed by : [address] [address] Blood 11/05/2024 9:45 AM CDT 11/05/2024 9:47 AM CDT Steve Carrillo DO LAB BLOOD ORDERABLES Final R esult Performing Organization Address City/State/[facility] Co de Phone Number [facility] [address] [facility] [place] [address] * CT Chest Abdomen Pelvis W Contrast [...] Aydee Lopez M.D. FT: FT Report ID: [id number] Reading Location: [place] [address] Procedure Note Aydee Corona MD - 11/03/2024 [...] Aydee Lopez M.D. FT: FT Report ID: [id number] Reading Location: [place] [address] Steve Carrillo DO IMG CT PROCEDURES Final Resu lt * POCT creatinine for contrast evaluation (10/29/2024 9:53 AM CDT) Creatinine POC 0.90 0.80 - 1.30 mg/dL Comment:Testing performed by : [facility], [address] [place] [address]., [address] Blood 10/29/2024 9:53 AM CDT 10/29/2024 9:53 AM CDT us Steve Carrillo DO POINT OF CARE TEST ORDERABLE S Final Result [facility] [address] [place] [address] from Last 3 Months Insurance MEDICARE [facility] MEDICARE MEDICARE [facility] MEDICARE Advance Directives For more information, please contact: [phone] * Full Code (Latest Code Status on File) Date Activated Date Inactivated Comments 02/01/2023 4:41 PM 02/02/2023 5:28 PM * Full Code Date Activated Date Inactivated Comments 08/03/2020 2:06 AM 08/06/2020 7:35 PM * Full Code Date Activated Date Inactivated Comments 05/25/2020 10:47 AM 05/25/2020 7:22 PM * Full Code Date Activated Date Inactivated Comments 09/09/2019 3:20 PM 09/09/2019 9:54 PM Care Teams Industrial Millwright Relationship Specialty Start Date End Date Selena Agustin NP [address] [place] [address] [address] [place] [address] PCP - General Nurse Practitioner 11/06/24 Perez Pittman MD [address] [facility] # LL [address] [place] [address] Radiation Oncologist Radiation Oncology 06/07/20 Steve Carrillo DO [address] [place] [address] MEDICAL ONCOLOGY, [address] [place] [address] Medical Oncologist/Hematologis t Hematology and Oncology 05/02/22
--- OUTSIDE RECORDS SUMMARY | 2024-12-20 19:33 | XMS_ITS ---
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 Pt still appears clinically well however now with gram negative bacteremia, AlkP and LFTs increasing c/f true ascending cholangitis however normal bili. 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 Adenocarcinoma of esophagus 04/16/2016 Cancer Staging:Clinical stage from 03/29/2016:Stage IVB(pM1) - Signed by Kailyn Palafox NP on 06/28/2020 Assessment & Plan (08/03/2020 2:15 AM PLASTIC SURGERY NURSE): Metastatic esophageal adenocarcinoma dx 03/2016 after presenting [...] fibrillation) Assessment & Plan (08/03/2020 2:09 AM PLASTIC SURGERY NURSE): Cont dilt. Not on AC 2/2 GIB. S/p cardioversion. NSR at this time. Dysphagia Assessment & Plan (08/03/2020 2:10 AM PLASTIC SURGERY NURSE): 2/2 malignancy with improvement. Current Treatment and [...] 250 mLoxaliplatin (ELOXATIN)oxali platin (ELOXATIN) IVPB Progression Indinaa Aranda MD 38 of 40 cycles started [...]
--- OUTSIDE RECORDS SUMMARY | 2024-12-20 19:33 | XMS_ITS | Referral Summary ---
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, unspecified lymph node region (HCC); Adenocarcinoma of esophagus (HCC); Elevated CEA; Lung nodule Discharge Disposition: Discharge to home or self care 11/05/2024 9:45 AM CDT Lab [facility] at [address] [address] Adenocarcinoma of esophagus (HCC); 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, unspecified lymph node region (HCC) 11/05/2024 10:45 AM CDT Office Visit [facility] [address] [place] [phone] Steve Carrillo DO 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, unspecified lymph node region (HCC) (Primary Dx); Adenocarcinoma of esophagus (HCC); Skin lesion of left ear; Elevated CEA; Lung nodule 10/29/2024 9:32 AM CDT - 10/29/2024 11:59 PM CDT Hospital Encounter [facility] [address] [place] [address] Adenocarcinoma of esophagus (HCC); 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, unspecified lymph node region (HCC) Discharge Disposition: Discharge to home or self care 10/12/2024 Telephone [facility] [address] [place] [address] Antwan Fermin MD from Last [...] mcg/dose diskus inhaler 04/14/20 24 Active vit C,E-Hx-pyjou-lut ein-zeaxan 250-90-40-1 mg capsule Take by mouth Active vitamin Y55-xxehh acid 0.5-1 mg tablet Take by mouth [...] forward We are in agreement with driving shelter Cerebral amyloid angiopathy 09/26/2022 Chronic ischemic right DIRECTOR HAIR stroke 09/26/2022 Personal history of radiation therapy 08/23/2020 Cholangitis 08/03/2020 Assessment & Plan (08/03/2020 2:26 AM SITE MANAGER): As seen on imaging 07/30 however given clinical picture at the time attributed to immunotherapy related. Pt still appears clinically well however now with gram negative bacteremia, AlkP and LFTs increasing c/f true ascending cholangitis however normal bili. 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 Adenocarcinoma of esophagus 04/16/2016 Cancer Staging:Clinical stage from 03/29/2016:Stage IVB(pM1) - Signed by Kailyn Palafox NP on 06/28/2020 Assessment & Plan (08/03/2020 2:15 AM SITE MANAGER): Metastatic esophageal adenocarcinoma dx 03/2016 after [...] fibrillation) Assessment & Plan (08/03/2020 2:09 AM SITE MANAGER): Cont dilt. Not on AC 2/2 GIB. S/p cardioversion. NSR at this time. Dysphagia Assessment & Plan (08/03/2020 2:10 AM SITE MANAGER): 2/2 malignancy with improvement. Resolved Problems [...] on file Legal Sex Male 8:40 AM SITE MANAGER Gender Identity Not on file Sexual [...] on file Medical Devices Implanted Type Area Binder Chainstitch Device Identifier Shelf Expiration Date Model / Serial / Lot [employer] Vascade Mvp 6-12fr Venous Closure [id number] - [id number] Implanted:Qty: 1 on 02/01/2023 by Moreno Craft MD at [facility] Right: Femoral Vein [employer] 09/24/2024 [id number] / / [id number] [employer] Percutaneous Transcatheter Amplatzer Amulet 22mm [id number] - [id number] Implanted:Qty: 1 on 02/01/2023 by Moreno Craft MD at [facility] Left Atrial Appendage Occluder Left: Atrial Appendage [employer] 03/28/2027 [id number] / / [id number] [employer] Device Clsr Perclose Prostyle Sut-Mediatd Closure-Repair Sys 46168-91 - [id number] Implanted:Qty: 1 on 02/01/2023 by Moreno Craft MD at [facility] Right: Femoral Vein [employer] 10/26/2024 [id number] / / [id number] [employer] Device Clsr Perclose Prostyle Sut-Mediatd Closure-Repair Sys 37512-35 - [id number] Implanted:Qty: 1 on 02/01/2023 by Moreno Craft MD at [facility] Right: Femoral Vein [employer] 10/26/2024 [id number] / / [id number] Procedures Procedure Name Priority Date/Time Associated Diagnosis [...] Portillo Davis M.D. CH: JENNIE Report ID: [id number] Reading Location: [id number] Procedure Note Portillo Davis Jr., MD - [...] Portillo Davis M.D. CH: JENNIE Report ID: [id number] Reading Location: [id number] Steve Carrillo DO IMG PET PROCEDURES Final Res ult * POCT glucose (11/19/2024 8:19 AM CDT) [facility] Signature Glucose, POC 103 70 - 199 mg/dL Comment:Testing performed by : [facility], [address] [place] [address]., [address] Blood 11/19/2024 8:19 AM CDT 11/19/2024 8:19 AM CDT Steve Carrillo DO LAB POCT ORDERABLES - DEVICE Final Result [facility] [address] [facility] [place] [address] * eGFR (11/05/2024 9:45 AM [...] was last reviewed 2021. Testing performed by: [address] [address] Blood 11/05/2024 9:45 AM CDT 11/05/2024 9:47 AM CDT Steve Carrillo DO LAB BLOOD ORDERABLES Final R esult [facility] [address] [facility] Department [place] [address] * Differential, auto (11/05/2024 9:45 AM CDT) Neutrophil abs 6.30 1.50 - 6.50 K/cumm Comment:Testing performed by : [address] [address] Imm gran abs 0.03 0.00 - 0.10 K/cumm [facility] Comment:Testing performed by : [address] [address] Lymphocyte abs 0.96 0.80 - 3.30 K/cumm [facility] Comment:Testing performed by : [address] [address] Monocyte abs 0.67 0.20 - 0.80 K/cumm [facility] Comment:Testing performed by : [address] [address] Eosinophil abs 0.22 0.00 - 0.50 K/cumm [facility] Comment:Testing performed by : [address] [address] Basophil abs 0.04 0.00 - 0.10 K/cumm [facility] Comment:Testing performed by : [address] [address] Neutrophil pct 76.5 % [facility] Comment: Interpretive Data Percent cell count reference ranges are not reported, since discordance with absolute values may lead to misinterpretation of CBC data. Current Interpretive Data was last revised on 2017. Testing performed by: [address] [address] Imm gran pct 0.4 % [facility] Comment: Interpretive Data Percent cell count reference ranges are not reported, since discordance with absolute values may lead to misinterpretation of CBC data. Current Interpretive Data was last revised on 2017. Testing performed by: [address] [address] Lymphocyte pct 11.7 % [facility] Comment: Interpretive Data Percent cell count reference ranges are not reported, since discordance with absolute values may lead to misinterpretation of CBC data. Current Interpretive Data was last revised on 2017. Testing performed by: [address] [address] Monocyte pct 8.2 % [facility] Comment: Interpretive Data Percent cell count reference ranges are not reported, since discordance with absolute values may lead to misinterpretation of CBC data. Current Interpretive Data was last revised on 2017. Testing performed by: [address] [address] Eosinophil pct 2.7 % [facility] Comment: Interpretive Data Percent cell count reference ranges are not reported, since discordance with absolute values may lead to misinterpretation of CBC data. Current Interpretive Data was last revised on 2017. Testing performed by: [address] [address] Basophil pct 0.5 % [facility] Comment: Interpretive Data Percent cell count reference ranges are not reported, since discordance with absolute values may lead to misinterpretation of CBC data. Current Interpretive Data was last revised on 2017. Testing performed by: [address] [address] Blood 11/05/2024 9:45 AM CDT 11/05/2024 9:47 AM CDT us Steve Carrillo DO LAB BLOOD ORDERABLES Final R esult [facility] Department [place] [address] * (ABNORMAL) CBC with auto differential (11/05/2024 9:45 AM CDT) WBC 8.22 3.80 - 9.90 K/cumm Comment:Testing performed by : [address] [address] Hgb 13.2 13.0 - 17.5 g/dL [facility] Comment:Testing performed by : [address] [address] Hct 40.9 38.9 - 50.3 % [facility] Comment:Testing performed by : [address] [address] Plt 171 150 - 400 K/cumm [facility] Comment:Testing performed by : [address] [address] MPV 10.2 9.1 - 12.3 fL [facility] Comment:Testing performed by : [address] [address] RBC 4.67 4.30 - 5.80 M/cumm [facility] Comment:Testing performed by : [address] [address] MCV 87.6 81.3 - 96.4 fL [facility] Comment:Testing performed by : [address] [address] MCH 28.3 27.1 - 33.3 pg [facility] Comment:Testing performed by : [address] [address] MCHC 32.3 32.3 - 35.7 g/dL [facility] Comment:Testing performed by : [address] [address] RDW CV 15.2(H) 11.1 - 14.9 % [facility] Comment:Testing performed by : [address] [address] RDW SD 48.4(H) 35.7 - 48.1 fL [facility] Comment:Testing performed by : [address] [address] NRBC abs 0.00 0.00 - 0.01 K/cumm [facility] Comment:Testing performed by : [address] [address] ANC Prelim 6.30 1.50 - 6.50 K/cumm [facility] Comment: Interpretive Data The rapid ANC is a preliminary automated count and may vary from the final ANC (Neut Abs) reported in the WBC differential that follows. Current interpretive data was last revised 2024. Testing performed by: [address] [address] Blood 11/05/2024 9:45 AM CDT 11/05/2024 9:47 AM CDT us Steve Carrillo DO LAB BLOOD ORDERABLES Final R esult [facility] [address] [facility] Department [place] [address] * (ABNORMAL) CEA (11/05/2024 9:45 AM CDT) [facility] CEA 45.3(H) <=5.0 ng/mL Comment: Interpretive Data: Reference Range: Non-Smokers: 0.0 5.0 ng/mL Smokers: 0.0 6.5 ng/mL The Mya CEA assay procedure was used. Results from different manufacturers or methods may not be comparable. Serial testing should be performed using the same method. Current interpretive data was last revised 2023. Testing performed by: [address] [address] Blood 11/05/2024 9:45 AM CDT 11/05/2024 11:46 AM CDT Steve aCrrillo DO LAB BLOOD ORDERABLES Final R esult [facility] [address] [facility] Department [place] [address] * (ABNORMAL) Comprehensive metabolic panel (11/05/2024 9:45 AM CDT) Sodium 142 135 - 145 mmol/L Comment:Testing performed by : [address] [address] Potassium, pl 4.2 3.3 - 4.9 mmol/L [facility] Comment:Testing performed by : [address] [address] Chloride 105 97 - 110 mmol/L [facility] Comment:Testing performed by : [address] [address] CO2 28 22 - 32 mmol/L [facility] Comment:Testing performed by : [address] [address] Anion gap 9 2 - 15 mmol/L [facility] Comment:Testing performed by : [address] [address] BUN 14 6 - 25 mg/dL [facility] Comment:Testing performed by : [address] [address] Creatinine 0.80 0.80 - 1.30 mg/dL [facility] Comment:Testing performed by : [address] [address] Glucose 116 70 - 199 mg/dL LOLITA [...] was last revised 2022. Testing performed by: [address] [address] Calcium 9.6 8.5 - 10.3 mg/dL [facility] Comment:Testing performed by : [address] [address] Bilirubin, total 0.4 0.1 - 1.2 mg/dL [facility] Comment:Testing performed by : [address] [address] Protein, pl 7.1 6.5 - 8.5 g/dL [facility] Comment:Testing performed by : [address] [address] Albumin 4.1 3.5 - 5.0 g/dL [facility] Comment:Testing performed by : [address] [address] Alk phos 131(H) 40 - 130 Units/L [facility] Comment:Testing performed by : [address] [address] ALT 31 7 - 55 Units/L [facility] Comment:Testing performed by : [address] [address] AST 32 10 - 50 Units/L [facility] Comment:Testing performed by : [address] [address] Blood 11/05/2024 9:45 AM CDT 11/05/2024 9:47 AM CDT Steve Carrillo DO LAB BLOOD ORDERABLES Final R esult [facility] [address] [facility] Department [place] [address] * CT Chest Abdomen Pelvis W Contrast [...] Aydee Lopez M.D. FT: FT Report ID: [id number] Reading Location: [id number] Procedure Note Aydee Corona MD - 11/03/2024 [...] Aydee Lopez M.D. FT: FT Report ID: [id number] Reading Location: [id number] Steve Carrillo DO IMG CT PROCEDURES Final Resu lt * POCT creatinine for contrast evaluation (10/29/2024 9:53 AM CDT) Creatinine POC 0.90 0.80 - 1.30 mg/dL Comment:Testing performed by : [facility], [address] [place] [address]., [address] Blood 10/29/2024 9:53 AM CDT 10/29/2024 9:53 AM CDT Steve Carrillo DO POINT OF CARE TEST ORDERABLE S Final Result Performing Organization Address City/State/[facility] Co de Phone Number TAVONER [address] [facility] Department [place] [address] from Last 3 Months Insurance MEDICARE [facility] MEDICARE [facility] MEDICARE Advance Directives For more information, please contact: [phone] * Full Code (Latest Code Status on File) Date Activated Date Inactivated Comments 02/01/2023 4:41 PM 02/02/2023 5:28 PM * Full Code Date Activated Date Inactivated Comments 08/03/2020 2:06 AM 08/06/2020 7:35 PM * Full Code Date Activated Date Inactivated Comments 05/25/2020 10:47 AM 05/25/2020 7:22 PM * Full Code Date Activated Date Inactivated Comments 09/09/2019 3:20 PM 09/09/2019 9:54 PM Care Teams Acetone Button Paster Relationship Specialty Start Date End Date Selena Agustin NP [facility]7 [facility] [address] [place] [address] PCP - General Nurse Practitioner 11/06/24 Perez Pittman MD [address] [facility] # [address] LL [address] [place] [address] Radiation Oncologist Radiation Oncology 06/07/20 Steve Carrillo DO [address] [place] [address] MEDICAL ONCOLOGY, [facility] [address] [place] [address] Medical Oncologist/Hematologis t Hematology and Oncology 05/02/22
--- OUTSIDE RECORDS SUMMARY | 2024-12-20 19:33 | XMS_ITS | Encounter Summary ---
Author Organization [facility] Address [address] [place] [address] Phone Care Team Providers Care Farmworker Rice Name Role Phone Arash Sullivan MD Primary Care Provider [phone] Arash Sullivan MD Unavailable [phone] Mindy Falk Unavailable [phone] Dimas Weller DO Primary Care Provider [phone] Dimas Weller DO Primary Care Provider [phone] Arash Sullivan MD Unavailable [phone] Perez Pittman MD Unavailable [phone] [place] Aranda MD Unavailable [phone] Janet Floyd PLANT RELIABILITY ENGINEER Unavailable [phone] Steve Carrillo DO Unavailable [phone] No, Physician Primary Care Provider [phone] Alfonzo Nails DO Primary Care Provider + [phone] Selena Agustin NP Primary Care Provider [phone] Alfonzo Nails DO Primary Care Provider + [phone] Selena Agustin NP Primary Care Provider + [phone] Encounter Details Date Type Department Care Team [...] on file Legal Sex Male 8:40 AM TALENT ACQUISITION CONSULTANT Gender Identity Not on file Sexual Orientation [...] COVID: Suspected 08/02/2020 08/02/2020 08/02/2020 11:06 AM TALENT ACQUISITION CONSULTANT Respiratory Infection (MARIAN), contact + droplet Comment:Automatically added due to negative COVID-19 result. Patient classified as Low Risk for COVID-19 and has one negative COVID-19 test. Patient meets criteria for COVID-19 isolation discontinuation Candido Stearns RN 08/05/2020 08/02/2020 08/02/2020 08/05/2020 9:[address] documented as of this encounter Care Teams Farmworker Rice Relationship Specialty Start Date End Date Arash Sullivan MD PCP - General 10/26/16 01/15/18 Dimas Weller DO [address] [address] PCP - General Internal Medicine 03/19/18 08/05/22 Dimas Weller DO [address] [address] PCP - General 01/16/18 03/18/18 No, Physician PCP - General 08/06/22 08/14/22 Alfonzo Nails DO PCP - General Internal Medicine 08/15/22 12/03/22 Selena Agustin NP PCP - General Nurse Practitioner 12/04/22 08/21/23 Alfonzo Nails DO PCP - General Internal Medicine 08/22/23 11/05/24 Selena Agustin NP [address] [place] [address] DR LEON [address] [place] [address] PCP - General Nurse Practitioner 11/06/24 Arash Sullivan MD 10/26/16 09/22/19 Mindy Falk SLP [address] [address] Speech Language Pathologist Speech Therapy 02/17/18 11/04/24 Arash Sullivan MD Referring Physician Internal Medicine 09/23/19 09/23/19 Perez Pittman MD 49[address] [facility] # LL LL [address] [place] [address] Radiation Oncologist Radiation Oncology 06/07/20 [place] Aranda MD [address] [facility] [address] [place] [address] Medical Oncologist/Hematologis t Medical Oncology 06/28/20 02/13/22 Janet Floyd NP [address] [facility] [address] [place] [place], [place] [id number] Nurse Practitioner Medical Oncology 09/20/20 05/01/22 Steve Carrillo DO [address] [facility] MEDICAL ONCOLOGY, [facility] [address] [place] [address] Medical Oncologist/Hematologis t Hematology and Oncology 05/02/22 documented as of this encounter
--- NOTE | 2024-12-20 19:51 | ECG_ITS ---
Test Date: 2024-12-20 20:07:17 Measurements Intervals [place] Rate: 68 P: 0 TX: 0 QRS: 9 QRSD: 93 T: 51 QT: 366 QTc: 390 Interpretive Statements ATRIAL FIBRILLATION WITH PVC VS ABERRANT CONDUCTION ABNORMAL RHYTHM ECG Compared to ECG 10/17/2024 12:04:08 NO SIGNIFICANT CHANGES Electronically Signed On 12-20-2024 20:55:43 CDT by Elie Chni M.D.
[2024-12-20 19:56] VITALS: BP 129/70; PULSE 89; RESP 16; TEMP 36.8; O2SAT 96
[2024-12-20 20:06] LABS: Basophils Percent Auto 0.3 % (0.2-1.2); Eosinophils Absolute Auto 0.3 K/mm3 (0-0.3); Eosinophils Percent Auto 4.8 % (0-4.4); Hematocrit 38.2 % (42.0-52.0); Hemoglobin 12.2 g/dL (14.0-18.0); Immature Granulocyte Absolute 0.05 K/mm3 (0.00-0.031); Immature Granulocyte Percent A 0.8 % (0-0.5); Lymphocytes Absolute Auto 0.99 K/mm3 (0.9-3.2); Lymphocytes Percent Auto 16.3 % (18.3-44.2); Mean Corpuscular HGB Conc 31.9 g/dl (32-36); Mean Corpuscular Hemoglobin 28.8 pg (26-34); Mean Corpuscular Volume 90.1 fl (80-100); Mean Platelet Volume 9.5 fl (7.4-10.4); Monocytes Absolute Auto 0.4 K/mm3 (0.1-0.6); Monocytes Percent Auto 7.2 % (2.6-8.5); Neutrophils Absolute Auto 4.3 K/mm3 (1.3-6.7); Neutrophils Percent Auto 70.6 % (45.5-73.1); Platelet Count Result 264 k/mm3 (150-375); Red Blood Count 4.24 M/mm3 (4.6-6.20); Red Cell Distribution Width 14.1 % (11.5-14.5); White Blood Count 6.1 K/mm3 (4.5-10.0)
[2024-12-20 20:18] LABS: Alanine Aminotransferase 167 U/L (6-50); Albumin Level 3.7 g/dL (3.5-5.1); Alkaline Phosphatase 179 U/L (38-126); Anion Gap 10 mmol/L (4-12); Aspartate Amino Transferase 111 U/L (17-59); Bilirubin,Total 0.4 mg/dL (0.2-1.3); Blood Urea Nitrogen 10 mg/dL (9-20); Calcium 8.8 mg/dL (8.4-10.2); Carbon Dioxide 27 mmol/L (22-30); Chloride 103 mmol/L (98-107); Estimated CRCL calculation 56 ml/min; Estimated Glomerular Filt Rate > 60; Glucose 107 mg/dL (65-110); Potassium 4.2 mmol/L (3.4-5.0); Sodium 140 mmol/L (137-145)
--- OUTSIDE RECORDS SUMMARY | 2024-12-20 20:19 | XMS_ITS | Encounter Summary ---
Author Organization [facility] Address [address] [place] [address] Phone Care Team Providers Care Business Development Intern Name Role Phone Arash Sullivan MD Primary Care Provider [phone] Arash Sullivan MD Unavailable [phone] Mindy Falk Unavailable Dimas Weller DO Primary Care Provider [phone] Dimas Weller DO Primary Care Provider [phone] Arash Sullivan MD Unavailable [phone] Perez Pittman MD Unavailable [place] Aranda MD Unavailable [phone] Janet Floyd PARCEL POST DELIVERY Unavailable [phone] Steve Carrillo DO Unavailable [phone] No, Physician Primary Care Provider Alfonzo Nails DO Primary Care Provider + [phone] Selena Agustin NP Primary Care Provider + [phone] Alfonzo Nails DO Primary Care Provider + [phone] Selena Agustin NP Primary Care Provider + [phone] Encounter Details Date Type Department Care Team [...] on file Legal Sex Male 8:40 AM DROP WIRE ALINER Gender Identity Not on file Sexual Orientation [...] COVID: Suspected 08/02/2020 08/02/2020 08/02/2020 11:06 AM DROP WIRE ALINER Respiratory Infection (MARIAN), contact + droplet Comment:Automatically added due to negative COVID-19 result. Patient classified as Low Risk for COVID-19 and has one negative COVID-19 test. Patient meets criteria for COVID-19 isolation discontinuation Candido Stearns RN 08/05/2020 08/02/2020 08/02/2020 08/05/2020 9:[address] documented as of this encounter Care Teams Business Development Intern Relationship Specialty Start Date End Date Arash Sullivan MD PCP - General 10/26/16 01/15/18 Dimas Weller DO [address] [address] PCP - General Internal Medicine 03/19/18 08/05/22 Dimas Weller DO [address] [address] PCP - General 01/16/18 03/18/18 No, Physician PCP - General 08/06/22 08/14/22 Alfonzo Nails DO PCP - General Internal Medicine 08/15/22 12/03/22 Selena Agustin NP PCP - General Nurse Practitioner 12/04/22 08/21/23 Alfonzo Nails DO PCP - General Internal Medicine 08/22/23 11/05/24 Selena Agustin NP [address] [place] [address] DR LEON [address] [place] [address] PCP - General Nurse Practitioner 11/06/24 Arash Sullivan MD 10/26/16 09/22/19 Mindy Falk SLP [address] [address] Speech Language Pathologist Speech Therapy 02/17/18 11/04/24 Arash Sullivan MD Referring Physician Internal Medicine 09/23/19 09/23/19 Perez Pittman MD [address] [facility] # LL LL [address] [place] [address] Radiation Oncologist Radiation Oncology 06/07/20 [place] Aranda MD [address] [facility] [address] LL [address] [place] [address] Medical Oncologist/Hematologis t Medical Oncology 06/28/20 02/13/22 Janet Floyd NP [address] [facility] [address] [place], [place] [id number] Nurse Practitioner Medical Oncology 09/20/20 05/01/22 Steve Carrillo DO [address] [facility] MEDICAL ONCOLOGY, [facility] [address] [place] [address] Medical Oncologist/Hematologis t Hematology and Oncology 05/02/22 documented as of this encounter
--- OUTSIDE RECORDS SUMMARY | 2024-12-20 20:19 | XMS_ITS ---
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 Pt still appears clinically well however now with gram negative bacteremia, AlkP and LFTs increasing c/f true ascending cholangitis however normal bili. 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 Adenocarcinoma of esophagus 04/16/2016 Cancer Staging:Clinical stage from 03/29/2016:Stage IVB(pM1) - Signed by Kailyn Palafox NP on 06/28/2020 Assessment & Plan (08/03/2020 2:15 AM LEARNING DEVELOPMENT SPECIALIST): Metastatic esophageal adenocarcinoma dx 03/2016 after [...] fibrillation) Assessment & Plan (08/03/2020 2:09 AM LEARNING DEVELOPMENT SPECIALIST): Cont dilt. Not on AC 2/2 GIB. S/p cardioversion. NSR at this time. Dysphagia Assessment & Plan (08/03/2020 2:10 AM LEARNING DEVELOPMENT SPECIALIST): 2/2 malignancy with improvement. Current Treatment and [...]
--- OUTSIDE RECORDS SUMMARY | 2024-12-20 20:19 | XMS_ITS | Clinical Summary ---
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 Pt still appears clinically well however now with gram negative bacteremia, AlkP and LFTs increasing c/f true ascending cholangitis however normal bili. 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 Adenocarcinoma of esophagus 04/16/2016 Cancer Staging:Clinical stage from 03/29/2016:Stage IVB(pM1) - Signed by Kailyn Palafox NP on 06/28/2020 Assessment & Plan (08/03/2020 2:15 AM AIR ROUTE CONTROLLER): Metastatic esophageal adenocarcinoma dx 03/2016 after presenting [...] fibrillation) Assessment & Plan (08/03/2020 2:09 AM AIR ROUTE CONTROLLER): Cont dilt. Not on AC 2/2 GIB. S/p cardioversion. NSR at this time. Dysphagia Assessment & Plan (08/03/2020 2:10 AM AIR ROUTE CONTROLLER): 2/2 malignancy with improvement. Resolved Problems Problem Noted Date Diagnosed Date Resolved Date Overweight 08/25/2015 12/31/2023 Overview (11/08/2016): Overweight Encounters Date Type Department Care Team Description 12/15/2024 Telephone [place] [address] [place] [address] Anat Phipps RN 11/19/2024 8:04 AM CDT - 11/19/2024 11:59 PM CDT Hospital Encounter [facility] [address] [place] [address] 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, unspecified lymph node region (HCC); Adenocarcinoma of esophagus (HCC); Elevated CEA; Lung nodule Discharge Disposition: Discharge to home or self care 11/05/2024 10:45 AM CDT Office Visit [facility] Physicians [facility] On[facility] [address] [facility] [address] [place] [phone] Steve Carrillo DO 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, unspecified lymph node region (HCC) (Primary Dx); Adenocarcinoma of esophagus (HCC); Skin lesion of left ear; Elevated CEA; Lung nodule 11/05/2024 9:45 AM CDT Lab [facility] at [address] [address] Adenocarcinoma of esophagus (HCC); 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, unspecified lymph node region (HCC) 10/29/2024 9:32 AM CDT - 10/29/2024 11:59 PM CDT Hospital Encounter [facility] [address] [place] [address] Adenocarcinoma of esophagus (HCC); 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, unspecified lymph node region (HCC) Discharge Disposition: Discharge to home or self care 10/12/2024 Telephone [facility] Cardiology [address] [place] [address] Antwan Fermin MD from Last [...] on file Legal Sex Male 8:40 AM AIR ROUTE CONTROLLER Gender Identity Not on file Sexual Orientation [...] history exists Medical Devices Implanted Type Area Patternmaker Wood Device Identifier Shelf Expiration Date Model / Serial / Lot [employer] Vascade Mvp 6-12fr Venous Closure [id number] - [id number] Implanted:Qty: 1 on 02/01/2023 by Moreno Craft MD at [facility] Collagen Right: Femoral Vein [employer] 09/24/2024 [id number] / / [id number] [employer] Percutaneous Transcatheter Amplatzer Amulet 22mm [id number] - [id number] Implanted:Qty: 1 on 02/01/2023 by Moreno Craft MD at [facility] Left Atrial Appendage Occluder Left: Atrial Appendage [employer] 03/28/2027 [id number] / / [id number] [employer] Device Clsr Perclose Prostyle Sut-Mediatd Closure-Repair Sys 05867-35 - [id number] Implanted:Qty: 1 on 02/01/2023 by Moreno Craft MD at [facility] Right: Femoral Vein [employer] 10/26/2024 [id number] / / [id number] [employer] Device Clsr Perclose Prostyle Sut-Mediatd Closure-Repair Sys 60180-93 - [id number] Implanted:Qty: 1 on 02/01/2023 by Moreno Craft MD at [facility] Right: Femoral Vein [employer] 10/26/2024 [id number] / / [id number] Procedures Procedure Name Priority Date/Time Associated Diagnosis [...] Portillo Davis M.D. CH: JENNIE Report ID: [id number] Reading Location: [place] [address] Procedure Note Portillo Davis Jr., MD - [...] Portillo Davis M.D. CH: JENNIE Report ID: [id number] Reading Location: [id number] Steve Carrillo DO IMG PET PROCEDURES Final Res ult * POCT glucose (11/19/2024 8:19 AM CDT) Pathologist [facility] Glucose, POC 103 70 - 199 mg/dL Comment:Testing performed by : [facility], [address] [place] [address]., [address] Blood 11/19/2024 8:19 AM CDT 11/19/2024 8:19 AM CDT Steve Carrillo DO LAB POCT ORDERABLES - DEVICE Final Result [facility] [address] [facility] Department [place] [address] * eGFR (11/05/2024 9:45 AM [...] was last reviewed 2021. Testing performed by: [address] [address] Blood 11/05/2024 9:45 AM CDT 11/05/2024 9:47 AM CDT us Steve Carrillo DO LAB BLOOD ORDERABLES Final R esult [facility] [address] [facility] Department of Laboratories [place], [place] [id number] * Differential, auto (11/05/2024 9:45 AM CDT) Neutrophil abs 6.30 1.50 - 6.50 K/cumm Comment:Testing performed by : [address] [address] Imm gran abs 0.03 0.00 - 0.10 K/cumm LOL[facility] Comment:Testing performed by : [address] [address] Lymphocyte abs 0.96 0.80 - 3.30 K/cumm [facility] Comment:Testing performed by : [address] [address] Monocyte abs 0.67 0.20 - 0.80 K/cumm [facility] Comment:Testing performed by : [address] [address] Eosinophil abs 0.22 0.00 - 0.50 K/cumm [facility] Comment:Testing performed by : [address] [address] Basophil abs 0.04 0.00 - 0.10 K/cumm [facility] Comment:Testing performed by : [address] [address] Neutrophil pct 76.5 % [facility] Comment: Interpretive Data Percent cell count reference ranges are not reported, since discordance with absolute values may lead to misinterpretation of CBC data. Current Interpretive Data was last revised on 2017. Testing performed by: [address] [address] Imm gran pct 0.4 % [facility] Comment: Interpretive Data Percent cell count reference ranges are not reported, since discordance with absolute values may lead to misinterpretation of CBC data. Current Interpretive Data was last revised on 2017. Testing performed by: [address] [address] Lymphocyte pct 11.7 % [facility] Comment: Interpretive Data Percent cell count reference ranges are not reported, since discordance with absolute values may lead to misinterpretation of CBC data. Current Interpretive Data was last revised on 2017. Testing performed by: [address] [address] Monocyte pct 8.2 % [facility] Comment: Interpretive Data Percent cell count reference ranges are not reported, since discordance with absolute values may lead to misinterpretation of CBC data. Current Interpretive Data was last revised on 2017. Testing performed by: [address] [address] Eosinophil pct 2.7 % [facility] Comment: Interpretive Data Percent cell count reference ranges are not reported, since discordance with absolute values may lead to misinterpretation of CBC data. Current Interpretive Data was last revised on 2017. Testing performed by: [address] [address] Basophil pct 0.5 % [facility] Comment: Interpretive Data Percent cell count reference ranges are not reported, since discordance with absolute values may lead to misinterpretation of CBC data. Current Interpretive Data was last revised on 2017. Testing performed by: [address] [address] Blood 11/05/2024 9:45 AM CDT 11/05/2024 9:47 AM CDT us Steve Carrillo DO LAB BLOOD ORDERABLES Final R esult [facility] [address] [facility] Department [place] [address] * (ABNORMAL) CBC with auto differential (11/05/2024 9:45 AM CDT) WBC 8.22 3.80 - 9.90 K/cumm Comment:Testing performed by : [address] [address] Hgb 13.2 13.0 - 17.5 g/dL [facility] Comment:Testing performed by : [address] [address] Hct 40.9 38.9 - 50.3 % [facility] Comment:Testing performed by : [address] [address] Plt 171 150 - 400 K/cumm [facility] Comment:Testing performed by : [address] [address] MPV 10.2 9.1 - 12.3 fL [facility] Comment:Testing performed by : [address], [address] RBC 4.67 4.30 - 5.80 M/cumm [facility] Comment:Testing performed by : [address] [address] MCV 87.6 81.3 - 96.4 fL [facility] Comment:Testing performed by : [address] [address] MCH 28.3 27.1 - 33.3 pg [facility] Comment:Testing performed by : [address] [address] MCHC 32.3 32.3 - 35.7 g/dL [facility] Comment:Testing performed by : [address] [address] RDW CV 15.2(H) 11.1 - 14.9 % [facility] Comment:Testing performed by : [address] [address] RDW SD 48.4(H) 35.7 - 48.1 fL [facility] Comment:Testing performed by : [address] [place]., [address] NRBC abs 0.00 0.00 - 0.01 K/cumm [facility] Comment:Testing performed by : [address] [address] ANC Prelim 6.30 1.50 - 6.50 K/cumm [facility] Comment: Interpretive Data The rapid ANC is a preliminary automated count and may vary from the final ANC (Neut Abs) reported in the WBC differential that follows. Current interpretive data was last revised 2024. Testing performed by: [address] [address] Blood 11/05/2024 9:45 AM CDT 11/05/2024 9:47 AM CDT Steve Mau Gerardo Docea Power BLOOD ORDERABLES Final R NantWorksult Performing Organization Address [facility] de Phone Number [facility] [address] [facility] [employer] [place] [address] * (ABNORMAL) CEA (11/05/2024 9:45 AM CDT) [facility] CEA 45.3(H) <=5.0 ng/mL Comment: Interpretive Data: Reference Range: Non-Smokers: 0.0 5.0 ng/mL Smokers: 0.0 6.5 ng/mL The Mya CEA assay procedure was used. Results from different manufacturers or methods may not be comparable. Serial testing should be performed using the same method. Current interpretive data was last revised 2023. Testing performed by: [address] [address] Blood 11/05/2024 9:45 AM CDT 11/05/2024 11:46 AM CDT Steve Mau Gerardo LAB BLOOD ORDERABLES Final R esult Performing Organization Address [facility] Co de Phone Number [facility] [address] [facility] [employer] [place] [address] * (ABNORMAL) Comprehensive metabolic panel (11/05/2024 9:45 AM CDT) Sodium 142 135 - 145 mmol/L Comment:Testing performed by : [address] [address] Potassium, pl 4.2 3.3 - 4.9 mmol/L [facility] Comment:Testing performed by : [address] [address] Chloride 105 97 - 110 mmol/L [facility] Comment:Testing performed by : [address], [place]., [address] CO2 28 22 - 32 mmol/L [facility] Comment:Testing performed by : [address] [address] Anion gap 9 2 - 15 mmol/L [facility] Comment:Testing performed by : [address], [place]., [address] BUN 14 6 - 25 mg/dL [facility] Comment:Testing performed by : [address], [place]., [address] Creatinine 0.80 0.80 - 1.30 mg/dL [facility] Comment:Testing performed by : [address] [address] Glucose 116 70 - 199 mg/dL [facility] Comment: Interpretive Data Fasting glucose >/= 126 [...] was last revised 2022. Testing performed by: [address] [address] Calcium 9.6 8.5 - 10.3 mg/dL [facility] Comment:Testing performed by : [address], [place]., [address] Bilirubin, total 0.4 0.1 - 1.2 mg/dL [facility] Comment:Testing performed by : [address] [address] Protein, pl 7.1 6.5 - 8.5 g/dL [facility] Comment:Testing performed by : [address] [address] Albumin 4.1 3.5 - 5.0 g/dL [facility] Comment:Testing performed by : [address] [address] Alk phos 131(H) 40 - 130 Units/L [facility] Comment:Testing performed by : [address] [address] ALT 31 7 - 55 Units/L [facility] Comment:Testing performed by : [address] [address] AST 32 10 - 50 Units/L [facility] Comment:Testing performed by : [address] [address] Blood 11/05/2024 9:45 AM CDT 11/05/2024 9:47 AM CDT Steve Carrillo DO LAB BLOOD ORDERABLES Final R esult Performing Organization Address City/State/[facility] Co de Phone Number [facility] [address] [facility] Department [place] [address] * CT Chest Abdomen Pelvis W Contrast [...] Aydee Lopez M.D. FT: FT Report ID: [id number] Reading Location: [place] [address] Procedure Note Aydee Corona MD - 11/03/2024 [...] Aydee Lopez M.D. FT: FT Report ID: [id number] Reading Location: [place] [address] Steve Carrillo DO IMG CT PROCEDURES Final Resu lt * POCT creatinine for contrast evaluation (10/29/2024 9:53 AM CDT) Creatinine POC 0.90 0.80 - 1.30 mg/dL Comment:Testing performed by : [facility], [address] [place] [address]., [address] Blood 10/29/2024 9:53 AM CDT 10/29/2024 9:53 AM CDT us Steve Carrillo DO POINT OF CARE TEST ORDERABLE S Final Result [facility] [address] [place] [address] from Last 3 Months Insurance MEDICARE [employer] MEDICARE [employer]ICARE [employer] MEDICARE Advance Directives For more information, please contact: [phone] * Full Code (Latest Code Status on File) Date Activated Date Inactivated Comments 02/01/2023 4:41 PM 02/02/2023 5:28 PM * Full Code Date Activated Date Inactivated Comments 08/03/2020 2:06 AM 08/06/2020 7:35 PM * Full Code Date Activated Date Inactivated Comments 05/25/2020 10:47 AM 05/25/2020 7:22 PM * Full Code Date Activated Date Inactivated Comments 09/09/2019 3:20 PM 09/09/2019 9:54 PM Care Teams Cloak Room Attendant Relationship Specialty Start Date End Date Selena Agustin NP [address] [place] [address] [address] [place] [address] PCP - General Nurse Practitioner 11/06/24 Perez Pittman MD [address] [facility] # [address] [place] [address] Radiation Oncologist Radiation Oncology 06/07/20 Steve Carrillo DO [address] [place] [address] MEDICAL ONCOLOGY, [address] [place] [address] Medical Oncologist/Hematologis t Hematology and Oncology 05/02/22
--- OUTSIDE RECORDS SUMMARY | 2024-12-20 20:19 | XMS_ITS | Clinical Summary ---
Author Organization [facility] Address [address] [place] [address] Care Team Providers Care Bonbon Dipper Name Role Phone Arash Sullivan MD Primary Care Provider [phone] Source Comments [facility],non-owned Affiliates and Associated Physician Practices is amultiple site organization consisting of ambulatory clinics and hospital sitesin [place], [place], [place] and [place]. This disclosure is being madepursuant to the Care Everywhere program and may not contain all information available regarding this patient. Last updated 18.[facility] Allergies No known active allergies Medications * [...] patient's age to complete [place] [address] MEDICARE [employer] MANAGED MEDICARE ADV MEDICARE [employer] MANAGED MEDICARE ADV Care Teams Bonbon Dipper Relationship Specialty Start Date End Date Arash Sullivan MD [address] [place] [address] PCP - General Internal Medicine 04/04/16
--- OUTSIDE RECORDS SUMMARY | 2024-12-20 20:19 | XMS_ITS | Referral Summary ---
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, unspecified lymph node region (HCC); Adenocarcinoma of esophagus (HCC); Elevated CEA; Lung nodule Discharge Disposition: Discharge to home or self care 11/05/2024 9:45 AM CDT Lab [facility] at [address] [address] Adenocarcinoma of esophagus (HCC); 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, unspecified lymph node region (HCC) 11/05/2024 10:45 AM CDT Office Visit [facility] [address] [place] [phone] Steve Carrillo DO 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, unspecified lymph node region (HCC) (Primary Dx); Adenocarcinoma of esophagus (HCC); Skin lesion of left ear; Elevated CEA; Lung nodule 10/29/2024 9:32 AM CDT - 10/29/2024 11:59 PM CDT Hospital Encounter [facility] [address] [place] [address] Adenocarcinoma of esophagus (HCC); 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, unspecified lymph node region (HCC) Discharge Disposition: Discharge to home or self care 10/12/2024 Telephone [facility] [address] [place] [address] Antwan Fermin MD from Last [...] mcg/dose diskus inhaler 04/14/20 24 Active vit C,C-Tf-htyja-lut ein-zeaxan 250-90-40-1 mg capsule Take by mouth Active vitamin V60-znizl acid 0.5-1 mg tablet Take by mouth [...] Cerebral amyloid angiopathy 09/26/2022 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 Pt still appears clinically well however now with gram negative bacteremia, AlkP and LFTs increasing c/f true ascending cholangitis however normal bili. 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 Adenocarcinoma of esophagus 04/16/2016 Cancer Staging:Clinical stage from 03/29/2016:Stage IVB(pM1) - Signed by Kailyn Palafox NP on 06/28/2020 Assessment & Plan (08/03/2020 2:15 AM DIRECTOR SEARCH): Metastatic esophageal adenocarcinoma dx 03/2016 after presenting [...] fibrillation) Assessment & Plan (08/03/2020 2:09 AM DIRECTOR SEARCH): Cont dilt. Not on AC 2/2 GIB. S/p cardioversion. NSR at this time. Dysphagia Assessment & Plan (08/03/2020 2:10 AM DIRECTOR SEARCH): 2/2 malignancy with improvement. Resolved Problems Problem [...] on file Legal Sex Male 8:40 AM DIRECTOR SEARCH Gender Identity Not on file Sexual Orientation [...] on file Medical Devices Implanted Type Area White Sidewall Tire Buffer Device Identifier Shelf Expiration Date Model / Serial / Lot [employer] Vascade Mvp 6-12fr Venous Closure [id number] - [id number] Implanted:Qty: 1 on 02/01/2023 by Moreno Craft MD at [facility] Right: Femoral Vein [employer] 09/24/2024 [id number] / / [id number] [employer] Percutaneous Transcatheter Amplatzer Amulet 22mm [id number] - [id number] Implanted:Qty: 1 on 02/01/2023 by Moreno Craft MD at [facility] Left Atrial Appendage Occluder Left: Atrial Appendage [employer] 03/28/2027 [id number] / / [id number] [employer] Device Clsr Perclose Prostyle Sut-Mediatd Closure-Repair Sys [id number] - [id number] Implanted:Qty: 1 on 02/01/2023 by Moreno Craft MD at [facility] Right: Femoral Vein [employer] 10/26/2024 [id number] / / [id number] [employer] Device Clsr Perclose Prostyle Sut-Mediatd Closure-Repair Sys 51224-12 - [id number] Implanted:Qty: 1 on 02/01/2023 by Moreno Craft MD at [facility] Right: Femoral Vein [employer] 10/26/2024 [id number] / / [id number] Procedures Procedure Name Priority Date/Time Associated Diagnosis [...] Portillo Davis M.D. CH: JENNIE Report ID: [id number] Reading Location: [id number] Procedure Note Portillo Davis Jr., MD - [...] Portillo Davis M.D. CH: JENNIE Report ID: [id number] Reading Location: [id number] Steve Carrillo DO IMG PET PROCEDURES Final Res ult * POCT glucose (11/19/2024 8:19 AM CDT) [facility] Signature Glucose, POC 103 70 - 199 mg/dL Comment:Testing performed by : [facility], [address] [place] [address]., [address] Blood 11/19/2024 8:19 AM CDT 11/19/2024 8:19 AM CDT Steve Carrillo DO LAB POCT ORDERABLES - DEVICE Final Result [facility] [address] [facility] Department [place] [address] * eGFR (11/05/2024 9:45 AM [...] was last reviewed 2021. Testing performed by: [address] [address] Blood 11/05/2024 9:45 AM CDT 11/05/2024 9:47 AM CDT Steve Carrillo DO LAB BLOOD ORDERABLES Final R esult [facility] [address] [facility] Department [place] [address] * Differential, auto (11/05/2024 9:45 AM CDT) Neutrophil abs 6.30 1.50 - 6.50 K/cumm Comment:Testing performed by : [address] [address] Imm gran abs 0.03 0.00 - 0.10 K/cumm [facility] Comment:Testing performed by : [address] [address] Lymphocyte abs 0.96 0.80 - 3.30 K/cumm [facility] Comment:Testing performed by : [address] [address] Monocyte abs 0.67 0.20 - 0.80 K/cumm [facility] Comment:Testing performed by : [address] [address] Eosinophil abs 0.22 0.00 - 0.50 K/cumm [facility] Comment:Testing performed by : [address] [address] Basophil abs 0.04 0.00 - 0.10 K/cumm [facility] Comment:Testing performed by : [address] [address] Neutrophil pct 76.5 % [facility] Comment: Interpretive Data Percent cell count reference ranges are not reported, since discordance with absolute values may lead to misinterpretation of CBC data. Current Interpretive Data was last revised on 2017. Testing performed by: [address] [address] Imm gran pct 0.4 % [facility] Comment: Interpretive Data Percent cell count reference ranges are not reported, since discordance with absolute values may lead to misinterpretation of CBC data. Current Interpretive Data was last revised on 2017. Testing performed by: [address] [address] Lymphocyte pct 11.7 % [facility] Comment: Interpretive Data Percent cell count reference ranges are not reported, since discordance with absolute values may lead to misinterpretation of CBC data. Current Interpretive Data was last revised on 2017. Testing performed by: [address] [address] Monocyte pct 8.2 % [facility] Comment: Interpretive Data Percent cell count reference ranges are not reported, since discordance with absolute values may lead to misinterpretation of CBC data. Current Interpretive Data was last revised on 2017. Testing performed by: [address] [address] Eosinophil pct 2.7 % [facility] Comment: Interpretive Data Percent cell count reference ranges are not reported, since discordance with absolute values may lead to misinterpretation of CBC data. Current Interpretive Data was last revised on 2017. Testing performed by: [address] [address] Basophil pct 0.5 % [facility] Comment: Interpretive Data Percent cell count reference ranges are not reported, since discordance with absolute values may lead to misinterpretation of CBC data. Current Interpretive Data was last revised on 2017. Testing performed by: [address] [address] Blood 11/05/2024 9:45 AM CDT 11/05/2024 9:47 AM CDT us Steve Carrillo DO LAB BLOOD ORDERABLES Final R esult [facility] Department [place] [address] * (ABNORMAL) CBC with auto differential (11/05/2024 9:45 AM CDT) WBC 8.22 3.80 - 9.90 K/cumm Comment:Testing performed by : [address] [address] Hgb 13.2 13.0 - 17.5 g/dL [facility] Comment:Testing performed by : [address] [address] Hct 40.9 38.9 - 50.3 % [facility] Comment:Testing performed by : [address] [address] Plt 171 150 - 400 K/cumm [facility] Comment:Testing performed by : [address] [address] MPV 10.2 9.1 - 12.3 fL [facility] Comment:Testing performed by : [address] [address] RBC 4.67 4.30 - 5.80 M/cumm [facility] Comment:Testing performed by : [address] [address] MCV 87.6 81.3 - 96.4 fL [facility] Comment:Testing performed by : [address] [address] MCH 28.3 27.1 - 33.3 pg [facility] Comment:Testing performed by : [address] [address] MCHC 32.3 32.3 - 35.7 g/dL [facility] Comment:Testing performed by : [address] [address] RDW CV 15.2(H) 11.1 - 14.9 % [facility] Comment:Testing performed by : [address] [address] RDW SD 48.4(H) 35.7 - 48.1 fL [facility] Comment:Testing performed by : [address] [address] NRBC abs 0.00 0.00 - 0.01 K/cumm [facility] Comment:Testing performed by : [address] [address] ANC Prelim 6.30 1.50 - 6.50 K/cumm [facility] Comment: Interpretive Data The rapid ANC is a preliminary automated count and may vary from the final ANC (Neut Abs) reported in the WBC differential that follows. Current interpretive data was last revised 2024. Testing performed by: [address] [address] Blood 11/05/2024 9:45 AM CDT 11/05/2024 9:47 AM CDT us Steve Carrillo DO LAB BLOOD ORDERABLES Final R esult [facility] [address] [facility] Department [place] [address] * (ABNORMAL) CEA (11/05/2024 9:45 AM CDT) [facility] CEA 45.3(H) <=5.0 ng/mL Comment: Interpretive Data: Reference Range: Non-Smokers: 0.0 5.0 ng/mL Smokers: 0.0 6.5 ng/mL The Mya CEA assay procedure was used. Results from different manufacturers or methods may not be comparable. Serial testing should be performed using the same method. Current interpretive data was last revised 2023. Testing performed by: [address] [address] Blood 11/05/2024 9:45 AM CDT 11/05/2024 11:46 AM CDT Steve Carrillo DO LAB BLOOD ORDERABLES Final R esult [facility] [address] [facility] Department [place] [address] * (ABNORMAL) Comprehensive metabolic panel (11/05/2024 9:45 AM CDT) Sodium 142 135 - 145 mmol/L Comment:Testing performed by : [address] [address] Potassium, pl 4.2 3.3 - 4.9 mmol/L [facility] Comment:Testing performed by : [address] [address] Chloride 105 97 - 110 mmol/L [facility] Comment:Testing performed by : [address] [address] CO2 28 22 - 32 mmol/L [facility] Comment:Testing performed by : [address] [address] Anion gap 9 2 - 15 mmol/L [facility] Comment:Testing performed by : [address] [address] BUN 14 6 - 25 mg/dL [facility] Comment:Testing performed by : [address] [address] Creatinine 0.80 0.80 - 1.30 mg/dL [facility] Comment:Testing performed by : [address] [address] Glucose 116 70 - 199 mg/dL [facility] [...] was last revised 2022. Testing performed by: [address] [address] Calcium 9.6 8.5 - 10.3 mg/dL [facility] Comment:Testing performed by : [address] [address] Bilirubin, total 0.4 0.1 - 1.2 mg/dL [facility] Comment:Testing performed by : [address] [address] Protein, pl 7.1 6.5 - 8.5 g/dL [facility] Comment:Testing performed by : [address] [address] Albumin 4.1 3.5 - 5.0 g/dL [facility] Comment:Testing performed by : [address] [address] Alk phos 131(H) 40 - 130 Units/L [facility] Comment:Testing performed by : [address] [address] ALT 31 7 - 55 Units/L [facility] Comment:Testing performed by : [address] [address] AST 32 10 - 50 Units/L [facility] Comment:Testing performed by : [address] [address] Blood 11/05/2024 9:45 AM CDT 11/05/2024 9:47 AM CDT Steve Carrillo DO LAB BLOOD ORDERABLES Final R esult [facility] [address] [facility] Department [place] [address] * CT Chest Abdomen Pelvis W Contrast [...] Aydee Lopez M.D. FT: FT Report ID: [id number] Reading Location: [id number] Procedure Note Aydee Corona MD - 11/03/2024 [...] Aydee Lopez M.D. FT: FT Report ID: [id number] Reading Location: [id number] Steve Carrillo DO IMG CT PROCEDURES Final Resu lt * POCT creatinine for contrast evaluation (10/29/2024 9:53 AM CDT) Creatinine POC 0.90 0.80 - 1.30 mg/dL Comment:Testing performed by : [facility], [address] [place] [address]., [address] Blood 10/29/2024 9:53 AM CDT 10/29/2024 9:53 AM CDT Steve Carrillo DO POINT OF CARE TEST ORDERABLE S Final Result Performing Organization Address City/State/[facility] Co de Phone Number [facility] [address] [facility] [place] [address] from Last 3 Months Insurance MEDICARE [facility] MEDICARE [facility] MEDICARE Advance Directives For more information, please contact: [phone] * Full Code (Latest Code Status on File) Date Activated Date Inactivated Comments 02/01/2023 4:41 PM 02/02/2023 5:28 PM * Full Code Date Activated Date Inactivated Comments 08/03/2020 2:06 AM 08/06/2020 7:35 PM * Full Code Date Activated Date Inactivated Comments 05/25/2020 10:47 AM 05/25/2020 7:22 PM * Full Code Date Activated Date Inactivated Comments 09/09/2019 3:20 PM 09/09/2019 9:54 PM Care Teams Unit Receptionist Relationship Specialty Start Date End Date Selena Agustin NP [facility] [address] [place] [address] PCP - General Nurse Practitioner 11/06/24 Perez Pittman MD [address] [facility] [address] [place] [address] Radiation Oncologist Radiation Oncology 06/07/20 Steve Carrillo DO [address] [place] [address] MEDICAL ONCOLOGY, [facility] [address] [place] [address] Medical Oncologist/Hematologis t Hematology and Oncology 05/02/22
[2024-12-20 22:52] LABS: Add Urine Microscopic? NO; Appearance Urine Clear (Clear); Bilirubin Urine Negative (Negative); Blood Urine Negative (Negative); Color Urine Yellow (Yellow); Glucose Urine UA Negative (Negative); Ketones Urine Negative (Negative); Leukocyte Esterase Ur Negative LEU/UL (Negative); Nitrate Urine Negative (Negative); Protein Urine Negative (Negative); Specific Grav Ur 1.007 (1.001-1.035)
--- NOTE | 2024-12-20 22:58 | ED_ITS ---
HPI - Weakness General Chief complaint: Weakness Stated complaint: diarrhea, lerthergic Time Seen by Provider: 12/20/24 19:58 Source: patient and family () Limitations: no limitations History of Present Illness HPI Narrative: Patient presents with report of feeling more lethargic and with generalized weakness. He was having leg pain earlier. He has had diarrhea, stool that just oozes. Non bloody. No shortness of breath currently although he was recently diagnosed with lower lobe pneumonia at his PCP office and presribed antbiotics (Augmentin and azithromycin); has taken for 3-4 days. Poor appetite 3-4 weeks. Has been trying to drink water with electrolytes. No abdominal pain, chest pain. Has had a cough. It was dry but has been having nasal congestion. Going through multiple hankerchiefs a day. Not on anticoagulation. No fevers, chronically chilled. Last oral intake was breakfast followed by a small piece of birthday cake. Previous esophageal cancer who underwent treatment 5 years (initially given very poor/guarded prognosis), 3 years remission. Related Data Home Medications ?Medication ?Instructions ?Recorded ?Confirmed ?Last Taken ?Type aspirin 81 mg tablet,delayed 81 mg PO DAILY 04/11/23 12/17/24 05/08/23 History release mecobalamin (vitamin B12) 500 mcg mcg PO 06/18/24 12/17/24 Unknown History chewable tablet diltiazem HCl 120 mg 120 mg PO DAILY 06/23/24 12/17/24 Unknown History capsule,extended release 24 hr vit C 226 mg-vit E 90 mg-copper cap PO 06/23/24 12/17/24 Unknown History 0.8 mg-zinc oxide-lutein 5 mg capsule (PreserVision Lutein) galantamine 16 mg 24 hr mg PO 10/17/24 12/17/24 Unknown History capsule,extended release Allergies Allergy/AdvReac Type Severity Reaction Status Date / Time cat dander Allergy Unknown Wheezing Verified 12/17/24 10:40 [facility] Past Medical History Medical History (Updated 12/22/24 @ 20:36 by Janine Dowell MD) Pneumonia Dx November 2024 SAH (subarachnoid hemorrhage) Due to fall injury with LOC Emphysema of lung Asbestos exposure Nocturnal hypoxemia COPD (chronic obstructive pulmonary disease) Hx of stroke without residual deficits Per brain MRI from 03/19 Esophageal cancer (Unknown) Metastatic esophageal adenocarcinoma diagnosed in March 2016. Status post chemoradiation. Followed by Dr. Rosenbaum at [place]. Coronary artery disease Cardiac catheterization on 07/06/2019 showed significantly calcified coronary arteries with 100% occlusion of the diagonal branch of the LAD as well as apical terminal portion of the LAD itself with preserved left ventricular systolic function. No angiographic opportunities for revascularization. 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 Residual numbness from the left buttock to toes. 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 Chronic atrial fibrillation History of cardioversion. Not currently on anticoagulation. Arthritis Anxiety Lumbar degenerative disc disease Neuromuscular disease Hypertension Hyperlipidemia Surgical History Surgical History History of colonoscopy with polypectomy History of back surgery Lumbar surgery x2. Family History Family History Sibling Patient's brother is in good health Family history of malignant neoplasm of uterus Mother Patient's mother is Cerebral aneurysm Father Venous thromboembolism Other Coronary artery disease Social History Social History Social History: Surrogate decision maker: Gabbie Cohen, . Code status: Full code. Caffeine- coffee/soda Smoking packs per day: 3.5 Smoking cigarettes per day: 70.0 Years smoked: 24 Smoking pack-years: 84.00 Smoking status: Former smoker Tobacco type: cigarettes Second hand tobacco smoke exposure: No Smoking end date: 07/29/72 Alcohol intake: current Alcohol use details: twice monthly Substance use: never Substance use type: does not use Lack of Transportation: No Lack of Food: Never True Current Housing: Decline to Answer Concerned About Future Housing: Decline to Answer Difficulty Paying Gas/Electric Bills: Decline to Answer Difficulty Paying for Meds: Decline to Answer Currently Unemployed: Decline to Answer Education: Decline to Answer Difficulty w/ Childcare or Family Care: Decline to Answer Living arrangements: with family Additional living arrangements comments: The patient lives in [place] with his . 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 Gender identity (if verbalized by the patient): Male Spiritual care concerns: No Exam 2 Narrative: GENERAL: Well-appearing, well-nourished, and in no acute distress. Appears younger than stated age HEAD: Normocephalic, atraumatic. EYES: Non injected, non icteric ENT: Nares clear, no rhinorrhea or epistaxis. Gross auditory acuity intact. NECK: Supple. No meningismus. CHEST: Speaking in full sentences. No respiratory distress. HEART: Regular rate and rhythm. . ABDOMEN: Soft, nondistended. No rigidity or guarding. Not peritoneal EXTREMITIES: Normal range of motion. No lower extremity edema. SKIN: Warm, dry, no rash. NEURO: No focal deficits. Alert and oriented. Answering questions. Following commands. Normal speech without aphasia or dysarthria. PSYCH: Normal mood and affect. Course Vital Signs Vital signs: Vital Signs Temperature 98.2 F 12/20/24 19:56 Pulse Rate 89 12/20/24 19:56 Respiratory Rate 16 12/20/24 19:56 Blood Pressure 129/70 12/20/24 19:56 Pulse Oximetry 96 12/20/24 19:56 Oxygen Delivery Room Air 12/20/24 19:56 Temperature 98.4 F 12/21/24 02:52 Pulse Rate 88 12/21/24 02:52 Respiratory Rate 17 12/21/24 02:52 Blood Pressure 132/76 12/21/24 02:52 Pulse Oximetry 97 12/21/24 02:52 Oxygen Delivery Room Air 12/20/24 19:56 MDM - Weakness MDM Narrative Medical decision making narrative: Patient presents with report of generalized weakness, increased lethargy, and diarrhea. Recently diagnosed with PNA by PCP and placed on antibiotics. In the emergency department they are afebrile with vital signs within normal limits. Normocytic anemia, stable from previous. Urinalysis unremarkable. He is in rate controlled atrial fibrillation. He has a history of atrial fibrillation per review of the past medical history though not on anticoagulation per EMR and per patient. Suspect conversation has been had regarding risk/benefit (CHADSVASC versus HASBLED) Normal renal function. Patient has transaminitis. This was seen 3 days ago on labs but otherwise has been relatively normal prior to that. Patient is noted to be frustrated at approximately 1:00 a.m. he is having to wait. I did go to bedside and discuss what we are waiting for but that he would have capacity to leave if he desired. Extensive discussion about the process; he and his verify understanding and are willing to stay. TSH had been abnormal but normal T3/T4, subclinical hypothyroidism. Imaging as below. Pneumonia remains apparent but no reason to suspect patient failing outpatient therapy. CURB score 65 = 1 for age. Patient feels comfortable with discharge home and returning if new/worsening/unmanaged symptoms. Advised continuing /finishing antibiotic therapy (if only able to take one, recommended azithromycin ; but had been prescribed Augmentin as well). Vital signs have remained stable. Discussed probiotic use after finishing antibiotics. Urged to continue hydrating and can take eletrolytes. Presribed Zofran. Differential Diagnosis Differential diagnosis: Likely acute myocardial infarction, anemia, hypoglycemia, hypothyroidism, rhabdomyolysis, sepsis, dehydration and other (electrolyte abnormalities; drug induced diarrhea; C diff; sequelae of recent PNA diagnosis) Lab Data Attestation: I reviewed the patient's lab results. 12/20/24 19:53 12/20/24 19:53 Labs: Lab Results 12/20/24 12/20/24 12/21/24 Range/Units 19:53 22:45 00:55 WBC 6.1 (4.5-10.0) K/mm3 RBC 4.24 L (4.6-6.20) M/mm3 Hgb 12.2 L (14.0-18.0) g/dL Hct 38.2 L (42.0-52.0) % MCV 90.1 (80-100) fl MCH 28.8 (26-34) pg MCHC 31.9 L (32-36) g/dl RDW 14.1 (11.5-14.5) % Plt Count 264 (150-375) k/mm3 MPV 9.5 (7.4-10.4) fl Immature Gran % (Auto) 0.8 H (0-0.5) % Neut % (Auto) 70.6 (45.5-73.1) % Lymph % (Auto) 16.3 L (18.3-44.2) % Dickinson % (Auto) 7.2 (2.6-8.5) % Eos % (Auto) 4.8 H (0-4.4) % Baso % (Auto) 0.3 (0.2-1.2) % Lymph # (Auto) 0.99 (0.9-3.2) K/mm3 Dickinson # (Auto) 0.4 (0.1-0.6) K/mm3 Eos # (Auto) 0.3 (0-0.3) K/mm3 Baso # (Auto) 0.0 (0.0-0.1) K/mm3 Abs Immat Gran (auto) 0.05 H (0.00-0.031) K/mm3 Absolute Neuts (auto) 4.3 (1.3-6.7) K/mm3 Absolute Nucleated RBC 0.000 (0.0-0.012) K/mm3 Nucleated RBC % 0.0 (0.0-0.2) % Sodium 140 (137-145) mmol/L Potassium 4.2 (3.4-5.0) mmol/L Chloride 103 (98-107) mmol/L Carbon Dioxide 27 (22-30) mmol/L Anion Gap 10 (4-12) mmol/L BUN 10 D (9-20) mg/dL Creatinine 0.74 (0.7-1.3) mg/dL Estim Creat Clear Calc 56 ml/min Estimated GFR > 60 (59 - ) Glucose 107 (65-110) mg/dL Calcium 8.8 (8.4-10.2) mg/dL Magnesium 2.4 H (1.6-2.3) mg/dL Total Bilirubin 0.4 (0.2-1.3) mg/dL AST 111 H (17-59) U/L ALT 167 H (6-50) U/L Alkaline Phosphatase 179 H (38-126) U/L Total Creatine Kinase 106 (55-170) U/L Troponin I < 0.012 (0.000-0.034) ng/mL Total Protein 7.0 (6.3-8.2) g/dL Albumin 3.7 (3.5-5.1) g/dL Lipase 223 (23-300) U/L TSH 4.740 H (0.465-4.680) uIU/mL Free T4 1.30 (0.78-2.19) ng/dL Total T3 1.05 (0.82-1.58) NG/ML Urine Color Yellow (Yellow) Urine Appearance Clear (Clear) Urine pH 7.0 (5.0-9.0) Ur Specific [place] 1.007 (1.001-1.035) Urine Protein Negative (Negative) mg/dL Urine Glucose (UA) Negative (Negative) mg/dL Urine Ketones Negative (Negative) mg/dL Ur Blood (Man) Negative (Negative) Urine Nitrate Negative (Negative) Urine Bilirubin Negative (Negative) Urine Urobilinogen 1.0 (<2.0) mg/dL Leukocyte Esterase Rfl Negative (Negative) TIM/UL Influenza A (RT-PCR) Negative (Negative) Influenza B (RT-PCR) Negative (Negative) RSV (RT-PCR) Negative (Negative) SARS-CoV-2 RNA (RT-PCR) Negative (Negative) Imaging Data Radiologist's impression: CTA Stat Rad Chest Abd Pelvis: Mild centrilobular emphysema. Small left pleural effusion. Airspace consolidation at the lung bases, consistent with multi lobar pneumonia. No traumatic visceral injury. No acute fractures. ECG Data EKG #1: Attestation: I personally reviewed and interpreted this ECG as follows: ECG completion date: 12/20/24 ECG completion time: 20:07 Interpretation: Atrial fibrillation at a rate of 60 beats per minute. QRS 93. QT/QTC 360/6/383. Incomplete RBBB given QRS less [id number]; RSR' M-shaped pattern in V1-V3; wide, slurred S wave in lateral leads (I, aVL, V5-6) Discharge Plan Discharge Clinical Impression: Left lower lobe pneumonia, Normocytic anemia, Rate controlled atrial fibrillation, Transaminitis, Subclinical hypothyroidism, Pleural effusion on left Patient Disposition: Home Condition: Stable Instructions: Antibiotic Form, A-fib (Atrial Fibrillation) (ED), Pleural Effusion (DC), Subclinical Hypothyroidism (ED), Anemia (ED), Pneumonia (ED), Transaminitis (ED) Additional Instructions: As we discussed, you are likely continue to be weak and intermittently short of breath from your pneumonia. The GI symptoms you are experiencing might be due to the medication you are taking. It is recommended that you still take the antibiotic(s). If needed, you can use the oral disintegrating tablets of ondansetron to help suppress that nausea and vomiting feeling and, after completing her antibiotic therapy, you can trial probiotic/yogurt to replete some of the good bacteria in your GI tract. Follow-up with primary care physician. Do not hesitate to return to the emergency department with any new worsening or unmanaged symptoms Patient Language: Swazi Prescriptions: New ondansetron 4 mg tablet,disintegrating 4 mg PO Q8H PRN (Reason: nausea and vomiting) Qty: 7 0RF No Action galantamine 16 mg capsule,ext rel. pellets 24 hr PO diltiazem HCl 120 mg capsule,extended release 24hr 120 mg PO DAILY PreserVision Lutein 226-90-0.8-5 mg capsule PO aspirin 81 mg tablet,delayed release (DR/EC) 81 mg PO DAILY mecobalamin (vitamin B12) 500 mcg tablet,chewable PO albuterol sulfate 90 mcg/actuation HFA aerosol inhaler 2 puff INHALATION Q4H PRN (Reason: Wheezing) Qty: 18 4RF fluticasone furoate-vilanterol [Breo Ellipta] 100-25 mcg/dose blister with device 1 inh inhalation Q24H 30 Days Qty: 60 11RF Rx Instructions: Rinse and spit fluticasone propionate [Flonase Allergy Relief] 50 mcg/actuation spray,suspension 2 spray intranasal DAILY Qty: 48 1RF Rx Instructions: administer into each nostril atorvastatin 10 mg tablet See Rx Instructions .ROUTE .COMPLEX Qty: 90 3RF Dose Instruction: TAKE 1 TABLET BY MOUTH DAILY AT BEDTIME Rx Instructions: TAKE 1 TABLET BY MOUTH DAILY AT BEDTIME gabapentin 300 mg capsule See Rx Instructions .ROUTE .COMPLEX Qty: 360 1RF Dose Instruction: TAKE 2 CAPSULES BY MOUTH TWICE DAILY Rx Instructions: TAKE 2 CAPSULES BY MOUTH TWICE DAILY azithromycin 250 mg tablet See Rx Instructions PO .COMPLEX Qty: 6 0RF Rx Instructions: take 500 mg today (day 1), then 250 mg for 4 days (days 2-5) PO amoxicillin-pot clavulanate 875-125 mg tablet 1 tablet PO Q12H Qty: 14 0RF Follow-up/Referrals: Mariama Holland, [facility] [Primary Care Provider] - Time of Disposition: 02:25
[2024-12-20 23:07] VITALS: PULSE 87
[2024-12-20 23:08] LABS: Magnesium 2.4 mg/dL (1.6-2.3)
[2024-12-20 23:34] LABS: Troponin I < 0.012 ng/mL (0.000-0.034)
[2024-12-20 23:47] VITALS: BP 129/81; PULSE 94; RESP 22; O2SAT 98
[2024-12-20 23:48] LABS: Lipase 223 U/L (23-300)
[2024-12-20 23:55] LABS: Creatine Kinase 106 U/L (55-170)
[2024-12-21 01:28] LABS: Total Triiodothyronine (T3) 1.05 NG/ML (0.82-1.58)
[2024-12-21 01:49] LABS: Influenza A QL RT-PCR Negative (Negative); Influenza B QL RT-PCR Negative (Negative); RSV RNA, RT-PCR Negative (Negative); SARS-CoV-2 RNA PCR Negative (Negative)
[2024-12-21 02:46] VITALS: BP 132/76; PULSE 88; RESP 17; O2SAT 97
[2024-12-21 02:52] VITALS: BP 132/76; PULSE 88; RESP 17; TEMP 36.9; O2SAT 97
== END 2024-12-21 02:56 | disposition home or self-care (01) ==
PROVIDERS: Emergency Provider Student in an Organized Health Care Education/Training Program; PCP Clinical Nurse Specialist
DX: J18.9 Pneumonia, unspecified organism (principal); D64.9 Anemia, unspecified; I48.91 Unspecified atrial fibrillation; R74.01 Elevation of levels of liver transaminase levels; E03.9 Hypothyroidism, unspecified; J90 Pleural effusion, not elsewhere classified
CPT/HCPCS: 36415; 71046; 71275; 74177; 80053; 81003; 82550; 83690; 83735; 84439; 84443; 84480; 84484; 85025; 87040; 87637; 93005; 99284; Q9967

== ENCOUNTER 2025-01-19 07:56 | Outpatient (CLI) | payer MEDICARE, SELFPAY ==
[2025-01-19 08:45] LABS: Basophils Absolute Auto 0.1 K/mm3 (0.0-0.1); Basophils Percent Auto 0.8 % (0.2-1.2); Eosinophils Absolute Auto 0.5 K/mm3 (0-0.3); Eosinophils Percent Auto 7.3 % (0-4.4); Hematocrit 45.1 % (42.0-52.0); Hemoglobin 14.4 g/dL (14.0-18.0); Immature Granulocyte Absolute 0.03 K/mm3 (0.00-0.031); Immature Granulocyte Percent A 0.5 % (0-0.5); Lymphocytes Percent Auto 16.2 % (18.3-44.2); Mean Corpuscular HGB Conc 31.9 g/dl (32-36); Mean Corpuscular Volume 90.9 fl (80-100); Mean Platelet Volume 10.2 fl (7.4-10.4); Monocytes Absolute Auto 0.6 K/mm3 (0.1-0.6); Monocytes Percent Auto 9.6 % (2.6-8.5); Neutrophils Absolute Auto 4.1 K/mm3 (1.3-6.7); Neutrophils Percent Auto 65.6 % (45.5-73.1); Platelet Count Result 159 k/mm3 (150-375); Red Blood Count 4.96 M/mm3 (4.6-6.20); Red Cell Distribution Width 14.4 % (11.5-14.5); White Blood Count 6.2 K/mm3 (4.5-10.0)
[2025-01-19 09:10] LABS: Alanine Aminotransferase 30 U/L (6-50); Albumin Level 4.2 g/dL (3.5-5.1); Alkaline Phosphatase 104 U/L (38-126); Anion Gap 9 mmol/L (4-12); Aspartate Amino Transferase 50 U/L (17-59); Bilirubin,Total 0.7 mg/dL (0.2-1.3); Blood Urea Nitrogen 15 mg/dL (9-20); Calcium 9.6 mg/dL (8.4-10.2); Carbon Dioxide 26 mmol/L (22-30); Chloride 106 mmol/L (98-107); Cholesterol 134 mg/dL (0-200); Estimated Glomerular Filt Rate > 60; Glucose 103 mg/dL (65-110); HDL Direct 47 mg/dL; Potassium 4.1 mmol/L (3.4-5.0); Sodium 141 mmol/L (137-145); Total Protein 7.9 g/dL (6.3-8.2); Triglycerides 56 mg/dL (<150)
[2025-01-19 09:21] LABS: LDL Cholesterol Direct 64 mg/dL
== END 2025-01-19 07:57 | disposition home or self-care (01) ==
PROVIDERS: PCP Nurse Practitioner; Visit Provider Nurse Practitioner
DX: I10 Essential (primary) hypertension (principal); I25.10 Atherosclerotic heart disease of native coronary artery without angina pectoris; E78.2 Mixed hyperlipidemia; Z13.29 Encounter for screening for other suspected endocrine disorder
CPT/HCPCS: 36415; 80053; 80061; 85025